=== PATIENT | female | born 1965 | race Caucasian/White ===

== ENCOUNTER 2019-10-09 10:21 | Outpatient (CLI) | payer MEDICARE, SELFPAY ==
--- NOTE | ~2019-10-09 | MR_ITS ---
EXAMINATION: MR lumbar spine wo con DATE: 10/09/2019 11:22 INDICATION: Lumbago. TECHNIQUE: Magnetic resonance imaging (MRI) of the lumbar spine was performed without intravenous con trast. Sequences included sagittal T2-weighted FSE, sagittal T2-weighted FS FSE, sagittal T1-weighted FSE, and axial T2-weighted FSE. COMPARISON: Lumbar spine MRI 09/30/2017, radiographs 02/17/2015 FINDINGS: Bone alignment is normal. There is mild chronic anterior wedging of T12 vertebral body. Int ervertebral disc heights are normal. The distal spinal cord signal intensity is normal. The conus med ullaris is at T12-L1. The following disc levels are specifically discussed: L1-L2: The disc does not extend beyond the endplate margin. There is mild left facet joint osteoarthr itis. There is no neural foraminal stenosis. There is no central canal stenosis. L2-L3: The disc does not extend beyond the endplate margin. There is no facet joint osteoarthritis. T here is no neural foraminal stenosis. There is no central canal stenosis. L3-L4: The disc does not extend beyond the endplate margin. There is mild bilateral facet joint osteo arthritis. There is no neural foraminal stenosis. There is no central canal stenosis. L4-L5: The disc does not extend beyond the endplate margin. There is mild bilateral facet joint osteo arthritis. There is no neural foraminal stenosis. There is no central canal stenosis. L5-S1: The disc does not extend beyond the endplate margin. There is mild bilateral facet joint osteo arthritis. There is no neural foraminal stenosis. There is no central canal stenosis. IMPRESSION: 1. Multilevel mild facet joint osteoarthritis. Reviewed, dictated and finalized at location A.
== END 2019-10-09 10:22 | disposition home or self-care (01) ==
PROVIDERS: Visit Provider Nurse Practitioner Family
DX: M54.5 Low back pain (principal); M85.88 Other specified disorders of bone density and structure, other site
CPT/HCPCS: 72148

== ENCOUNTER 2021-12-15 14:25 | Outpatient (CLI) | payer MEDICARE, MEDICAID, SELFPAY ==
--- NOTE | 2021-12-15 | ECG_ITS ---
Measurements Intervals Armstrong Rate: 96 P: 75 WY: 141 QRS: -1 QRSD: 82 T: 59 QT: 339 QTc: 429 Interpretive Statements SINUS RHYTHM NORMAL ECG Electronically Signed On 12-15-2021 15:39:37 CDT by Dev Verdin D.O.
[2021-12-15 15:53] LABS: Anion Gap 7 mmol/L (8-16); Blood Urea Nitrogen 10 mg/dL (7-17); Calcium 9.4 mg/dL (8.4-10.2); Carbon Dioxide 30 mmol/L (22-30); Chloride 100 mmol/L (98-107); Estimated Glomerular Filt Rate > 60; Glucose 224 mg/dL (65-110); Sodium 137 mmol/L (137-145)
== END 2021-12-15 14:26 | disposition home or self-care (01) ==
LOC: ANHLAB 14:31
PROVIDERS: Visit Provider Orthopaedic Surgery
DX: Z01.818 Encounter for other preprocedural examination (principal)
CPT/HCPCS: 36415; 80048; 93005

== ENCOUNTER 2023-03-28 15:31 | Outpatient (CLI) | payer MEDICARE, MEDICAID, SELFPAY ==
--- NOTE | ~2023-03-28 | MR_ITS ---
MRI of the cervical spine Clinical History: Cervicalgia Technique: Axial T2-weighted and gradient images, and sagittal T1-weighted, T2-weighted, and STIR ian ges were acquired. Findings: There is no fracture or subluxation of the cervical spine. Vertebral bodies maintain normal height and line. No bone marrow signal abnormality seen. There are minimal degenerative disc changes in the cervical spine, with minimal scattered facet joint arthropathy. There is minimal central disc protrusion at C5-C6. No miguel spinal canal stenosis or co rd compression evident. No definite neural foraminal narrowing seen. No abnormal signal seen in the spinal cord. Paravertebral soft tissues are unremarkable. Impression: Minimal degenerative change, as above. Reviewed, dictated and finalized at location M. Impression: Minimal degenerative change, as above.
== END 2023-03-28 15:32 | disposition home or self-care (01) ==
PROVIDERS: Visit Provider Nurse Practitioner Family
DX: M54.2 Cervicalgia (principal)
CPT/HCPCS: 72141

== ENCOUNTER 2024-08-01 11:59 | Emergency (ER) | payer MEDICARE, SELFPAY ==
[2024-08-01 12:16] VITALS: BP 105/64; PULSE 96; RESP 16; TEMP 36.6; O2SAT 98
--- NOTE | 2024-08-01 12:32 | ED_ITS ---
HPI - URI/Sore Throat General Chief Complaint: Upper Respiratory Infection Stated Complaint: COUGH/RUNNY NOSE/SORE THROAT Time Seen by Provider: 08/01/24 12:40 Source: patient, RN notes reviewed and old records reviewed Mode of arrival: ambulatory Limitations: no limitations History of Present Illness HPI Narrative: 59 year old female who presents to [facility] care with complaints of cough, sinus drainage and congestion, sore throat, headache for one week duration. Patient reports no ear aches or any fevers or any pain. Patient reports that she has been taking Robitussin cough medication and she does use daily inhalers as ordered MD elicited complaint: cough, sore throat, rhinorrhea, nasal congestion and other (headache) Onset (ago): week(s) (1) Severity: moderate Able to tolerate fluids by mouth: Yes Treatments prior to arrival: other (Robitussin cough medication) Related Data Home Medications ?Medication ?Instructions ?Recorded ?Confirmed ?Last Taken ?Type clonazepam 1 mg tablet (Klonopin) 1 mg PO QHS 05/11/21 08/01/24 Unknown History esomeprazole magnesium 40 mg 40 mg PO DAILY 05/11/21 08/01/24 Unknown History capsule,delayed release (Nexium) ramelteon 8 mg tablet 8 mg PO QHS 05/11/21 08/01/24 Unknown History trazodone 300 mg tablet 300 mg PO QHS 05/11/21 08/01/24 Unknown History atorvastatin 40 mg tablet (Lipitor) 40 mg PO DAILY 09/10/22 08/01/24 Unknown History ergocalciferol (vitamin D2) 1,250 1,250 mcg PO WEEKLY 09/10/22 08/01/24 Unknown History mcg (50,000 unit) capsule levothyroxine 125 mcg capsule 125 mcg PO DAILY 09/10/22 08/01/24 Unknown History midodrine 2.5 mg tablet 2.5 mg PO BID 09/10/22 08/01/24 Unknown History pimavanserin 34 mg capsule 34 mg PO DAILY 09/10/22 08/01/24 Unknown History (Nuplazid) ramelteon 8 mg tablet 8 mg PO QHS 09/10/22 08/01/24 Unknown History tiotropium bromide 1.25 2 puff inhalation DAILY 09/10/22 08/01/24 Unknown History mcg/actuation mist for inhalation (Spiriva Respimat) vortioxetine 10 mg tablet 10 mg PO DAILY 09/10/22 08/01/24 Unknown History (Trintellix) Allergies Allergy/AdvReac Type Severity Reaction Status Date / Time Penicillins Allergy Severe HIVES Verified 08/01/24 12:11 Sulfa (Sulfonamide Allergy Severe rash Verified 08/01/24 12:11 Antibiotics) tetracycline Allergy Severe RASH Verified 08/01/24 12:11 erythromycin base Allergy Unknown Unknown Verified 08/01/24 12:11 Review of Systems Review of Systems: CONSTITUTIONAL: Denies malaise, chills, sweats, or fever. EYES: Denies visual changes, redness, or discharge. ENT: Reports rhinorrhea, congestion, sinus pain, no otalgia and positive for sore throat. CARDIOVASCULAR: Denies chest pain, palpitations, or edema. RESPIRATORY: Reports cough.? Denies dyspnea. GASTROINTESTINAL: Denies abdominal pain, nausea, vomiting, diarrhea SKIN: Denies rash or itching. MUSCULOSKELETAL: Denies myalgia. NEUROLOGIC:Reports headache. All systems reviewed & are unremarkable except as noted in HPI and below PMFSH Past Medical History Medical History (Updated 08/03/24 @ 11:56 by Saray Loera NP) Insomnia Depression Pulmonary embolism DVT (deep venous thrombosis) Pancreatitis Hyperlipidemia Migraines, neuralgic Diabetes Asthma Anxiety Thyroid disorder GERD (gastroesophageal reflux disease) Surgical History Surgical History (Updated 08/03/24 @ 11:58 by Saray Loera NP) History of cholecystectomy History of tonsillectomy H/O cataract removal with insertion of prosthetic lens History of bowel resection H/O splenectomy History of carpal tunnel release H/O: hysterectomy Family History Family History (Updated 09/10/22 @ 10:45 by Becca Mathis CMA) Father Asthma Diabetes mellitus Mother Depression Asthma Diabetes mellitus Thyroid disorder Sibling Depression Other Depression Diabetes mellitus Social History Social History (Updated 09/10/22 @ 10:34 by Becca Mathis CMA) Smoking status: Never smoker Alcohol intake: never Substance use: never Substance use type: does not use Lack of Transportation: No Lack of Food: Never True Current Housing: I Have Housing Concerned About Future Housing: No Difficulty Paying Gas/Electric Bills: No Difficulty Paying for Meds: No Currently Unemployed: No Education: High School Diploma/GED Difficulty w/ Childcare or Family Care: No Comments At time of signature, agree with nursing past medical, surgical, social and family history. There is no relevant family history pertinent to the presenting complaint Exam Narrative: GENERAL:Chronic il-appearing, well-nourished, and in no acute distress. HEAD: Normocephalic EYES: PERRLA, conjunctivae clear ENT: Nares clear, turbinates edematous and erythematous, clear discharge. Mucous membranes moist. TM pearly abraham with dull light reflex bilaterally; no tragal tenderness. Oropharynx erythematous without lesions. Tonsils not present and throat without exudate, no drooling, no hoarseness, no trismus, uvula midline post nasal drainage. NECK: Supple. No lymphadenopathy CHEST: Clear to auscultation, breath sounds equal. No wheezing, rhonchi, rales, or stridor. No respiratory distress, speaks in full sentences.cough nonproductive noted SAO2 98% on room air HEART: Regular rate and rhythm. No murmur heard. SKIN: Warm, dry, no rash. NEURO: Alert and oriented x3. PSYCH: Normal mood and affect Course Course Emergency Course: Patient is aware of diagnosis, understands and agrees to treatment plan.? Anticipatory guidance given.? Patient agrees to follow-up as directed and is aware of reasons to seek care at the emergency department. Portions of this record may have been created with voice recognition software Level of Care: Express Care Visit Vital Signs Vital signs: Vital Signs Temperature 36.6 C 08/01/24 12:16 Pulse Rate 96 08/01/24 12:16 Respiratory Rate 16 08/01/24 12:16 Blood Pressure 105/64 08/01/24 12:16 Pulse Oximetry 98 08/01/24 12:16 Temperature 36.6 C 08/01/24 12:16 Pulse Rate 96 08/01/24 12:16 Respiratory Rate 16 08/01/24 12:16 Blood Pressure 105/64 08/01/24 12:16 Pulse Oximetry 98 08/01/24 12:16 Reviewed MDM - URI/Sore Throat MDM Narrative Medical decision making narrative: Differential diagnosis considered: Stanton virus, strep pharyngitis, allergic rhinitis, upper respiratory tract infection, sinusitis, rhinosinusitis, nasopharyngitis. viral pharyngitis, otitis media, otitis externa, pneumonia, bronchitis, viral cough syndrome, viral syndrome, and influenza.? Exam findings show no acute concerns or changes; patient is non-toxic appearing and is in no distress.? Patient is appropriate for outpatient treatment and follow-up. Differential Diagnosis Differential diagnosis: Likely upper respiratory infection, sinusitis, viral infection, influenza and other (COVID, cough) Medical Records Attestation: I reviewed the patient's medical records. Lab Data Attestation: I reviewed the patient's lab results. Lab results narrative: Influenza A negative, Influenza B negative, COVID antigen positive Critical Care Time Critical Care Time Critical Care Time: No Discharge Plan Discharge Clinical Impression: COVID-19 Patient Disposition: Home, Self-Care Condition: Stable Instructions: How to Recover from COVID-19 at Home (ED) Additional Instructions: Increase fluids especially juices and water [id number]-[id number] cough and cold medicine of your choice for your symptoms Zyrtec Claritin or Nabila daily use your inhalers as ordered Tylenol for any fever pain heat to the face 20-30 minutes 4-6 times a day for pain Salt water gargles, throat lozenges or throat sprays as desired monitor fevers every 4 hours you must quarantine from start of symptoms with body aches and headache starting 2 days ago, for 5 days COVID-19 DISCHARGE The following recommendations have been made by the CDC and local Health Departments, regarding COVID-19: Those individuals with mild cases of COVID-19 can generally be discontinued from isolation, 5 days AFTER the onset of symptoms AND the resolution of fever for 24hrs (without the use of fever-reducing medications) recommend masking for the first 5 days when you return tbeing around others. Those individuals who were asymptomatic, and tested positive, are discontinued from isolation 10 days AFTER their first positive COVID-19 test Those individuals with SEVERE to CRITICAL illness or immunocompromised diseases may require up to 20 days of home isolation or hospitalization Majority of mild to moderate cases can be treated at home, without hospitalization or prescription medications You do not need a negative test result to return to work/school, assuming the above recommendations have been met and you are not symptomatic. At this time, return to work/school notes will not be provided. Guidelines from the local Health Department, CDC, and workplace are expected to be followed. All individuals in the household need to remained quarantined for up to 14 days if asymptomatic OR 10 days after the start of symptoms. Everyone in the home DOES NOT require testing, they are presumed positive and should quarantine as directed. Treating symptoms for mild to moderate cases may include: Tylenol, Flonase/nasal spray, OTC cold/flu medications recommended from your provider or any necessary prescription medications provided at your visit or from your PCP IF YOU TESTED NEGATIVE If you are symptomatic with reason to believe you have COVID-19, there is a high possibility your rapid test may not have detected the virus. Rapid testing is dependent on timing and viral load and may have a false- negative reading You should follow appropriate guidelines regarding quarantine, hand washing, mask wearing, and social distancing You may be sent for PCR testing as an outpatient to the [facility] site Common Adult Symptoms: Fever/chills Cough Shortness of breath Fatigue, muscle aches Headache Loss of taste/smell Sore throat, congestion, runny nose GI symptoms (nausea, vomiting, diarrhea) Common Pediatric Symptoms Cough Fever GI symptoms (diarrhea, upset stomach, nausea, vomiting) Symptoms may differ in severity however, most cases do not require hospitalization. WHEN TO SEEK ER EVALUATION/TREATMENT Severe/persistent shortness of breath or difficulty breathing Elevated, persistent fevers without resolution with fever-reducing medications Chest pain Extreme fatigue/lethargy Complications of pre-existing disease Patient Language: South Korean Prescriptions: No Action trazodone 300 mg tablet 300 mg PO QHS ramelteon 8 mg tablet 8 mg PO QHS clonazepam [Klonopin] 1 mg tablet 1 mg PO QHS Rx Instructions: administer 30 minutes before bedtime esomeprazole magnesium [Nexium] 40 mg capsule,delayed release(DR/EC) 40 mg PO DAILY fluticasone propionate [Flonase Allergy Relief] 50 mcg/actuation spray,suspension 2 spray intranasal BID Qty: 16 3RF Rx Instructions: administer into each nostril levothyroxine 125 mcg capsule 125 mcg PO DAILY Nuplazid 34 mg capsule 34 mg PO DAILY ramelteon 8 mg tablet 8 mg PO QHS midodrine 2.5 mg tablet 2.5 mg PO BID Rx Instructions: do not give last dose of day after 6PM or within 4 hrs of bedtime atorvastatin [Lipitor] 40 mg tablet 40 mg PO DAILY ergocalciferol (vitamin D2) 1,250 mcg (50,000 unit) capsule 1,250 mcg PO WEEKLY Trintellix 10 mg tablet 10 mg PO DAILY Spiriva Respimat 1.25 mcg/actuation mist 2 puff inhalation DAILY mupirocin 2 % ointment 1 applic topical .COMPLEX Qty: 22 3RF Rx Instructions: Intranasal, 2-4 times per day for two weeks then at least 1-2 times per day Follow-up/Referrals: Carroll,Aruna [Other] Time of Disposition: 12:51 Quality [place] Coma Scale Eyes: Open Verbal: Oriented and Alert Motor: Follows Commands [place] Coma Total Score: 15
== END 2024-08-01 12:57 | disposition home or self-care (01) ==
PROVIDERS: Emergency Provider Registered Nurse
DX: U07.1 COVID-19 (principal); E78.5 Hyperlipidemia, unspecified; E11.9 Type 2 diabetes mellitus without complications; J45.909 Unspecified asthma, uncomplicated; K21.9 Gastro-esophageal reflux disease without esophagitis; F41.9 Anxiety disorder, unspecified; F32.A Depression, unspecified; Z86.718 Personal history of other venous thrombosis and embolism; Z86.711 Personal history of pulmonary embolism
CPT/HCPCS: 87635; 87804; 99212; G0463

== ENCOUNTER 2024-09-03 10:13 | Emergency (ER) | payer MEDICARE, SELFPAY ==
--- NOTE | ~2024-09-03 | XR_ITS ---
EXAMINATION: XR chest 2V 09/03/2024 10:37 INDICATION: Cough for 3 weeks. History of asthma. Shortness of breath. PROCEDURE: 2 view chest COMPARISON: No prior studies for comparison. FINDINGS: The lungs are clear. The cardiomediastinal silhouette is within normal limits. There are no pleural effusions. There is no pneumothorax suspected. There are postsurgical changes of the abd omen. IMPRESSION: 1: NO ACUTE CARDIOPULMONARY DISEASE. Reviewed, dictated and finalized at location A.
--- NOTE | 2024-09-03 10:14 | ED_ITS ---
HPI - URI/Sore Throat General Chief Complaint: Upper Respiratory Infection Stated Complaint: ASTHMA Time Seen by Provider: 09/03/24 10:13 Source: patient Mode of arrival: ambulatory Limitations: no limitations History of Present Illness HPI Narrative: Margarita is a 59-year-old female patient presenting to the clinic today with complaints cough and chest congestion x3 weeks. She reports she had COVID 3 weeks ago and has had a cough and congestion ever since. Does note that she has got drainage running in the back of her throat. Denies any known fevers or chills. Does endorse some body aches. Nonproductive cough and some shortness of breath. Denies any sinus pressure. Coughing is causing her to vomit. Did an at home COVID and flu test on Saturday and they were negative. Does see pulmonology at [facility]-they recommended she come in to be seen in the urgent care. Has an appointment with pulmonology this afternoon. Related Data Home Medications ?Medication ?Instructions ?Recorded ?Confirmed ?Last Taken ?Type clonazepam 1 mg tablet (Klonopin) 1 mg PO QHS 05/11/21 08/01/24 Unknown History esomeprazole magnesium 40 mg 40 mg PO DAILY 05/11/21 08/01/24 Unknown History capsule,delayed release (Nexium) ramelteon 8 mg tablet 8 mg PO QHS 05/11/21 08/01/24 Unknown History trazodone 300 mg tablet 300 mg PO QHS 05/11/21 08/01/24 Unknown History atorvastatin 40 mg tablet (Lipitor) 40 mg PO DAILY 09/10/22 08/01/24 Unknown History ergocalciferol (vitamin D2) 1,250 1,250 mcg PO WEEKLY 09/10/22 08/01/24 Unknown History mcg (50,000 unit) capsule levothyroxine 125 mcg capsule 125 mcg PO DAILY 09/10/22 08/01/24 Unknown History midodrine 2.5 mg tablet 2.5 mg PO BID 09/10/22 08/01/24 Unknown History pimavanserin 34 mg capsule 34 mg PO DAILY 09/10/22 08/01/24 Unknown History (Nuplazid) ramelteon 8 mg tablet 8 mg PO QHS 09/10/22 08/01/24 Unknown History tiotropium bromide 1.25 2 puff inhalation DAILY 09/10/22 08/01/24 Unknown History mcg/actuation mist for inhalation (Spiriva Respimat) vortioxetine 10 mg tablet 10 mg PO DAILY 09/10/22 08/01/24 Unknown History (Trintellix) Allergies Allergy/AdvReac Type Severity Reaction Status Date / Time Penicillins Allergy Severe HIVES Verified 09/03/24 10:30 Sulfa (Sulfonamide Allergy Severe rash Verified 09/03/24 10:30 Antibiotics) tetracycline Allergy Severe RASH Verified 09/03/24 10:30 erythromycin base Allergy Unknown Unknown Verified 09/03/24 10:30 Review of Systems Review of Systems: Pertinent positives per HPI. Patient denies any fever, chills, rash, headache, visual changes, dizziness, chest pain, palpitations, nausea, vomiting, diarrhea, constipation, abdominal pain, or any urinary issues. [facility] Past Medical History Medical History Insomnia Depression Pulmonary embolism DVT (deep venous thrombosis) Pancreatitis Hyperlipidemia Migraines, neuralgic Diabetes Asthma Anxiety Thyroid disorder GERD (gastroesophageal reflux disease) Surgical History Surgical History History of cholecystectomy History of tonsillectomy H/O cataract removal with insertion of prosthetic lens History of bowel resection H/O splenectomy History of carpal tunnel release H/O: hysterectomy Family History Family History Father Asthma Diabetes mellitus Mother Depression Asthma Diabetes mellitus Thyroid disorder Sibling Depression Other Depression Diabetes mellitus Social History Social History Smoking status: Never smoker Alcohol intake: never Substance use: never Substance use type: does not use Lack of Transportation: No Lack of Food: Never True Current Housing: I Have Housing Concerned About Future Housing: No Difficulty Paying Gas/Electric Bills: No Difficulty Paying for Meds: No Currently Unemployed: No Education: High School Diploma/GED Difficulty w/ Childcare or Family Care: No Comments At the time of my signature, I reviewed and agree with the nursing past medical, surgical, social, and family history. There is no relevant family history pertinent to the patient complaint. Exam Narrative: General: Well-developed, thin, in no apparent distress Head: Normocephalic, atraumatic Eyes: Pupils equally round and reactive to light bilaterally, EOM intact, sclera and conjunctive clear, no discharge, lids normal Ears: TMs intact and clear, ear canals clear, no drainage, grossly hearing normal. Nose: Nares patent, clear discharge, mild inflammation, no sinus tenderness. Mouth: Oral pharynx without lesions or masses, good dentition, MMM. Postnasal drip Neck: Supple, trachea midline, no enlargement of anterior or posterior cervical nodes, no thyroid masses or goiter palpable. Cardio: Regular rate and rhythm, s1 and s2 normal, no murmur appreciated. Resp: Diminished breath sounds, no rhonchi, rales, wheezing or rubs Course Course Emergency Course: Portions of this record may have been created with voice recognition software. Level of Care: Express Care Visit Vital Signs Vital signs: Vital Signs Temperature 36.4 C L 09/03/24 10:23 Pulse Rate 121 H 09/03/24 10:23 Respiratory Rate 16 09/03/24 10:23 Blood Pressure 142/86 H 09/03/24 10:23 Pulse Oximetry 97 09/03/24 10:23 Temperature 36.4 C L 09/03/24 10:23 Pulse Rate 121 H 09/03/24 10:23 Respiratory Rate 16 09/03/24 10:23 Blood Pressure 142/86 H 09/03/24 10:23 Pulse Oximetry 97 09/03/24 10:23 Oxygen Delivery Room Air 09/03/24 10:24 Vital signs reviewed MDM - URI/Sore Throat MDM Narrative Medical decision making narrative: At the time of visit patient is resting comfortably on the exam table. Patient appears to be nontoxic. Diagnostics: Chest x-ray was performed and negative for any acute c ardiopulmonary process Patient reported that her blood sugar went down to 70 on her dexcom in the clinic. She took her 18 units of Lantus last night and took 10 units of Humalog this morning and has not eaten. Stated her sugar was 350 this morning prior to taking the Humalog. Two mini gerard muffins and an orange was given to the patient. After eating this her blood sugar remains 70-ehsan crackers and peanut butter and tea with honey was given. This brought her blood sugar up to 94. Plan: I suspect patient has asthma exacerbation/postnasal drip/hypoglycemia. Patient's blood sugar came up to 94 and she was discharged and the son is taking her to eat. Prescription for prednisone and albuterol inhaler was sent to the pharmacy. Supportive measures were discussed with the patient and they voiced understanding discharge instructions and agrees to treatment plan. Return precautions reviewed Differential Diagnosis Differential diagnosis: Likely upper respiratory infection, otitis media, sinusitis, viral infection, bronchitis, influenza, pharyngitis and other (COVID) Lab Data Labs: Lab Results 09/03/24 Range/Units 11:20 POC Capillary Glucose 70 (65-105) mg/dl Imaging Data Radiologist's impression: ITS Impressions Chest X-Ray 09/03/24 10:38 IMPRESSION: 1: NO ACUTE CARDIOPULMONARY DISEASE. Discharge Plan Discharge Clinical Impression: PND (post-nasal drip), Hypoglycemia Asthma exacerbation Qualifiers: Asthma severity: unspecified severity Asthma persistence: unspecified Qualified Code(s): J45.901 - Unspecified asthma with (acute) exacerbation Patient Disposition: Home, Self-Care Condition: Stable Instructions: Antibiotic Form, Asthma (ED), Hypoglycemia in a Person with Diabetes (ED), Postnasal Drip (DC) Additional Instructions: Blood sugar was 94 at the time of discharge. Chest x-rays negative for any acute cardiopulmonary process. Take prescription medications only as prescribed-prednisone and albuterol inhaler Keep a tight control on your blood sugar while URI taking the prednisone. Increase fluids and stay well hydrated Tylenol/motrin for pain/fever Flonase and OTC antihistamines as directed Go to the ED if you develop a worsening in your condition- high fever not controlled by Tylenol or Motrin, dehydration, weakness, lethargy, shortness of breath, or chest pain. Follow up with your PCP in 3-5 days if symptoms persist. Patient Language: Bulgarian Prescriptions: New prednisone 50 mg tablet 50 mg PO DAILY 5 Days Qty: 5 0RF albuterol sulfate 90 mcg/actuation HFA aerosol inhaler 2 puff inhalation Q4-6H PRN (Reason: shortness of breath or wheezing) 30 Days Qty: 8.5 0RF No Action trazodone 300 mg tablet 300 mg PO QHS ramelteon 8 mg tablet 8 mg PO QHS clonazepam [Klonopin] 1 mg tablet 1 mg PO QHS Rx Instructions: administer 30 minutes before bedtime esomeprazole magnesium [Nexium] 40 mg capsule,delayed release(DR/EC) 40 mg PO DAILY fluticasone propionate [Flonase Allergy Relief] 50 mcg/actuation spray,suspen chilango 2 spray intranasal BID Qty: 16 3RF Rx Instructions: administer into each nostril levothyroxine 125 mcg capsule 125 mcg PO DAILY Nuplazid 34 mg capsule 34 mg PO DAILY ramelteon 8 mg tablet 8 mg PO QHS midodrine 2.5 mg tablet 2.5 mg PO BID Rx Instructions: do not give last dose of day after 6PM or within 4 hrs of bedtime atorvastatin [Lipitor] 40 mg tablet 40 mg PO DAILY ergocalciferol (vitamin D2) 1,250 mcg (50,000 unit) capsule 1,250 mcg PO WEEKLY Trintellix 10 mg tablet 10 mg PO DAILY Spiriva Respimat 1.25 mcg/actuation mist 2 puff inhalation DAILY mupirocin 2 % ointment 1 applic topical .COMPLEX Qty: 22 3RF Rx Instructions: Intranasal, 2-4 times per day for two weeks then at least 1-2 times per day Follow-up/Referrals: Carroll,Aruna [Other] Time of Disposition: 10:45 Quality NIHSS Nursing Documentation ED NIHSS nursing documentation: reviewed/agree
[2024-09-03 10:23] VITALS: BP 142/86; PULSE 121; RESP 16; TEMP 36.4; O2SAT 97
--- NOTE | 2024-09-03 10:44 | PC.NURSE ---
PT REPORTS HER DEXCOM IS ALERTING AT 70, SHE DID NOT EAT BREAKFAST THIS MORNING BECAUSE SHE WAS COUGHING THIS MORNING. STATES SHE TOOK 10 UNITS OF HUMALOG THIS MORNING WHEN SHE WOKE DUE TO HER BS OF 350, SHE TOOK HER LANTUS OF 18 UNITS LAST NIGHT. 2 CHOCOLATE CHIP MUFFINS WERE PROVIDED AT THIS TIME. WILL CONTINUE TO MONITOR.
--- NOTE | 2024-09-03 10:52 | PC.NURSE ---
ORANGE WAS PROVIDED WELL
--- NOTE | 2024-09-03 11:00 | PC.NURSE ---
SHAHLA CRACKERS AND PEANUT BUTTER PROVIDED, SHE REPORTS HE [email or web address] IS STILL READING 70. PT IS A&OX4.
--- NOTE | 2024-09-03 11:05 | PC.NURSE ---
PANA[employer] ICE PROVIDED. SON DID TRANSPORT PT, HE IS AWARE OF PLAN OF CARE AND AT BEDSIDE AT THIS TIME.
[2024-09-03 11:23] LABS: Glucose Point of Care 70 mg/dl (65-105)
--- NOTE | 2024-09-03 11:33 | PC.NURSE ---
warm tea with honey provided. a&ox4. son at bedside. pt reports dexcom is 76 will continue to monitor.
--- NOTE | 2024-09-03 11:38 | PC.NURSE ---
TEA WITH HONEY WAS PROVIDED. DEXCOM 94 AT THIS TIME. PT REPORTS SHE FEELS FINE AT THIS TIME, A&OX4, SON REPORTS HE IS TAKING HER TO EAT. MILK PICKUP DRIVER IS AWARE.
[2024-09-03 11:45] VITALS: BP 138/88; PULSE 100; RESP 18; O2SAT 98
== END 2024-09-03 11:45 | disposition home or self-care (01) ==
PROVIDERS: Emergency Provider Nurse Practitioner Family
DX: R09.82 Postnasal drip (principal); E11.649 Type 2 diabetes mellitus with hypoglycemia without coma; J45.901 Unspecified asthma with (acute) exacerbation; E78.5 Hyperlipidemia, unspecified; K21.9 Gastro-esophageal reflux disease without esophagitis; Z86.718 Personal history of other venous thrombosis and embolism; Z86.711 Personal history of pulmonary embolism; F41.9 Anxiety disorder, unspecified; F32.A Depression, unspecified; Z96.1 Presence of intraocular lens; Z98.49 Cataract extraction status, unspecified eye
CPT/HCPCS: 71046; 82948; 99213; G0463

== ENCOUNTER 2024-11-21 09:18 | Emergency (ER) | payer MEDICARE, SELFPAY ==
[2024-11-21 09:38] VITALS: BP 77/35; PULSE 75; RESP 16; TEMP 36.8; O2SAT 95
--- NOTE | 2024-11-21 09:58 | ED.URI ---
HPI - URI/Sore Throat General Chief Complaint: Upper Respiratory Infection Stated Complaint: COUGH/HAND CRAMPS Time Seen by Provider: 11/21/24 09:25 Source: patient Mode of arrival: ambulatory Limitations: no limitations History of Present Illness HPI Narrative: 59 yo F with hx of asthma presents today with c/o cough. Denies fever. Has been taking robitussin DM at home. Using inhalers and nebs. All systems reviewed and negative except as noted above. Related Data Home Medications ?Medication ?Instructions ?Recorded ?Confirmed ?Last Taken ?Type clonazepam 1 mg tablet (Klonopin) 1 mg PO QHS 05/11/21 08/01/24 Unknown History esomeprazole magnesium 40 mg 40 mg PO DAILY 05/11/21 08/01/24 Unknown History capsule,delayed release (Nexium) ramelteon 8 mg tablet 8 mg PO QHS 05/11/21 08/01/24 Unknown History trazodone 300 mg tablet 300 mg PO QHS 05/11/21 08/01/24 Unknown History atorvastatin 40 mg tablet (Lipitor) 40 mg PO DAILY 09/10/22 08/01/24 Unknown History ergocalciferol (vitamin D2) 1,250 1,250 mcg PO WEEKLY 09/10/22 08/01/24 Unknown History mcg (50,000 unit) capsule levothyroxine 125 mcg capsule 125 mcg PO DAILY 09/10/22 08/01/24 Unknown History midodrine 2.5 mg tablet 2.5 mg PO BID 09/10/22 08/01/24 Unknown History pimavanserin 34 mg capsule 34 mg PO DAILY 09/10/22 08/01/24 Unknown History (Nuplazid) ramelteon 8 mg tablet 8 mg PO QHS 09/10/22 08/01/24 Unknown History tiotropium bromide 1.25 2 puff inhalation DAILY 09/10/22 08/01/24 Unknown History mcg/actuation mist for inhalation (Spiriva Respimat) vortioxetine 10 mg tablet 10 mg PO DAILY 09/10/22 08/01/24 Unknown History (Trintellix) Allergies Allergy/AdvReac Type Severity Reaction Status Date / Time Penicillins Allergy Severe HIVES Verified 11/21/24 09:35 Sulfa (Sulfonamide Allergy Severe rash Verified 11/21/24 09:35 Antibiotics) tetracycline Allergy Severe RASH Verified 11/21/24 09:35 erythromycin base Allergy Unknown Unknown Verified 11/21/24 09:35 Review of Systems Review of Systems: CONSTITUTIONAL: Denies fever, chills, or sweats. Reports fatigue. EYES: Denies visual changes, redness, or discharge. ENT: Denies rhinorrhea, congestion, sore throat, or otalgia. CARDIOVASCULAR: Denies chest pain, palpitations, or edema. RESPIRATORY: Reports cough. Denies dyspnea. GASTROINTESTINAL: Denies abdominal pain, nausea, vomiting, or diarrhea. GENITOURINARY: Denies dysuria or hematuria. SKIN: Denies rash or itching. MUSCULOSKELETAL: Denies back pain, joint pain, or myalgia. NEUROLOGIC: Denies headache, numbness, or weakness. PSYCHIATRIC: Denies anxiety or depression. All other systems reviewed are negative, except as documented in HPI. [facility] Past Medical History Medical History Insomnia Depression Pulmonary embolism DVT (deep venous thrombosis) Pancreatitis Hyperlipidemia Migraines, neuralgic Diabetes Asthma Anxiety Thyroid disorder GERD (gastroesophageal reflux disease) Surgical History Surgical History History of cholecystectomy History of tonsillectomy H/O cataract removal with insertion of prosthetic lens History of bowel resection H/O splenectomy History of carpal tunnel release H/O: hysterectomy Family History Family History Father Asthma Diabetes mellitus Mother Depression Asthma Diabetes mellitus Thyroid disorder Sibling Depression Other Depression Diabetes mellitus Social History Social History Smoking status: Never smoker Alcohol intake: never Substance use: never Substance use type: does not use Lack of Transportation: No Lack of Food: Never True Current Housing: I Have Housing Concerned About Future Housing: No Difficulty Paying Gas/Electric Bills: No Difficulty Paying for Meds: No Currently Unemployed: No Education: High School Diploma/GED Difficulty w/ Childcare or Family Care: No Comments At time of signature, agree with nursing past medical, surgical, social and family history. There is no relevant family history pertinent to the presenting complaint. Exam Narrative: GENERAL: Patient is pale, falling asleep and triage chair HEAD: normocephalic, atraumatic. EYES: PERRL. Sclera clear/white. Vision is grossly intact. EARS: External ears normal NOSE: External nose normal NECK: Neck supple, non-tender without lymphadenopathy, masses or thyromegaly. CARDIOVASCULAR: Regular rate and rhythm without murmurs, gallops, or rubs. RESPIRATORY: Clear to auscultation. Breath sounds equal bilaterally. No wheezes, rales, or rhonchi. SKIN: warm, Dry, intact with no suspicious lesions or rash, good texture and turgor. NEURO: awake, alert, and oriented to person, place and time. There were no obvious focal neurologic abnormalities. EXTREMITIES: No joint tenderness, effusion, or edema noted. Course Course Level of Care: Express Care Visit Vital Signs Vital signs: Vital Signs Temperature 36.8 C 11/21/24 09:38 Pulse Rate 75 11/21/24 09:38 Respiratory Rate 16 11/21/24 09:38 Blood Pressure 77/35 L 11/21/24 09:38 Pulse Oximetry 95 11/21/24 09:38 Temperature 36.8 C 11/21/24 09:38 Pulse Rate 75 11/21/24 09:38 Respiratory Rate 16 11/21/24 09:38 Blood Pressure 77/35 L 11/21/24 09:38 Pulse Oximetry 95 11/21/24 09:38 Reviewed MDM - URI/Sore Throat MDM Narrative Medical decision making narrative: Patient hypotensive. Falling asleep and triaged here. No respiratory distress. BP 77/35 on monitor. Myself and RN unable to obtain manual blood pressure, unable to hear. Recommend patient transfer to ER for further evaluation of cough and hypotension. Patient refused. Risks discussed. Left with her son. Differential Diagnosis Differential diagnosis: Likely upper respiratory infection, viral infection, influenza and other (Pneumonia, sepsis) Discharge Plan Discharge Clinical Impression: Acute hypotension, Cough Patient Disposition: Left Against Medical Advice Condition: Stable Patient Language: Persian Prescriptions: No Action prednisone 50 mg tablet 50 mg PO DAILY 5 Days Qty: 5 0RF albuterol sulfate 90 mcg/actuation HFA aerosol inhaler 2 puff inhalation Q4-6H PRN (Reason: shortness of breath or wheezing) 30 Days Qty: 8.5 0RF trazodone 300 mg tablet 300 mg PO QHS ramelteon 8 mg tablet 8 mg PO QHS clonazepam [Klonopin] 1 mg tablet 1 mg PO QHS Rx Instructions: administer 30 minutes before bedtime esomeprazole magnesium [Nexium] 40 mg capsule,delayed release(DR/EC) 40 mg PO DAILY fluticasone propionate [Flonase Allergy Relief] 50 mcg/actuation spray,suspension 2 spray intranasal BID Qty: 16 3RF Rx Instructions: administer into each nostril levothyroxine 125 mcg capsule 125 mcg PO DAILY Nuplazid 34 mg capsule 34 mg PO DAILY ramelteon 8 mg tablet 8 mg PO QHS midodrine 2.5 mg tablet 2.5 mg PO BID Rx Instructions: do not give last dose of day after 6PM or within 4 hrs of bedtime atorvastatin [Lipitor] 40 mg tablet 40 mg PO DAILY ergocalciferol (vitamin D2) 1,250 mcg (50,000 unit) capsule 1,250 mcg PO WEEKLY Trintellix 10 mg tablet 10 mg PO DAILY Spiriva Respimat 1.25 mcg/actuation mist 2 puff inhalation DAILY mupirocin 2 % ointment 1 applic topical .COMPLEX Qty: 22 3RF Rx Instructions: Intranasal, 2-4 times per day for two weeks then at least 1-2 times per day Follow-up/Referrals: Glen,Aruna [Other] Time of Disposition: 09:45
== END 2024-11-21 09:38 | disposition left against medical advice (07) ==
PROVIDERS: Emergency Provider Nurse Practitioner Family
DX: I95.9 Hypotension, unspecified (principal); R05.9 Cough, unspecified; E11.9 Type 2 diabetes mellitus without complications; J45.909 Unspecified asthma, uncomplicated; K21.9 Gastro-esophageal reflux disease without esophagitis; E78.5 Hyperlipidemia, unspecified; Z86.711 Personal history of pulmonary embolism; Z86.718 Personal history of other venous thrombosis and embolism; F41.9 Anxiety disorder, unspecified; F32.A Depression, unspecified
CPT/HCPCS: 99211; G0463

== ENCOUNTER 2024-11-26 13:34 | Emergency (ER) | payer MEDICARE, SELFPAY ==
--- NOTE | ~2024-11-26 | XR_ITS ---
XR chest 2V Ordering provider: Alli Gama APRN History: 59 years Female with . cough, wheezing, body aches for 1 week . Comparison: September 03, 2024 FINDINGS: MEDIASTINUM: The cardiac silhouette is not enlarged. LUNGS: No infiltrates, effusions or pneumothorax. OTHER: No free air under the diaphragm. IMPRESSION: No acute cardiopulmonary pathology. Reviewed, dictated and finalized at location A.
[2024-11-26 13:44] VITALS: BP 140/79; PULSE 91; RESP 16; TEMP 36.8; O2SAT 97
[2024-11-26] MEDS: IPRATROPIUM 0.5 MG/ALBUTEROL SULFATE 2.5 MG AMPUL.NEB 3 ML INHALATION (14:16)
--- NOTE | 2024-11-26 14:21 | ED.URI ---
HPI - URI/Sore Throat General Chief Complaint: Upper Respiratory Infection Stated Complaint: bad cough, wheezing for a week Source: patient and RN notes reviewed Mode of arrival: ambulatory Limitations: no limitations History of Present Illness HPI Narrative: 59-year-old female presents Express Care complaining of cough, wheezing, congestion, sinus pressure for approximately 1 week. Patient said she saw her africana studies professor gave her course of steroids for symptoms. Patient finished her treatment yesterday. Patient states she continues to have a worsening cough, congestion and reports feeling wheezy. Patient denies any chest pain, shortness of breath, hemoptysis, runny nose, sore throat, ear pain, nausea or vomiting. Patient reports having diarrhea today. Patient denies any black or tarry stools. Patient denies any fevers, body aches, chills. Patient has been using inhalers as directed with some relief. Patient last used her inhaler this morning. Patient has not taken anything else [id number] help with symptoms. Patient is a nonsmoker and, has a history of asthma. Related Data Home Medications ?Medication ?Instructions ?Recorded ?Confirmed ?Last Taken ?Type clonazepam 1 mg tablet (Klonopin) 1 mg PO QHS 05/11/21 08/01/24 Unknown History esomeprazole magnesium 40 mg 40 mg PO DAILY 05/11/21 08/01/24 Unknown History capsule,delayed release (Nexium) ramelteon 8 mg tablet 8 mg PO QHS 05/11/21 08/01/24 Unknown History trazodone 300 mg tablet 300 mg PO QHS 05/11/21 08/01/24 Unknown History atorvastatin 40 mg tablet (Lipitor) 40 mg PO DAILY 09/10/22 08/01/24 Unknown History ergocalciferol (vitamin D2) 1,250 1,250 mcg PO WEEKLY 09/10/22 08/01/24 Unknown History mcg (50,000 unit) capsule levothyroxine 125 mcg capsule 125 mcg PO DAILY 09/10/22 08/01/24 Unknown History midodrine 2.5 mg tablet 2.5 mg PO BID 09/10/22 08/01/24 Unknown History pimavanserin 34 mg capsule 34 mg PO DAILY 09/10/22 08/01/24 Unknown History (Nuplazid) ramelteon 8 mg tablet 8 mg PO QHS 09/10/22 08/01/24 Unknown History tiotropium bromide 1.25 2 puff inhalation DAILY 09/10/22 08/01/24 Unknown History mcg/actuation mist for inhalation (Spiriva Respimat) vortioxetine 10 mg tablet 10 mg PO DAILY 09/10/22 08/01/24 Unknown History (Trintellix) Allergies Allergy/AdvReac Type Severity Reaction Status Date / Time Penicillins Allergy Severe HIVES Verified 11/26/24 13:49 Sulfa (Sulfonamide Allergy Severe rash Verified 11/26/24 13:49 Antibiotics) tetracycline Allergy Severe RASH Verified 11/26/24 13:49 erythromycin base Allergy Unknown Unknown Verified 11/26/24 13:49 clindamycin AdvReac Intermediate Chest Pain Verified 11/26/24 13:49 Review of Systems Review of Systems: CONSTITUTIONAL: Denies fever, chills, or sweats. EYES: Denies visual changes, redness, or discharge. ENT: Denies rhinorrhea, congestion, sore throat, or otalgia. CARDIOVASCULAR: Denies chest pain, palpitations, syncope, dizziness, lightheadedness or edema. RESPIRATORY: Positive for cough and wheezing. Negative for dyspnea, orthopnea, or hemoptysis. GASTROINTESTINAL: Denies abdominal pain, nausea, vomiting, or diarrhea. GENITOURINARY: Denies dysuria or hematuria. SKIN: Denies rash or itching. MUSCULOSKELETAL: Denies back pain, joint pain, or myalgia. NEUROLOGIC: Denies headache, numbness, or weakness. PSYCHIATRIC: Denies anxiety or depression. All other systems reviewed are negative, except as documented in HPI. [facility] Past Medical History Medical History Insomnia Depression Pulmonary embolism DVT (deep venous thrombosis) Pancreatitis Hyperlipidemia Migraines, neuralgic Diabetes Asthma Anxiety Thyroid disorder GERD (gastroesophageal reflux disease) Surgical History Surgical History History of cholecystectomy History of tonsillectomy H/O cataract removal with insertion of prosthetic lens History of bowel resection H/O splenectomy History of carpal tunnel release H/O: hysterectomy Family History Family History Father Asthma Diabetes mellitus Mother Depression Asthma Diabetes mellitus Thyroid disorder Sibling Depression Other Depression Diabetes mellitus Social History Social History Smoking status: Never smoker Alcohol intake: never Substance use: never Substance use type: does not use Lack of Transportation: No Lack of Food: Never True Current Housing: I Have Housing Concerned About Future Housing: No Difficulty Paying Gas/Electric Bills: No Difficulty Paying for Meds: No Currently Unemployed: No Education: High School Diploma/GED Difficulty w/ Childcare or Family Care: No Comments At the time of my signature, I reviewed and agree with the nursing past medical, surgical, social, and family history. There is no relevant family history pertinent to the patient complaint. Exam Narrative: GENERAL: This is a well-nourished, well-developed adult, in no apparent distress. They are non ill-appearing, nontoxic appearing. HEAD: normocephalic, atraumatic. EYES: Sclera clear/white. Conjunctiva normal. Vision is grossly intact. Extraocular movements intact EARS: External ears normal, auditory canals clear and without drainage, TMs normal without perforation. Hearing grossly intact. NOSE: External nose normal with no obvious nasal discharge, nasal turbinates erythematous with exudate present, no rhinorrhea. Maxillary Sinus tenderness to palpation. THROAT: Mucous membranes moist, posterior pharynx without redness or swelling. Uvula midline. Postnasal drip present. NECK: Neck supple, non-tender without lymphadenopathy, masses or thyromegaly. CARDIOVASCULAR: Regular rate and rhythm without murmurs, gallops, or rubs. RESPIRATORY: Expiratory wheezes heard throughout. Breath sounds equal bilaterally. No rales, or rhonchi. Respiratory rate normal, respiratory effort nonlabored, no respiratory distress, no accessory muscle use, no retractions. Patient is able to talk in full sentences. SKIN: warm, Dry, intact with no suspicious lesions or rash, good texture and turgor. NEURO: awake, alert, and oriented to person, place and time. There were no obvious focal neurologic abnormalities. EXTREMITIES: No joint tenderness, effusion, or edema noted. BACK: Nontender without deformity. Course Course Emergency Course: Patient given duo nebulizer treatment. Repeat auscultation shows improved aeration with end expiratory wheezes. Patient reports feeling remarkably better. Patient is in no respiratory distress. Level of Care: Express Care Visit Vital Signs Vital signs: Vital Signs Temperature 98.3 F 11/26/24 13:44 Pulse Rate 91 11/26/24 13:44 Respiratory Rate 16 11/26/24 13:44 Blood Pressure 140/79 11/26/24 13:44 Pulse Oximetry 97 11/26/24 13:44 Oxygen Delivery Room Air 11/26/24 13:44 Temperature 98.3 F 11/26/24 13:44 Pulse Rate 91 11/26/24 13:44 Respiratory Rate 16 11/26/24 13:44 Blood Pressure 140/79 11/26/24 13:44 Pulse Oximetry 97 11/26/24 13:44 Oxygen Delivery Room Air 11/26/24 13:44 Reviewed MDM - URI/Sore Throat MDM Narrative Medical decision making narrative: Chest x-ray showed no evidence of pneumonia or acute findings. Patient given a course of DuoNeb for wheezing and reports feeling remarkably better. Patient is in no apparent distress. Given patient's length of symptoms it is likely she has a bacterial sinusitis which may be exacerbating her asthma symptoms. Will treat empirically with levofloxacin. Patient has multiple drug allergies there for levofloxacin was selected, the patient has had prior therapy with no issues in the past she states. Discussed physical exam findings. Advised supportive measures and signs/symptoms to go to the ER. Pt is appropriate for outpt treatment and f/u. Differential Diagnosis Differential diagnosis: Likely upper respiratory infection, sinusitis, bronchitis and other (Asthma exacerbation, pneumonia) Critical Care Time Critical Care Time Critical Care Time: No Discharge Plan Discharge Clinical Impression: Asthma Qualifiers: Asthma severity: mild Asthma persistence: intermittent Asthma complication type: with acute exacerbation Qualified Code(s): J45.21 - Mild intermittent asthma with (acute) exacerbation Sinusitis Qualifiers: Sinusitis location: unspecified location Chronicity: acute Recurrence: non-recurrent Qualified Code(s): J01.90 - Acute sinusitis, unspecified Patient Disposition: Home Condition: Stable Instructions: Antibiotic Form, Sinusitis (ED) Additional Instructions: Take the antibiotics as directed and complete the course even if you start to feel better. You may use a Neti pot saline rinse 3 times a day with lukewarm distilled water Continue to take Tylenol or Motrin for pain. Use your inhalers as directed and as needed for shortness of breath or wheezing. Use a humidifier or vaporizer at night. Drink plenty of water. 8-10 glasses per day. Use flonase 2 times per day for 5 days then as needed Take mucinex 2 times per day and be sure to take with 8oz of water. Follow up with Primary provider in 3-5 days Please go to the ER if he develops any difficulty breathing, worsening symptoms, or any other concerns Patient Language: Central African Prescriptions: New levofloxacin 750 mg tablet 750 mg PO DAILY 5 Days Qty: 5 0RF No Action albuterol sulfate 90 mcg/actuation HFA aerosol inhaler 2 puff inhalation Q4-6H PRN (Reason: shortness of breath or wheezing) 30 Days Qty: 8.5 0RF trazodone 300 mg tablet 300 mg PO QHS ramelteon 8 mg tablet 8 mg PO QHS clonazepam [Klonopin] 1 mg tablet 1 mg PO QHS Rx Instructions: administer 30 minutes before bedtime esomeprazole magnesium [Nexium] 40 mg capsule,delayed release(DR/EC) 40 mg PO DAILY fluticasone propionate [Flonase Allergy Relief] 50 mcg/actuation spray,suspension 2 spray intranasal BID Qty: 16 3RF Rx Instructions: administer into each nostril levothyroxine 125 mcg capsule 125 mcg PO DAILY Nuplazid 34 mg capsule 34 mg PO DAILY ramelteon 8 mg tablet 8 mg PO QHS midodrine 2.5 mg tablet 2.5 mg PO BID Rx Instructions: do not give last dose of day after 6PM or within 4 hrs of bedtime atorvastatin [Lipitor] 40 mg tablet 40 mg PO DAILY ergocalciferol (vitamin D2) 1,250 mcg (50,000 unit) capsule 1,250 mcg PO WEEKLY Trintellix 10 mg tablet 10 mg PO DAILY Spiriva Respimat 1.25 mcg/actuation mist 2 puff inhalation DAILY mupirocin 2 % ointment 1 applic topical .COMPLEX Qty: 22 3RF Rx Instructions: Intranasal, 2-4 times per day for two weeks then at least 1-2 times per day Follow-up/Referrals: PHYSICIAN NOT ON STAFF,NONSTAFF [Primary Care Provider] - Time of Disposition: 14:52
== END 2024-11-26 15:05 | disposition home or self-care (01) ==
DX: J45.21 Mild intermittent asthma with (acute) exacerbation (principal); J01.90 Acute sinusitis, unspecified; E11.9 Type 2 diabetes mellitus without complications; K21.9 Gastro-esophageal reflux disease without esophagitis; E78.5 Hyperlipidemia, unspecified; Z86.718 Personal history of other venous thrombosis and embolism; Z86.711 Personal history of pulmonary embolism; F41.9 Anxiety disorder, unspecified; F32.A Depression, unspecified; E07.9 Disorder of thyroid, unspecified
CPT/HCPCS: 71046; 94640; 99213; G0463

== ENCOUNTER 2024-12-07 14:33 | Inpatient (IN) | payer MEDICARE, SELFPAY ==
[2024-12-07] VITALS (14 sets, daily range): BP systolic 117–156; BP diastolic 47–104; PULSE 120–137; RESP 20–26; TEMP 36.7–38.3; O2SAT 94–100; BMI 31.7
--- NOTE | ~2024-12-07 | CT_ITS ---
EXAMINATION: CT chest abdomen pelvis w con DATE: 12/07/2024 20:09 INDICATION: sepsis, abd pain, n/v . TECHNIQUE: Computed tomography (CT) of the chest, abdomen, and pelvis was performed with 100 mL Omnip aque-350 intravenous contrast. Automated exposure control and iterative reconstruction technique were employed. The dose-length product was 1315.26 mGy-cm. COMPARISON: None FINDINGS: CHEST: Exam limited by beam hardening from arm down positioning and motion artifact particularly in the uppe r abdomen. Thoracic aorta: No significant dilation. No dissection. Lung parenchyma and airways: Subsegmental lingular scar/atelectasis. Several groundglass and centrilo bular nodular opacities in the right upper lobe. Bilateral dependent atelectasis. Patent airways. Thoracic inlet, axillae and chest wall: 1.6 cm right thyroid nodule. No axillary lymphadenopathy. Mediastinum: No mass or lymphadenopathy. Heart and pericardium: Cardiomegaly. No pericardial effusion. Coronary artery calcifications: Mild. Pleura: No effusion or mass. Thoracic bones: No acute osseous finding in the chest. ABDOMEN/PELVIS: Liver: Normal. Biliary/Gallbladder: Gallbladder is absent. No bile duct dilation. Pancreas: Near-complete fatty replacement. Surgical clips in the lesser sac could be from prior pancr eatectomy or gastric surgery. Spleen: Normal. Adrenals:No mass. Kidneys: No suspicious mass, obstructing stone, or hydronephrosis. GI tract: Small uncomplicated duodenal diverticulum. Mild distal esophageal and gastric wall edema. N o small or large bowel dilation. The tip of the appendix is dilated to 9 mm. No significant surroundi ng inflammatory change Mesentery/Peritoneum: No ascites, mass, or free air. Retroperitoneum: No mass Atherosclerotic calcifications of intra-abdominal arterial vessels. Pelvis: Mostly empty urinary bladder. Absent uterus. Bilateral ovaries not confidently identified. Soft Tissues: Small fat-containing bilateral inguinal hernias. Large anterior abdominal hernia repair . Abdominopelvic bones: No acute osseous finding in the abdomen/pelvis. IMPRESSION: 1.6 cm right thyroid nodule, recommend nonemergent outpatient thyroid ultrasound for further characte rization. Mild esophagitis/gastritis. Dilation of the appendiceal tip to 9 mm, without inflammatory changes. This may be normal for this pa tient or represent early appendicitis. Reviewed, dictated and finalized at location K. IMPRESSION: 1.6 cm right thyroid nodule, recommend nonemergent outpatient thyroid ultrasoun d for further characterization. Mild esophagitis/gastritis. Dilation of the appendiceal tip to 9 mm, without inflammatory changes. This may be normal for this patient or represent early appendicitis.
--- NOTE | ~2024-12-07 | US_ITS ---
EXAMINATION: US renal BI DATE: 12/08/2024 16:10 INDICATION: Acute kidney injury TECHNIQUE: Multiple ultrasound grayscale images of the kidneys were obtained. COMPARISON: None. FINDINGS: The right kidney measures 9.3 x 4.5 x 5.7 cm. The left kidney measures 9.3 x 5.5 x 6.6 cm. The kidney s demonstrate normal echogenicity. There is no hydronephrosis in either kidney. No stones identified . The bladder is normal. IMPRESSION: 1. Normal kidneys without hydronephrosis. Reviewed, dictated and finalized at location B.
--- NOTE | ~2024-12-07 | US_ITS ---
EXAMINATION: US venous doppler [facility] DATE: 12/07/2024 18:01 INDICATION: Pain in the bilateral lower extremities TECHNIQUE: Grayscale ultrasound images without and with compression and Doppler ultrasound images of the bilateral lower extremity veins were attempted. Patient was only able to tolerate evaluation of the left common femoral, profunda femoral and femoral vein, as well as the right lower extremity, and refused further interrogation. COMPARISON: None FINDINGS: The visualized portions of right common femoral vein, profunda (deep) femoral vein, femoral vein, pop liteal vein, peroneal veins, posterior tibial veins, and greater saphenous vein outflow are patent. The visualized portions of left common femoral vein, profunda femoral vein, femoral vein and greater saphenous vein outflow are patent. IMPRESSION: 1. No deep venous thrombosis within the visualized portions of the left lower extremity (to the leve l of the femoral vein). No deep venous thrombosis within the right lower extremity. Reviewed, dictated and finalized at location A. IMPRESSION: 1. No deep venous thrombosis within the visualized portions of the left lower extremity (to the level of the femoral vein). No deep venous thrombosis within the right lower extremity.
--- NOTE | ~2024-12-07 | XR_ITS ---
MODIFIED ESOPHAGRAM HISTORY: Dysphagia. TECHNIQUE: Modified barium esophagram was performed by speech pathologist under radiologist fluorosco pic guidance. This was recorded on tape. The exam was reviewed on 12/09/2024 13:02 CDT. The DAP for this procedure was 0.0999 Gycm2. Fluoroscopy time is 1.1 minutes. FINDINGS: Lateral projection of the cervical spine demonstrates no penetration or aspiration. IMPRESSION: Please refer to speech pathologist report for additional detail. Reviewed, dictated and finalized at location A.
--- OUTSIDE RECORDS SUMMARY | 2024-12-07 14:42 | XMS_ITS | Data Portability ---
Author Organization [place] - [facility] [employer], Main Office Address [address] [place] [address] Care Team Providers Care Radiopharmacist Name Role Phone SARA LOCK Primary Care Provider [phone] LOCKSARA QUIÑONES Referring Provider [phone] Assessment Encounter Date Assessment Date Assessment LastModified by Organization Details LastModified Time 08/30/2022 08/30/2022 This note is dictated and transcribed by [employer]. [employer] variances may occur. Despite proofreading, typographical errors may occur. Not available 08/30/2022 12:04:35 09/18/2022 09/18/2022 This note is dictated and transcribed by [employer]. [employer] variances may occur. Despite proofreading, typographical errors may occur. Not available 10/03/2022 15:06:55 04/01/2024 04/01/2024 58-year-old female presents for evaluation of her right hip. She reports having a history of knee pain and previously saw Dr. Ornelas in 2021. The pain is located over the lateral hip and also of the posterior hip and buttocks. It started atraumatically all of a sudden when she woke up on Saturday. She had difficulty walking and since then has had difficulty sleeping as well. She currently rates her pain as 9/10. She has not had any treatments besides using a heat pack which did not help. She does have a history of diabetes with A1c of over 8. Review of systems per patient questionnaire Physical exam: She has antalgic gait, with Trendelenburg gait. Tenderness over the lateral hip including over the trochanteric bursa and abductors, as well as posteriorly over the glutes. She has pain with flexion, internal and external rotation of her hip. Positive Stinchfield. Pain with abduction. X-rays reviewed, demonstrating degenerative changes, no acute bony abnormality She has trochanteric bursitis as the main point of her pain. We discussed that treatment for this is typically conservative and we gave her orders for physical therapy and Voltaren gel. She is on a blood thinner so can not take oral NSAIDs. We also discussed a cortisone injection for her lateral hip, which she wanted proceed with and tolerated well. She had some immediate improvement afterwards. We will see her back as needed after the course of physical therapy, if no improvement. If she continues to have symptoms, the next step would be to consider getting MRI to look for any tendon tears around the hip. [email or web address] Not available 04/02/2024 00:43:20 10/13/2024 10/13/2024 The patient has right sided sacroiliac pain radiating into the upper buttock somewhat. We talked about treatment options for this in detail today we are going to start with a course of physical therapy and oral prednisone. She would also like to try a shot of cortisone therefore under sterile conditions I injected the patient's right sacroiliac bursa at the point of maximal tenderness with 4 cc 0.5% bupivacaine and 20 mg of Kenalog. Patient tolerated procedure well. We will give it 6-8 weeks see how she is doing if her symptoms start to worsen or suddenly change she is instructed to call she voiced understanding agrees with the above plan we talked about stretching and heating pads as well she will call for any further problems difficulties or questions. [email or web address] Not available 10/13/2024 15:22:27 Plan of Treatment Reminders Order Date Submit Date Provider Last Modified By Organization Details Last Modified Time Details Appointments Any 5 2024 01:00P MAYTE Garg Not available Not available Not available Lab None recorded. Referral physical therapist referral - patient to schedule 2024 025 [facility], [address], [place], [address], 10/14/2024 08:43:35 physical therapist referral - Patient to schedule 2023 024 [facility], [address], [place], [address], 04/06/2024 09:01:36 Procedures injection /aspirati on joint/bur sa (PROC) 2024 025 [email or web address] In-Office Order, Internal Use Only DO Not Attach Compendium DO Not Attach Compendium, Do Not Delete/merge, [id number] 10/13/2024 15:16:43 injection /aspirati on joint/bur sa (PROC) 2023 024 [email or web address] In-Office Order, Internal Use Only DO Not Attach Compendium DO Not Attach Compendium, Do Not Delete/merge, 04/01/2024 11:39:38 Surgeries None recorded. Imaging XR, hip + pelvis, unilatera l 2023 024 [facility] [place], [address], [place], [address], 04/02/2024 09:54:36 XR, ankle, 3 or more view 2022 023 [email or web address] [facility] ([facility]), [address] [place], [address], 10/02/2022 08:42:23 XR, ankle, 3 or more view 2022 0[facility] [place], [address] [facility] [address], [place], [address], 10/03/2022 15:07:50 XR, foot, 3 or more view 2022 023 [facility] [place], [address], [place], [address], 08/30/2022 12:14:05 Medication Orders bupivacai ne HCl 0.5 % (5 mg/mL) injection solution [address] [facility], [address] [place] [address], [id number], 10/13/2024 16:17:06 Kenalog 10 mg/mL suspensio n for injection [address] [facility], [address] [place] [address], [id number], 10/13/2024 16:17:06 prednison e 10 mg tablets in a dose pack [address] [facility], [address] [place] [address], [id number], 10/13/2024 16:17:06 bupivacai ne HCl 0.5 % (5 mg/mL) injection solution [address] [facility], [address] [place] [address], [id number], 04/01/2024 23:37:07 Kenalog 10 mg/mL suspensio n for injection [address] [facility], [address] [place] [address], [id number], 04/01/2024 23:37:07 Patient TargetsNo targets recorded. Patient InstructionsNo instructions recorded. Reason for Referral Physical Therapist Referral for Pain of right hip joint Patient to schedule Referring Physician: Duglas Bo, Orthopedic Surgery, Encounter Date: 04/01/2024 Physical Therapist Referral for Pain in right sacroiliac joint patient to schedule Referring Physician: Higinio Jimenez, Orthopedic Surgery, Encounter Date: 10/13/2024 Results Created Date Observation Date Name Description Value Unit Range Abnormal Flag Note LastModifiedBy Organization Detail LastModifiedTime 08/31/19 23 XR, foot, 3 or more view No observ ation record ed. [email or web address] [facility] [place] [address], [place], [address], 08/30/2022 12:14:01 10/04/19 23 XR, ankle , 3 or more view No observ ation record ed. [email or web address] [facility] [place] [address], [place], [address], 10/03/2022 15:07:49 04/01/20 24 XR, hip + pelvi s, unila teral No observ ation record ed. [email or web address] [facility] [place] [address], [place], [address], 04/01/2024 10:50:17 Result Notes None recorded. Problems Name Problem SNOMED Code Status Onset Date Resolution Date Notes Provider Name and Address Organization Details Recorded Time Spinal enthesopat hy 76509958 Active Not Available [facility] 3 16:12:32 Closed bimalleola r fracture of right ankle 2703885226607 9107 Active 2021 Not Available [facility] 3 16:12:32 Disorder of sacrum 72338739 Active Not Available [facility] 3 16:12:32 Peripheral neuropathy due to type 2 diabetes mellitus 1775481804822 Active 2021 Not Available [facility] 3 16:12:32 Foot ulcer due to type 2 diabetes mellitus 7509790048281 Active 2021 Not Available [facility] 3 16:12:33 Pain of right ankle joint 5151762461860 9106 Active 2021 Not Available [facility] 3 16:12:33 Dry skin 48118070 Active 2021 Not Available [facility] 3 16:12:33 Fall on same level from slipping, tripping or stumbling Active Not Available [facility] 3 16:12:33 Dehiscence of surgical wound 21224654 Active 2021 Not Available [facility] 3 16:12:33 Osteoarthr itis of knee 198990543 Active Not Available [facility] 3 16:12:33 Bimalleola r fracture of ankle 347482221 Active 2021 Not Available [facility] 3 16:12:33 Current tear of medial cartilage AND/OR meniscus of knee Active Not Available [facility] 3 16:12:33 Enthesopat hy of hip region 70368533 Active Not Available [facility] 3 16:12:34 Knee pain Active Not Available [facility] 3 16:12:34 Type 2 diabetes mellitus without complicati on 178520254 Active 2021 Not Available [facility] 3 16:12:34 Derangemen t of knee 84633495 Active Not Available [facility] 3 16:12:34 Long-term current use of anticoagul ant 030641285 Active 2021 Not Available [facility] 3 16:12:34 Dystrophia unguium 28662102 Active 2021 Not Available [facility] 3 16:12:34 Pain in limb 10124348 Active Not Available [facility] 3 16:12:34 Pain in left foot 8360459812138 07 Active 2022 Tevin Miller DPM [address], [address], [place], [address] , [facility] [employer] [facility] 3 12:04:39 Accessory navicular bone of foot 976555587 Active 2022 Tevin Miller DPM [address], [address], [place], [address] , [facility] [employer] [facility] [employer] [facility] 3 12:11:01 Pain of right hip joint 3548289699083 02 Active 2023 RACHEL Conley null, [facility] [employer] [facility] 4 10:49:55 Pain in right sacroiliac joint 6424271353668 9107 Active 2024 Anastasiia hernandez, [facility] [employer] 5 15:15:19 Problem Notes None recorded. Procedures Surgical History Date Name Laterality Status Provider Name and Address Organization Details Recorded Time 4 Ortho - Cortisone Injection completed Duglas Bo MD [address] [facility], [facility] [address], [place], [address], [employer] 04/02/2024 00:43:36 3 Nail Debridement completed Tevin Miller DPM [address] [facility], [address], [place], [address], [email or web address] 08/30/2022 12:03:51 Imaging Results None recorded. Procedure Notes None recorded. Medical Equipment None Reported. Allergies Allergen ID Allergen Name Allergen Category Reaction Reaction Severity Criticality Documentation Date Start Date Code Code System Note Provider Name and Address Organization Details Recorded Time 89833 tetracycl ine medicatio n Not available Not available Not available 08/08/2022 43901 RxNorm Not Available [facility] 3 16:14:47 14345 Substance with sulfonami de structure and antibacte rial mechanism of action (substanc e) medicatio n Not available Not available Not available 08/08/2022 27303 8003 SNOMED Not Available [facility] 3 16:14:47 88717 Product containin g penicilli n (product) medicatio n Not available Not available Not available 08/08/2022 14555 8001 SNOMED Not Available [facility] 3 16:14:47 09629 latex environme nt,medica tion Not available Not available Not available 08/08/2022 18012 91 RxNorm Not Available [facility] 3 16:14:47 35848 fentanyl medicatio n Not available Not available Not available 08/08/2022 4337 RxNorm Not Available [facility] 3 16:14:47 75937 erythromy javier medicatio n Not available Not available Not available 08/08/2022 4053 RxNorm Not Available [facility] 3 16:14:47 06188 Depakote medicatio n Not available Not available Not available 08/08/2022 75929 9 RxNorm Not Available [facility] 3 16:14:47 49731 clindamyc in Not available Not available Not available Not available 08/08/2022 2582 RxNorm Not Available [facility] 3 16:14:47 13084 Bactrim medicatio n Not available Not available Not available 08/08/2022 35969 9 RxNorm Not Available [facility] 3 16:14:48 Medications Name Sig Start Date Stop Date Status Note LastModified by Organization Details LastModified Time clever choice comfort ez pen needle s [id number] 32g x 4 mm misc 03/31 completed Not Available Not Available Not Available rivastigmin e 1.5 mg capsule 12/15 completed Not Available Not Available Not Available atorvastati n 40 mg tablet TAKE 1 TABLET BY MOUTH ONCE DAILY active Not Available Not Available No t Available buspirone 5 mg tablet 03/31 completed Not Available Not Available Not Available metformin 500 mg tablet 12/15 completed Not Available Not Available Not Available hydrocodone 7.5 mg-ibuprofe n 200 mg tablet 12/15 completed Not Available Not Available Not Available nystatin 100,000 unit/mL oral suspension TAKE 5 ML BY MOUTH 4 TIMES DAILY SWISH AND SWALLOW CONTINUE TO USE FOR 2-3 DAYS AFTER WHITE SPOTS IN YOUR MOUTH CLEAR UP. 03/31 completed Not Available Not Available Not Available venlafaxine ER 37.5 mg capsule,ext ended release 24 hr 04/01 completed Not Available Not Available Not Available prednisone 10 mg tablet TAKE 1 TABLETS BY MOUTH THREE TIMES DAILY FOR 3 DAY, THEN TAKE 1 TABLET BY MOUTH TWICE DAILY FOR 2 DAYS, THEN TAKE 1 TABLET BY MOUTH ONCE A DAY FOR 1 DAY active Not Available Not Available No t Available venlafaxine ER 75 mg capsule,ext ended release 24 hr active Not Available Not Available Not Available naproxen 375 mg tablet 12/15 completed Not Available Not Available Not Available donepezil 5 mg tablet TAKE 1 TABLET BY MOUTH ONCE DAILY active Not Available Not Available No t Available clindamycin HCl 300 mg capsule 08/07 completed Not Available Not Available Not Available albuterol sulfate 2.5 mg/3 mL (0.083 %) solution for nebulizatio n INHALE 1 AMPULE VIA NEBULIZER EVERY FOUR HOURS NEEDED SHORTNESS OF BREATH 03/31 completed Not Available Not Available Not Available ammonium lactate 12 % lotion apply to feet daily 03/31 completed Not Available Not Available Not Available trazodone 50 mg tablet 12/15 completed Not Available Not Available Not Available azithromyci n 250 mg tablet TAKE 2 TABLETS BY MOUTH ON DAY 1, AND THEN TAKE 1 TABLET BY MOUTH ONCE A DAY ON DAY 2 THROUGH DAY 5 03/31 completed Not Available Not Available Not Available tizanidine 4 mg tablet TAKE 1 TABLET BY MOUTH THREE TIMES DAILY active Not Available Not Available No t Available fluconazole 150 mg tablet 12/15 completed Not Available Not Available Not Available chlorzoxazo ne 500 mg tablet 12/15 completed Not Available Not Available Not Available sumatriptan 100 mg tablet TAKE 1 TABLET BY MOUTH AT THE ONSET OF MIGRAINE, MAY REPEAT IN 2 HOURS active Not Available Not Available No t Available cephalexin 250 mg capsule 04/01 completed Not Available Not Available Not Available hydrocodone 5 mg-acetamin ophen 325 mg tablet Take 1 tablet every 6 hours by oral route. 03/31 completed Not Available Not Available Not Available promethazin e 25 mg rectal suppository 12/15 completed Not Available Not Available Not Available donepezil 10 mg tablet TAKE 1 TABLET BY MOUTH ONCE DAILY active Not Available Not Available No t Available FreeStyle Lancets 28 gauge 12/15 completed Not Available Not Available Not Available ondansetron HCl 4 mg tablet TAKE 1 TABLET BY MOUTH EVERY 8 HOURS active Not Available Not Available No t Available famotidine 40 mg tablet TAKE ONE TABLET BY MOUTH TWICE DAILY 03/31 completed Not Available Not Available Not Available bupivacaine HCl 0.5 % (5 mg/mL) injection solution Take 20 mg by injection route. 2024 active Not Available Not Available Not Avai lable prednisone 20 mg tablet TAKE 2 TABLETS BY MOUTH EVERY DAY FOR 5 DAYS 03/31 completed Not Available Not Available Not Available clonazepam 0.5 mg tablet 03/31 completed Not Available Not Available Not Available rizatriptan 10 mg tablet 04/01 completed Not Available Not Available Not Available sertraline 100 mg tablet 12/15 completed Not Available Not Available Not Available quetiapine 200 mg tablet 12/15 completed Not Available Not Available Not Available clonazepam 1 mg tablet TAKE 1 TABLET BY MOUTH THREE TIMES DAILY active Not Available Not Available No t Available Lantus U-100 Insulin 100 unit/mL subcutaneou s solution 12/15 completed Not Available Not Available Not Available topiramate 25 mg tablet 12/15 completed Not Available Not Available Not Available acetaminoph en 300 mg-codeine 30 mg tablet 04/01 completed Not Available Not Available Not Available ciprofloxac in 500 mg tablet 04/01 completed Not Available Not Available Not Available tramadol 50 mg tablet TK 1 T PO Q 6 H PRN 12/15 completed Not Available Not Available Not Available quetiapine 100 mg tablet 12/15 completed Not Available Not Available Not Available butalbital- acetaminoph en-caffeine 50 mg-325 mg-40 mg tablet 12/15 completed Not Available Not Available Not Available ketorolac 10 mg tablet TAKE 1 TABLET BY MOUTH EVERY 8 HOURS NEEDED FOR PAIN (DO NOT TAKE FOR MORE THAN 5 CONSECUTI VE DAYS.) TAKE WITH FOOD. 03/31 completed Not Available Not Available Not Available levothyroxi ne 75 mcg tablet 12/15 completed Not Available Not Available Not Available prednisone 10 mg tablets in a dose pack Take 1 tab by mouth, 3 times a day for 3 daysTake 1 tab by mouth 2 times a day for 2 daysTake 1 tab by mouth once a day for 1 day 2024 active Not Available Not Available Not Avai lable levothyroxi ne 100 mcg tablet active Not Available Not Available Not Available levothyroxi ne 88 mcg tablet TAKE 1 TABLET BY MOUTH ONCE DAILY 04/01 completed Not Available Not Available Not Available Nitrostat 0.4 mg sublingual tablet 12/15 completed Not Available Not Available Not Available oxycodone-a cetaminophe n 10 mg-325 mg tablet 12/15 completed Not Available Not Available Not Available trazodone 100 mg tablet 04/01 completed Not Available Not Available Not Available OneTouch Ultra Test strips 12/15 completed Not Available Not Available Not Available Kenalog 10 mg/mL suspension for injection Take 20 mg by injection route. 2024 active [facility]: 0003- 0494- 20 Not Available Not Available Not Available baclofen 10 mg tablet 12/15 completed Not Available Not Available Not Available benzonatate 100 mg capsule 12/15 completed Not Available Not Available Not Available morphine 30 mg immediate release tablet 12/15 completed Not Available Not Available Not Available levothyroxi ne 50 mcg tablet 12/15 completed Not Available Not Available Not Available cephalexin 500 mg capsule Take 1 capsule 3 times a day by oral route. 03/31 completed Not Available Not Available Not Available trazodone 150 mg tablet TAKE 2 TABLETS BY MOUTH AT BEDTIME active Not Available Not Available No t Available metformin 1,000 mg tablet TAKE 1 TABLET BY MOUTH TWICE DAILY WITH MORNING AND EVENING MEALS 12/15 completed Not Available Not Available Not Available esomeprazol e magnesium 40 mg capsule,del ayed release TAKE 1 CAPSULE BY MOUTH TWICE DAILY active Not Available Not Available No t Available levothyroxi ne 125 mcg tablet 03/31 completed Not Available Not Available Not Available buspirone 10 mg tablet 03/31 completed Not Available Not Available Not Available prednisone 50 mg tablet TAKE 1 TABLET BY MOUTH ONCE DAILY FOR 5 DAYS active Not Available Not Available No t Available hyoscyamine 0.125 mg sublingual tablet 12/15 completed Not Available Not Available Not Available ursodiol 300 mg capsule 12/15 completed Not Available Not Available Not Available levothyroxi ne 150 mcg tablet TAKE ONE TABLETS BY MOUTH DAILY 03/31 completed Not Available Not Available Not Available trazodone 300 mg tablet TAKE 1 TABLET BY MOUTH IN THE EVENING NEEDED FOR SLEEP 04/01 completed Not Available Not Available Not Available gabapentin 300 mg capsule TAKE 2 CAPSULES IN THE MORNING, 2 CAPS MIDDAY, AND 3 CAPS IN THE EVENING FOR 7 DAYS, THEN INCREASE TO 3 CAPS AM, 2 CAPS MIDDAY, AND 3 CAPS IN THE EVENING FOR 7 DAYS. THEN 3 CAPS IN THE MORNING, 3 CAPS MIDDAY, 3 CAPS IN THE THE EVENING MAINTENAN CE DOSE active Not Available Not Available No t Available buspirone 7.5 mg tablet TAKE 1 TABLET BY MOUTH THREE TIMES DAILY active Not Available Not Available No t Available diclofenac sodium 75 mg tablet,wendy yed release 04/01 completed Not Available Not Available Not Available montelukast 10 mg tablet TAKE 1 TABLET BY MOUTH EVERY DAY 12/15 completed Not Available Not Available Not Available topiramate 200 mg tablet 12/15 completed Not Available Not Available Not Available mupirocin 2 % topical ointment APPLY INTRANASA L 2-4 TIMES PER DAY FOR 2 (TWO) WEEKS THEN AT LEAST 1-2 TIMES PER DAY active Not Available Not Available No t Available midodrine 2.5 mg tablet TAKE 1 TABLET BY MOUTH TWICE DAILY WITH MORNING MEAL AND WITH EVENING MEAL active Not Available Not Available No t Available zolpidem 5 mg tablet 12/15 completed Not Available Not Available Not Available gabapentin 100 mg capsule 12/15 completed Not Available Not Available Not Available ergocalcife rol (vitamin D2) 1,250 mcg (50,000 unit) capsule TAKE 1 CAPSULE BY MOUTH ONCE A WEEK active Not Available Not Available No t Available Novolog U-100 Insulin aspart 100 unit/mL subcutaneou s solution 12/15 completed Not Available Not Available Not Available insulin lispro (U-100) 100 unit/mL subcutaneou s solution INJECT 100 UNITS SUBCUTANE OUSLY ONCE DAILY VIA PUMP active Not Available Not Available No t Available Nasonex 50 mcg/actuati on [place] 12/15 completed Not Available Not Available Not Available polyethylen e glycol 3350 17 gram/dose oral powder 12/15 completed Not Available Not Available Not Available levofloxaci n 500 mg tablet 12/15 completed Not Available Not Available Not Available oxycodone-a cetaminophe n 7.5 mg-325 mg tablet 12/15 completed Not Available Not Available Not Available levofloxaci n 750 mg tablet TAKE 1 (ONE) TABLET BY MOUTH ONCE DAILY FOR 5 DAYS START IF NOT FEELING BETTER BY 05/19 completed Not Available Not Available Not Available methylpredn isolone 4 mg tablets in a dose pack 03/31 completed Not Available Not Available Not Available albuterol sulfate HFA 90 mcg/actuati on aerosol inhaler INHALE 2 PUFFS BY MOUTH EVERY 4 TO 6 HOURS NEEDED FOR SHORTNESS OF BREATH FOR WHEEZING active Not Available Not Available No t Available carbidopa 25 mg-levodopa 100 mg tablet TAKE 2 & 1/2 (TWO & ONE-HALF) TABLETS BY MOUTH THREE TIMES DAILY active Not Available Not Available No t Available phenobarb-h yoscyamn-at ropine-scop 16.2 mg-0.1037 mg-0.0194 mg tablet 12/15 completed Not Available Not Available Not Available topiramate 100 mg tablet 12/15 completed Not Available Not Available Not Available fluticasone propionate 50 mcg/actuati on nasal spray,suspe nsion USE 1 SPRAY(S) IN EACH NOSTRIL TWICE DAILY active Not Available Not Available No t Available fludrocorti sone 0.1 mg tablet TAKE 1 TABLET BY MOUTH ONCE DAILY active Not Available Not Available No t Available risperidone 1 mg tablet 12/15 completed Not Available Not Available Not Available dicyclomine 10 mg capsule 12/15 completed Not Available Not Available Not Available rivastigmin e 3 mg capsule 03/31 completed Not Available Not Available Not Available risperidone 0.5 mg tablet 12/15 completed Not Available Not Available Not Available levothyroxi ne 112 mcg tablet TAKE 1 TABLET BY MOUTH ONCE DAILY active Not Available Not Available No t Available oxycodone 5 mg tablet TAKE ONE-HALF TO ONE TABLET BY MOUTH EVERY 6 HOURS NEEDED FOR PAIN. MUST LAST 30 DAYS active Not Available Not Available No t Available neomycin 3.5 mg/g-polymy aldo B 10,000 unit/g-dexa meth 0.1 % eye oint 03/31 completed Not Available Not Available Not Available insulin lispro (U-100) 100 unit/mL subcutaneou s pen USE 4 TO 16 UNITS EVERY 4 HOURS WHEN TAKING STEROIDS active Not Available Not Available No t Available escitalopra m 20 mg tablet 12/15 completed Not Available Not Available Not Available Abilify 10 mg tablet 12/15 completed Not Available Not Available Not Available Abilify 15 mg tablet 12/15 completed Not Available Not Available Not Available Abilify 20 mg tablet 12/15 completed Not Available Not Available Not Available Abilify 30 mg tablet 12/15 completed Not Available Not Available Not Available Premarin 0.625 mg tablet 12/15 completed Not Available Not Available Not Available ciprofloxac in 0.3 %-dexametha sone 0.1 % ear drops,suspe nsion 04/01 completed Not Available Not Available Not Available bupropion HCl XL 300 mg 24 hr tablet, extended release TAKE 1 TABLET BY MOUTH ONCE DAILY WITH A 150MG TABLET TO TOTAL 450MG 03/31 completed Not Available Not Available Not Available bupropion HCl XL 150 mg 24 hr tablet, extended release TAKE ONE TABLET DAILY WITH A 300MG TABLET TO TOTAL 450MG 03/31 completed Not Available Not Available Not Available memantine 10 mg tablet TAKE 1 TABLET BY MOUTH TWICE DAILY 12/15 completed Not Available Not Available Not Available topiramate 50 mg tablet 12/15 completed Not Available Not Available Not Available nitrofurant oin monohydrate /macrocryst als 100 mg capsule 04/01 completed Not Available Not Available Not Available trospium 20 mg tablet 12/15 completed Not Available Not Available Not Available duloxetine 30 mg capsule,del ayed release 12/15 completed Not Available Not Available Not Available duloxetine 60 mg capsule,del ayed release 12/15 completed Not Available Not Available Not Available pregabalin 75 mg capsule TAKE 1 CAPSULE BY MOUTH TWICE DAILY active Not Available Not Available No t Available ramelteon 8 mg tablet TAKE 1 TABLET BY MOUTH NIGHTLY NEEDED FOR INSOMNIA active Not Available Not Available No t Available OneTouch Ultra2 Meter kit 12/15 completed Not Available Not Available Not Available Amitiza 24 mcg capsule 12/15 completed Not Available Not Available Not Available BD Insulin Syringe Ult-Fine II 0.5 mL 31 gauge x 16 12/15 completed Not Available Not Available Not Available Advair HFA 230 mcg-21 mcg/actuati on aerosol inhaler INHALE 2 PUFFS BY MOUTH TWICE DAILY active Not Available Not Available No t Available quetiapine 50 mg tablet 12/15 completed Not Available Not Available Not Available paliperidon e ER 9 mg tablet,exte nded release 24 hr 12/15 completed Not Available Not Available Not Available paliperidon e ER 6 mg tablet,exte nded release 24 hr 12/15 completed Not Available Not Available Not Available Senna with Docusate Sodium 8.6 mg-50 mg tablet 12/15 completed Not Available Not Available Not Available Symbicort 160 mcg-4.5 mcg/actuati on HFA aerosol inhaler INHALE 2 PUFFS BY MOUTH TWICE DAILY active Not Available Not Available No t Available Symbicort 80 mcg-4.5 mcg/actuati on HFA aerosol inhaler INHALE 2 PUFFS TWICE DAILY active Not Available Not Available No t Available Lantus Solostar U-100 Insulin 100 unit/mL (3 mL) subcutaneou s pen INJECT 30 UNITS SUBCUTANE OUSLY AT BEDTIME active Not Available Not Available No t Available Novofine 32 32 gauge x 1/4 needle USE 1 PEN NEEDLE THREE TIMES DAILY active Not Available Not Available No t Available desvenlafax ine succinate ER 50 mg tablet,exte nded release 24 hr TAKE 3 TABLETS BY MOUTH ONCE DAILY active Not Available Not Available No t Available Creon 24,000-76,0 00-120,000 unit capsule,del ayed release 03/31 completed Not Available Not Available Not Available azelastine 205.5 mcg (0.15 %) nasal spray 12/15 completed Not Available Not Available Not Available diclofenac 1.5 % topical drops 12/15 completed Not Available Not Available Not Available Xifaxan 550 mg tablet 12/15 completed Not Available Not Available Not Available AquADEKs 100 mcg-350 mcg-5 mg chewable tablet 12/15 completed Not Available Not Available Not Available vilazodone 40 mg tablet TAKE 1 TABLET BY MOUTH ONCE DAILY WITH BREAKFAST TAKE THIS WITH VIIBRYD 20 MG FOR A TOTAL DOSE OF 60 MG 03/31 completed Not Available Not Available Not Available vilazodone 20 mg tablet TAKE 1 TABLET BY MOUTH ONCE DAILY WITH BREAKFAST . PLEASE TAKE IT WITH VIIBRYD 40 MG FOR A TOTAL OF 60 MG DAILY 03/31 completed Not Available Not Available Not Available lidocaine 5 % topical ointment 12/15 completed Not Available Not Available Not Available Myrbetriq 50 mg tablet,exte nded release 12/15 completed Not Available Not Available Not Available rivastigmin e 13.3 mg/24 hour transdermal patch APPLY 1 PATCH TO THE SKIN DAILY 12/15 completed Not Available Not Available Not Available OneTouch Delica Lancets 30 gauge 12/15 completed Not Available Not Available Not Available Linzess 145 mcg capsule 03/31 completed Not Available Not Available Not Available Eliquis 5 mg tablet TAKE 1 TABLET BY MOUTH TWICE DAILY active Not Available Not Available No t Available BD Insulin Syringe Ultra-Fine 0.5 mL 31 gauge x /16 12/15 completed Not Available Not Available Not Available desvenlafax ine ER 50 mg tablet,exte nded release 24 hr TAKE 1 TABLET BY MOUTH ONCE DAILY 04/01 completed Not Available Not Available Not Available Creon 36,000 unit-114,00 0 unit-180,00 0 unit capsule,del ayed release TAKE 1 CAPSULE WITH BREAKFAST THEN TAKE 2 CAPSULES WITH LUNCH AND DINNER. active Not Available Not Available No t Available Fluvirin 45 mcg (15 mcg x 3)/0.5 mL intramuscul ar suspension 12/15 completed Not Available Not Available Not Available Fetzima 20 mg capsule,ext ended release TAKE 1 CAPSULE BY MOUTH ONCE DAILY active Not Available Not Available No t Available Fluvirin 45 mcg (15 mcg x 3)/0.5 mL intramuscul ar suspension 12/15 completed Not Available Not Available Not Available Spiriva Respimat 2.5 mcg/actuati on solution for inhalation INHALE 2 SPRAY(S) BY MOUTH ONCE DAILY active Not Available Not Available No t Available desvenlafax ine succinate ER 25 mg tablet,exte nded release 24 hr TAKE 1 TABLET BY MOUTH ONCE DAILY, TAKE WITH THE 50 MG TABLET FOR A TOTAL OF 75 MG 04/01 completed Not Available Not Available Not Available Rexulti 3 mg tablet 03/31 completed Not Available Not Available Not Available naloxone 4 mg/actuatio n nasal spray ADMINISTE R A SINGLE SPRAY IN ONE NOSTRIL UPON SIGNS OF OPIOID OVERDOSE. CALL 911. REPEAT AFTER 3 MINUTES IF NO RESPONSE. active Not Available Not Available No t Available Trintellix 10 mg tablet TAKE 1 TABLET BY MOUTH ONCE DAILY 03/31 completed Not Available Not Available Not Available Linzess 72 mcg capsule TAKE 1 CAPSULE BY MOUTH ONCE DAILY BEFORE BREAKFAST , TAKE ON AN EMPTY STOMACH AT LEAST 30 MINUTES PRIOR TO FIRST MEAL OF THE DAY active Not Available Not Available No t Available Ingrezza 80 mg capsule active Not Available Not Available N ot Available Dexcom G6 Sensor device USE 1 EACH EVERY 10 DAYS active Not Available Not Available No t Available Dexcom G6 Transmitter device USE 1 TRANSMITT ER EVERY 90 DAYS active Not Available Not Available No t Available Nuplazid 34 mg capsule active Not Available Not Available N ot Available Emgality Pen 120 mg/mL subcutaneou s pen injector INJECT 1 SUBCUTANE OUSLY ONCE EVERY MONTH active Not Available Not Available No t Available Aimovig Autoinjecto r 140 mg/mL subcutaneou s auto-inject or 04/01 completed Not Available Not Available Not Available BD Erma 2nd Gen Pen Needle 32 gauge x USE 4 TIMES DAILY active Not Available Not Available No t Available OneTouch Delica Plus Lancet 33 gauge USE 1 LANCET TO CHECK BLOOD SUGAR THREE TIMES DAILY DIRECTED 12/15 completed Not Available Not Available Not Available Baqsimi 3 mg/actuatio n nasal spray USE 1 SPRAY INTO THE NOSE NEEDED FOR VERY LOW BLOOD SUGAR. active Not Available Not Available No t Available Fasenra Pen 30 mg/mL subcutaneou s auto-inject or active Not Available Not Available Not Available [facility] ODT 75 mg disintegrat ing tablet active Not Available Not Available N ot Available Quviviq 25 mg tablet TAKE 1 TABLET BY MOUTH AT BEDTIME active Not Available Not Available No t Available Quviviq 50 mg tablet TAKE 1 TABLET BY MOUTH AT BEDTIME active Not Available Not Available No t Available Omnipod 5 G6-G7 Intro Kit(Gen 5) subcutaneou s cartridge and controller USE 1 KIT CONTINUOU S active Not Available Not Available No t Available Omnipod 5 G6-G7 Pods (Gen 5) subcutaneou s cartridge USE 1 EVERY 72 HOURS active Not Available Not Available No t Available Vitals Date Recorded Body height Heart rate Respiratory rate Oxygen saturation Oxygen saturation in Arterial blood by Pulse oximetry Systolic blood pressure Diastolic blood pressure Provider Name and Address Organization Details Last Updated DateTime 3 157.48 cm 78 /min 16 /min 98 % 98 % 125 mm[Hg] 78 mm[Hg] Tonja BAILON MD [employer] [facility] 3 11:42:37 Date Recorded Body height Heart rate Respiratory rate Oxygen saturation Oxygen saturation in Arterial blood by Pulse oximetry Systolic blood pressure Diastolic blood pressure Provider Name and Address Organization Details Last Updated DateTime 3 157.48 cm 84 /min 14 /min 98 % 98 % 133 mm[Hg] 93 mm[Hg] Tonja Zuniga [place] [employer] [facility] [employer] 12:45:50 Date Recorded Body height Body mass index (BMI) Body weight Provider Name and Address Organization Details Last Updated DateTime 10/13/2024 157.48 cm 30.2 kg/m2 50408.74 g Anastasiia Marques [place] [employer] 10/13/2024 14:58:59 Date Recorded Body height Body mass index (BMI) Body weight Provider Name and Address Organization Details Last Updated DateTime 04/01/2024 157.48 cm 29.3 kg/m2 80544.78 g Mylene RACHEL Cuellar [place] [employer] [facility] [employer] [facility] 04/01/2024 10:44:46 Date Recorded Body mass index (BMI) Body height Body weight Provider Name and Address Organization Details Last Updated DateTime 05/24/2022 28.3 kg/m2 157.48 cm 74916.82 g Not Available [facility] 08/08/2022 16:12:09 Social History Question Answer Notes LastModified by [employer] Details LastModified Time Tobacco Smoking Status Never Smoker Not Available [facility] 08/08/2022 16:10:48 What Was The Date Of Your Most Recent Tobacco Screening? 04/01/2024 [email or web address] Information not available 04/01/2024 Sex: Unknown Functional Status Question Answer Note LastModified by [employer] Details LastModified Time What is your level of alcohol consumption? None [id number] Information not available 08/08/2022 Mental Status None recorded. Family History Relationship Description Onset Age of this Age Resolved Age Notes LastModified by Organization Details LastModified Time Mother Blood coagulation disorder [id number] Not available 08/08/2022 16:10:53 Medical History Condition Response ARTHRITIS Y USE OF BLOOD THINNERS Y DIABETES, TYPE Y ALLERGIES/HAYFEVER Y LUNG DISEASE/DISORDER Y BLOOD CLOTS Y USE OF NSAIDS Y DEPRESSION (INCLUDING POST ) Y THYROID DISEASE Y HEADACHES/MIGRAINES Y ANEMIA/BLOOD DISORDER Y OSTEOPOROSIS Y Gynecological HistoryNo gynecological history recorded. Obstetrics History GPAL:G 0 P 0 0 0 0 Past Encounters Encounter ID Performer Location Encounter Start Date Encounter Closed Date Diagnosis/Indication Diagnosis SNOMED-CT Code Diagnosis ICD10 Code Diagnosis Note [id number] [facility] [place] [address] [place] [address] 08/07/2021 00:00:00 08/07/2021 15:24:44 [id number] [facility] [place] [address] [place] [address] 11/09/2021 00:00:00 11/10/2021 13:14:07 [id number] Jose C Ornelas MD [facility] [place] [address] [place] [address] 12/15/2021 00:00:00 12/15/2021 13:58:28 [id number] Jose C Ornelas MD [facility] [address] [address] 01/02/2022 00:00:00 01/02/2022 10:27:39 [id number] Jose C Ornelas MD [facility] [address] [address] 01/30/2022 00:00:00 01/30/2022 10:27:40 [id number] [facility] [place] [address] [place] [address] 02/08/2022 00:00:00 02/12/2022 10:17:47 [id number] [facility] [place] [address] [place] [address] 02/22/2022 00:00:00 02/27/2022 16:12:24 [id number] Jose C Ornelas MD [facility] [place] [address] [place] [address] 02/22/2022 00:00:00 02/22/2022 13:18:05 [id number] [facility] [place] [address] [place] [address] 05/24/2022 00:00:00 05/24/2022 14:30:09 [id number] Tevin Miller DPM [facility] [place] [address] [place] [address] 08/30/2022 11:30:45 08/31/2022 10:51:19 Dystrophia unguium 81971512 L60.3 Nails 1 through 10 were debrided with sharp mechanical debridemen t without incident. Nails were debrided and greater than 50% length and thickness where needed. Pain in left foot 611590 9626 58688 M79.672 Secondary to large accessory ossicle with mild arthritis at the attachment the ossicle to the navicularx -rays reviewed the patientRec tam icing and topical Voltaren gelrecomme nd over-the-c ounter [facility] orth[facility] ollow-up in 2 weeks if continues to be problemati c possible steroid injection Accessory navicular bone of foot 993616610 Q66.89 left footX-rays reviewed with the patientrec omdayannad over-the-c ounter [facility]c ontinue supportive shoe gearfollow -up in 2 weeks Type 2 kev betes mellitus without complication [id number] E11.9 L60.0 M79.676 Patient educated on neuropathy , diabetes, diabetic diet, and daily foot exams. Patient is to check feet daily for new wounds, blisters, redness to prevent infection and ulceration s to the feet. Patient will return to clinic in 3 months for diabetic foot workup. [id number] Tevin Miller DPM [facility] [place] [address] [facility] [address] [place] [address] 09/18/2022 12:36:29 10/03/2022 16:42:40 Accessory navicular bone of foot 868661143 Q66.89 left footX-rays reviewed with the patientrec omdayannad over-the-c ounter [facility] ontinue supportive shoe gearfollow -up in 2 weeks Pain of ri ght ankle joint 6618639056 6725829 M25.571 negative x-rays [id number] Duglas Bo MD [facility] [place] [address] [place] [address] 04/01/2024 10:20:23 04/01/2024 12:01:02 Pain of right hip joint 6041776161 49222 M25.481 [id number] Duglas Bo MD [facility] [place] [address] [place] [address] 10/13/2024 14:53:40 10/13/2024 15:21:29 Pain of right hip joint 4973029870 85388 M25.551 Pain in ri ght sacroiliac joint 6422783991 0118621 M53.3 Health Concerns Section Related Observation LastModified by Organization Detai ls LastModified Time None Recorded Concern Status LastModified by Organization Details LastModified Time None Recorded Advance Directives Directive None Recorded Payers Insurance Date Sequence Insurance Name Policy Number Policy Condon Covered Member ID Condon Member ID Guarantor Name 11/06/2024 1 [facility] (MEDICARE REPLACEMENT/A DVANTAGE - PPO) [id number] Margarita Amor [id number] Margarita Amor 04/01/2024 2 [place] [facility] Bharti Amor [id number] Margarita Amor 10/12/2024 [place]ICAID [place] DURABLE MEDICAL EQUIPMENT Margarita Amor [id number] Margarita Amor 10/12/2024 2 [place] WHEN MEDICARE OR MEDICARE REPLACEMENT PRIMARY) Margarita Amor [id number] Margarita Amor Notes Date Note Type Note Provider Name and Address Organization Details Recorded Time 08/30/2022 text/html . Patient is a 57-year-old female diabetic who presents the office with complaints of pain to her left foot at the medial attachment of the navicular at the posterior tibial tendon. Patient states that she has lot of foot pain. Patient denies any injury of the foot. Patient states that this started hurting last week. Patient does have a small palpable spur without any signs of wound breakdown to the area. Patient denies any numbness, tingling or burning to the feet. Patient states her nails are long would like to have them cut. Patient denies any without exiting shoe gear. Patient denies any other pedal complaints. Tevin Miller, IV[facility] [address], [place], [address], [email or web address] 08/30/2022 12:16:27 09/18/2022 text/html . Patient is a 57-year-old female who presents the office with complaints of pain to her right foot and ankle joint. Patient denies any wounds or infection. Patient states when she is walking she has pain that worsens after she is standing walking for long periods time. Patient states when she is at rest does feel better. Patient describes the pain as being in the ankle joint and along the medial navicular area. Patient denies any other complaints. Tevin Miller DPM [address], [place], [address], [email or web address] 10/03/2022 15:09:36 10/13/2024 text/html The patient returns with right buttock and sacroiliac pain. She has had some chronic issues here pain comes and goes. Lately it has been much more significant. She denies any trauma or injury. She has had previous right hip trochanteric bursitis which was injected last fall this worked pretty well for her. Recently her pain has flared up again however this time it is more localized to the sacroiliac region rather than the trochanteric region. She denies any radicular pain no weakness no numbness or tingling no bowel or bladder symptoms. She does not have any midline back pain. She has a hard time standing or walking for long periods due to her sacroiliac region pain. She has no groin pain no loss of motion of the right hip otherwise good function is noted. She can not take regular basis oral anti-inflammatory medications due to the fact that she is on blood thinners occasionally she will take some ibuprofen. She has gotten to the point where this is not really helping she was like to be evaluated for her sacroiliac pain today.The patient's previous medical history and x-rays were reviewed in detail today with the patient no changes are noted x-rays are unremarkable. MAYTE Jones [address], [place], [address], [email or web address] 10/13/2024 15:24:08 OBGyn Episode No OBEpisode recorded.
--- OUTSIDE RECORDS SUMMARY | 2024-12-07 14:43 | XMS_ITS | Clinical Summary ---
Author Organization [facility] Address [address] [place] [address] Care Team Providers Care Housecalls Nurse Name Role Phone Unavailable Primary Care Provider Unavailabl e Social History Tobacco Use Types Packs/Day Years Used Date Smoking Tobacco: Never Assessed Comments Unknown Sex and Gender Information Value Date Recorded Sex Assigned at Not on file Legal Sex Female 8:42 AM CDT Gender Identity Not on file Sexual Orientation Not on file Plan of Treatment Health Maintenance Due Date Last Done Comments Cervical Cancer Screening Pa p Smear (Age 30 to 64) Every 3 Years 1964 Colorectal Cancer Screening Colonoscopy (10 Years) 1964 Annual Physical 1967 Hepatitis C 1982 DTaP, Tdap and Td Vaccines ( 1 - Tdap) 1983 Cervical Cancer Screening Pa p with HPV Testing (Age 30 to 64) Every 5 Years 1994 Cervical Cancer Screening with HPV 1994 Mammogram Screening 2004 Pneumococcal Vaccine: 50+ Ye ars (1 of 1 - PCV) 2014 Zoster Vaccines (1 of 2) 2014 COVID-19 Vaccine (2023-2 5 season) 2024 RSV Immunization or 60+ Years (1 - 1-dose 75+ series) 2039 Meningococcal B Vaccine Aged Out No l onger eligible based on patient's age to complete this topic Meningococcal Vaccine Aged Out No mohamud theo eligible based on patient's age to complete this topic RSV Immunizations Under 20 Months Aged Out No longer eligible based on patient's age to complete this topic Insurance [facility]
--- NOTE | 2024-12-07 15:06 | ECG_ITS ---
Test Date: 2024-12-07 19:06:27 Measurements Intervals [place] Rate: 125 P: 89 ND: 131 QRS: 3 QRSD: 89 T: 70 QT: 294 QTc: 425 Interpretive Statements SINUS TACHYCARDIA POSSIBLE ANTERIOR MYOCARDIAL INFARCTION , OF INDETERMINATE AGE BASELINE ARTIFACT- I, III, AVR, AVL, AVF, V1-V6 ABNORMAL ECG No previous ECG available for comparison Electronically Signed On 12-07-2024 20:27:58 CDT by Dev Verdin D.O.
--- NOTE | 2024-12-07 15:07 | ED.NAVMDI ---
HPI - Nausea/Vomiting/Diarrhea General Chief complaint: Nausea/Vomiting/Diarrhea <Kizzy Cochran APRN - Last Filed: 12/07/24 15:08> Stated complaint: Vomiting, bilat leg pain <Kizzy Cochran APRN - Last Filed: 12/07/24 15:08> Time Seen by Provider: 12/07/24 15:00 <Kizzy Cochran APRN - Last Filed: 12/07/24 15:08> Focused HPI: Patient is a 59-year-old female who presents to the ER with vomiting that started last night and has continued to this morning. She endorses severe bilateral leg pain and reports she has a history of blood clots. Patient reports she is currently on Eliquis. Her medical chart indicates thyroid abnormalities, COPD, and low blood pressure. GENERAL: Ill-appearing, well-nourished, and in no acute distress. HEAD: Normocephalic, atraumatic. CHEST: Clear to auscultation. ?No respiratory distress. HEART: Regular rate and rhythm.? NEURO: ?Alert and oriented x3. Patient screened in triage and initial orders placed.? ?Additional care and disposition to be based upon?diagnostic testing and treatment. <Kizzy Cochran APRN - Last Filed: 12/07/24 15:08> Focused HPI: Patient is a 59-year-old female who presents to the ER with vomiting and abdominal pain that started last night and has continued to this morning. She endorses severe bilateral leg pain and reports she has a history of blood clots. Patient reports she is currently on Eliquis. Her medical chart indicates thyroid abnormalities, COPD, and low blood pressure. GENERAL: Ill-appearing, well-nourished, and in no acute distress. HEAD: Normocephalic, atraumatic. CHEST: Clear to auscultation. ?No respiratory distress. HEART: Regular rate and rhythm.? NEURO: ?Alert and oriented x3. Patient screened in triage and initial orders placed.? ?Additional care and disposition to be based upon?diagnostic testing and treatment. <Raheem Garcia MD - Last Filed: 12/07/24 21:56> History of Present Illness HPI Narrative: Agree with the above HPI <Raheem Garcia MD - Last Filed: 12/07/24 21:56> Related Data Home medications: Home Medications ?Medication ?Instructions ?Recorded ?Confirmed ?Last Taken ?Type clonazepam 1 mg tablet (Klonopin) 1 mg PO QHS 05/11/21 08/01/24 Unknown History esomeprazole magnesium 40 mg 40 mg PO DAILY 05/11/21 08/01/24 Unknown History capsule,delayed release (Nexium) ramelteon 8 mg tablet 8 mg PO QHS 05/11/21 08/01/24 Unknown History trazodone 300 mg tablet 300 mg PO QHS 05/11/21 08/01/24 Unknown History atorvastatin 40 mg tablet (Lipitor) 40 mg PO DAILY 09/10/22 08/01/24 Unknown History ergocalciferol (vitamin D2) 1,250 1,250 mcg PO WEEKLY 09/10/22 08/01/24 Unknown History mcg (50,000 unit) capsule levothyroxine 125 mcg capsule 125 mcg PO DAILY 09/10/22 08/01/24 Unknown History midodrine 2.5 mg tablet 2.5 mg PO BID 09/10/22 08/01/24 Unknown History pimavanserin 34 mg capsule 34 mg PO DAILY 09/10/22 08/01/24 Unknown History (Nuplazid) ramelteon 8 mg tablet 8 mg PO QHS 09/10/22 08/01/24 Unknown History tiotropium bromide 1.25 2 puff inhalation DAILY 09/10/22 08/01/24 Unknown History mcg/actuation mist for inhalation (Spiriva Respimat) vortioxetine 10 mg tablet 10 mg PO DAILY 09/10/22 08/01/24 Unknown History (Trintellix) <Kizzy Cochran, [employer]AREHOU[employer] PERSON - Last Filed: 12/07/24 15:08> Allergies/Adverse reactions: Allergies Allergy/AdvReac Type Severity Reaction Status Date / Time Penicillins Allergy Severe HIVES Verified 12/07/24 14:53 Sulfa (Sulfonamide Allergy Severe rash Verified 12/07/24 14:53 Antibiotics) tetracycline Allergy Severe RASH Verified 12/07/24 14:53 erythromycin base Allergy Unknown Unknown Verified 12/07/24 14:53 clindamycin AdvReac Intermediate Chest Pain Verified 12/07/24 14:53 <Kizzy Cochran APRN - Last Filed: 12/07/24 15:08> Review of Systems Review of Systems: As reviewed above in HPI <Raheem Garcia MD - Last Filed: 12/07/24 21:56> [facility] Past Medical History Medical History: Medical History (Updated 12/07/24 @ 21:56 by Raheem Garcia MD) Gastroesophageal reflux disease Deep venous thrombosis Insomnia Depression Pulmonary embolism Pancreatitis Hyperlipidemia Migraines, neuralgic Diabetes Asthma Anxiety Thyroid disorder <Kizzy Cochran APRN - Last Filed: 12/07/24 15:08> Surgical History Surgical History: Surgical History History of cholecystectomy History of tonsillectomy H/O cataract removal with insertion of prosthetic lens History of bowel resection H/O splenectomy History of carpal tunnel release H/O: hysterectomy <Kizzy Cochran APRN - Last Filed: 12/07/24 15:08> Family History Family History: Family History Father Asthma Diabetes mellitus Mother Depression Asthma Diabetes mellitus Thyroid disorder Sibling Depression Other Depression Diabetes mellitus <Kizzy Cochran APRN - Last Filed: 12/07/24 15:08> Social History Social History: Social History Smoking status: Never smoker Alcohol intake: never Substance use: never Substance use type: does not use Lack of Transportation: No Lack of Food: Never True Current Housing: I Have Housing Concerned About Future Housing: No Difficulty Paying Gas/Electric Bills: No Difficulty Paying for Meds: No Currently Unemployed: No Education: High School Diploma/GED Difficulty w/ Childcare or Family Care: No <Kizzy Cochran APRN - Last Filed: 12/07/24 15:08> Exam Narrative: GENERAL: Ill-appearing, uncomfortable and complaining of pain HEAD: [Normocephalic, atraumatic.] EYES: [PERRLA and EOMI.] ENT: Nares clear, no rhinorrhea or epistaxis. Mucous membranes moist. Tardive dyskinesia of the mouth NECK: Supple. CHEST: [Clear to auscultation. No respiratory distress.] HEART: [Regular rate and rhythm]. No murmur heard. [Normal peripheral pulses.] ABDOMEN: [Soft, nondistended], tender to palpation in the lower abdominal quadrants without any signs of peritonitis, [No rigidity or guarding] EXTREMITIES: Normal range of motion. [No edema.] Warm well-perfused extremities SKIN: Warm, dry, no rash. NEURO: [No focal deficits]. Alert and oriented [x3.] PSYCH: [Normal mood and affect.] <Raheem Garcia MD - Last Filed: 12/07/24 21:56> Course Vital Signs Vital signs: Vital Signs Temperature 37.1 C 12/07/24 14:54 Pulse Rate 123 H 12/07/24 14:54 Respiratory Rate 20 12/07/24 14:54 Blood Pressure 148/54 H 12/07/24 14:54 Pulse Oximetry 98 12/07/24 14:54 Oxygen Delivery Room Air 12/07/24 14:54 Temperature 38.3 C H 12/07/24 19:31 Pulse Rate 124 H 12/07/24 19:31 Respiratory Rate 20 12/07/24 19:31 Blood Pressure 120/57 L 12/07/24 19:31 Pulse Oximetry 95 12/07/24 19:31 Oxygen Delivery Room Air 12/07/24 17:28 <Kizzy Cochran APRN - Last Filed: 12/07/24 15:08> Vital Signs Temperature 37.1 C 12/07/24 14:54 Pulse Rate 123 H 12/07/24 14:54 Respiratory Rate 20 12/07/24 14:54 Blood Pressure 148/54 H 12/07/24 14:54 Pulse Oximetry 98 12/07/24 14:54 Oxygen Delivery Room Air 12/07/24 14:54 Temperature 38.3 C H 12/07/24 19:31 Pulse Rate 124 H 12/07/24 19:31 Respiratory Rate 20 12/07/24 19:31 Blood Pressure 120/57 L 12/07/24 19:31 Pulse Oximetry 95 12/07/24 19:31 Oxygen Delivery Room Air 12/07/24 17:28 <Raheem Garcia MD - Last Filed: 12/07/24 21:56> MDM - Nausea/Vomiting/Diarrhea MDM Narrative Medical decision making narrative: 59-year-old female presenting to the emergency department with abdominal pain and vomiting that started yesterday associated some bilateral lower extremity pain. She is very ill-appearing on initial encounter in tachycardic and febrile here. She has a tender abdomen with no signs of peritonitis or rebound. Blood pressure acceptable at 148/54, tachypnea with rate of 20, febrile at 38.3? rectally. Pulse 124. She appears uncomfortable and required fluid resuscitation at this time for suspected sepsis with source potentially being intra-abdominal. 30 cc/kg bolus was ordered of LR, she was started on broad-spectrum antibiotics while workup is underway and blood cultures were obtained. She has a difficult vascular access and an ultrasound-guided IV was placed in the right forearm myself and we are only able to obtain a single set of cultures but given delay in patient's care we will empirically start antibiotics until 2nd set of cultures to be drawn with phlebotomy. Laboratory studies were ordered, CT of the chest abdomen pelvis was ordered, urinalysis obtained. Lactic acid and inflammatory markers ordered. Patient given fluids and morphine for analgesia. Her laboratory studies showed leukocytosis of 18.6, lactic acidosis of 5.6, creatinine of 1.57 above her baseline, glucose 342. Troponin elevated 0.041 but EKG does not have any overt signs of ST segment elevations or depressions. Inflammatory markers are elevated. Urine appears to be concentrated with dehydration. CT scan shows dilated appendix tip at 9 mm with potential for early appendicitis, mild esophagitis and gastritis is also seen as well as an incidental thyroid nodule. Consult was placed to General surgery I spoke to Dr. Hassan over the phone and we went over patient's exam, clinical history and CT findings. He will be on consult and recommended additional resuscitation given patient's lactic acid and persistent tachycardia. She was given Tylenol for her fever an additional fluid bolus was ordered. She remains on broad-spectrum antibiotics with maintenance fluids started. I discussed the case with the hospitalist service who accepted her to the IMU at this time after we went over clinical exam, historical features, fluid resuscitation and broad antibiotics. Patient made aware of the plan and agreeable for admission. <Raheem Garcia MD - Last Filed: 12/07/24 21:56> Medical Records Attestation: I reviewed the patient's medical records. <Raheem Garcia MD - Last Filed: 12/07/24 21:56> Lab Data Attestation: I reviewed the patient's lab results. <Raheem Garcia MD - Last Filed: 12/07/24 21:56> Result diagrams: 12/07/24 18:16 12/07/24 18:16 <Kizzy Cochran APRN - Last Filed: 12/07/24 15:08> Labs: Lab Results 12/07/24 12/07/24 12/07/24 Range/Units 18:16 18:21 20:46 WBC 18.6 H (4.5-10.0) K/mm3 RBC 4.20 (4.2-5.4) M/mm3 Hgb 13.0 (12.0-15.0) g/dL Hct 39.9 (37.0-47.0) % MCV 95.0 (80-100) fl MCH 31.0 (26-34) pg MCHC 32.6 (32-36) g/dl RDW 17.4 H (11.5-14.5) % Plt Count 341 (150-375) k/mm3 MPV 11.0 H (7.4-10.4) fl Immature Gran % (Auto) 0.4 (0-0.5) % Neut % (Auto) 77.8 H (45.5-73.1) % Lymph % (Auto) 5.2 L (18.3-44.2) % [place] % (Auto) 16.5 H (2.6-8.5) % Eos % (Auto) 0.0 (0-4.4) % Baso % (Auto) 0.1 L (0.2-1.2) % Lymph # (Auto) 0.96 (0.9-3.2) K/mm3 [place] # (Auto) 3.1 H (0.1-0.6) K/mm3 Eos # (Auto) 0.0 (0-0.3) K/mm3 Baso # (Auto) 0.0 (0.0-0.1) K/mm3 Abs Immat Gran (auto) 0.08 H (0.00-0.031) K/mm3 Absolute Neuts (auto) 14.4 H (1.3-6.7) K/mm3 Absolute Nucleated RBC 0.000 (0.0-0.012) K/mm3 Nucleated RBC % 0.0 (0.0-0.2) % PT 14.8 H (11.1-14.7) Seconds INR 1.1 APTT 27.4 (22.3-36.8) Seconds Sodium 139 (137-145) mmol/L Potassium 4.1 (3.4-5.0) mmol/L Chloride 104 (98-107) mmol/L Carbon Dioxide 17 L (22-30) mmol/L Anion Gap 18 H (4-12) mmol/L BUN 14 (7-17) mg/dL Creatinine 1.57 H (0.7-1.0) mg/dL Estim Creat Clear Calc 32 ml/min Estimated GFR 34 L (59 - ) Glucose 342 H (65-110) mg/dL Lactic Acid 5.6 H* (0.7-2.0) mmol/L Calcium 9.1 (8.4-10.2) mg/dL Total Bilirubin 0.6 (0.2-1.3) mg/dL AST 29 (14-36) U/L ALT 34 (6-35) U/L Alkaline Phosphatase 160 H (38-126) U/L Troponin I 0.041 H* (0.000-0.034) ng/mL C-Reactive Protein 2.0 H (<1.0) mg/dL Total Protein 6.6 (6.3-8.2) g/dL Albumin 3.8 (3.5-5.1) g/dL Urine Color Yellow (Yellow) Urine Appearance Clear (Clear) Urine pH 6.0 (5.0-9.0) Ur Specific [place] > 1.045 H (1.001-1.035) Urine Protein Negative (Negative) mg/dL Urine Glucose (UA) 3+ H (Negative) mg/dL Urine Ketones 1+ H (Negative) mg/dL Ur Blood (Man) Negative (Negative) Urine Nitrate Negative (Negative) Urine Bilirubin Negative (Negative) Urine Urobilinogen 0.2 (<2.0) mg/dL Leukocyte Esterase Rfl Negative (Negative) TIFFANI/UL 12/07/ Range/Units 20:54 WBC (4.5-10.0) K/mm3 RBC (4.2-5.4) M/mm3 Hgb (12.0-15.0) g/dL Hct (37.0-47.0) % MCV (80-100) fl MCH (26-34) pg MCHC (32-36) g/dl RDW (11.5-14.5) % Plt Count (150-375) k/mm3 MPV (7.4-10.4) fl Immature Gran % (Auto) (0-0.5) % Neut % (Auto) (45.5-73.1) % Lymph % (Auto) (18.3-44.2) % Isabel[place] % (Auto) (2.6-8.5) % Eos % (Auto) (0-4.4) % Baso % (Auto) (0.2-1.2) % Lymph # (Auto) (0.9-3.2) K/mm3 [place] # (Auto) (0.1-0.6) K/mm3 Eos # (Auto) (0-0.3) K/mm3 Baso # (Auto) (0.0-0.1) K/mm3 Abs Immat Gran (auto) (0.00-0.031) K/mm3 Absolute Neuts (auto) (1.3-6.7) K/mm3 Absolute Nucleated RBC (0.0-0.012) K/mm3 Nucleated RBC % (0.0-0.2) % PT (11.1-14.7) Seconds INR APTT (22.3-36.8) Seconds Sodium (137-145) mmol/L Potassium (3.4-5.0) mmol/L Chloride (98-107) mmol/L Carbon Dioxide (22-30) mmol/L Anion Gap (4-12) mmol/L BUN (7-17) mg/dL Creatinine (0.7-1.0) mg/dL Estim Creat Clear Calc ml/min Estimated GFR (59 - ) Glucose (65-110) mg/dL Lactic Acid 6.5 H* (0.7-2.0) mmol/L Calcium (8.4-10.2) mg/dL Total Bilirubin (0.2-1.3) mg/dL AST (14-36) U/L ALT (6-35) U/L Alkaline Phosphatase (38-126) U/L Troponin I (0.000-0.034) ng/mL C-Reactive Protein (<1.0) mg/dL Total Protein (6.3-8.2) g/dL Albumin (3.5-5.1) g/dL Urine Color (Yellow) Urine Appearance (Clear) Urine pH (5.0-9.0) Ur Specific [place] (1.001-1.035) Urine Protein (Negative) mg/dL Urine Glucose (UA) (Negative) mg/dL Urine Ketones (Negative) mg/dL Ur Blood (Man) (Negative) Urine Nitrate (Negative) Urine Bilirubin (Negative) Urine Urobilinogen (<2.0) mg/dL Leukocyte Esterase Rfl (Negative) TIFFANI/UL <Kizzy Cochran, [employer] PERSON - Last Filed: 12/07/24 15:08> Lab Results 12/07/24 12/07/24 12/07/24 Range/Units 18:16 18:21 20:46 WBC 18.6 H (4.5-10.0) K/mm3 RBC 4.20 (4.2-5.4) M/mm3 Hgb 13.0 (12.0-15.0) g/dL Hct 39.9 (37.0-47.0) % MCV 95.0 (80-100) fl MCH 31.0 (26-34) pg MCHC 32.6 (32-36) g/dl RDW 17.4 H (11.5-14.5) % Plt Count 341 (150-375) k/mm3 MPV 11.0 H (7.4-10.4) fl Immature Gran % (Auto) 0.4 (0-0.5) % Neut % (Auto) 77.8 H (45.5-73.1) % Lymph % (Auto) 5.2 L (18.3-44.2) % Isabel[place] % (Auto) 16.5 H (2.6-8.5) % Eos % (Auto) 0.0 (0-4.4) % Baso % (Auto) 0.1 L (0.2-1.2) % Lymph # (Auto) 0.96 (0.9-3.2) K/mm3 [place] # (Auto) 3.1 H (0.1-0.6) K/mm3 Eos # (Auto) 0.0 (0-0.3) K/mm3 Baso # (Auto) 0.0 (0.0-0.1) K/mm3 Abs Immat Gran (auto) 0.08 H (0.00-0.031) K/mm3 Absolute Neuts (auto) 14.4 H (1.3-6.7) K/mm3 Absolute Nucleated RBC 0.000 (0.0-0.012) K/mm3 Nucleated RBC % 0.0 (0.0-0.2) % PT 14.8 H (11.1-14.7) Seconds INR 1.1 APTT 27.4 (22.3-36.8) Seconds Sodium 139 (137-145) mmol/L Potassium 4.1 (3.4-5.0) mmol/L Chloride 104 (98-107) mmol/L Carbon Dioxide 17 L (22-30) mmol/L Anion Gap 18 H (4-12) mmol/L BUN 14 (7-17) mg/dL Creatinine 1.57 H (0.7-1.0) mg/dL Estim Creat Clear Calc 32 ml/min Estimated GFR 34 L (59 - ) Glucose 342 H (65-110) mg/dL Lactic Acid 5.6 H* (0.7-2.0) mmol/L Calcium 9.1 (8.4-10.2) mg/dL Total Bilirubin 0.6 (0.2-1.3) mg/dL AST 29 (14-36) U/L ALT 34 (6-35) U/L Alkaline Phosphatase 160 H (38-126) U/L Troponin I 0.041 H* (0.000-0.034) ng/mL C-Reactive Protein 2.0 H (<1.0) mg/dL Total Protein 6.6 (6.3-8.2) g/dL Albumin 3.8 (3.5-5.1) g/dL Urine Color Yellow (Yellow) Urine Appearance Clear (Clear) Urine pH 6.0 (5.0-9.0) Ur Specific [place] > 1.045 H (1.001-1.035) Urine Protein Negative (Negative) mg/dL Urine Glucose (UA) 3+ H (Negative) mg/dL Urine Ketones 1+ H (Negative) mg/dL Ur Blood (Man) Negative (Negative) Urine Nitrate Negative (Negative) Urine Bilirubin Negative (Negative) Urine Urobilinogen 0.2 (<2.0) mg/dL Leukocyte Esterase Rfl Negative (Negative) TIFFANI/UL 06/30/25 Range/Units 20:54 WBC (4.5-10.0) K/mm3 RBC (4.2-5.4) M/mm3 Hgb (12.0-15.0) g/dL Hct (37.0-47.0) % MCV (80-100) fl MCH (26-34) pg MCHC (32-36) g/dl RDW (11.5-14.5) % Plt Count (150-375) k/mm3 MPV (7.4-10.4) fl Immature Gran % (Auto) (0-0.5) % Neut % (Auto) (45.5-73.1) % Lymph % (Auto) (18.3-44.2) % [place] % (Auto) (2.6-8.5) % Eos % (Auto) (0-4.4) % Baso % (Auto) (0.2-1.2) % Lymph # (Auto) (0.9-3.2) K/mm3 [place] # (Auto) (0.1-0.6) K/mm3 Eos # (Auto) (0-0.3) K/mm3 Baso # (Auto) (0.0-0.1) K/mm3 Abs Immat Gran (auto) (0.00-0.031) K/mm3 Absolute Neuts (auto) (1.3-6.7) K/mm3 Absolute Nucleated RBC (0.0-0.012) K/mm3 Nucleated RBC % (0.0-0.2) % PT (11.1-14.7) Seconds INR APTT (22.3-36.8) Seconds Sodium (137-145) mmol/L Potassium (3.4-5.0) mmol/L Chloride (98-107) mmol/L Carbon Dioxide (22-30) mmol/L Anion Gap (4-12) mmol/L BUN (7-17) mg/dL Creatinine (0.7-1.0) mg/dL Estim Creat Clear Calc ml/min Estimated GFR (59 - ) Glucose (65-110) mg/dL Lactic Acid 6.5 H* (0.7-2.0) mmol/L Calcium (8.4-10.2) mg/dL Total Bilirubin (0.2-1.3) mg/dL AST (14-36) U/L ALT (6-35) U/L Alkaline Phosphatase (38-126) U/L Troponin I (0.000-0.034) ng/mL C-Reactive Protein (<1.0) mg/dL Total Protein (6.3-8.2) g/dL Albumin (3.5-5.1) g/dL Urine Color (Yellow) Urine Appearance (Clear) Urine pH (5.0-9.0) Ur Specific [place] (1.001-1.035) Urine Protein (Negative) mg/dL Urine Glucose (UA) (Negative) mg/dL Urine Ketones (Negative) mg/dL Ur Blood (Man) (Negative) Urine Nitrate (Negative) Urine Bilirubin (Negative) Urine Urobilinogen (<2.0) mg/dL Leukocyte Esterase Rfl (Negative) TIFFANI/UL <Raheem Garcia MD - Last Filed: 12/07/24 21:56> Imaging Data Attestation: I personally reviewed and interpreted this imaging study as follows: <Raheem Garcia MD - Last Filed: 12/07/24 21:56> My impression: Impressions Venous Doppler Study 12/07/24 18:11 IMPRESSION: 1. No deep venous thrombosis within the visualized portions of the left lower extremity (to the level of the femoral vein). No deep venous thrombosis within the right lower extremity. Chest/Abdomen/Pelvis CT 12/07/24 20:28 IMPRESSION: 1.6 cm right thyroid nodule, recommend nonemergent outpatient thyroid ultrasound for further characterization. Mild esophagitis/gastritis. Dilation of the appendiceal tip to 9 mm, without inflammatory changes. This may be normal for this patient or represent early appendicitis. <Raheem Garcia MD - Last Filed: 12/07/24 21:56> Critical Care Time Critical Care Time Critical Care Time: Yes <Raheem Garcia MD - Last Filed: 12/07/24 21:56> Total Critical Care Time: 75 <Raheem Garcia MD - Last Filed: 12/07/24 21:56> Discharge Plan Discharge Clinical Impression: Sepsis, Acidosis, lactic, Appendicitis, Nausea & vomiting, Abdominal pain, Elevated troponin <Kizzy Cochran APRN - Last Filed: 12/07/24 15:08> Patient Disposition: Still a Patient <Kizzy Cochran APRN - Last Filed: 12/07/24 15:08> Condition: Guarded Prognosis <Kizzy Cochran APRN - Last Filed: 12/07/24 15:08> Patient Language: French <Kizzy Cochran APRN - Last Filed: 12/07/24 15:08> Prescriptions: No Action albuterol sulfate 90 mcg/actuation HFA aerosol inhaler 2 puff inhalation Q4-6H PRN (Reason: shortness of breath or wheezing) 30 Days Qty: 8.5 0RF levofloxacin 750 mg tablet 750 mg PO DAILY 5 Days Qty: 5 0RF trazodone 300 mg tablet 300 mg PO QHS ramelteon 8 mg tablet 8 mg PO QHS clonazepam [Klonopin] 1 mg tablet 1 mg PO QHS Rx Instructions: administer 30 minutes before bedtime esomeprazole magnesium [Nexium] 40 mg capsule,delayed release(DR/EC) 40 mg PO DAILY fluticasone propionate [Flonase Allergy Relief] 50 mcg/actuation spray,suspension 2 spray intranasal BID Qty: 16 3RF Rx Instructions: administer into each nostril levothyroxine 125 mcg capsule 125 mcg PO DAILY Nuplazid 34 mg capsule 34 mg PO DAILY ramelteon 8 mg tablet 8 mg PO QHS midodrine 2.5 mg tablet 2.5 mg PO BID Rx Instructions: do not give last dose of day after 6PM or within 4 hrs of bedtime atorvastatin [Lipitor] 40 mg tablet 40 mg PO DAILY ergocalciferol (vitamin D2) 1,250 mcg (50,000 unit) capsule 1,250 mcg PO WEEKLY Trintellix 10 mg tablet 10 mg PO DAILY Spiriva Respimat 1.25 mcg/actuation mist 2 puff inhalation DAILY mupirocin 2 % ointment 1 applic topical .COMPLEX Qty: 22 3RF Rx Instructions: Intranasal, 2-4 times per day for two weeks then at least 1-2 times per day <Kizzy Cochran APRN - Last Filed: 12/07/24 15:08> Follow-up/Referrals: PHYSICIAN NOT ON STAFF,NONSTAFF [Non-Staff] - <Kizzy Cochran APRN - Last Filed: 12/07/24 15:08> Time of Disposition: 21:56 <Kizzy Cochran APRN - Last Filed: 12/07/24 15:08> 21:56 <Raheem Garcia MD - Last Filed: 12/07/24 21:56>
[2024-12-07 18:23] LABS: Hematocrit 39.9 % (37.0-47.0); Hemoglobin 13.0 g/dL (12.0-15.0); Immature Granulocyte Percent A 0.4 % (0-0.5); Lymphocytes Absolute Auto 0.96 K/mm3 (0.9-3.2); Mean Corpuscular HGB Conc 32.6 g/dl (32-36); Mean Corpuscular Hemoglobin 31.0 pg (26-34); Mean Corpuscular Volume 95.0 fl (80-100); Nucleated Red Blood Cells Absolute Auto 0.000 K/mm3 (0.0-0.012); Nucleated Red Blood Cells Perc 0.0 % (0.0-0.2); Platelet Count Result 341 k/mm3 (150-375); Red Blood Count 4.20 M/mm3 (4.2-5.4); White Blood Count 18.6 K/mm3 (4.5-10.0)
--- OUTSIDE RECORDS SUMMARY | 2024-12-07 18:25 | XMS_ITS | Encounter Summary ---
Author Organization [facility] Address [address] [facility] [facility] [place] [address] Care Team Providers Care Guitar Teacher Name Role Phone Aruna Carroll MD Primary Care Provider Aruna Carroll MD Unavailable [phone] Aruna Carroll MD Unavailable [phone] Loreta Romero PharmD Unavailable Unavailable Reason for Visit * Reason Onset Date Comments MEDICATION REFILL 06/10/2018 Encounter Details Date Type Department Care Team (Late st Contact Info) Description 06/10/2018 Refill [facility] [address] [facility] [place] [address] Aruan Carroll MD [address] OF [facility] [place] [phone] MEDICATION REFILL Social History Tobacco Use Types Packs/Day Years Used Date Smoking Tobacco: Never Smokeless Tobacco: Never Alcohol Use Standard Drinks/Week Comments No 0 (1 standard drink = 0.6 oz pur e alcohol) Comments No Sex and Gender Information Value Date Recorded Sex Assigned at Not on file Legal Sex Female 4:04 PM CDT Gender Identity Not on file Sexual Orientation Not on file documented as of this encounter Plan of Treatment Upcoming Encounters Date Type Department Care Team (Latest Contact Info) Description 12/09/2024 1:00 PM CDT Office Visit [facility] Op[facility]mology [address] [place] [address], [place] [address] Vikram Saleem OD [address] [place] [phone] 12/17/2024 10:30 AM CDT Office Visit [facility] - Pulmonology [address] [place] [phone] Duglas Grider MD [address] [place] [address] 2L DIV OF PULMONARY/[place] [address] 01/04/2025 9:00 AM CDT Office Visit [facility] - Internal Med [address] [place] [phone] Aruna Carroll MD [address] [place] [address] 2L DIV OF [place] [address] 01/19/2025 10:00 AM CDT Office Visit [facility] - Endocrinology [address] [place] [phone] João Robertson MD [address] [facility] [address] [place] [address] 02/01/2025 12:30 PM CDT Procedure visit [facility] GI [address] [place] [phone] 02/01/2025 1:00 PM CDT Office Visit [facility] - GI [address] [place] [phone] Louis Beck MD [address] [place] [address] 2L [place] [address] 04/07/2025 1:00 PM CDT Office Visit [facility] - Neurology [address] [place] [address] [place] [phone] Klever Wilcox APRN-MANAGER MARKETING SALES [address] [place] [address] 1L [place] [phone] 05/11/2025 7:55 AM PLATING FOREMAN Hospital Encounter [facility] [address] [place] [phone] Kip Ryan MD [address] [place] [address] 2L [place] [address] Surgery General 05/11/2025 7:55 AM PLATING FOREMAN - 05/11/2025 8:45 AM PLATING FOREMAN Surgery [facility] [address] [place] [phone] Kip Ryan MD [address] [place] [address] 2L [place] [address] COLONOSCOPY SCREEN---w/Kelle --2 day Miralax prep 10/21/2025 1:30 PM CDT Office Visit [facility] GI [address] [place] [phone] Kip Ryan MD [address] [place] [address] 2L [place] [phone] 10/25/2025 1:10 PM CDT Office Visit [facility] - Dermatology [address] [place] [phone] Anastasiia Tran PA [address] [place] [address] 3L [place] [phone] Scheduled Procedures Name Priority Associated Diagnoses Date/Ti me COLONOSCOPY SCREEN Colon cancer screening 05/11/2025 7:55 AM PLATING FOREMAN documented as of this encounter Goals Goal Patient Goal Type Associated Problems Recent Progress Patient-Stated? Author Safety General On track( 025 2:16 PM CDT) Yaneli Soto, RN Note: Expected end date: Ongoing Interventions: Your nurse will assess your risk for falls/injury each visit Use appropriate and safe transfer methods Medication Management General On track( 025 2:16 PM CDT) Yaneli Soto, LETI Note: Expected end date: Ongoing Interventions: Take all medications as prescribed Let your doctor know right away about any changes in your medications documented as of this encounter Visit Diagnoses Not on filedocumented in this encounter Additional Health Concerns Infection Onset Date Last Indicated Resolved Time COVID-19 Under Investigation 03/29/2020 03/30/2020 03/30/2020 12:08 PM CDT COVID-19 Under Investigation 01/05/2024 01/05/2024 01/05/2024 3:22 PM CDT CDIFF Under Investigation 01/06/2024 01/06/2024 2:20 AM CDT documented as of this encounter Care Teams Guitar Teacher Relationship Specialty Start Date End Date Aruna Carroll MD PCP - General Internal Medicine 03/17/17 Aruna Carroll MD [address] 2L DIV [place] [address] PCP - Attributed-[facility] P[facility]P 11/09/23 Aruna Carroll MD [address] 2L DIV OF [facility] [place] [address] 03/17/17 Loreta Romero, HuongD Pharmacist 11/06/24 documented as of this encounter
--- OUTSIDE RECORDS SUMMARY | 2024-12-07 18:25 | XMS_ITS ---
Author Organization [facility] Address [address] [place] [address] Care Team Providers Care Coding Team Lead Name Role Phone Aruna Carroll MD Primary Care Provider [phone] Aruna Carroll MD Unavailable [phone] Aruna Carroll MD Unavailable Loreta Romero PharmD Unavailable Unavailable Diabetes - Pharmacy Status:Enrolled (Active) Start date:11/06/2024 Enrollment date:11/06/2024 Case Team Name Relationship Phone Loreta Romero PharmD(Responsible Staff) Continued Care and Services Coordination
--- OUTSIDE RECORDS SUMMARY | 2024-12-07 18:25 | XMS_ITS | Encounter Summary ---
Author Organization [facility] Address [address] [facility] [place] [address] Care Team Providers Care Hair Machine Operator Name Role Phone Aruna Carroll MD Primary Care Provider [phone] Aruna Carroll MD Unavailable [phone] Aruna Carroll MD Unavailable [phone] Loreta Romero PharmD Unavailable Unavailable Reason for Visit * Reason Onset Date Comments MEDICATION REFILL 07/10/2018 Encounter Details Date Type Department Care Team (Late st Contact Info) Description 07/10/2018 Refill [facility] [address] [facility] [place] [address] Chelsie Henry MD [address] OF [facility] [place] [phone] MEDICATION REFILL Social History Tobacco Use Types [...] Office Visit [facility] Ophthalmology [address] [place] [address], [place] [address] Vikram Saleem OD [address] [place] [phone] 12/17/2024 10:30 AM CDT Office Visit [facility] - Pulmonology [address] [place] [phone] Duglas Grider MD [address] [place] [address] 2L DIV OF PULMONARY/[place] [address] 01/04/2025 9:00 AM CDT Office Visit [facility] - Internal Med [address] [place] [phone] Aruna Carroll MD [address] [place] [address] 2L DIV OF GEN [place] [address] 01/19/2025 10:00 AM CDT Office Visit [facility] - Endocrinology [address] [place] [phone] João Robertson MD [address] [facility] [place] [address] 02/01/2025 12:30 PM CDT Procedure visit [facility] - GI [address] [place] [phone] 02/01/2025 1:00 PM CDT Office Visit [facility] GI [address] [place] [phone] Louis Beck MD [address] [place] [address] 2L [place] [address] 04/07/2025 1:00 PM CDT Office Visit [facility] - Neurology [address] [place] [phone] Klever Wilcox APRN-AMMUNITION STORAGE SUPERINTENDENT [address] [place] [address] 1L [place] [phone] 05/11/2025 7:55 AM HYDRAULIC CORRUGATING MACHINE OPERATOR Hospital Encounter [facility] ENDOSCOPY [address] [place] [phone] Kip Ryan MD [address] [place] [address] 2L DIV [place] [address] Surgery General 05/11/2025 7:55 AM HYDRAULIC CORRUGATING MACHINE OPERATOR - 05/11/2025 8:45 AM HYDRAULIC CORRUGATING MACHINE OPERATOR Surgery [facility] [address] [place] [phone] Kip Ryan MD [address] [place] [address] 2L DIV [place] [address] COLONOSCOPY SCREEN---w/Kelle --2 day Miralax prep 10/21/2025 1:30 PM CDT Office Visit [facility] - GI [address] [place] [phone] Kip Ryan MD [address] [place] [address] 2L DIV [place] [address] 10/25/2025 1:10 PM CDT Office Visit [facility] Dermatology [address] [place] [phone] Anastasiia Tran PA [address] [place] [address] 3L [place] [phone] Scheduled Procedures Name Priority Associated Diagnoses Date/Ti me COLONOSCOPY SCREEN Colon cancer screening 05/11/2025 7:55 AM HYDRAULIC CORRUGATING MACHINE OPERATOR documented as of this encounter Goals Goal [...] documented as of this encounter Care Teams Hair Machine Operator Relationship Specialty Start Date End Date Aruna Carroll MD PCP - General Internal Medicine 03/17/17 Aruna Carroll MD [address] 2L DIV OF [facility] [place] [address] PCP - [facility] MA [facility] P[facility]P 11/09/23 Aruna Carroll MD [address] 2L DIV OF [facility] [place] [address] 03/17/17 Loreta Romero, HuongD Pharmacist 11/06/24 documented as of this encounter
--- OUTSIDE RECORDS SUMMARY | 2024-12-07 18:25 | XMS_ITS | Encounter Summary ---
Author Organization [facility] Address [address] [facility] [place] [address] Care Team Providers Care Dna Sequencing Associate Name Role Phone Aruna aCrroll MD Primary Care Provider Aruna Carroll MD Unavailable [phone] Aruna Carroll MD Unavailable [phone] Loreta Romero PharmD Unavailable Unavailable Reason for Visit * Reason Onset Date Comments MEDICATION REFILL 09/06/2020 Encounter Details Date Type Department Care Team (Late st Contact Info) Description 09/06/2020 Refill [facility] [address] [place] [address] Duglas Quezada MD [address] [address] MEDICATION REFILL Social History Tobacco Use Types [...] on file documented as of this encounter Functional Status * Is person deaf or have serious hearing difficulty? Answer Date of Assessment Author No 02/02/2020 6:24 PM CDT Debra Vergara RN * Is person blind or have serious difficulty seeing? Answer Date of Assessment Author No 02/02/2020 6:24 PM CDT Debra Vergara RN * Does person have serious difficulty walking/climbing stairs? Answer Date of Assessment Author No 02/02/2020 6:24 PM CDT Debra Vergara RN * Does person have difficulty dressing/bathing? Answer Date of Assessment Author No 02/02/2020 6:24 PM CDT Debra Vergara RN * Does person have difficulty doing errands alone? Answer Date of Assessment Author No 02/02/2020 6:24 PM CDT Debra Vergara RN documented as of this encounter Mental Status * Does person have difficulty concentrating/remembering/making decisions? Answer Entry Date Author No 02/02/2020 6:24 PM CDT Debra Vergara RN documented in this encounter Miscellaneous Notes * Telephone Encounter - Cyndi Curtis - 09/07/2020 1:13 PM CDT Refill Request Margarita Amor KAMAR: 08/01/20 NOV scheduled: Visit date not found LRF: 01/16/2019 Qty Disp: 90tab # of refills: 3 Allergies: Allergies Allergen Reactions ??? Latex Rash ??? Clindamycin Other Chest pain- difficulty swallowing ??? Fentanyl Other Over sedated with patch/confusion ??? Penicillins Rash ??? Sulfa Drugs Rash and Nausea and/or Vomiting ??? Tetracycline Rash and Nausea and/or Vomiting ??? Depakote [Valproic Acid] Other transaminitis Elevated liver enzymes ??? Erythromycin Rash, Nausea and/or Vomiting and GI Discomfort Pended Medication Order: Requested Prescriptions Pending Prescriptions Disp Refills ??? montelukast (SINGULAIR) 10 MG tablet 90 tablet 3 Sig: Take 1 (one) tablet by mouth once daily documented in this encounter Plan of Treatment Upcoming Encounters Date Type Department Care Team (Latest Contact Info) Description 12/09/2024 1:00 PM CDT Office Visit [facility] - Ophthalmology [address] [place] [address] [place] [phone] Vikram Saleem, MADONNA [address] [place] [phone] 12/17/2024 10:30 AM CDT Office Visit [facility] - Pulmonology [address] [place] [phone] Duglas Grider MD [address] [place] [address] 2L DIV OF PULMONARY/[place] [address] 01/04/2025 9:00 AM CDT Office Visit [facility] - Internal Med [address] [place] [phone] Aruna Carroll MD [address] [place] [address] 2L [place] [address] 01/19/2025 10:00 AM CDT Office Visit [facility] - Endocrinology [address] [place] [phone] João Robertson MD [address] [facility] [address] [place] [address] 02/01/2025 12:30 PM CDT Procedure visit [facility] GI [address] [place] [phone] 02/01/2025 1:00 PM CDT Office Visit [facility] GI [address] [place] [phone] Louis Beck MD [address] [place] [address] 2L [place] [address] 04/07/2025 1:00 PM CDT Office Visit [facility] - Neurology [address] [place] [address] [place] [phone] Klever Wilcox, LA[employer]-CARGO SERVICE SUPERVISOR [address] [place] [address] 1L [place] [phone] 05/11/2025 7:55 AM RADIO AERIAL INSTALLER Hospital Encounter [facility] END[facility] [address] [place] [phone] Kip Ryan MD [address] [place] [address] 2L [place] [address] Surgery General 05/11/2025 7:55 AM RADIO AERIAL INSTALLER - 05/11/2025 8:45 AM RADIO AERIAL INSTALLER Surgery [facility] [address] [place] [phone] Kip Ryan MD [address] [place] [address] 2L [place] [address] COLONOSCOPY SCREEN---w/Kelle --2 day Miralax prep 10/21/2025 1:30 PM CDT Office Visit [facility] - GI [address] [place] [phone] Kip Ryan MD [address] [place] [address] 2L [place] [address] 10/25/2025 1:10 PM CDT Office Visit [facility] - Dermatology [address] [place] [phone] Anastasiia Tran PA [address] [place] [address] [address] [place] [phone] Scheduled Procedures Name Priority Associated Diagnoses Date/Ti me COLONOSCOPY SCREEN Colon cancer screening 05/11/2025 7:55 AM RADIO AERIAL INSTALLER documented as of this encounter Goals Goal Patient Goal Type Associated Problems Recent Progress Patient-Stated? Author Safety General On track(2024 2:16 PM CDT) No Yaneli Hammer RN Note: Expected end date: Ongoing Interventions: Your nurse will assess your risk for falls/injury each visit Use appropriate and safe transfer methods Medication Management General On track(2024 2:16 PM CDT) No Yaneli Hammer RN Note: Expected end date: Ongoing Interventions: Take all medications as prescribed Let your doctor know right away about any changes in your medications Depression Lifestyle On track(2024 2:16 PM CDT) No Marvin Gutierres MD documented as of this encounter Visit Diagnoses Not on filedocumented in this encounter Additional Health Concerns Infection Onset Date Last Indicated Resolved Time COVID-19 Under Investigation 01/05/2024 01/05/2024 01/05/2024 3:22 PM CDT CDIFF Under Investigation 01/06/2024 01/06/2024 2:20 AM CDT documented as of this encounter Care Teams Dna Sequencing Associate Relationship Specialty Start Date End Date Aruna Carroll MD PCP - General Internal Medicine 03/17/17 Aruna Carroll MD [address] 2L DIV OF [facility] [place] [address] PCP - [facility] MA [facility] P4P 11/09/23 Aruna Carroll MD [address] 2L DIV OF [facility] [place] [address] 03/17/17 Loreta Romero, Gucci Pharmacist 11/06/24 documented as of this encounter
--- OUTSIDE RECORDS SUMMARY | 2024-12-07 18:25 | XMS_ITS | Encounter Summary ---
Author Organization [facility] Address [address] [facility] [place] [address] Care Team Providers Care Bilingual Speech Language Pathologist Name Role Phone Aruna Carroll MD Primary Care Provider Aruna Carroll MD Unavailable [phone] Aruna Carroll MD Unavailable [phone] Loreta Romero PharmD Unavailable Unavailable Reason for Visit * Reason Onset Date Comments MEDICATION REFILL 10/27/2018 Encounter Details Date Type Department Care Team (Late st Contact Info) Description 10/27/2018 Refill [facility] Internal Medicine [address] [facility] [address] [place] [address] Aruna Carroll MD [address] OF [facility] [place] [phone] MEDICATION REFILL Social History Tobacco Use Types [...] on file documented as of this encounter Miscellaneous Notes * Telephone Encounter - Huma Chow - 10/27/2018 11:03 AM CDT Patient sending in MyChart refill request for their Baclofen. ?? Medication is attached. Allergies are reviewed. ?? KAMAR:05-26-18 NOV: 12-29-18 ?? documented in this encounter Plan of Treatment Upcoming Encounters Date Type Department Care Team (Latest Contact Info) Description 12/09/2024 1:00 PM CDT Office Visit [facility] Op[facility]mology [address] [place] [phone] Vikram Saleem, MADONNA [address] [place] [phone] 12/17/2024 10:30 AM CDT Office Visit [facility] Pulmonology [address] [place] [phone] Duglas Grider MD [address] [place] [address] 2L DIV OF PULMONARY/[place] [address] 01/04/2025 9:00 AM CDT Office Visit [facility] Internal Med [address] [place] [phone] Aruna Carroll MD [address] [place] [address] 2L DIV [place] [address] 01/19/2025 10:00 AM CDT Office Visit [facility] Endocrinology [address] [place] [phone] João Robertson MD [address] [facility] [address] [place] [address] 02/01/2025 12:30 PM CDT Procedure visit [facility] GI [address] [place] [phone] 02/01/2025 1:00 PM CDT Office Visit [facility] [address] [place] [phone] Louis Beck MD [address] [place] [address] 2L [place] [address] 04/07/2025 1:00 PM CDT Office Visit [facility] Neurology [address] [place] [phone] Klever Wilcox, COMMUNITY HEALTH WORKER-FORMULA CHECKER [address] [place] [address] 1L [place] [address] 05/11/2025 7:55 AM RUFFLING HEMMER AUTOMATIC Hospital Encounter [facility] [address] [place] [phone] Kip Ryan MD [address] [place] [address] 2L [place] [phone] Surgery General 05/11/2025 7:55 AM RUFFLING HEMMER AUTOMATIC - 05/11/2025 8:45 AM RUFFLING HEMMER AUTOMATIC Surgery [facility] [address] [place] [phone] Kip Ryan MD [address] [place] [address] 2L [place] [phone] COLONOSCOPY SCREEN---w/Kelle --2 day Miralax prep 10/21/2025 1:30 PM CDT Office Visit [facility] - GI [address] [place] [phone] Kip Ryan MD [address] [place] [address] 2L [place] [phone] 10/25/2025 1:10 PM CDT Office Visit [facility], [place] [address] Anastasiia Tran PA [address] [place] [address] 3L [place] [address] Scheduled Procedures Name Priority Associated Diagnoses Date/Ti me COLONOSCOPY SCREEN Colon cancer screening 05/11/2025 7:55 AM RUFFLING HEMMER AUTOMATIC documented as of this encounter Goals Goal Patient Goal Type Associated Problems Recent Progress Patient-Stated? Author Safety General On track( 025 2:16 PM CDT) No Yaneli Hammer, RN Note: Expected end date: Ongoing Interventions: Your nurse will assess your risk for falls/injury each visit Use appropriate and safe transfer methods Medication Management General On track( 025 2:16 PM CDT) No Yaneli Hammer, RN Note: Expected end date: Ongoing Interventions: [...] documented as of this encounter Care Teams Bilingual Speech Language Pathologist Relationship Specialty Start Date End Date Aruna Carroll MD PCP - General Internal Medicine 03/17/17 Aruna Carroll MD [address] [place] [address] 2L DIV [place] [phone] PCP - Attributed-[facility] P4P 11/09/23 Aruna Carroll MD [address] [place] [phone] 03/17/17 Loreta Romero PharmD Pharmacist 11/06/24 documented as of this encounter
--- OUTSIDE RECORDS SUMMARY | 2024-12-07 18:25 | XMS_ITS | Encounter Summary ---
Author Organization [facility] Address [address] [facility] [place] [address] Care Team Providers Care Director Operating Room Name Role Phone Aruna Carroll MD Primary Care Provider Aruna Carroll MD Unavailable [phone] Aruna Carroll MD Unavailable [phone] Loreta Romero PharmD Unavailable Unavailable Reason for Visit * Reason Onset Date Comments MEDICATION REFILL 07/26/2018 Encounter Details Date Type Department Care Team (Late st Contact Info) Description 07/26/2018 Refill [facility] [address] [facility] [place] [address] Aruna Carroll MD [address] OF [facility] [place] [phone] MEDICATION REFILL Social History Tobacco Use Types [...] Office Visit [facility] - Ophthalmology [address] [place] [address], [place] [address] Vikram Saleem OD [address] [place] [phone] 12/17/2024 10:30 AM CDT Office Visit [facility] - Pulmonology [address] [place] [phone] Duglas Grider MD [address] [place] [address] 2L DIV OF PULMONARY/[place] [address] 01/04/2025 9:00 AM CDT Office Visit [facility] - Internal Med [address] [place] [phone] Aruna Carroll MD [address] [place] [address] 2L DIV OF GEN [place] [address] 01/19/2025 10:00 AM CDT Office Visit [facility] - Endocrinology [address] [place] [phone] João Robertson MD [address] [facility] [address] [place] [address] 02/01/2025 12:30 PM CDT Procedure visit [facility] - GI [address] [place] [phone] 02/01/2025 1:00 PM CDT Office Visit [facility] - GI [address] [place] [phone] Louis Beck MD [address] [place] [address] 2L [place] [address] 04/07/2025 1:00 PM CDT Office Visit [facility] - Neurology [address] [place] [address] [place] [phone] Klever Wilcox APRN-GYMNASTICS COACH OR INSTRUCTOR [address] [place] [address] 1L [place] [address] 05/11/2025 7:55 AM COORDINATOR CARDIOPULMONARY SERVICES Hospital Encounter [facility] ENDOSCOPY [address] [place] [phone] Kip Ryan MD [address] [place] [address] 2L DIV [place] [address] Surgery General 05/11/2025 7:55 AM COORDINATOR CARDIOPULMONARY SERVICES - 05/11/2025 8:45 AM COORDINATOR CARDIOPULMONARY SERVICES Surgery [facility] ENDOSCOPY [address] [place] [phone] Kip Ryan MD [address] [place] [address] 2L DIV [place] [address] COLONOSCOPY SCREEN---w/Kelle --2 day Miralax prep 10/21/2025 1:30 PM CDT Office Visit [facility] - GI [address] [place] [phone] Kip Ryan MD [address] [place] [address] 2L DIV [place] [phone] 10/25/2025 1:10 PM CDT Office Visit [facility] - Dermatology [address] [place] [phone] Anastasiia Tran PA [address] [place] [address] 3L [place] [phone] Scheduled Procedures Name Priority Associated Diagnoses Date/Ti me COLONOSCOPY SCREEN Colon cancer screening 05/11/2025 7:55 AM COORDINATOR CARDIOPULMONARY SERVICES documented as of this encounter Goals Goal [...] documented as of this encounter Care Teams Director Operating Room Relationship Specialty Start Date End Date Aruna Carroll MD PCP - General Internal Medicine 03/17/17 Aruna Carroll MD [address] 2L DIV [place] [address] PCP - Attributed-[facility] 11/09/23 Aruna Carroll MD [address] 2L DIV OF [facility] [place] [address] 03/17/17 Loreta Romero, HuongD Pharmacist 11/06/24 documented as of this encounter
--- OUTSIDE RECORDS SUMMARY | 2024-12-07 18:26 | XMS_ITS | Encounter Summary ---
Author Organization [facility] Address [address] [place] [address] Care Team Providers Care Oil Well Cable Tool Driller Name Role Phone Aruna Carroll MD Primary Care Provider [phone] Aruna Carroll MD Unavailable [phone] Aruna Carroll MD Unavailable [phone] Loreta Romero PharmD Unavailable Unavailable Reason for Visit * Reason Onset Date Comments MEDICATION REFILL 01/31/2018 Encounter Details Date Type Department Care Team (Late st Contact Info) Description 01/31/2018 Refill [facility] [address] [facility] [place] [address] Aruna Carroll MD [address] OF [facility] [place] [phone] MEDICATION REFILL Social History Tobacco Use Types [...] Office Visit [facility] - Ophthalmology [address] [place] [address], [place] [address] Vikram Saleem OD [address] [place] [phone] 12/17/2024 10:30 AM CDT Office Visit [facility] - Pulmonology [address] [place] [phone] Duglas Grider MD [address] [place] [address] 2L DIV OF PULMONARY/[place] [address] 01/04/2025 9:00 AM CDT Office Visit [facility] - Internal Med [address] [place] [phone] Aruna Carroll MD [address] [place] [address] 2L DIV OF GEN [place] [address] 01/19/2025 10:00 AM CDT Office Visit [facility] - Endocrinology [address] [place] [phone] João Robertson MD [address] [facility] [address] [place] [address] 02/01/2025 12:30 PM CDT Procedure visit [facility] - GI [address] [place] [phone] 02/01/2025 1:00 PM CDT Office Visit [facility] - GI [address] [place] [phone] Louis Beck MD [address] [place] [address] 2L [place] [address] 04/07/2025 1:00 PM CDT Office Visit [facility] - Neurology [address] [place] [address] [place] [phone] Klever Wilcox APRN-PERINATAL DIRECTOR [address] [place] [address] 1L [place] [address] 05/11/2025 7:55 AM STUDIO COUCH FRAME BUILDER Hospital Encounter [facility] ENDOSCOPY [address] [place] [phone] Kip Ryan MD [address] [place] [address] 2L DIV [place] [address] Surgery General 05/11/2025 7:55 AM STUDIO COUCH FRAME BUILDER - 05/11/2025 8:45 AM STUDIO COUCH FRAME BUILDER Surgery [facility] ENDOSCOPY [address] [place] [phone] Kip Ryan MD [address] [place] [address] 2L DIV [place] [address] COLONOSCOPY SCREEN---w/Kelle --2 day Miralax prep 10/21/2025 1:30 PM CDT Office Visit [facility] - GI [address] [place] [phone] Kip Ryan MD [address] [place] [address] 2L DIV [place] [address] 10/25/2025 1:10 PM CDT Office Visit [facility] - Dermatology [address] [place] [phone] Anastasiia Tran PA [address] [place] [address] 3L DEPT [place] [phone] Scheduled Procedures Name Priority Associated Diagnoses Date/Ti me COLONOSCOPY SCREEN Colon cancer screening 05/11/2025 7:55 AM STUDIO COUCH FRAME BUILDER documented as of this encounter Visit Diagnoses Not on filedocumented in this encounter Additional Health Concerns Infection Onset Date Last Indicated Resolved Time COVID-19 Under Investigation 03/29/2020 03/30/2020 03/30/2020 12:08 PM CDT COVID-19 Under Investigation 01/05/2024 01/05/2024 01/05/2024 3:22 PM CDT CDIFF Under Investigation 01/06/2024 01/06/2024 2:20 AM CDT documented as of this encounter Care Teams Oil Well Cable Tool Driller Relationship Specialty Start Date End Date Aruna Carroll MD PCP - General Internal Medicine 03/17/17 Aruna Carroll MD [address] 2L DIV OF GEN [place] [phone] PCP - Critical access hospital [facility] P4P 11/09/23 Aruna Carroll MD [address] 2L DIV OF [facility] [place] [address] 03/17/17 Loreta Romero, Gucci Pharmacist 11/06/24 documented as of this encounter
--- OUTSIDE RECORDS SUMMARY | 2024-12-07 18:26 | XMS_ITS | Encounter Summary ---
Author Organization [facility] Address [address] [facility] [place] [address] Care Team Providers Care Sports Teacher Name Role Phone Aruna Carroll MD Primary Care Provider [phone] Aruna Carroll MD Unavailable [phone] Aruna Carroll MD Unavailable [phone] Loreta Romero PharmD Unavailable Unavailable Reason for Visit * Reason Onset Date Comments MEDICATION REFILL 07/20/2020 Encounter Details Date Type Department Care Team (Late st Contact Info) Description 07/20/2020 Refill [facility] [address] [place] [address], [place] [address] Ev Rawls MD [address] [place] [address] [place] [address] MEDICATION REFILL Social History Tobacco Use Types [...] Entry Date Author No 02/02/2020 6:24 PM NAYELIT Debra Vergara RN documented in this encounter Plan of Treatment Upcoming Encounters Date Type Department Care Team (Latest Contact Info) Description 12/09/2024 1:00 PM CDT Office Visit [facility] - Ophthalmology [address] [place] [phone] Vikram Saleem OD [address] [place] [phone] 12/17/2024 10:30 AM CDT Office Visit [facility] - Pulmonology [address] [place] [phone] Duglas Grider MD [address] [place] [address] 2L DIV OF PULMONARY/[place] [address] 01/04/2025 9:00 AM CDT Office Visit [facility] - Internal Med [address] [place] [phone] Aruna Carroll MD [address] [place] [address] 2L DIV [place] [address] 01/19/2025 10:00 AM CDT Office Visit [facility] - Endocrinology [address] [place] [address], [place] [address] João Robertson MD [address] [facility] [address] [place] [address] 02/01/2025 12:30 PM CDT Procedure visit [facility] - GI [address] [place] [address], [place] [phone] 02/01/2025 1:00 PM CDT Office Visit [facility] - GI [address] [place] [address], [place] [phone] Louis Beck MD [address] [place] [address] 2L [place] [address] 04/07/2025 1:00 PM CDT Office Visit [facility] - Neurology [address] [place] [address], [place] [address] Klever Wilcox, MARCO-VANCE [address] [place] [address] 1L [place] [address] 05/11/2025 7:55 AM PARI MUTUEL TICKET CASHIER Hospital Encounter [facility] ENDOSCOPY [address] [place] [phone] Kip Ryan MD [address] [place] [address] 2L [place] [phone] Surgery General 05/11/2025 7:55 AM PARI MUTUEL TICKET CASHIER - 05/11/2025 8:45 AM PARI MUTUEL TICKET CASHIER Surgery [facility] ENDOSCOPY [address] [place] [phone] Kip Ryan MD [address] [place] [address] 2L [place] [phone] COLONOSCOPY SCREEN---w/Kelle --2 day Miralax prep 10/21/2025 1:30 PM CDT Office Visit [facility] - GI [address] [place] [address], [place] [phone] Kip Ryan MD [address] [place] [address] 2L [place] [address] 10/25/2025 1:10 PM CDT Office Visit [facility] - Dermatology [address] [place] [phone] Anastasiia Tran PA [address] [place] [address] 3L [place] [phone] Scheduled Procedures Name Priority Associated Diagnoses Date/Ti me COLONOSCOPY SCREEN Colon cancer screening 05/11/2025 7:55 AM PARI MUTUEL TICKET CASHIER documented as of this encounter Goals Goal Patient Goal Type Associated Problems Recent Progress Patient-Stated? Author Safety General On track(2024 2:16 PM CDT) No Yaneli Hammer, LETI Note: Expected end date: Ongoing Interventions: Your [...] documented as of this encounter Visit Diagnoses Diagnosis Intractable chronic migraine without aura and without status migrainosus Chronic migraine without aura, with intractable migraine, so stated, without mention of status migrainosus Colon cancer screening Special screening for malignant neoplasms, colon documented in this encounter Additional Health Concerns Infection Onset Date Last Indicated Resolved Time COVID-19 Under Investigation 01/05/2024 01/05/2024 01/05/2024 3:22 PM CDT CDIFF Under Investigation 01/06/2024 01/06/2024 2:20 AM CDT documented as of this encounter Care Teams Sports Teacher Relationship Specialty Start Date End Date Aruna Carroll MD PCP - General Internal Medicine 03/17/17 Aruna Carroll MD [address] 2L DIV OF [facility] [place] [place] [address] PCP - [facility] RONY RAMOS P4P 11/09/23 Aruna Carroll MD [address] 2L DIV OF [facility] [place] [address] 03/17/17 Loreta Romero PharmD Pharmacist 11/06/24 documented as of this encounter
--- OUTSIDE RECORDS SUMMARY | 2024-12-07 18:26 | XMS_ITS | Encounter Summary ---
Author Organization [facility] Address [address] [facility] [place] [address] Care Team Providers Care Invoicing Specialist Name Role Phone Aruna Carroll MD Primary Care Provider Aruna Carroll MD Unavailable [phone] Aruna Carroll MD Unavailable [phone] Loreta Romero PharmD Unavailable Unavailable Reason for Visit * Reason Onset Date Comments MEDICATION REFILL 01/31/2018 Encounter Details Date Type Department Care Team (Late st Contact Info) Description 01/31/2018 Refill [facility] [address] [facility] [place] [address] Aruna Carroll MD [address] OF [facility] [place] [phone] MEDICATION REFILL Social History Tobacco Use Types [...] Office Visit [facility] - Ophthalmology [address] [place] [address], [place] [address] Vikram Saleem OD [address] [place] [phone] 12/17/2024 10:30 AM CDT Office Visit [facility] - Pulmonology [address] [place] [phone] Duglas Grider MD [address] [place] [address] 2L DIV OF PULMONARY/[place] [address] 01/04/2025 9:00 AM CDT Office Visit [facility] - Internal Med [address] [place] [phone] Aruna Carroll MD [address] [place] [address] 2L DIV OF GEN [place] [address] 01/19/2025 10:00 AM CDT Office Visit [facility] - Endocrinology [address] [place] [phone] João Robertson MD [address] [facility] [address] [place] [address] 02/01/2025 12:30 PM CDT Procedure visit [facility] - GI [address] [place] [phone] 02/01/2025 1:00 PM CDT Office Visit [facility] - GI [address] [place] [phone] Louis Beck MD [address] [place] [address] 2L [place] [address] 04/07/2025 1:00 PM CDT Office Visit [facility] - Neurology [address] [place] [address] [place] [phone] Klever Wilocx APRN-RITUAL CIRCUMCISER [address] [place] [address] 1L [place] [phone] 05/11/2025 7:55 AM ENTERPRISE RESOURCE PLANNING CONSULTANT Hospital Encounter [facility] ENDOSCOPY [address] [place] [phone] Kip Ryan MD [address] [place] [address] 2L DIV [place] [address] Surgery General 05/11/2025 7:55 AM ENTERPRISE RESOURCE PLANNING CONSULTANT - 05/11/2025 8:45 AM ENTERPRISE RESOURCE PLANNING CONSULTANT Surgery [facility] ENDOSCOPY [address] [place] [phone] Kip Ryan MD [address] [place] [address] 2L DIV [place] [address] COLONOSCOPY SCREEN---w/Kelle --2 day Miralax prep 10/21/2025 1:30 PM CDT Office Visit [facility] - GI [address] [place] [phone] Kip Ryan MD [address] [place] [address] 2L DIV [place] [phone] 10/25/2025 1:10 PM CDT Office Visit [facility] - Dermatology [address] [place] [phone] Anastasiia Tran PA [address] [place] [address] 3L DEPT [place] [phone] Scheduled Procedures Name Priority Associated Diagnoses Date/Ti me COLONOSCOPY SCREEN Colon cancer screening 05/11/2025 7:55 AM ENTERPRISE RESOURCE PLANNING CONSULTANT documented as of this encounter Visit Diagnoses Not on filedocumented in this encounter Additional Health Concerns Infection Onset Date Last Indicated Resolved Time COVID-19 Under Investigation 03/29/2020 03/30/2020 03/30/2020 12:08 PM CDT COVID-19 Under Investigation 01/05/2024 01/05/2024 01/05/2024 3:22 PM CDT CDIFF Under Investigation 01/06/2024 01/06/2024 2:20 AM CDT documented as of this encounter Care Teams Invoicing Specialist Relationship Specialty Start Date End Date Aruna Carroll MD PCP - General Internal Medicine 03/17/17 Aruna Carroll MD [address] 2L DIV OF [place] [phone] PCP - [facility] RONY RAMOS P4P 11/09/23 Aruna Carroll MD [address] 2L DIV OF [facility] [place] [phone] 03/17/17 Loreta Romero, Gucci Pharmacist 11/06/24 documented as of this encounter
--- OUTSIDE RECORDS SUMMARY | 2024-12-07 18:26 | XMS_ITS | Encounter Summary ---
Author Organization [facility] Address [address] [facility] [place] [address] Care Team Providers Care Electrical Engineering Teacher Name Role Phone Aruna Carroll MD Primary Care Provider [phone] Aruna Carroll MD Unavailable [phone] Aruna Carroll MD Unavailable [phone] Loreta Romero PharmD Unavailable Unavailable Encounter Details Date Type Department Care Team (Late st Contact Info) Description 02/21/2022 Telephone [facility] Pul[facility], Critical Care and Sleep Medicine [address] [facility], [place] [address] Sander Allison MD [address] [facility] 2L DIV OF PULMONARY/[place] [address] Social History Tobacco Use Types Packs/Day Years Used Date Smoking Tobacco: Never Smokeless Tobacco: Never Alcohol Use Standard Drinks/Week Comments No 0 (1 standard drink = 0.6 oz pur e alcohol) PHQ-2 Answer Date Recorded PHQ2 TOTAL SCORE 6 02/01/2022 Comments No Sex and Gender Information Value Date Recorded Sex Assigned at Not on file Legal Sex Female 4:04 PM CDT Gender Identity Not on file Sexual Orientation Not on file documented as of this encounter Functional Status * Is person deaf or have serious hearing difficulty? Answer Date of Assessment Author No 10/28/2020 2:48 PM CDT Kye England RN * Is person blind or have serious difficulty seeing? Answer Date of Assessment Author No 10/28/2020 2:48 PM CDT Kye England RN * Does person have serious difficulty walking/climbing stairs? Answer Date of Assessment Author No 10/28/2020 2:48 PM CDT Kye England RN * Does person have difficulty dressing/bathing? Answer Date of Assessment Author No 10/28/2020 2:48 PM CDT Kye England RN * Does person have difficulty doing errands alone? Answer Date of Assessment Author No 10/28/2020 2:48 PM Kye Tirado RN documented as of this encounter Mental Status * Does person have difficulty concentrating/remembering/making decisions? Answer Entry Date Author No 10/28/2020 2:48 PM Kye Tirado RN documented in this encounter Plan of Treatment Upcoming Encounters Date Type Department Care Team (Latest Contact Info) Description 12/09/2024 1:00 PM CDT Office Visit [facility] - Ophthalmology [address] [place] [phone] Vikram Saleem OD [address] [place] [phone] 12/17/2024 10:30 AM CDT Office Visit [facility] - Pulmonology [address] [place] [phone] Duglas Grider MD [address] [place] [address] 2L DIV OF PULMONARY/[place] [address] 01/04/2025 9:00 AM CDT Office Visit [facility] - Internal Med [address] [place] [phone] Aruna Carroll MD [address] [place] [address] 2L DIV [place] [address] 01/19/2025 10:00 AM CDT Office Visit [facility] - Endocrinology [address] [place] [address], [place] [phone] João Robertson MD [address] [facility] [address] [place] [address] 02/01/2025 12:30 PM CDT Procedure visit [facility] - GI [address] [place] [address], [place] [phone] 02/01/2025 1:00 PM CDT Office Visit [facility] - GI [address] [place] [address], [place] [phone] Louis Beck MD [address] [place] [address] 2L [place] [address] 04/07/2025 1:00 PM CDT Office Visit [facility] - Neurology [address] [place] [address], [place] [phone] Klever Wilcox, MARCO-VANCE [address] [place] [address] 1L [place] [phone] 05/11/2025 7:55 AM AIRCRAFT LINE ASSEMBLER Hospital Encounter [facility] ENDOSCOPY [address] [place] [phone] Kip Ryan MD [address] [place] [address] 2L [place] [phone] Surgery General 05/11/2025 7:55 AM AIRCRAFT LINE ASSEMBLER - 05/11/2025 8:45 AM AIRCRAFT LINE ASSEMBLER Surgery [facility] ENDOSCOPY [address] [place] [phone] Kip Ryan MD [address] [place] [address] 2L [place] [phone] COLONOSCOPY SCREEN---w/Kelle --2 day Miralax prep 10/21/2025 1:30 PM CDT Office Visit [facility] - GI [address] [place] [address], [place] [phone] Kip Ryan MD [address] [place] [address] 2L [place] [phone] 10/25/2025 1:10 PM CDT Office Visit [facility] - Dermatology [address] [place] [phone] Anastasiia Tran PA [address] [place] [address] 3L [place] [phone] Scheduled Procedures Name Priority Associated Diagnoses Date/Ti me COLONOSCOPY SCREEN Colon cancer screening 05/11/2025 7:55 AM AIRCRAFT LINE ASSEMBLER documented as of this encounter Goals Goal Patient Goal Type Associated Problems Recent Progress Patient-Stated? Author Safety General On track(2024 2:16 PM CDT) No Yaneli Hammer, LETI Note: Expected end date: Ongoing Interventions: Your nurse will assess your risk for falls/injury each visit Use appropriate and safe transfer methods Medication Management General On track(2024 2:16 PM CDT) Yaneli Soto, LETI Note: Expected end date: Ongoing Interventions: Take all medications as prescribed Let your doctor know right away about any changes in your medications Medication Management General On track(2024 2:16 PM CDT) Ap Nielson, LETI Note: Expected end date: ongoing Interventions: Take all medications as prescribed Let your doctor know right away about any changes in your medications Make sure to request a refill of your medication at least one week prior to your last dose Depression Lifestyle On track(2024 2:16 PM CDT) Marvin Franks MD documented as of this encounter Visit Diagnoses Not on filedocumented in this encounter Additional Health Concerns Infection Onset Date Last Indicated Resolved Time COVID-19 Under Investigation 01/05/2024 01/05/2024 01/05/2024 3:22 PM CDT CDIFF Under Investigation 01/06/2024 01/06/2024 2:20 AM CDT documented as of this encounter Care Teams Electrical Engineering Teacher Relationship Specialty Start Date End Date Aruna Carroll MD PCP - General Internal Medicine 03/17/17 Aruna Carroll MD [address] 2L DIV OF [facility] [place] [address] PCP - [facility] RONY RAMOS P4P 11/09/23 Aruna Carroll MD [address] 2L DIV OF [facility] [place] [address] 03/17/17 Loreta Romero, PharmD Pharmacist 11/06/24 documented as of this encounter
--- OUTSIDE RECORDS SUMMARY | 2024-12-07 18:26 | XMS_ITS | Encounter Summary ---
Author Organization [facility] Address [address] [facility] [place] [address] Care Team Providers Care Screw Machine Set Up Operator Tool Name Role Phone Aruna Carroll MD Primary Care Provider [phone] Aruna Carroll MD Unavailable [phone] Aruna Carroll MD Unavailable [phone] Loreta Romero PharmD Unavailable Unavailable Encounter Details Date Type Department Care Team (Late st Contact Info) Description 04/13/2022 Telephone [facility] Pul[facility], Critical Care and Sleep Medicine [address] [facility], [place] [address] Sander Allison MD [address] [facility] 2L DIV OF PULMONARY/[place] [address] Social History Tobacco Use Types Packs/Day Years Used Date Smoking Tobacco: Never Smokeless Tobacco: Never Alcohol Use Standard Drinks/Week Comments No 0 (1 standard drink = 0.6 oz pur e alcohol) PHQ-2 Answer Date Recorded PHQ2 TOTAL SCORE 6 03/22/2022 Comments No Sex and Gender Information Value [...] 10/28/2020 2:48 PM CDT Kye England RN documented as of this encounter Mental Status * Does person have difficulty concentrating/remembering/making decisions? Answer Entry Date Author No 10/28/2020 2:48 PM CDT Kye England RN documented in this encounter Miscellaneous Notes * Telephone Encounter - Saray Schroeder - 04/13/2022 8:42 AM CDT Current Provider name: Dr. Sander Allison Reason for call: Ms. Margarita Amor has a severe, cough,runny nose, stated she feels like it maybe bronchitis, feeling miserable. Did take temp and there is NO TEMP. She can't do VID or TEL, [place] has notextended VID/TEL appts beyond 03/24/2022. She would like a call and prescriptions as soon as officecan call. This started about Saturday. Thanks much. Patient Call Back number: [phone] documented in this encounter Plan of Treatment Upcoming Encounters Date Type Department Care Team (Latest Contact Info) Description 12/09/2024 1:00 PM CDT Office Visit [facility] - Ophthalmology [address] [place] [phone] Vikram Saleem, MADONNA [address] [place] [phone] 12/17/2024 10:30 AM CDT Office Visit [facility] - Pulmonology [address] [place] [phone] Duglas Grider MD [address] [place] [address] 2L DIV OF PULMONARY/[place] [address] 01/04/2025 9:00 AM CDT Office Visit [facility] - Internal Med [address] [place] [phone] Aruna Carroll MD [address] [place] [address] 2L DIV OF [place] [phone] 01/19/2025 10:00 AM CDT Office Visit [facility] - Endocrinology [address] [place] [phone] João Robertson MD [address] [facility] [address] [place] [address] 02/01/2025 12:30 PM CDT Procedure visit [facility] - GI [address] [place] [phone] 02/01/2025 1:00 PM CDT Office Visit [facility] - GI [address] [place] [phone] Louis Beck MD [address] [place] [address] 2L [place] [address] 04/07/2025 1:00 PM CDT Office Visit [facility] - Neurology [address] [place] [address], [place] [phone] Klever Wilcox, WASTEWATER PROCESS ENGINEER-SHACTOR [address] [place] [address] 1L [place] [phone] 05/11/2025 7:55 AM BOX LOADER Hospital Encounter [facility] ENDOSCOPY [address] [place] [phone] Kip Ryan MD [address] [place] [address] 2L DIV [place] [address] Surgery General 05/11/2025 7:55 AM BOX LOADER - 05/11/2025 8:45 AM BOX LOADER Surgery [facility] ENDOSCOPY [address] [place] [phone] Kip Ryan MD [address] [place] [address] 2L DIV [place] [address] COLONOSCOPY SCREEN---w/Kelle --2 day Miralax prep 10/21/2025 1:30 PM CDT Office Visit [facility] - GI [address] [place] [phone] Kip Ryan MD [address] [place] [address] 2L DIV [place] [address] 10/25/2025 1:10 PM CDT Office Visit [facility] - Dermatology [address] [place] [phone] Anastasiia Tran PA [address] [place] [address] 3L DE[place] [phone] Scheduled Procedures Name Priority Associated Diagnoses Date/Ti me COLONOSCOPY SCREEN Colon cancer screening 05/11/2025 7:55 AM BOX LOADER documented as of this encounter Goals Goal Patient Goal Type Associated Problems Recent Progress Patient-Stated? Author Safety General On track(2024 2:16 PM CDT) Yaneli Soto, RN Note: Expected end date: Ongoing Interventions: Your nurse will assess your risk for falls/injury each visit Use appropriate and safe transfer methods Medication Management General On track(2024 2:16 PM CDT) No Yaneli Hammer, RN Note: Expected end date: Ongoing Interventions: Take all medications as prescribed Let your doctor know right away about any changes in your medications Medication Management General On track(2024 2:16 PM CDT) No Ap Juares, LETI Note: Expected end date: ongoing Interventions: [...] documented as of this encounter Care Teams Screw Machine Set Up Operator Tool Relationship Specialty Start Date End Date Aruna Carroll MD PCP - General Internal Medicine 03/17/17 Aruna Carroll MD [address] 2[address] DIV OF [facility] [place] [address] PCP - [facility] RONY RAMOS P4P 11/09/23 Aruna Carroll MD [address] 2L DIV OF [facility] [place] [address] 03/17/17 Loreta Romero, HuongD Pharmacist 11/06/24 documented as of this encounter
--- OUTSIDE RECORDS SUMMARY | 2024-12-07 18:27 | XMS_ITS | Encounter Summary ---
Author Organization [facility] Address [address] [facility] [place] [address] Care Team Providers Care Architectural Associate Name Role Phone Aruna Carroll MD Primary Care Provider Aruna Carroll MD Unavailable [phone] Aruna Carroll MD Unavailable [phone] Loreta Romero PharmD Unavailable Unavailable Encounter Details Date Type Department Care Team (Late st Contact Info) Description 07/13/2022 Telephone [facility] Endocrinology, Diabetes and Metabolism [facility] [facility], [place] [address] Michael Wood MD [address] [place] [address] [place] [address] Social History Tobacco Use Types Packs/Day Years Used Date Smoking Tobacco: Never Smokeless Tobacco: Never Alcohol Use Standard Drinks/Week Comments No 0 (1 standard drink = 0.6 oz pur e alcohol) PHQ-2 Answer Date Recorded PHQ2 TOTAL SCORE 0 07/10/2022 Comments No Sex and Gender Information Value Date Recorded Sex Assigned at Not on file Legal Sex Female 4:04 PM CDT Gender Identity Not on file Sexual Orientation Not on file COVID-19 Exposure Response Date Recorded In the last 10 days, have yo u been in contact with someone who was confirmed or suspected to have Coronavirus/COVID-19? No / Unsure 06/20/2022 12:48 PM PROVIDER CONTRACTING CONSULTANT documented as of this encounter Functional Status [...] of Assessment Author No 10/28/2020 2:48 PM NAYELIT Kye England RN * Does person have difficulty doing errands alone? Answer Date of Assessment Author No 10/28/2020 2:48 PM CDKye Hough RN documented as of this encounter Mental Status * Does person have difficulty concentrating/remembering/making decisions? Answer Entry Date Author No 10/28/2020 2:48 PM Kye Tirado RN documented in this encounter Miscellaneous Notes * Telephone Encounter - Simin Ayala LPN - 07/13/2022 3:24 PM CST Pt is calling to request a new script to reflect an increase of Humalog as her blood sugars are high due to steroid therapy and she is using much more than usual. Please advise. IDER CONTRACTING CONSULTANT documented in this encounter Plan of Treatment Upcoming Encounters Date Type Department Care Team (Latest Contact Info) Description 12/09/2024 1:00 PM CDT Office Visit [facility] - Ophthalmology [address] [place] [phone] Vikram Saleem OD [address] [place] [phone] 12/17/2024 10:30 AM CDT Office Visit [facility] - Pulmonology [address] [place] [phone] Duglas Grider MD [address] [place] [address] 2L DIV OF PULMONARY/[place] [address] 01/04/2025 9:00 AM CDT Office Visit [facility] - Internal Med [address] [place] [phone] Aruna Carroll MD [address] [place] [address] 2L DIV [place] [address] 01/19/2025 10:00 AM CDT Office Visit [facility] - Endocrinology [address] [place] [phone] João Robertson MD [address] [facility] [address] [place] [address] 02/01/2025 12:30 PM CDT Procedure visit [facility] - GI [address] [place] [phone] 02/01/2025 1:00 PM CDT Office Visit [facility] - GI [address] [place] [phone] Louis Beck MD [address] [place] [address] 2L [place] [address] 04/07/2025 1:00 PM CDT Office Visit [facility] - Neurology [address] [place] [phone] Klever Wilcox APRN-VANCE [address] [place] [address] 1L [place] [address] 05/11/2025 7:55 AM PROVIDER CONTRACTING CONSULTANT Hospital Encounter [facility] ENDOSCOPY [address] [place] [phone] Kip Ryan MD [address] [place] [address] 2L [place] [address] Surgery General 05/11/2025 7:55 AM PROVIDER CONTRACTING CONSULTANT - 05/11/2025 8:45 AM PROVIDER CONTRACTING CONSULTANT Surgery [facility] ENDOSCOPY [address] [place] [phone] Kip Ryan MD [address] [place] [address] 2L [place] [address] COLONOSCOPY SCREEN---w/Kelle --2 day Miralax prep 10/21/2025 1:30 PM CDT Office Visit [facility] - GI [address] [place] [phone] Kip Ryan MD [address] [place] [address] 2L [place] [phone] 10/25/2025 1:10 PM CDT Office Visit [facility] - Dermatology [address] [place] [phone] Anastasiia Tran PA [address] [place] [address] 3L [place] [phone] Scheduled Procedures Name Priority Associated Diagnoses Date/Ti me COLONOSCOPY SCREEN Colon cancer screening 05/11/2025 7:55 AM PROVIDER CONTRACTING CONSULTANT documented as of this encounter Goals Goal [...] track(2024 2:16 PM CDT) No Ap Juares, RN Note: Expected end date: ongoing Interventions: Take [...] documented as of this encounter Care Teams Architectural Associate Relationship Specialty Start Date End Date Aruna Carroll MD PCP - General Internal Medicine 03/17/17 Aruna Carroll MD [address] 2L DIV [place] [address] PCP - [facility] RONY RAMOS P4P 11/09/23 Aruna Carroll MD [address] 2L DIV OF [facility] [place] [address] 03/17/17 Loreta Romero, HuongD Pharmacist 11/06/24 documented as of this encounter
--- OUTSIDE RECORDS SUMMARY | 2024-12-07 18:27 | XMS_ITS | Encounter Summary ---
Author Organization [facility] Address [address] [place] [address] Care Team Providers Care Branner Machine Tender Name Role Phone Aruna Carroll MD Primary Care Provider [phone] Aruna Carroll MD Unavailable [phone] Aruna Carroll MD Unavailable [phone] Loreta Romero PharmD Unavailable Unavailable Encounter Details Date Type Department Care Team (Late st Contact Info) Description 11/27/2022 Telephone [facility] - Centralized Scheduling [address] [place] [phone] Sander Allison MD [address] OF PULMONARY/[place] [address] Social History Tobacco Use Types Packs/Day Years Used Date Smoking Tobacco: Never Smokeless Tobacco: Never Alcohol Use Standard Drinks/Week Comments No 0 (1 standard drink = 0.6 oz pur e alcohol) PHQ-2 Answer Date Recorded PHQ2 TOTAL SCORE 2 11/29/2022 Comments No Sex and Gender Information Value Date Recorded Sex Assigned at Not on file Legal Sex Female 4:04 PM CDT Gender Identity Not on file Sexual Orientation Not on file COVID-19 Exposure Response Date Recorded In the last 10 days, have yo u been in contact with someone who was confirmed or suspected to have Coronavirus/COVID-19? No / Unsure 11/29/2022 2:30 PM CDT documented as of this encounter Functional Status [...] Assessment Author No 10/28/2020 2:48 PM CDT Farzana England RN * Does person have difficulty doing errands alone? Answer Date of Assessment Author No 10/28/2020 2:48 PM CDT Kye England RN documented as of this encounter Mental Status * Does person have difficulty concentrating/remembering/making decisions? Answer Entry Date Author No 10/28/2020 2:48 PM CDT Kye England RN documented in this encounter Miscellaneous Notes * Telephone Encounter - Vidal Pichardo - 11/27/2022 3:35 PM CDT PATIENT R/S 01/18. CALLED VOICEMAIL FULL Vidal Pichardo Gum Rolling Machine Tender III Pulmonary Critical Care & Sleep Disorders * Telephone Encounter - Ryan Ortega - 11/27/2022 10:38 AM CDT Pt was bumped from 01/11/2023 appt. Pt does not want to wait to next avail in and would like a sooner appt although she advised she is not having issues at this time. Please contact pt for sooner appt. documented in this encounter Plan of Treatment Upcoming Encounters Date Type Department Care Team (Latest Contact Info) Description 12/09/2024 1:00 PM CDT Office Visit [facility] - Ophthalmology [address] [place] [address], [place] [address] Vikram Saleem OD [address] [place] [phone] 12/17/2024 10:30 AM CDT Office Visit [facility] - Pulmonology [address] [place] [phone] Duglas Grider MD [address] [place] [address] 2L DIV OF PULMONARY/[place] [address] 01/04/2025 9:00 AM CDT Office Visit [facility] - Internal Med [address] [place] [phone] Aruna Carroll MD [address] [place] [address] 2L DIV [place] [phone] 01/19/2025 10:00 AM CDT Office Visit [facility] - Endocrinology [address] [place] [phone] João Robertson MD [address] [facility] [address] [place] [address] 02/01/2025 12:30 PM CDT Procedure visit [facility] - GI [address] [place] [phone] 02/01/2025 1:00 PM CDT Office Visit [facility] - GI [address] [place] [phone] Louis Beck MD [address] [place] [address] 2L [place] [address] 04/07/2025 1:00 PM CDT Office Visit [facility] - Neurology [address] [place] [phone] Klever Wilcox, VESSEL LINER-FIBRE OPTICS JOINTER [address] [place] [address] 1L [place] [phone] 05/11/2025 7:55 AM TRACKMAN Hospital Encounter [facility] [address] [place] [phone] Kip Ryan MD [address] [place] [address] 2L [place] [address] Surgery General 05/11/2025 7:55 AM TRACKMAN - 05/11/2025 8:45 AM TRACKMAN Surgery [facility] [address] [place] [phone] Kip Ryan MD [address] [place] [address] 2L [place] [address] COLONOSCOPY SCREEN---w/Kelle --2 day Miralax prep 10/21/2025 1:30 PM CDT Office Visit [facility] - GI [address] [place] [phone] Kip Ryan MD [address] [place] [address] 2L [place] [phone] 10/25/2025 1:10 PM CDT Office Visit [facility] - Dermatology [address] [place] [phone] Anastasiia Tran PA [address] [place] [address] 3L [place] [phone] Scheduled Procedures Name Priority Associated Diagnoses Date/Ti me COLONOSCOPY SCREEN Colon cancer screening 05/11/2025 7:55 AM TRACKMAN documented as of this encounter Goals Goal [...] documented as of this encounter Care Teams Branner Machine Tender Relationship Specialty Start Date End Date Aruna Carroll MD PCP - General Internal Medicine 03/17/17 Aruna Carroll MD [address] OF [facility] [place] [address] PCP - [facility] RONY RAMOS P4P 11/09/23 Aruna Carroll MD [address] [place] [phone] 03/17/17 Loreta Romero, HuongD Pharmacist 11/06/24 documented as of this encounter
--- OUTSIDE RECORDS SUMMARY | 2024-12-07 18:27 | XMS_ITS | Encounter Summary ---
Author Organization [facility] Address [address] [place] [address] Care Team Providers Care Nutrition Counselor Name Role Phone Aruna Carroll MD Primary Care Provider Aruna Carroll MD Unavailable [phone] Aruna Carroll MD Unavailable [phone] Loreta Romero PharmD Unavailable Unavailable Reason for Visit * Reason Onset Date Comments MEDICATION REFILL 03/19/2024 Encounter Details Date Type Department Care Team (Late st Contact Info) Description 03/19/2024 Refill [facility] - Internal Med [address] [place] [address], [facility] [place] [phone] Aruna Carroll MD [address] [place] [address] OF [facility] [place] [place] [phone] MEDICATION REFILL Social History Tobacco Use Types Packs/Day Years Used Date Smoking Tobacco: Never Smokeless Tobacco: Never Alcohol Use Standard Drinks/Week Comments No 0 (1 standard drink = 0.6 oz pur e alcohol) AUDIT-C Answer Date Recorded Q1: How often do you have a drink containing alcohol? Never 01/05/2024 Q2: How many drinks containi ng alcohol do you have on a typical day when you are drinking? Patient does not drink Q3: How often do you have si x or more drinks on one occasion? Never 01/05/2024 Overall Financial Resource Strain (CARDIA) Answe r Date Recorded How hard is it for you to pa y for the very basics like food, housing, medical care, and heating? Somewhat hard 01/05/2024 PHQ-2 Answer Date Recorded Patient Health Questionnaire-2 Score 3 01/30/2024 [facility] - Occupational Stress Questionnaire Answer Date Recorded Do you feel stress - tense, restless, nervous, or anxious, or unable to sleep at night because your mind is troubled all the time - these days? Rather much 01/05/2024 Hunger Vital Sign Answer Date Recorded Within the past 12 months, y ou worried that your food would run out before you got the money to buy more. Sometimes true Within the past 12 months, t he food you bought just didn't last and you didn't have money to get more. Sometimes true PRAPARE - Transportation Answer Date Re corded In the past 12 months, has l ack of transportation kept you from medical appointments or from getting medications? No 12/09 In the past 12 months, has l ack of transportation kept you from meetings, work, or from getting things needed for daily living? No 01/05/2024 Housing Stability Vital Sign Answer Gerry e Recorded In the last 12 months, was t here a time when you were not able to pay the mortgage or rent on time? No 01/05/2024 In the last 12 months, how many places have you lived? 1 01/05/2024 In the last 12 months, was t here a time when you did not have a steady place to sleep or slept in a fpc (including now)? No 01/05/2024 Comments No Sex and Gender Information Value Date Recorded Sex Assigned at Not on file Legal Sex Female 4:04 PM CDT Gender Identity Not on file Sexual Orientation Not on file documented as of this encounter Functional Status * Is person deaf or have serious hearing difficulty? Answer Date of Assessment Author No 01/05/2024 8:40 PM CDT Laney Barajas, RN * Is person blind or have serious difficulty seeing? Answer Date of Assessment Author No 01/05/2024 8:40 PM CDT Laney Barajas RN * Does person have serious difficulty walking/climbing stairs? Answer Date of Assessment Author Yes 01/05/2024 8:40 PM CDT Laney Barajas RN * Does person have difficulty dressing/bathing? Answer Date of Assessment Author No 01/05/2024 8:40 PM CDT Laney Barajas RN * Does person have difficulty doing errands alone? Answer Date of Assessment Author No 01/05/2024 8:40 PM CDT Laney Barajas RN documented as of this encounter Mental Status * Does person have difficulty concentrating/remembering/making decisions? Answer Entry Date Author No 01/05/2024 8:40 PM CDT Laney Barajas RN documented in this encounter Plan of Treatment Upcoming Encounters Date Type Department Care Team (Latest Contact Info) Description 12/09/2024 1:00 PM CDT Office Visit [facility] - Ophthalmology [address] [place] [phone] Vikram Saleem OD [address] [place] [phone] 12/17/2024 10:30 AM CDT Office Visit [facility] - Pulmonology [address] [place] [phone] Duglas Grider MD [address] [place] [address] 2L DIV OF PULMONARY/[place] [address] 01/04/2025 9:00 AM CDT Office Visit [facility] - Internal Med [address] [place] [phone] Aruna Carroll MD [address] [place] [address] 2L DIV [place] [address] 01/19/2025 10:00 AM CDT Office Visit [facility] - Endocrinology [address] [place] [phone] João Robertson MD [address] [facility] [address] [place] [address] 02/01/2025 12:30 PM CDT Procedure visit [facility] - GI [address] [place] [phone] 02/01/2025 1:00 PM CDT Office Visit [facility] - GI [address] [place] [phone] Louis Beck MD [address] [place] [address] 2L DIV [place] [address] 04/07/2025 1:00 PM CDT Office Visit [facility] - Neurology [address] [place] [phone] Klever Wilcox, REGIONAL SALES REPRESENTATIVE-ELECTRON BEAM PHOTO MASK MAKER [address] [place] [address] 1L [place] [phone] 05/11/2025 7:55 AM PURCHASING MANAGER/SALES Hospital Encounter [facility] ENDOSCOPY [address] [place] [address] Kpi Ryan MD [address] [place] [address] 2L [place] [phone] Surgery General 05/11/2025 7:55 AM PURCHASING MANAGER/SALES - 05/11/2025 8:[address] [facility] Surgery [facility] END[facility]COPY [address] [place] [address] Kip Ryan MD [address] [place] [address] 2L [place] [phone] COLONOSCOPY SCREEN---w/Kelle --2 day Miralax prep 10/21/2025 1:30 PM CDT Office Visit [facility] - GI [facility], [place] [phone] Kip Ryan MD [address] [place] [address] 2L [place] [phone] 10/25/2025 1:10 PM CDT Office Visit [facility] - Dermatology [address] [place] [address], [place] [address] Anastasiia Tran PA [address] [place] [address] 3L [place] [address] Scheduled Procedures Name Priority Associated Diagnoses Date/Ti me COLONOSCOPY SCREEN Colon cancer screening 05/11/2025 7:55 AM PURCHASING MANAGER/SALES documented as of this encounter Goals Goal [...] as of this encounter Visit Diagnoses Diagnosis Pain in both lower extremities Radiculopathy of lumbar region Thoracic or lumbosacral neuritis or radiculitis, unspecified Colon cancer screening Special screening for malignant neoplasms, colon documented in this encounter Care Teams Nutrition Counselor Relationship Specialty Start Date End Date Aruna Carroll MD PCP - General Internal Medicine 03/17/17 Aruna Carroll MD [address] 2L DIV [place] [phone] PCP - [facility] RONY RAMOS P4P 11/09/23 Aruna Carroll MD [address] 2L DIV OF [facility] [place] [phone] 03/17/17 Loreta Romero, HuongD Pharmacist 11/06/24 documented as of this encounter
--- OUTSIDE RECORDS SUMMARY | 2024-12-07 18:27 | XMS_ITS | Encounter Summary ---
Author Organization [facility] Address [address] [facility] [place] [address] Care Team Providers Care Water Pumper Name Role Phone Aruna Carroll MD Primary Care Provider [phone] Aruna Carroll MD Unavailable [phone] Aruna Carroll MD Unavailable [phone] Loreta Romero PharmD Unavailable Unavailable Reason for Visit * Reason Onset Date Comments Reschedule Appointment 12/05/2022 PT can be fariba to next available or with any fellow Future Appointment 12/05/2022 Encounter Details Date Type Department Care Team (Late st Contact Info) Description 12/05/2022 Telephone [facility] - Centralized Scheduling [address] [place] [address] Sander Allison MD [address] OF PULMONARY/[place] [address] Reschedule Appointment (PT can be fariba to next available or with any fellow); Future Appointment Social History Tobacco Use Types Packs/Day Years [...] Kye England RN documented in this encounter Plan of Treatment Upcoming Encounters Date Type Department Care Team (Latest Contact Info) Description 12/09/2024 1:00 PM CDT Office Visit [facility] - Ophthalmology [address] [place] [phone] Vikram Saleem OD [address] [place] [phone] 12/17/2024 10:30 AM CDT Office Visit [facility] - Pulmonology [address] [place] [phone] Duglas Grider MD [address] [place] [address] 2L DIV OF PULMONARY/[place] [address] 01/04/2025 9:00 AM CDT Office Visit [facility] - Internal Med [address] [place] [address], [place] [address] Aruna Carroll MD [address] [place] [address] 2L DIV [place] [address] 01/19/2025 10:00 AM CDT Office Visit [facility] - Endocrinology [address] [place] [phone] João Robertson MD [address] [facility] [address] [place] [address] 02/01/2025 12:30 PM CDT Procedure visit [facility] - GI [address] [place] [phone] 02/01/2025 1:00 PM CDT Office Visit [facility] - GI [address] [place] [phone] Louis Beck MD [address] [place] [address] 2L DIV [place] [address] 04/07/2025 1:00 PM CDT Office Visit [facility] - Neurology [address] [place] [address], [place] [address] Klever Wilcox, RETAIL SALES TEAMMATE-KITCHEN OPERATOR [address] [place] [address] 1L [place] [phone] 05/11/2025 7:55 AM ENVIRONMENTAL DESIGNER Hospital Encounter [facility] ENDOSCOPY [address] [place] [address] Kip Ryan MD [address] [place] [address] 2L [place] [phone] Surgery General 05/11/2025 7:55 AM ENVIRONMENTAL DESIGNER - 05/11/2025 8:45 AM ENVIRONMENTAL DESIGNER Surgery [facility] ENDOSCOPY [address] [place] [phone] Kip Ryan MD [address] [place] [address] 2L [place] [address] COLONOSCOPY SCREEN---w/Kelle --2 day Miralax prep 10/21/2025 1:30 PM CDT Office Visit [facility] - GI [address] [place] [phone] Kip Ryan MD [address] [place] [address] 2L [place] [address] 10/25/2025 1:10 PM CDT Office Visit [facility] - Dermatology [address] [place] [phone] Anastasiia Tran PA [address] [place] [address] 3[address] [place] [phone] Scheduled Procedures Name Priority Associated Diagnoses Date/Ti me COLONOSCOPY SCREEN Colon cancer screening 05/11/2025 7:55 AM ENVIRONMENTAL DESIGNER documented as of this encounter Goals Goal Patient Goal Type Associated Problems Recent Progress Patient-Stated? Author Safety General On track(2024 2:16 PM CDT) No Yaneli Hammer RN Note: Expected end date: Ongoing Interventions: Your nurse will assess your risk for falls/injury each visit Use appropriate and safe transfer methods Medication Management General On track(2024 2:16 PM CDT) Yaneli Soto RN Note: Expected end date: Ongoing Interventions: [...] documented as of this encounter Care Teams Water Pumper Relationship Specialty Start Date End Date Aruna Carroll MD PCP - General Internal Medicine 03/17/17 Aruna Carroll MD [address] 2L DIV OF [facility] [place] [address] PCP - [facility] RONY RAMOS P4P 11/09/23 Aruna Carroll MD [address] 2L DIV OF [facility] [place] [address] 03/17/17 Loreta Romero, HuongD Pharmacist 11/06/24 documented as of this encounter
--- OUTSIDE RECORDS SUMMARY | 2024-12-07 18:27 | XMS_ITS | Encounter Summary ---
Author Organization [facility] Address [address] [place] [address] Care Team Providers Care Fact Checker Name Role Phone Aruna Carroll MD Primary Care Provider Aruna Carroll MD Unavailable [phone] Aruna Carroll MD Unavailable [phone] Loreta Romero PharmD Unavailable Unavailable Encounter Details Date Type Department Care Team (Late st Contact Info) Description 08/17/2022 Telephone [facility] [address] [place] [address] Anastasiia Tran PA [address] [place] [address] Social History Tobacco Use Types Packs/Day Years Used Date Smoking Tobacco: Never Smokeless Tobacco: Never Alcohol Use Standard Drinks/Week Comments No 0 (1 standard drink = 0.6 oz pur e alcohol) PHQ-2 Answer Date Recorded PHQ2 TOTAL SCORE 1 07/19/2022 Comments No Sex and Gender Information Value [...] encounter Miscellaneous Notes * Telephone Encounter - Concepción Sarkar LPN - 08/17/2022 1:46 PM CST Sent AVS in mail to patient today Concepción Sarkar LPN HED BLADE LOADER * Telephone Encounter - Yesenia Eason - 08/17/2022 1:00 PM CST Pt was given the wrong discharge summary, she has another patient's summary and would like hers mailed to her. HED BLADE LOADER documented in this encounter Plan of Treatment Upcoming Encounters Date Type Department Care Team (Latest Contact Info) Description 12/09/2024 1:00 PM CDT Office Visit [facility] - Ophthalmology [address] [place] [phone] Vikram Saleem OD [address] [place] [address] 12/17/2024 10:30 AM CDT Office Visit [facility] - Pulmonology [address] [facility] [place], [place] [address] Duglas Grider MD [address] [place] [address] 2L DIV OF PULMONARY/[place] [address] 01/04/2025 9:00 AM CDT Office Visit [facility] - Internal Med [address] [place] [phone] Aruna Carroll MD [address] [place] [address] 2L DIV [place] [address] 01/19/2025 10:00 AM CDT Office Visit [facility] - Endocrinology [address] [place] [phone] João Robertson MD [address] [facility] [address] [place] [address] 02/01/2025 12:30 PM CDT Procedure visit [facility] - GI [address] [place] [phone] 02/01/2025 1:00 PM CDT Office Visit [facility] - GI [address] [place] [phone] Louis Beck MD [address] [place] [address] 2L [place] [address] 04/07/2025 1:00 PM CDT Office Visit [facility] - Neurology [address] [place] [phone] Klever Wilcox APRN-SCANNING SUPERVISOR [address] [place] [address] 1L [place] [address] 05/11/2025 7:55 AM NOTCHED BLADE LOADER Hospital Encounter [facility] ENDOSCOPY [address] [place] [phone] Kip Ryan MD [address] [place] [address] 2L [place] [address] Surgery General 05/11/2025 7:55 AM NOTCHED BLADE LOADER - 05/11/2025 8:45 AM NOTCHED BLADE LOADER Surgery [facility] ENDOSCOPY [address] [place] [phone] Kip Ryan MD [address] [place] [address] 2L [place] [address] COLONOSCOPY SCREEN---w/Kelle --2 day Miralax prep 10/21/2025 1:30 PM CDT Office Visit [facility]ician Group - GI [address] [place] [phone] Kip Ryan MD [address] [place] [address] 2L [place] [address] 10/25/2025 1:10 PM CDT Office Visit [facility]ician Group - Dermatology [address] [place] [phone] Anastasiia Tran PA [address] [place] [address] [address] [place] [phone] Scheduled Procedures Name Priority Associated Diagnoses Date/Ti me COLONOSCOPY SCREEN Colon cancer screening 05/11/2025 7:55 AM NOTCHED BLADE LOADER documented as of this encounter Goals [...] documented as of this encounter Care Teams Fact Checker Relationship Specialty Start Date End Date Aruna Carroll MD PCP - General Internal Medicine 03/17/17 Aruna Carroll MD [address] 2L DIV OF [facility] [place] [address] PCP - [facility] RONY RAMOS P4P 11/09/23 Aruna Carroll MD [address] 2L DIV OF [facility] [place] [address] 03/17/17 Loreta Romero, Gucci Pharmacist 11/06/24 documented as of this encounter
--- OUTSIDE RECORDS SUMMARY | 2024-12-07 18:27 | XMS_ITS | Encounter Summary ---
Author Organization [facility] Address [address] [place] [address] Care Team Providers Care Hat And Cap Sewer Name Role Phone Aruna Carroll MD Primary Care Provider Aruna Carroll MD Unavailable [phone] Aruna Carroll MD Unavailable [phone] Loreta Romero PharmD Unavailable Unavailable Reason for Visit * Reason Onset Date Comments MEDICATION REFILL 01/08/2023 Encounter Details Date Type Department Care Team (Late st Contact Info) Description 01/08/2023 Refill [facility] Neurology [address] [place] [address], [facility] [place] [phone] Ev Rawls MD [address] [place] [address] [place] [address] MEDICATION REFILL Social History Tobacco [...] No 10/28/2020 2:48 PM CDKye Hough RN * Does person have serious difficulty walking/climbing stairs? Answer Date of Assessment Author No 10/28/2020 2:48 PM CDKye Hough RN * Does person have difficulty dressing/bathing? Answer Date of Assessment Author No 10/28/2020 2:48 PM CDKye Hough RN * Does person have difficulty doing errands alone? Answer Date of Assessment Author No 10/28/2020 2:48 PM Kye Tirado RN documented as of this encounter Mental Status * Does person have difficulty concentrating/remembering/making decisions? Answer Entry Date Author No 10/28/2020 2:48 PM Kye Tirado RN documented in this encounter Miscellaneous Notes * Telephone Encounter - Cori Anderson - 01/09/2023 7:28 AM CDT Refill Request Margarita Amor KAMAR: APR due: 02/04/2023 NOV scheduled: 02/04/2023 LRF: 07/16/2022 Qty Disp: 9 # of refills: 5 Allergies: Allergies Allergen Reactions ??? Latex Rash ??? Clindamycin Other Chest pain- difficulty swallowing ??? Fentanyl Other Over sedated with patch/confusion ??? Penicillins Rash ??? Sulfa Drugs Rash and Nausea and/or Vomiting ??? Tetracycline Rash and Nausea and/or Vomiting ??? Erythromycin Rash, Nausea and/or Vomiting and GI Discomfort ??? Valproic Acid Other transaminitis Elevated liver enzymes ??? Sulfamethoxazole W-Trimethoprim Other Pended Medication Order: Requested Prescriptions Pending Prescriptions Disp Refills ??? SUMAtriptan (Imitrex) 100 MG tablet 9 tablet 5 Sig: Take 1 (one) tablet by mouth as needed for Migraine (take one with onset of headache, can repeat in 2 hours, max of 2 in 24 hours.) Can repeat in 2 hours, No more than 2 doses in 24 hours. documented in this encounter Plan of Treatment Upcoming Encounters Date Type Department Care Team (Latest Contact Info) Description 12/09/2024 1:00 PM CDT Office Visit [facility] - Ophthalmology [address] [place] [phone] Vikram Saleem OD [address] [place] [phone] 12/17/2024 10:30 AM CDT Office Visit [facility] - Pulmonology [address] [place] [phone] Duglas Grider MD [address] [place] [address] 2L DIV OF PULMONARY/[place] [address] 01/04/2025 9:00 AM CDT Office Visit [facility] - Internal Med [address] [place] [phone] Aruna Carroll MD [address] [place] [address] 2L DIV [place] [address] 01/19/2025 10:00 AM CDT Office Visit [facility] - Endocrinology [address] [place] [phone] João Robertson MD [address] [facility] [address] [place] [address] 02/01/2025 12:30 PM CDT Procedure visit [facility] GI [address] [place] [phone] 02/01/2025 1:00 PM CDT Office Visit [facility] - GI [address] [place] [phone] Louis Beck MD [address] [place] [address] 2L [place] [address] 04/07/2025 1:00 PM CDT Office Visit [facility] - Neurology [address] [place] [phone] Klever Wilcox, MATE FOURTH-POLLUTION CONTROL ENGINEER [address] [place] [address] 1L [place] [phone] 05/11/2025 7:55 AM WELDER EXPLOSION Hospital Encounter [facility] [place] [facility] [place] [phone] Kip Ryan MD [address] [place] [address] 2L [place] [address] Surgery General 05/11/2025 7:55 AM WELDER EXPLOSION - 05/11/2025 8:45 AM WELDER EXPLOSION Surgery [facility] [place] [facility] [place] [phone] Kip Ryan MD [address] [place] [address] 2L [place] [address] COLONOSCOPY SCREEN---w/Kelle --2 day Miralax prep 10/21/2025 1:30 PM CDT Office Visit [facility] - GI [address] [place] [phone] Kip Ryan MD [address] [place] [address] 2L [place] [address] 10/25/2025 1:10 PM CDT Office Visit [facility] - Dermatology [address] [place] [phone] Anastasiia Tran PA [address] [place] [address] 3L [place] [address] Scheduled Procedures Name Priority Associated Diagnoses Date/Ti me COLONOSCOPY SCREEN Colon cancer screening 05/11/2025 7:55 AM WELDER EXPLOSION documented as of this encounter Goals Goal [...] documented as of this encounter Care Teams Hat And Cap Sewer Relationship Specialty Start Date End Date Aruna Carroll MD PCP - General Internal Medicine 03/17/17 Aruna Carroll MD [address] 2L DIV [place] [address] PCP - [facility] RONY RAMOS P4P 11/09/23 Aruna Carroll MD [address] 2L DIV OF [facility] [place] [address] 03/17/17 Loreta Romero, HuongD Pharmacist 11/06/24 documented as of this encounter
--- OUTSIDE RECORDS SUMMARY | 2024-12-07 18:27 | XMS_ITS | Encounter Summary ---
Author Organization [facility] Address [address] [facility] [address] Care Team Providers Care Surgical Supervisor Name Role Phone Aruna Carroll MD Primary Care Provider Aruna Carroll MD Unavailable [phone] Aruna Carroll MD Unavailable [phone] Loreta Romero PharmD Unavailable Unavailable Reason for Visit * Reason Onset Date Comments MEDICATION REFILL 09/25/2021 Encounter Details Date Type Department Care Team (Late st Contact Info) Description 09/25/2021 Refill [facility] General Internal Medicine [address] [facility] [address] [place] [address] Aruna Carroll MD [address] OF [facility] [place] [phone] MEDICATION REFILL Social History Tobacco Use Types Packs/Day Years Used Date Smoking Tobacco: Never Smokeless Tobacco: Never Alcohol Use Standard Drinks/Week Comments No 0 (1 standard drink = 0.6 oz pur e alcohol) PHQ-2 Answer Date Recorded PHQ2 TOTAL SCORE 2 08/31/2021 Comments No Sex and Gender Information Value Date Recorded Sex Assigned at Not on file Legal Sex Female 4:04 PM CDT Gender Identity Not on file Sexual Orientation Not on file COVID-19 Exposure Response Date Recorded In the last month, have you been in contact with someone who was confirmed or suspected to have Coronavirus / COVID-19? No / Unsure 09/12/2021 10:27 AM CDT documented as of this encounter Functional [...] encounter Miscellaneous Notes * Telephone Encounter - Gisele Parish RN - 09/25/2021 12:56 PM CDT Refill Request Margarita Amor KAMAR: 09/05/21 NOV scheduled: 12/18/2021 LRF: 12/21/19 Qty Disp: 90 # of refills: 3 Allergies: Allergies Allergen Reactions ??? Latex Rash ??? Clindamycin Other Chest pain- difficulty swallowing ??? Fentanyl Other Over sedated with patch/confusion ??? Penicillins Rash ??? Sulfa Drugs Rash and Nausea and/or Vomiting ??? Tetracycline Rash and Nausea and/or Vomiting ??? Depakote [Valproic Acid] Other transaminitis Elevated liver enzymes ??? Erythromycin Rash, Nausea and/or Vomiting and GI Discomfort ??? Sulfamethoxazole W-Trimethoprim Other Pended Medication Order: Requested Prescriptions Pending Prescriptions Disp Refills ??? atorvastatin (LIPITOR) 40 MG tablet 90 tablet 3 Sig: Take 1 (one) tablet by mouth once daily documented in this encounter Plan of Treatment Upcoming Encounters Date Type Department Care Team (Latest Contact Info) Description 12/09/2024 1:00 PM CDT Office Visit [facility] - Ophthalmology [address] [place] [phone] Vikram Saleem, MADONNA [address] [place] [phone] 12/17/2024 10:30 AM CDT Office Visit [facility] - Pulmonology [address] [place] [phone] Duglas Grider MD [address] [place] [address] 2L DIV OF PULMONARY/[place] [address] 01/04/2025 9:00 AM CDT Office Visit [facility] - Internal Med [address] [place] [phone] Aruna Carroll MD [address] [place] [address] 2L DIV [place] [address] 01/19/2025 10:00 AM CDT Office Visit [facility] - Endocrinology [address] [place] [phone] João Robertson MD [address] [facility] [address] [place] [address] 02/01/2025 12:30 PM CDT Procedure visit [facility] - GI [address] [place] [phone] 02/01/2025 1:00 PM CDT Office Visit [facility] - GI [address] [place] [address] [place] [phone] Louis Beck MD [address] [place] [address] 2L DIV [place] [address] 04/07/2025 1:00 PM CDT Office Visit [facility] - Neurology [address] [place] [phone] Klever Wilcox, COCKTAIL LOUNGE MANAGER-BODY MAN [address] [place] [address] 1L [place] [phone] 05/11/2025 7:55 AM INFORMATICS PHARMACIST Hospital Encounter [facility] END[facility]COPY [address] [place] [phone] Kip Ryan MD [address] [place] [address] 2L [place] [phone] Surgery General 05/11/2025 7:55 AM INFORMATICS PHARMACIST - 05/11/2025 8:45 AM INFORMATICS PHARMACIST Surgery [facility] [address] [place] [phone] Kip Ryan MD [address] [place] [address] 2L [place] [phone] COLONOSCOPY SCREEN---w/Kelle --2 day Miralax prep 10/21/2025 1:30 PM CDT Office Visit [facility] - GI [address] [place] [phone] Kip Ryan MD [address] [place] [address] 2L [place] [phone] 10/25/2025 1:10 PM CDT Office Visit [facility] - Dermatology [address] [place] [phone] Anastasiia Tran PA [address] [facility] 3 [place] [address] Scheduled Procedures Name Priority Associated Diagnoses Date/Ti me COLONOSCOPY SCREEN Colon cancer screening 05/11/2025 7:55 AM INFORMATICS PHARMACIST documented as of this encounter Goals Goal [...] documented as of this encounter Care Teams Surgical Supervisor Relationship Specialty Start Date End Date Aruna Carroll MD PCP - General Internal Medicine 03/17/17 Aruna Carroll MD [address] 2L DIV [place] [address] PCP - [facility] RONY RAMOS P4P 11/09/23 Aruna Carroll MD [address] 2L DIV OF [facility] [place] [address] 03/17/17 Loreta Romero, Gucci Pharmacist 11/06/24 documented as of this encounter
--- OUTSIDE RECORDS SUMMARY | 2024-12-07 18:28 | XMS_ITS | Encounter Summary ---
Author Organization [facility] Address [address] [place] [address] Care Team Providers Care Regional Operations Manager Name Role Phone Aruna Carroll MD Primary Care Provider Aruna Carroll MD Unavailable [phone] Aruna Carroll MD Unavailable [phone] Loreta Romero PharmD Unavailable Unavailable Reason for Visit * Reason Onset Date Comments Medication Problem 10/04/2017 Med Question 10/07/2017 1st attempt to c ontact pt Encounter Details Date Type Department Care Team (Late st Contact Info) Description 10/04/2017 Telephone [facility] General Internal Medicine [address] [address] Aruna Carroll MD [address] OF [facility] [place] [phone] Medication Problem; Med Question (1st attempt to contact pt ) Social History Tobacco Use Types Packs/Day Years [...] encounter Miscellaneous Notes * Telephone Encounter - Melanie Montiel - 10/07/2017 2:09 PM CDT Patient responded via my chart message she has tired omperazole in the past with no relief. * Telephone Encounter - Melanie Montiel - 10/07/2017 1:51 PM CDT Left message with affiliation and contact number no pertient patient information left on voicemail. 1st attempt to contact patient and verify which medication she has attempted to use prior to Nexiumfor insurance purposes. * Telephone Encounter - Tonja Smith - 10/04/2017 2:15 PM CDT PT: MtMargarita hughes Tom PH: Nessa Ornelas from [employer] PH: Caller requesting call back to inquire of alternative medication request as the requested medication esomeprazole (NEXIUM) is not covered. Alternatives offered are omprepozole capsule or pantoprazole sodium DR tab. Please advise. Several attempts previously made by the doctor to reach the patient regarding. Thank you documented in this encounter Plan of Treatment Upcoming Encounters Date Type Department Care Team (Latest Contact Info) Description 12/09/2024 1:00 PM CDT Office Visit [facility] - Ophthalmology [address] [place] [phone] Vikram Saleem OD [address] [place] [phone] 12/17/2024 10:30 AM CDT Office Visit [facility] - Pulmonology [address] [place] [phone] Duglas Grider MD [address] [place] [address] 2L DIV OF PULMONARY/[place] [address] 01/04/2025 9:00 AM CDT Office Visit [facility] - Internal Med [address] [place] [address], [place] [phone] Aruna Carroll MD [address] [place] [address] 2L DIV [place] [address] 01/19/2025 10:00 AM CDT Office Visit [facility] - Endocrinology [address] [place] [phone] João Robertson MD [address] [facility] [address] [place] [address] 02/01/2025 12:30 PM CDT Procedure [facility] [address] [place] [phone] 02/01/2025 1:00 PM CDT Office Visit [facility] - GI [address] [place] [phone] Louis Beck MD [address] [place] [address] 2L [place] [address] 04/07/2025 1:00 PM CDT Office Visit [facility] - Neurology [address] [place] [address], [place] [address] Klever Wilcox, SMELLER-INVESTIGATIVE WRITER [address] [place] [address] 1L [place] [phone] 05/11/2025 7:55 AM INVESTMENT BANKER Hospital Encounter [facility] ENDOSCOPY [address]01 [place] [phone] Kip Ryan MD [address] [place] [address] 2L [place] [phone] Surgery General 05/11/2025 7:55 AM INVESTMENT BANKER - 05/11/2025 8:45 AM INVESTMENT BANKER Surgery [facility] ENDOSCOPY [address]01 [place] [phone] Kip Ryan MD [address] [place] [address] 2L [place] [address] COLONOSCOPY SCREEN---w/Kelle --2 day Miralax prep 10/21/2025 1:30 PM CDT Office Visit [facility] - GI [address] [place] [phone] Kip Ryan MD [address] [place] [address] 2L [place] [phone] 10/25/2025 1:10 PM CDT Office Visit [facility] - Dermatology [address] [place] [phone] Anastasiia Tran PA [address] [place] [address] 3L [place] [phone] Scheduled Procedures Name Priority Associated Diagnoses Date/Ti me COLONOSCOPY SCREEN Colon cancer screening 05/11/2025 7:55 AM INVESTMENT BANKER documented as of this encounter Visit Diagnoses Not on filedocumented in this encounter Additional Health Concerns Infection Onset Date Last Indicated Resolved Time COVID-19 Under Investigation 03/29/2020 03/30/2020 03/30/2020 12:08 PM CDT COVID-19 Under Investigation 01/05/2024 01/05/2024 01/05/2024 3:22 PM CDT CDIFF Under Investigation 01/06/2024 01/06/2024 2:20 AM CDT documented as of this encounter Care Teams Regional Operations Manager Relationship Specialty Start Date End Date Aruna Carroll MD PCP - General Internal Medicine 03/17/17 Aruna Carroll MD [address] 2L DIV OF [facility] [place] [address] PCP - [facility] RONY RAMOS P4P 11/09/23 Aruna Carroll MD [address] 2L DIV OF [facility] [place] [address] 03/17/17 Loreta Romero, PharmD Pharmacist 11/06/24 documented as of this encounter
--- OUTSIDE RECORDS SUMMARY | 2024-12-07 18:28 | XMS_ITS | Encounter Summary ---
Author Organization [facility] Address [address] [facility] [place] [address] Care Team Providers Care Roll Slicing Machine Tender Name Role Phone Aruna Carroll MD Primary Care Provider [phone] Aruna Carroll MD Unavailable [phone] Aruna Carroll MD Unavailable [phone] Loreta Romero PharmD Unavailable Unavailable Reason for Visit * Reason Onset Date Comments MEDICATION REFILL 08/06/2019 Encounter Details Date Type Department Care Team (Late st Contact Info) Description 08/06/2019 Refill [facility] [address] [facility] [place] [address] Aruna Carroll MD [address] OF [facility] [place] [phone] MEDICATION REFILL Social History Tobacco Use Types [...] Office Visit [facility] - Ophthalmology [address] [place] [address], [place] [address] Vikram Saleem OD [address] [place] [phone] 12/17/2024 10:30 AM CDT Office Visit [facility] - Pulmonology [address] [place] [phone] Duglas Grider MD [address] [place] [address] 2L DIV OF PULMONARY/[place] [address] 01/04/2025 9:00 AM CDT Office Visit [facility] - Internal Med [address] [place] [phone] Aruna Carroll MD [address] [place] [address] 2L DIV OF GEN INTER[place] [address] 01/19/2025 10:00 AM CDT Office Visit [facility] - Endocrinology [address] [place] [phone] João Robertson MD [address] [facility] [address] [place] [address] 02/01/2025 12:30 PM CDT Procedure visit [facility] - GI [address] [place] [phone] 02/01/2025 1:00 PM CDT Office Visit [facility] - GI [address] [place] [phone] Louis Beck MD [address] [place] [address] 2L [place] [address] 04/07/2025 1:00 PM CDT Office Visit [facility] - Neurology [address] [place] [address] [place] [phone] Klever Wilcox APRN-TOP SPOTTER [address] [place] [address] 1L DIV [place] [phone] 05/11/2025 7:55 AM ROD FILLER Hospital Encounter [facility] ENDOSCOPY [address] [place] [phone] Kip Ryan MD [address] [place] [address] 2L DIV [place]STR[place] [address] Surgery General 05/11/2025 7:55 AM ROD FILLER - 05/11/2025 8:45 AM ROD FILLER Surgery [facility] ENDOSCOPY [address] [place] [phone] Kip Ryan MD [address] [place] [address] 2L DIV OF [place]STR[place] [address] COLONOSCOPY SCREEN---w/Kelle --2 day Miralax prep 10/21/2025 1:30 PM CDT Office Visit [facility] - GI [address] [place] [phone] Kip Ryan MD [address] [place] [address] 2L DIV OF [place]STR[place] [phone] 10/25/2025 1:10 PM CDT Office Visit [facility] - Dermatology [address] [place] [phone] Anastasiia Tran PA [address] [place] [address] 3L DEPT [place] [address] Scheduled Procedures Name Priority Associated Diagnoses Date/Ti me COLONOSCOPY SCREEN Colon cancer screening 05/11/2025 7:55 AM ROD FILLER documented as of this encounter Goals Goal [...] documented as of this encounter Care Teams Roll Slicing Machine Tender Relationship Specialty Start Date End Date Aruna Carroll MD PCP - General Internal Medicine 03/17/17 Aruna Carroll MD [address] 2L DIV OF GEN [place] [address] PCP - [facility] RONY RAMOS P4P 11/09/23 Aruna Carroll MD [address] 2L DIV OF GEN [place] [address] 03/17/17 Loreta Romero PharmD Pharmacist 11/06/24 documented as of this encounter
--- OUTSIDE RECORDS SUMMARY | 2024-12-07 18:28 | XMS_ITS | Encounter Summary ---
Author Organization [facility] Address [address] [place] [address] Care Team Providers Care Silk Spooler Name Role Phone Aruna Carroll MD Primary Care Provider Aruna Carroll MD Unavailable [phone] Aruna Carroll MD Unavailable [phone] Loreta Romero PharmD Unavailable Unavailable Reason for Visit * Reason Onset Date Comments MEDICATION REFILL 12/01/2017 Encounter Details Date Type Department Care Team (Late st Contact Info) Description 12/01/[address] [facility] [address] [place] [address] Aruna Carroll MD [address] OF [facility] INTERNAL [place] [phone] MEDICATION REFILL Social History Tobacco Use Types [...] Office Visit [facility] - Ophthalmology [address] [place] [address], [place] [address] Vikram Saleem OD [address] [place] [phone] 12/17/2024 10:30 AM CDT Office Visit [facility] - Pulmonology [address] [place] [phone] Duglas Grider MD [address] [place] [address] 2L DIV OF PULMONARY/[place] [address] 01/04/2025 9:00 AM CDT Office Visit [facility] - Internal Med [address] [place] [phone] Aruna Carroll MD [address] [place] [address] 2L DIV OF GEN INTERNAL [place] [address] 01/19/2025 10:00 AM CDT Office Visit [facility] - Endocrinology [address] [place] [phone] João Robertson MD [address] [facility] [address] [place] [address] 02/01/2025 12:30 PM CDT Procedure visit [facility] - GI [address] [place] [phone] 02/01/2025 1:00 PM CDT Office Visit [facility] - GI [address] [place] [phone] Louis Beck MD [address] [place] [address] 2L [place] [address] 04/07/2025 1:00 PM CDT Office Visit [facility] - Neurology [address] [place] [address] [place] [phone] Klever Wilcox APRN-CLINICAL OUTCOMES MANAGER [address] [place] [address] 1L DIV [place] [phone] 05/11/2025 7:55 AM ASSISTANT PRINTER FLOOR COVERING Hospital Encounter [facility] [address] [place] [phone] Kip Ryan MD [address] [place] [address] 2L DIV OF GASTROENTER[place] [address] Surgery General 05/11/2025 7:55 AM ASSISTANT PRINTER FLOOR COVERING - 05/11/2025 8:45 AM ASSISTANT PRINTER FLOOR COVERING Surgery [facility] [address] [place] [phone] Kip Ryan MD [address] [place] [address] 2L DIV OF GASTROENTER[place] [address] COLONOSCOPY SCREEN---w/Kelle --2 day Miralax prep 10/21/2025 1:30 PM CDT Office Visit [facility] - GI [address] [place] [phone] Kip Ryan MD [address] [place] [address] 2L DIV OF GASTROENTER[place] [phone] 10/25/2025 1:10 PM CDT Office Visit [facility] - Dermatology [address] [place] [phone] Anastasiia Tran PA [address] [place] [address] 3L DEPT [place] [phone] Scheduled Procedures Name Priority Associated Diagnoses Date/Ti me COLONOSCOPY SCREEN Colon cancer screening 05/11/2025 7:55 AM ASSISTANT PRINTER FLOOR COVERING documented as of this encounter Visit Diagnoses Not on filedocumented in this encounter Additional Health Concerns Infection Onset Date Last Indicated Resolved Time COVID-19 Under Investigation 03/29/2020 03/30/2020 03/30/2020 12:08 PM CDT COVID-19 Under Investigation 01/05/2024 01/05/2024 01/05/2024 3:22 PM CDT CDIFF Under Investigation 01/06/2024 01/06/2024 2:20 AM CDT documented as of this encounter Care Teams Silk Spooler Relationship Specialty Start Date End Date Aruna Carroll MD PCP - General Internal Medicine 03/17/17 Aruna Carroll MD [address] 2L DIV OF GEN INTERNAL [place] [phone] PCP - [facility] RONY RAMOS P4P 11/09/23 Aruna Carroll MD [address] 2L DIV OF [facility] INTERNAL [place] [phone] 03/17/17 Loreta Romero, Gucci Pharmacist 11/06/24 documented as of this encounter
--- OUTSIDE RECORDS SUMMARY | 2024-12-07 18:28 | XMS_ITS | Encounter Summary ---
Author Organization [facility] Address [address] [place] [address] Care Team Providers Care Leguillon Debeader Name Role Phone Aruna Carroll MD Primary Care Provider Aruna Carroll MD Unavailable [phone] Aruna Carroll MD Unavailable [phone] Loreta Romero PharmD Unavailable Unavailable Reason for Visit * Reason Onset Date Comments MEDICATION REFILL 05/30/2019 Encounter Details Date Type Department Care Team (Late st Contact Info) Description 05/30/2019 Refill [facility] [address] [facility] [facility] [place] [place] [address] Aruna Carroll MD [address] OF [facility] [place] [phone] MEDICATION REFILL Social History Tobacco Use Types [...] Office Visit [facility] - Ophthalmology [address] [place] [address], [place] [address] Vikram Saleem OD [address] [place] [phone] 12/17/2024 10:30 AM CDT Office Visit [facility] - Pulmonology [address] [place] [phone] Duglas rGider MD [address] [place] [address] 2L DIV OF PULMONARY/[place] [address] 01/04/2025 9:00 AM CDT Office Visit [facility] - Internal Med [address] [place] [phone] Aruna Carroll MD [address] [place] [address] 2L [place] [address] 01/19/2025 10:00 AM CDT Office Visit [facility] - Endocrinology [address] [place] [phone] João Robertson MD [address] [facility] [address] [place] [address] 02/01/2025 12:30 PM CDT Procedure visit [facility] - GI [address] [place] [phone] 02/01/2025 1:00 PM CDT Office Visit [facility] - GI [address] [place] [phone] Louis Beck MD [address] [place] [address] 2L [place] [address] 04/07/2025 1:00 PM CDT Office Visit [facility] - Neurology [address] [place] [address] [place] [phone] Klever Wilcox APRN-RECORDING ARTIST [address] [place] [address] 1[place] [phone] 05/11/2025 7:55 AM CALCULUS TUTOR Hospital Encounter [facility] END[facility] [address] [place] [phone] Kip Ryan MD [address] [place] [address] 2L [place] [address] Surgery General 05/11/2025 7:55 AM CALCULUS TUTOR - 05/11/2025 8:45 AM CALCULUS TUTOR Surgery [facility] [address] [place] [phone] Kip Ryan MD [address] [place] [address] 2L [place] [address] COLONOSCOPY SCREEN---w/Kelle --2 day Miralax prep 10/21/2025 1:30 PM CDT Office Visit [facility] - GI [address] [place] [phone] Kip Ryan MD [address] [place] [address] 2L [place] [address] 10/25/2025 1:10 PM CDT Office Visit [facility] - Dermatology [address] [place] [phone] Anastasiia Tran PA [address] [place] [address] 3[address] [place] [phone] Scheduled Procedures Name Priority Associated Diagnoses Date/Ti me COLONOSCOPY SCREEN Colon cancer screening 05/11/2025 7:55 AM CALCULUS TUTOR documented as of this encounter Goals Goal [...] documented as of this encounter Care Teams Leguillon Debeader Relationship Specialty Start Date End Date Aruna Carroll MD PCP - General Internal Medicine 03/17/17 Aruna Carroll MD [address] 2L [place] [address] PCP - Attributed-[facility] 11/09/23 Aruna Carroll MD [address] 2L DIV OF [facility] [place] [place] [address] 03/17/17 Loreta Romero, HuongD Pharmacist 11/06/24 documented as of this encounter
--- OUTSIDE RECORDS SUMMARY | 2024-12-07 18:28 | XMS_ITS | Clinical Summary ---
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 This disclosure is being madepursuant to the Care Everywhere program and may not contain all information available regarding this patient. Last updated 18.[facility] ice Allergies Active Allergy Reactions Criticality Noted Date Comments Clindamycin Other High 10/08/2017 Chest pain- difficulty swallowing Erythromycin Rash,Nausea and/or Vomiting,GI Discomfort Medium 11/23/2011 Fentanyl Other Medium 10/08/2017 Over sedated with patch/confusion Latex Rash Medium 10/08/2017 Penicillins Rash Medium 03/17/2017 Sulfa Drugs Rash,Nausea and/or Vomiting Medium 03/17/2017 Sulfamethoxazole W-Trimethoprim Other 09/05/2021 Tetracycline Rash,Nausea and/or Vomiting Medium 02/23/2008 Valproic Acid Other Medium 10/08/2017 transaminitis Elevated liver enzymes Medications * This document contains information received from the source organization and may not represent a complete record from that organization. * Be aware that medications may not be up to date on this document. Alwaysverify current medications with the patient. acetaminophen (Tylenol) 500 MG tablet Take 2 (two) tablets by mouth every 8 hours as needed for Fever or Pain Maximum allowable Acetaminophen amount = 4 Grams (4000 mg) / 24 hours. Active atorvastatin (Lipitor) 40 MG tablet Take 1 (one) tablet by mouth once daily 100 tablet 3 Active linaCLOtide (Linzess) 72 MCG capsuleIndicatio ns:Chronic constipation Take 1 (one) capsule by mouth daily before breakfast Take on an empty stomach at least 30 minutes prior to first meal of the day. 90 capsule 4 Active Vitamin D3 (25 MCG) 1000 UNIT capsule Take 1 (one) capsule by mouth once daily 90 capsule Active SUMAtriptan (Imitrex) 100 MG tabletIndication s:Intractable chronic migraine without aura and without status migrainosus Take 1 (one) tablet by mouth as needed for Migraine (take one with onset of headache, can repeat in 2 hours, max of 2 in 24 hours.) 9 tablet Active albuterol HFA (ProAir HFA) 108 (90 Base) MCG/ACT inhaler Inhale 2 (two) puffs by mouth every 4 hours as needed 8.5 g 5 024 Active Glucagon (Baqsimi One Pack) 3 MG/DOSE POWDIndications: Type 2 diabetes mellitus with diabetic neuropathy, with long-term current use of insulin ([facility]) Towanda 1 Each into the nose as needed FOR VERY LOW BLOOD SUGAR 2 Each Active Dextrose, Diabetic Use, (glucose) 4 G chew tabletIndication s:Type 2 diabetes mellitus with diabetic neuropathy, with long-term current use of insulin ([facility]) CHEW 3 TABS FOR BG<70. RETEST BG IN 15 MINS; IF BG STILL <70, TAKE ANOTHER 3. IF NEXT MEAL IS > THAN 1 HR AWAY EAT A SNACK. 100 tablet 024 Active Valbenazine Tosylate (Ingrezza) 80 MG CAPSIndications: Tardive dyskinesia Take 1 (one) capsule by mouth once daily 30 capsule 11 10/01/2 024 Active tiZANidine (Zanaflex) 4 MG tablet 024 Active Pimavanserin Tartrate (Nuplazid) 34 MG CAPS Take 1 (one) capsule by mouth once daily 30 capsule 11 024 Active dicyclomine (Bentyl) 10 MG capsuleIndicatio ns:Epigastric pain Take 1 (one) capsule by mouth 4 times daily as needed (abdominal pain) 360 capsule Active levothyroxine (Synthroid) 112 MCG tablet Take 1 (one) tablet by mouth once daily 90 tablet 3 024 Active Galcanezumab-gnl m (Emgality) 120 MG/ML auto-injector penIndications:I ntractable chronic migraine without aura and without status migrainosus INJECT 120MG SUB-Q ONCE MONTHLY 1 mL 11 024 Active gabapentin (Neurontin) 300 MG capsuleIndicatio ns:Small fiber neuropathy (am - pm - evening) in crease capsules to 2 -2- 3 for 7 days; then 3 - 2 - 3 for 7 days and then 3 - 3- 3 caps TID and remain on this dose 270 capsule 4 024 Active insulin glargine (Lantus SoloStar) penIndications:T ype 2 diabetes mellitus with diabetic neuropathy, with long-term current use of insulin (HCC),Hyperglyce adin Inject 30 (thirty) Units subcutaneously at bedtime 15 mL 5 025 Active Fasenra Pen 30 MG/ML auto-injector pen INJECT 1 PEN SUBCUTANEOUSLY EVERY 8 WEEKS 1 mL 11 025 Active esomeprazole (NexIUM) 40 MG capsuleIndicatio ns:Gastroesophag eal reflux disease, unspecified whether esophagitis present Take 1 capsule by mouth twice daily 180 capsule 4 025 Active levomilnacipran ER (Fetzima) 20 MG capsule Take 1 (one) capsule by mouth once daily 30 capsule 1 025 Active daridorexant (Quviviq) 50 MG TABS Take 1 tablet by mouth at bedtime 30 tablet 2 025 Active ramelteon (Rozerem) 8 MG tablet Take 1 (one) tablet by mouth nightly as needed FOR INSOMNIA 90 tablet 1 025 Active traZODone (Desyrel) 150 MG tablet Take 2 (two) tablets by mouth at bedtime 180 tablet 1 Active donepezil (Aricept) 10 MG tabletIndication s:Vascular dementia without behavioral disturbance (HCC) Take 1 (one) tablet by mouth once daily 90 tablet 1 025 2024 Active busPIRone (Buspar) 7.5 MG tablet Take 1 (one) tablet by mouth 3 times daily 90 tablet 2 Active clonazePAM (KlonoPIN) 1 MG tablet Take 1 (one) tablet by mouth 3 times daily 90 tablet 2 Active fludrocortisone (Florinef) 0.1 MG tabletIndication s:Orthostatic hypotension Take 1 (one) tablet by mouth once daily 30 tablet 11 Active Support Hose Apply 1 (one) Each to affected area as directed : 2 Each 5 Active carbidopa-levodo pa (Sinemet) 25-100 MG tabletIndication s:Parkinsonism, unspecified Parkinsonism type (HCC) Take 2 (two) tablets by mouth 4 times daily 750 tablet 3 Active SUMAtriptan (Imitrex) 100 MG tabletIndication s:Chronic migraine with aura without status migrainosus, not intractable Take medication at the onset of migraine, may repeat in 2 hours 9 tablet 11 Active pregabalin (Lyrica) 75 MG capsule Take 1 (one) capsule by mouth 2 times daily 60 capsule Active Continuous Glucose Sensor (Dexcom G6 Sensor) MISC 1 Each every 10 days Active pancrelipase (Creon) 23242-602220 units capsuleIndicatio ns:Pancreatic Insufficiency Take 1 capsule with breakfast, 2 capsules with lunch and dinner. Reasons: Pancreatic Insufficiency 300 capsule 6 Active budesonide-formo terol (Symbicort) 160-4.5 MCG/ACT inhaler Inhale 2 (two) puffs by mouth 2 times daily 21 g 1 025 2024 Active Continuous Glucose Transmitter (Dexcom G6 Transmitter) MISCIndications: Type 2 diabetes mellitus with diabetic neuropathy, with long-term current use of insulin (HCC) USE 1 TRANSMITTER EVERY 90 DAYS 1 Each 025 Active fluticasone propionate (Flonase) 50 MCG/ACT nasal spray Towanda 1 (one) spray into each nostril 2 times daily 16 g 11 025 Active buPROPion XL 24hr (Wellbutrin-XL) 150 MG tablet Take 1 (one) tablet by mouth once daily 30 tablet 1 025 Active insulin lispro (HumaLOG;ADMelog ) 100 UNIT/ML pen USE 4 TO 16 UNITS EVERY 4 HOURS WHEN TAKING STEROIDS 15 mL 025 Active Insulin Disposable Pump (Omnipod 5 [id number] Pods Gen 5) MISCIndications: Type 2 diabetes mellitus without complication, with long-term current use of insulin ([facility]) Use 1 Each every 3 days USE 1 EVERY 72 HOURS 10 Each 025 Active ondansetron (Zofran) 4 MG tabletIndication s:Nausea and Vomiting Take 1 (one) tablet by mouth every 8 hours as needed for Nausea/Vomiting Reasons: Nausea and Vomiting 20 tablet 025 Active oxyCODONE, immediate release, (Roxicodone) 5 MG tabletIndication s:Chronic pain syndrome,Radicul opathy of lumbar region,Pain in both lower extremities Take 0.5 (one-half) tablet to 1 (one) tablet by mouth every 6 hours as needed for Pain MUST LAST 30 DAYS 60 tablet 025 Active insulin pen needle (Novofine Pen Needle) 32G X 6 MM MISCIndications: Type 2 diabetes mellitus without complication, with long-term current use of insulin ([facility]) as directed USE 1 PEN NEEDLE THREE TIMES DAILY 100 Each 025 Active predniSONE (Deltasone) 10 MG tablet Take 4 tablets by mouth daily for 5 days. 20 tablet 025 Active apixaban (Eliquis) 5 MG tablet Take 1 (one) tablet by mouth 2 times daily 180 tablet 1 025 Active Spiriva Respimat 2.5 MCG/ACT inhaler INHALE 2 SPRAY(S) BY MOUTH ONCE DAILY 4 g 025 Active apixaban (Eliquis) 5 MG tablet Take 1 (one) tablet by mouth 2 times daily 180 tablet 3 024 2024 Discontinued(R eorder) ondansetron (Zofran) 4 MG tabletIndication s:Nausea and Vomiting Take 1 (one) tablet by mouth every 8 hours as needed for Nausea/Vomiting Reasons: Nausea and Vomiting 20 tablet 024 2024 Discontinued(R eorder) Insulin Disposable Pump (Omnipod 5 [id number] Pods Gen 5) MISCIndications: Type 2 diabetes mellitus without complication, with long-term current use of insulin (HCC) USE 1 EVERY 72 HOURS 10 Each 025 2024 Discontinued(R eorder) insulin lispro (HumaLOG;ADMelog ) 100 UNIT/ML pen USE 4 TO 16 UNITS EVERY 4 HOURS WHEN TAKING STEROIDS 15 mL 025 2024 Discontinued(R eorder) oxyCODONE, immediate release, (Roxicodone) 5 MG tabletIndication s:Chronic pain syndrome,Radicul opathy of lumbar region,Pain in both lower extremities Take 0.5 (one-half) tablet to 1 (one) tablet by mouth every 6 hours as needed for Pain MUST LAST 30 DAYS 60 tablet 025 2024 Discontinued(R eorder) Novofine Pen Needle 32G X 6 MM MISCIndications: Type 2 diabetes mellitus without complication, with long-term current use of insulin ([facility]) USE 1 PEN NEEDLE THREE TIMES DAILY 100 Each 025 2024 Discontinued(R eorder) tiotropium (Spiriva Respimat) 2.5 MCG/ACT inhaler Inhale 2 (two) puffs by mouth once daily 4 g 025 2024 Discontinued Active Problems Problem Noted Date Diagnosed Date Moderate persistent asthma with acute exacerbati on 09/07/2024 Swelling of both lower extremities 08/26/2024 Thrombophilia 08/26/2024 Enteritis 01/05/2024 Insulin pump status 08/12/2023 Fibromyalgia 05/13/2023 Diabetic peripheral neuropat hy associated with type 2 diabetes mellitus 02/12/2022 Assessment & Plan (10/12/2024 3:25 PM CDT): - Patient has very poorly controlled DM2 - last A1c is 14%, no real reason to believe it would be any better currently - On sliding lispro and lantus 30 u - Neuropathy is getting worse - Was doing well on omnipod but lost access - Wants to get reestablished with endo but has not been able to get in - c/b DM neuropathy - Dexcom can only show 24 hrs of data currently - No other data available - Recommend DM pharm visit to help get dexcom set up better, hopefully with more information would be able to titrate insulin better, unfortunately with 1 day of data and sugars ranging from 115 to 300 hard to adjust safely - Recommend she reestablish w endocrine (has been there end of last year) - Get A1c and BMP during DM pharm visit. 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 Due to the recurrent nature of the PE, lifelong anticoagulation is warranted. Continue Eliquis. Hypoglycemia 08/30/2021 Hypokalemia 08/30/2021 Neuroleptic-induced parkinsonism 08/30/2021 Overflow diarrhea 08/30/2021 Pain in limb 08/30/2021 Personal history of DVT (deep vein thrombosis) 0 08/30/2021 Spinal enthesopathy 08/30/2021 Status post left cataract extraction 08/30/2021 Tardive dyskinesia 08/30/2021 Tear film insufficiency 08/30/2021 Uncomplicated severe persistent asthma Urinary incontinence 08/30/2021 Dry skin 08/07/2021 detention current use of anticoagulant therapy 0 08/07/2021 Deep vein thrombosis (DVT) of both lower extremi ties 12/09/2020 Overview (01/27/2024): Strong FH thrombophilia Hospitalized with PEs in Feb 2020. Hospitalized at [facility] December 2023 with a PE--> apixaban indefinitely Single subsegmental pulmonar y embolism without acute cor pulmonale 10/25/2020 Vitamin D deficiency 09/28/2020 Chest pain 03/29/2020 Assessment & Plan (02/06/2024 10:26 PM CDT): Chest pain has mostly atypical features. Most recently in 12/2023 she had negative nuclear stress test. I provided reassurance. Assessment & Plan (12/26/2023 4:31 PM CDT): Main issue for the discussion today. The patient has chest pain although many atypical features (nonexertional onset, lasting hours at a time). Looking at CT from 2020, there was no coronary calcification. My suspicion is that this is noncardiac. However, given her risk profile (diabetes) ischemic evaluation is warranted. I would like to suggest CCTA given there is no calcification in her coronary arteries. -CCTA -Start aspirin -I would like to not start antianginal empirically at this point because the patient has a very large pill burden; would rather obtain workup first. 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 Disorder of peripheral autonomic nervous system 01/19/2014 Sciatica 10/06/2013 Overview (09/30/2017): Overview: Followed by orthopedic surgeon Injections by pain management Right knee injury 10/06/2013 Overview (09/30/2017): Overview: Small tear -- patient not sure what Being managed with PT and steroid injections Possible arthroscopic surgery if no improvement Hx of abnormal Pap smear 12/23/2012 Rib pain on right side 03/11/2012 Metabolic dysfunction-associ ated steatotic liver disease (MASLD) 11/23/2011 Overview (01/27/2024): Overview: 07/15/12 liver biopsy: severe steatosis (>75%), stage 1a fibrosis 08/25/14 CT: Diffuse hepatic steatosis. No focal hepatic lesions 05/16/18 Fibroscan CAP 280, LSM 8.5 kPa 02/07/20 Fibroscan CAP 363, LSM 5.9 kPa 02/05/22 Fibroscan CAP 244, LSM 3.9 kPa 01/28/23 Fibroscan CAP 298, LSM 7.3 kPa 09/09/23 CT w/contrast for upper abd pain: steatosis, some caudate hypertrophy suggesting fibrosis, no nodularity, no focal lesions, mcm 01/27/24 Fibroscan CAP 311, LSM 6.6 kPa Type 2 diabetes mellitus 11/01/2011 Obesity 06/14/2011 Overview (09/30/2017): Overview: Highest weight 199# Biliary duct stenosis 05/18/2010 Anemia 03/06/2010 Myofascial pain syndrome 11/01/2009 Raynaud's phenomenon 09/20/2009 Migraine 01/14/2009 Allergic rhinitis 12/16/2008 Overview (09/30/2017): Overview: Symptoms controlled. On Nabila as needed. 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 08/25/2008 Osteoporosis 08/25/2008 Overview (06/22/2022): Overview: 07/26/09 Lumbar spine -1.2, femur -1.6 12/11/11 Lumbar spine -0.9, femur -1.4 02/02/15 Lumbar spine -0.5 femur -1.5 06/11/21 Lumbar spine -0.9 femur - 1.3, FRAX 6.7% major osteoporotic fracture, 0.6% hip fracture 06/21/22 Lumbar spine -0.6 femur -1.7, FRAX 13% major osteoporotic fracture, 1.3% hip fracture Reclast -- infusion 06/25/12, 05/26/14, 06/08/16 GERD (gastroesophageal reflux disease) 8 Resolved Problems Problem Noted Date Diagnosed Date Resolved Date Skin rash 08/26/2024 09/23/2024 Ulcer of foot due to type 2 diabetes mellitus 02/10/20 22 05/13/2023 Cough 08/30/2021 09/27/2021 Fever 08/30/2021 09/13/2021 Screening for HIV (human imm unodeficiency virus) 08/30/2021 10/02/2023 Pneumonia due to organism 08/30/2021 Sepsis 08/30/2021 02/05/2022 Upper respiratory infection 08/30/2021 09/13/2021 Thrombocytosis 06/29/2019 06/29/2019 Fall 12/08/2010 10/06/2017 Encounters * This document contains information received from the source organization and may not represent a complete record from that organization. Date Type Department Care Team Description 11/24/2024 Refill [facility] - Pulmonology [address] [place] [address], [place] [phone] Will Webster MD Refill Request 11/23/2024 Refill [facility] - Internal Med [address] [place] [phone] Aruna Carroll MD MEDICATION REFILL 11/19/2024 Refill [facility] - Endocrinology [address] [place] [phone] Michael Wood MD MEDICATION REFILL 11/17/2024 Telephone [facility] - Internal Med [address] [place] [phone] Aruna Carroll MD Medication Issue 11/17/2024 Telephone [facility] - Endocrinology [address] [place] [phone] João Robertson MD Appointment 11/17/2024 Telephone [facility] - Centralized Scheduling [address] [place] [phone] Deepak Robertson DO Appointment 11/16/2024 Refill [facility] - Internal Med [address] [place] [phone] Aruna Carroll MD MEDICATION REFILL 11/13/2024 Refill [facility] - Endocrinology [address] [place] [phone] Michael Wood MD MEDICATION REFILL 11/12/2024 Refill [facility] - Endocrinology [address] [place] [phone] Michael Wood MD MEDICATION REFILL 11/12/2024 Results Follow-Up [facility] - Pulmonology [address] [place] [phone] Will Webster MD 11/07/2024 Refill [facility] - Endocrinology [address] [place] [phone] Michael Wood MD Refill Request 11/06/2024 10:30 AM CDT Office Visit [facility] - Clinical Pharmacy [address] [place] [phone] Loreta Romero, PharmD Type 2 diabetes mellitus with diabetic neuropathy, with long-term current use of insulin (HCC) (Primary Dx) 11/06/2024 Travel 11/04/2024 11:01 AM CDT - 11/04/2024 11:59 PM CDT Hospital Encounter [facility] OP DRAW STATION [address] [place] [phone] Kirsten Julien, DO Discharge Disposition: Home or Self Care 11/04/2024 9:58 AM CDT - 11/04/2024 11:00 AM CDT Hospital Encounter [facility] PFT [address] [place] [phone] Kirsten Julien, DO Discharge Disposition: Home or Self Care 11/04/2024 Travel 10/30/2024 Patient Outreach [facility] ENDOSCOPY [address] [place] [phone] Jessica Obando, LETI 10/30/2024 Telephone [facility] - ENT [address] [facility], [address] [phone] Jessica Kothari, UPHOLSTERY REPAIRER Appointment 10/30/2024 Telephone [facility] - ENT [address] [facility], [address] [phone] Dayami Dykes, UPHOLSTERY REPAIRER Adrenal Gland Problem 10/30/2024 Refill [facility] - Pulmonology [address] [place] [phone] Will Webster MD MEDICATION REFILL 10/29/2024 Refill [facility] - Pulmonology [address] [place] [phone] Duglas Grider MD MEDICATION REFILL 10/28/2024 Refill [facility] - Endocrinology [address] [place] [phone] Michael Wood MD Refill Request 10/26/2024 Telephone [facility] - Internal Med [address] [place] [phone] Aruna Carroll MD Medication Issue 10/26/2024 Telephone [facility] - Neurology [address] [place] [address], [place] [phone] Klever Wilcox APRN-LOCKS INSPECTOR Med Question 10/25/2024 Refill [facility] - Endocrinology [address] [place] [phone] Michael Wood MD Refill Request 10/23/2024 10:40 AM CDT Office Visit [facility] - Dermatology [address] [place] [phone] Anastasiia Tran PA Seborrheic keratosis, inflamed (Primary Dx); Low blood sugar reading; Lentigo 10/23/2024 Patient Outreach [facility] ENDOSCOPY [address] [place] [phone] Jessica Obando RN 10/23/2024 Travel 10/22/2024 2:00 PM CDT Office Visit [facility] - GI [address] [place] [phone] Kip Ryan MD Bloating (Primary Dx); Chronic pancreatitis, unspecified pancreatitis type (HCC); Exocrine pancreatic insufficiency (HCC); Colon cancer screening 10/22/2024 Travel 10/19/2024 11:00 AM CDT Office Visit [facility] - Endocrinology [address] [place] [phone] Michael Wood MD Type 2 diabetes mellitus without complication, with long-term current use of insulin (HCC) (Primary Dx); Type 2 diabetes mellitus with diabetic neuropathy, with long-term current use of insulin (HCC) 10/19/2024 Travel 10/15/2024 Telephone [facility] - Internal Med [address] [place] [phone] Aruna Carroll MD LABS ONLY 10/12/2024 Orders Only [facility] - Internal Med [address] [place] [phone] Flaco Ahuja MD Diabetic peripheral neuropathy associated with type 2 diabetes mellitus ([facility]/HCC) 10/12/2024 Orders Only [facility] - Internal Med [address] [place] [phone] Flaco Ahuja MD Type 2 diabetes mellitus with diabetic neuropathy, with long-term current use of insulin ([facility]) 10/08/2024 Telephone [facility] - Pulmonology [address] [place] [phone] Will Webster MD Appointment 10/08/2024 Refill [facility] - Pulmonology [address] [place] [phone] Will Webster MD Refill Request 10/07/2024 10:30 AM CDT Office Visit [facility] - Internal Med [address] [place] [phone] Flaco Ahuja MD Diabetic peripheral neuropathy associated with type 2 diabetes mellitus ([facility]) (Primary Dx); Disorder of peripheral autonomic nervous system 10/07/2024 Telephone [facility] - Internal Med [address] [place] [phone] Aruna Carroll MD Medication Issue 10/07/2024 Travel 10/06/2024 Refill [facility] - Neurology [address] [place] [phone] Klever Wilcox APRN-VANCE MEDICATION REFILL 10/05/2024 3:05 PM CDT - 10/05/2024 11:59 PM CDT Hospital Encounter [facility] LAB OP DRAW STATION [address] [place] [phone] Discharge Disposition: Home or Self Care 10/05/2024 1:30 PM CDT Office Visit [facility] - Neurology [address] [place] [phone] Klever Wilcox APRN-[facility]ANCE Orthostatic hypotension (Primary Dx); Parkinsonism, unspecified Parkinsonism type (HCC); Chronic migraine with aura without status migrainosus, not intractable 10/05/2024 Travel 09/28/2024 [facility]ill [facility] [facility] - Internal Med [address] [place] [phone] Aruna Carroll MD Refill Request 09/25/2024 Telephone [facility] - Pulmonology [address] [place] [phone] Will Webster MD Reminder Call (No answer. Left voicemail.) 09/21/2024 Refill [facility] - Endocrinology [address] [place] [phone] Michael Wood MD Refill Request 09/18/2024 Refill [facility] - Internal Med [address] [place] [phone] Aruna Carroll MD MEDICATION REFILL 09/14/2024 Refill [facility] - Neurology [address] [place] [phone] Klever Wilcox APRN-LOCKS INSPECTOR Refill Request 09/11/2024 Refill [facility] - Neurology [address] [place] [phone] Klever Wilcox APRN-LOCKS INSPECTOR MEDICATION REFILL 09/09/2024 Travel 09/08/[address] [facility] - Pulmonology [address] [place] [phone] Sander Allison MD Refill Request from Last 3 Months Immunizations Immunization Administration Dates Next Due INFLUENZA VACCINE, TRIV. (AF LURIA, FLUZONE TRIVALENT; 6MO+) (IIV3) 02/07/2014,03/19/2013,03/10/2011,02/27,06/10/1996 COVID PFIZER 12+YR 30MCG/0.3mL 02/20/2024 COVID PFIZER BIVALENT 12Y+ 30mcg/0.3ML Covid Pfizer primary Monoval ent 12+ yr 0.3ml 03/19/2023 Covid Pfizer primary monoval ent 12+ yr 0.3mL Purple cap 02/23/2022,09/09/2021,03/16/2021,09/12,08/22/2020 DT (AGE 0-7) 06/10/2006,02/27/2005 FLU VACCINE TRI IIV3 SPLIT I M (FLUVIRIN) 02/17/2021 FLU VACCINE TRI IIV3 SPLIT P F IM (FLUVIRIN) 02/18/2017 HEP A VACCINE, ADULT 02/23/2016,08/09/2015 HEP A/HEP B 02/22/2022,09/30/2021 HEP B VACCINE 12/23/2012,08/20/2012,06/25/2012 HIB VACCINE 04/05/2023 HIB-PRP-T 4 DOSE 04/05/2023 HISTORIC, RSV UNSPECIFIED 04/24/2024 HepB Unspecified formulation 12/23/2012,08/21/19 13,06/25/2012 INFLUENZA A [id number] VACCINE 05/10/2009 INFLUENZA VACCINE 02/07/2024,,02/23/2022,02/17,03/26/2018,02/18/2017,03/13/2011 ,03/06/2010,02/10/2009 INFLUENZA VACCINE, QUADR. (A FLURIA, FLUZONE QUADRIVALENT; 6MO+) (IIV4) 02/24/2018 INFLUENZA VACCINE, QUADR. (F LUZONE PF QUADRIVALENT; 6-35MO), 0.25 ML (IIV4) 02/23/2022 INFLUENZA VACCINE, QUADR. (F LUZONE; FLULAVAL; FLUARIX; AFLURIA QUADRIVALENT; 6MO+), 0.5 ML (IIV4) 02/05/2020,02/20/2019 INFLUENZA VACCINE, RECOM-CARMEN, TRIV. (FLUBLOCK TRIVALENT; 18Y+) (RIV3) 02/01/2024 Influenza Intradermal 02/23/2016,02/28/2012 MENINGOCOCCAL ACWY (MCV4P) VAC IM 05/17/2019, MENINGOCOCCAL B RECOMBINANT, 2 OR 3 DOSE, IM 05/13/2023,05/01/2022,09/05/2021 MMR 05/17/2019,03/09/2019 Meningococcal ACWY (Menquadfi) Vac IM 10/17/2024 PNEUMOCOCCAL PCV20 CONJ VAC IM 03/14/2023 PNEUMOCOCCAL PCV21 2024 PNEUMOCOCCAL PPSV23 02/19/2010,01/08/2005 Pneumococcal Pcv13 Conj 03/22/2015 RSV AREXVY 60YR+ 0.5ML 2024 TDAP (7yrs+) 02/28/2012 TDAP, HISTORIC VACCINE 10/13/2022 Zoster Hzv Vacc Recombinant Inj Im 12/19,10/13/2022,01/22/2018,11/21 iNFLUENZA VACCINE, RECOM-CARMEN, QUADR. (FLUBLOCK QUADRIVALENT; 18Y+) (RIV4) 02/22/2023 Family History Medical History Relation Name Comments CAD (Coronary Artery Disease) Brother Leukemia Father Blood Clots Maternal Aunt multiple aunts Blood Clots Maternal Uncle multiple uncl es Arthritis - Osteo Mother Mom Depression Mother Mom Oophorectomy Mother Mom Seizures Neg Hx Relation Name Status Comments Brother (Age 57) Father Maternal Aunt Maternal Uncle Mother Mom Alive Social History Tobacco Use Types Packs/Day Years Used Date Smoking Tobacco: Never Smokeless Tobacco: Never Tobacco Cessation:Counseling Given: Not Answered Alcohol Use Standard Drinks/Week Comments No 0 [...] Answer Date Recorded Patient Health Questionnaire-2 Score 5 11/12/2024 [facility] [place] of Occupat ional Health - Occupational Stress [...] place to sleep or slept in a prison (including now)? No 01/05/2024 Comments No Sex and Gender Information Value Date Recorded Sex Assigned at Not on file Legal Sex Female 4:04 PM CDT Gender Identity Not on file Sexual Orientation Not on file Last Filed Vital Signs Vital Sign Reading Time Taken Comments Blood Pressure 130/83 11/06/2024 10:35 AM CDT Pulse 99 11/06/2024 10:35 AM CDT Temperature 37.6 C (99.6 F) 10/22/2024 2:31 PM CDT Respiratory Rate 17 09/03/2024 3:28 PM CDT Oxygen Saturation 97% 11/06/2024 10:35 AM CDT Inhaled Oxygen Concentration - - Weight 78.5 kg (173 lb) 11/06/2024 10:35 AM CDT Height 157.5 cm (5' 2) 11/06/2024 10:35 AM CDT Body Mass Index 31.64 11/06/2024 10:35 AM CDT Plan of Treatment Upcoming Encounters Date Type Department Care Team (Latest Contact Info) Description 12/09/2024 1:00 PM CDT Office Visit [facility] - Ophthalmology [address] [place] [phone] Vikram Saleem, MADONNA [address] [place] [phone] 12/17/2024 10:30 AM CDT Office Visit [facility] - Pulmonology [address] [place] [phone] Duglas Grider MD [address] [place] [address] 2L DIV OF PULMONARY/[place] [address] 01/04/2025 9:00 AM CDT Office Visit [facility] - Internal Med [address] [place] [phone] Aruna Carroll MD [address] [place] [address] 2L DIV [place] [address] 01/19/2025 10:00 AM CDT Office Visit [facility] - Endocrinology [address] [place] [phone] João Robertson MD [address] [place] [phone] 02/01/2025 12:30 PM CDT Procedure visit [facility] - GI [address] [place] [phone] 02/01/2025 1:00 PM CDT Office Visit [facility] - GI [address] [place] [phone] Louis Beck MD [address] [place] [address] 2L DIV [place] [address] 04/07/2025 1:00 PM CDT Office Visit [facility] - Neurology [address] [place] [phone] Klever Wilcox, AIR CONDITIONING SUPERVISOR-LOCKS INSPECTOR [address] [place] [address] [address] [place] [phone] 05/11/2025 7:55 AM FIELD EXAMINER Hospital Encounter [facility] ENDOSCOPY [address] [place] [phone] Kip Ryan MD [address] [place] [address] 2L [place] [phone] Surgery General 05/11/2025 7:55 AM FIELD EXAMINER - 05/11/2025 8:45 AM FIELD EXAMINER Surgery [facility] ENDOSCOPY [address] [place] [phone] Kip Ryan MD [address] [place] [address] 2[address] [place] [phone] COLONOSCOPY SCREEN---w/Kelle --2 day Miralax prep 10/21/2025 1:30 PM CDT Office Visit [facility] - GI [address] [place] [phone] Kip Ryan MD [address] [place] [address] 2[address] [place] [phone] 10/25/2025 1:10 PM CDT Office Visit [facility] - Dermatology [address] [place] [address], [place] [phone] Anastasiia Tran PA [facility] [address] [place] [address] Scheduled Procedures Name Priority Associated Diagnoses Date/Ti me COLONOSCOPY SCREEN Colon cancer screening 05/11/2025 7:55 AM FIELD EXAMINER Health Maintenance Due Date Last Done Comments COLOGUARD (AGES 45-75) - COLON CA SCREENING 1965 CT COLONOGRAPHY - COLON CA SCREENING 1965 FIT - COLON CA SCREENING 1965 FLEX SIG - COLON CA SCREENING 1965 DIABETES - URINE PROTEIN SCREENING 06/10/2024 06/13/2023, 06/20/2022, 09/30/2020, Additional history exists COLON MONITORING 12/22/2024 12/23/2019, , 07/11/2017 Colorectal Cancer Screening 12/22/2024 MAMMOGRAM 12/29/2024 12/30/2023, 06/10, 06/21/2022, Additional history exists DIABETES-HGB A1C 02/04/2025 11/04/2024, , 01/06/2024, Additional history exists DIABETES-FOOT EXAM WITH MONOFILAMENT 03/12/2025 03/12/2024, 10/16/2022, 10/16/2022, Additional history exists Opioid Medication Agreement - Annual 04/21/2025 04/21/2024, 03/21/2024, 10/16/2022 DIABETES RETINOPATHY SCREENING 04/25/2025 04/25/2023, 04/25/2023, 04/24/2022, Additional history exists MENINGOCOCCAL (Group B) VACCINE SHARED DECISION-MAKING (4 of 4 - Increased Risk Trumenba 3-dose series) 05/13/2025 05/13/2023, 05/01/2022, 09/05/2021 DIABETES-SERUM CREATININE 11/04/20252024, 07/27/2024, 01/08/2024, Additional history exists BONE DENSITY TESTING 06/21/2027 06/21/2022, 06/11/2019, 02/02/2015, Additional history exists PAP with HPV 05/13/2028 05/13/2023 MENINGOCOCCAL GROUPS A/C/Y/W VACCINE (4 - Risk 2-dose series) 10/17/2029 10/17/2024, 05/17/2019, 03/09/2019 COLONOSCOPY - COLON CA SCREENING 12/22/2029 12/23/2019, 12/23/2019, 07/11/2017 DTAP/TDAP/TD VACCINES (5 - Td or Tdap) 10/13/2032 10/13/2022, 02/28/2012, 06/10/2006, Additional history exists HEPATITIS C SCREENING Completed 06/13/2016 HIV SCREENING Completed 09/30/2020 HEPATITIS B VACCINE Completed 02/22/2022, 09/30/2021, 12/23/2012, Additional history exists ZOSTER VACCINE Completed 12/19/2022, 0511/2022, 01/22/2018, Additional history exists HIB VACCINE Completed 04/05/2023, 04/05/2023 INFLUENZA VACCINE Completed 02/07/2024, , 02/22/2023, Additional history exists COVID-19 VACCINE Completed 02/22/2024, 05/2024, 03/19/2023, Additional history exists PNEUMOCOCCAL VACCINE 50+ Completed 024, 03/14/2023, 03/22/2015, Additional history exists Respiratory Syncytial Virus (RSV) Vaccine Pt: or over 60 yrs Completed 2024, 04/24/2024 DEPRESSION SCREENING Completed 07/27/2024, 07/27/2024, 09/09/2023, Additional history exists MEDICARE AWV CALENDAR YEAR Completed 07/27/2024, 09/09/2023, 05/13/2023, Additional history exists HPV VACCINE Aged Out No longer eligi ble based on patient's age to complete this topic Goals Goal Patient Goal Type Associated Problems [...] On track(2024 2:16 PM CDT) No Ap Juares RN Note: Expected end date: ongoing Interventions: Take all medications as prescribed Let your doctor know right away about any changes in your medications Make sure to request a refill of your medication at least one week prior to your last dose Depression Lifestyle On track(2024 2:16 PM CDT) No Yvette Gutierres MD Medical Devices Implanted Type Area Welfare Eligibility Interviewer Device Identifier Shelf Expiration Date Model / Serial / Lot Lens Iol 0 D +15 Concepcion Mod L Acrsf Iq - [id number] Implanted:Qty: 1 on 10/04/2020 by Trenton España MD at [facility] Left: [employer] 09/07/2021 [id number] / [id number] / Lens Iol 0 D +15 Concepcion Mod L Acrsf Iq - [id number] Implanted:Qty: 1 on 10/18/2020 by Trenton España MD at [facility] Right: [employer] 12/30/2022 [id number] / [id number] / Procedures Procedure Name Priority Date/Time Associated Diagnosis Comments COMPLETE PFT W/WO BRONCHODILATOR Routine 11/04/2024 4:55 PM CDT Moderate persistent asthma with acute exacerbation (HCC) IMMUNOSCORE IGE INTERP Routine 11/04/2024 12:13 PM CDT Moderate persistent asthma with acute exacerbation (HCC) HEMOGLOBIN A1C Routine 11/04/2024 12:13 PM CDT Diabetic peripheral neuropathy associated with type 2 diabetes mellitus (CMS/HCC) BASIC METABOLIC PANEL (CALCIUM TOTAL) Routine 11/04/2024 12:13 PM CDT Diabetic peripheral neuropathy associated with type 2 diabetes mellitus (CMS/HCC) ALLERGEN RESPIRATORY PNL REGION 8 ([place]) Routine 11/04/2024 12:13 PM CDT Moderate persistent asthma with acute exacerbation (HCC) IGE BLOOD Routine 11/04/2024 12:13 PM CDT Moderate persistent asthma with acute exacerbation (HCC) CBC W AUTO DIFFERENTIAL Routine 11/04/2024 12:13 PM CDT Moderate persistent asthma with acute exacerbation (HCC) LAB RESULTS ORDER 10/15/2024 SCAN ONLY HIS OPIOID MED AGREEMENT Routine 03/21/2024 2:48 PM CDT MAMMO BILAT SCREENING W GRACY Routine 12/30/2023 10:11 AM CDT Encounter for screening mammogram for malignant neoplasm of breast MICROALB/CREAT RATIO URINE RANDOM PANEL Routine 06/13/2023 4:07 PM FIELD EXAMINER Type 2 diabetes mellitus without complication, with long-term current use of insulin Acquired hypothyroidism HPV DETECTION HIGH RISK KAYCEE Routine 05/13/2023 9:09 AM FIELD EXAMINER Well woman exam with routine gynecological exam DEXA BONE DENSITY AXIAL SKELETON Routine 06/21/2022 10:35 AM FIELD EXAMINER Encounter for medication monitoring Age related osteoporosis, unspecified pathological fracture presence HIV-1 HIV-2 ANTIGEN/ANTIBODY Routine 09/30/2020 1:30 PM CDT Screening for HIV (human immunodeficiency virus) ENDOSCOPY, COLON, SCREENING Routine 12/23/2019 11:06 AM CDT MT 3 COMP FOOT EXAM COMPLETED Routine 10/21/2017 Type 2 diabetes mellitus without complication, with long-term current use of insulin HEPATITIS C AB W/RFLX TO HCV RNA QN PCR Routine 06/13/2016 10:26 AM FIELD EXAMINER from Last 3 Months or Most Recently Relevant to Health Maintenance Results * COMPLETE PFT W/WO BRONCHODILATOR (11/04/2024 4:55 PM CDT) Narrative Alexander Geronimo MD - 11/04/2024 4:55 PM CDT Alexander Geronimo MD 11/05/2024 11:18 AM Kirsten J Go DO RESPIRATORY THERAPY ORDERABLES E dited Result - Final * IMMUNOSCORE IGE INTERP (11/04/2024 12:13 PM CDT) [facility] Immunocap Score See Note 10:59 PM CDT [employer] ([facility]) Comment: REFERENCE INTERVAL: Allergen, Interpretation Less than 0.10 kU/L......Class 0.....No significant level detected 0.10-0.34 kU/L...........Class 0/1...Clinical relevance undetermined 0.35-0.70 kU/L...........Class 1.....Low 0.71-3.50 kU/L...........Class 2.....Moderate 3.51-17.50 kU/L..........Class 3.....High 17.51-50.00 kU/L.........Class 4.....Very High 50.01-100.00 kU/L........Class 5.....Very High Greater than 100.00kU/L..Class 6.....Very High Allergen results of 0.10-0.34 kU/L are intended for specialist use as the clinical relevance is undetermined. Even though increasing ranges are reflective of increasing concentrations of allergen-specific IgE, these concentrations may not correlate with the degree of clinical response or skin testing results when challenged with a specific allergen. The correlation of allergy laboratory results with clinical history and in vivo reactivity to specific allergens is essential. A negative test may not rule out clinical allergy or even anaphylaxis. Performed By: [facility] [address] [place] [address] Jogger Operator: Jae Spears MD, PhD CLIA Number: [id number] Blood BLOOD SPECIMEN / Unknown Lab Venipuncture / Unknown 11/04/2024 12:13 PM CDT 11/04/2024 12:34 PM CDT Kirsten Julien DO LAB - SEROLOGY ORDERABLES Final Result [facility] ([facility]) [address] [place] [address], [facility] * ALLERGEN RESPIRATORY PNL REGION 8 ([place]) (11/04/2024 12:13 PM CDT) IgE Total <2 <=214 kU/L 11/05/2024 10:57 PM CDT [facility] ([facility]) Comment: REFERENCE INTERVAL: Immunoglobulin E, Serum Access complete set of age- and/or gender-specific reference intervals for this test in the [employer] Test Directory ([employer]). Allergen Bolanos Elder <0.10 <=0.34 kU/L 11/05/2024 10:57 PM CDT [facility] ([facility]) Allergen Alternaria alternata <0.10 <=0.34 kU/L 11/05/2024 10:57 PM CDT [facility]) Allergen [place] Maple <0.10 <=0.34 kU/L 11/05/2024 10:57 PM CDT [facility]) Allergen Cat Dander <0.10 <=0.34 kU/L 11/05/2024 10:57 PM CDT [facility] ([facility]) Allergen [place] Drew <0.10 <=0.34 kU/L 11/05/2024 10:57 PM CDT [facility] ([facility]) Allergen [place] Tree <0.10 <=0.34 kU/L 11/05/2024 10:57 PM CDT [facility] ([facility]) Allergen Rough Pigweed <0.10 <=0.34 kU/L 11/05/2024 10:57 PM CDT [facility] ([facility]) Allergen Mosotho Thistle <0.10 <=0.34 kU/L 11/05/2024 10:57 PM CDT [facility] ([facility]) Allergen Roddy Grass <0.10 <=0.34 kU/L 11/05/2024 10:57 PM CDT [facility] ([facility]) Allergen Hormodendrum <0.10 <=0.34 kU/L 11/05/2024 10:57 PM CDT [facility] ([facility]) Allergen Elm <0.10 <=0.34 kU/L 11/05/2024 10:57 PM CDT [facility] ([facility]) Allergen [place] <0.10 <=0.34 kU/L 11/05/2024 10:57 PM CDT [facility] ([facility]) Allergen A fumigatus IgE <0.10 <=0.34 kU/L 11/05/2024 10:57 PM CDT [facility] ([facility]) Allergen Dermatophagoides pteronyssinus <0.10 <=0.34 kU/L 11/05/2024 10:57 PM CDT [facility] ([facility]) Allergen Dermatophagoides farinae <0.10 <=0.34 kU/L 11/05/2024 10:57 PM CDT [facility] ([facility]) Allergen Bermuda Grass <0.10 <=0.34 kU/L 11/05/2024 10:57 PM CDT [facility] ([facility]) Allergen White Kye <0.10 <=0.34 kU/L 11/05/2024 10:57 PM CDT [facility] ([facility]) Allergen P. Notatum <0.10 <=0.34 kU/L 11/05/2024 10:57 PM CDT [facility] ([facility]) Allergen Common Ragweed <0.10 <=0.34 kU/L 11/05/2024 10:57 PM CDT [facility] ([facility]) Allergen Cockroach Macanese <0.10 <=0.34 kU/L 11/05/2024 10:57 PM CDT [facility] ([facility]) Allergen Douglas Tree <0.10 <=0.34 kU/L 11/05/2024 10:57 PM CDT [facility] ([facility]) Allergen [place] Tree <0.10 <=0.34 kU/L 11/05/2024 10:57 PM CDT [facility]) Allergen Pecan Tree <0.10 <=0.34 kU/L 11/05/2024 10:57 PM CDT [facility] ([facility]) Allergen Mouse Epithelium IgE <0.10 <=0.34 kU/L 11/05/2024 10:57 PM CDT [facility]) Allergen Mucor racemosus <0.10 <=0.34 kU/L 11/05/2024 10:57 PM CDT [facility]) Allergen White [place] Tree IgE <0.10 <=0.34 kU/L 11/05/2024 10:57 PM CDT [facility]) Allergen Dog Dander <0.10 <=0.34 kU/L 11/05/2024 10:57 PM CDT [facility]) Comment: Performed By: [facility] [address] [place] [address] Jogger Operator: Jae Spears MD, PhD CLIA Number: [id number] Blood BLOOD SPECIMEN / Unknown Lab Venipuncture / Unknown 11/04/2024 12:13 PM CDT 11/04/2024 12:34 PM CDT us Kirsten J Go DO LAB - CHEMISTRY ORDERABLES Final Result [facility] [employer] [facility]) [address] [place], [place] [address] * (ABNORMAL) HEMOGLOBIN A1C [IN-HOUSE TEST] (11/04/2024 12:13 PM CDT) Hemoglobin A1c 8.5(H) <=5.6 % 11/04/2024 3:18 PM CDT [facility] Estimated Average Glucose 197 mg/dL 11/04/2024 3:18 PM CDT [facility] Comment: HbA1c Interpretation: Normal : < 5.7% Pre-diabetes: 5.7-6.4% Diabetes: Equal to or greater than 6.5% Test results diagnostic of diabetes should be repeated for confirmation. Treatment target values recommended by ADA and other clinical organizations should be used to evaluate metabolic control in patients. Reference: [place] [employer], Standards of Care in Diabetes -2020 In patients 70 years and older consider HbA1c target range of 7.0-7.5% (Reference: Timmy Santos et al. SHERLYDA. 2012) The Sebia assay for the measurement of HbA1c is a National Glycohemoglobin Standardization Program (NGSP) certified method. Blood BLOOD SPECIMEN WITH EDTA / Unknown Lab Venipuncture / Unknown 11/04/2024 12:13 PM CDT 11/04/2024 1:38 PM CDT Flaco Ahuja MD LAB - CHEMISTRY ORDERABLES Fi nal Result [address] [address], [facility] [phone] * (ABNORMAL) CBC W/ DIFFERENTIAL (11/04/2024 12:13 PM CDT) WBC 9.1 4.0 - 10.7 x10E9/L 11/04/2024 12:56 PM [facility] RBC Count 3.98 3.90 - 5.20 x10E12/L 11/04/2024 12:56 PM [facility] Hemoglobin 12.6 11.9 - 15.8 g/dL 11/04/2024 12:56 PM [facility] Hematocrit 39.5 34.8 - 46.1 % 11/04/2024 12:56 PM [facility] MCV 99.2(H) 80.0 - 98.0 fL 11/04/2024 12:56 PM [facility] MCH 31.7 26.7 - 33.6 pg 11/04/2024 12:56 PM [facility] MCHC 31.9 31.7 - 36.3 g/dL 11/04/2024 12:56 PM [facility] RDW-CV 19.2(H) 11.3 - 14.8 % 11/04/2024 12:56 PM [facility] Platelet Count 300 150 - 420 x10E9/L 11/04/2024 12:56 PM [facility] MPV 9.8 7.8 - 11.4 fL 11/04/2024 12:56 PM [facility] Neutrophil % 63.6 41.0 - 74.0 % 11/04/2024 12:56 PM [facility] Lymphocyte % 25.0 17.0 - 47.0 % 11/04/2024 12:56 PM [facility] Monocyte % 10.3 3.0 - 11.0 % 11/04/2024 12:56 PM [facility] Eosinophil % 0.0 0.0 - 7.0 % 11/04/2024 12:56 PM [facility] Basophil % 0.1 0.0 - 1.6 % 11/04/2024 12:56 PM [facility] Immature Granulocytes % 1.0 0.0 - 1.0 % 11/04/2024 12:56 PM [facility] Neutrophil Absolute 5.80 1.60 - 7.50 x10E9/L 11/04/2024 12:56 PM [facility] Lymphocyte Absolute 2.28 1.00 - 4.40 x10E9/L 11/04/2024 12:56 PM [facility] Monocyte Absolute 0.94 0.15 - 1.00 x10E9/L 11/04/2024 12:56 PM [facility] Eosinophil Absolute 0.00 0.00 - 0.60 x10E9/L 11/04/2024 12:56 PM [facility] Basophil Absolute 0.01 0.00 - 0.13 x10E9/L 11/04/2024 12:56 PM [facility] Blood BLOOD SPECIMEN / Unknown Lab Venipuncture / Unknown 11/04/2024 12:13 PM CDT 11/04/2024 12:56 PM [facility] us Kirsten J Go DO LAB - HEMATOLOGY ORDERABLES Brandi l Result [facility] [address] [place] [address], [facility] [phone] * (ABNORMAL) BASIC METABOLIC PANEL (CALCIUM TOTAL) (11/04/2024 12:13 PM CDT) BUN 14 7 - 26 mg/dL 11/04/2024 1:34 PM [facility] Creatinine 0.82 0.56 - 0.96 mg/dL 11/04/2024 1:34 PM [facility] Sodium 137 136 - 145 mmol/L 11/04/2024 1:34 PM [facility] Potassium 4.9(H) 3.5 - 4.5 mmol/L 11/04/2024 1:34 PM [facility] Chloride 104 98 - 107 mmol/L 11/04/2024 1:34 PM [facility] CO2 23 22 - 29 mmol/L 11/04/2024 1:34 PM [facility] Glucose 149(H) 70 - 99 mg/dL 11/04/2024 1:34 PM [facility] Calcium 8.8 8.4 - 10.2 mg/dL 11/04/2024 1:34 PM [facility] Anion Gap 10 6 - 16 11/04/2024 1:34 PM [facility] BUN/Creatinine Ratio 17 7 - 23 11/04/2024 1:34 PM [facility] Osmolality Calculated 287 275 - 295 mOsm/kg 11/04/2024 1:34 PM [facility] eGFR by CKD-EPI 82(L) >=90 mL/min/1.7 3 m2 11/04/2024 1:34 PM [facility] Blood BLOOD SPECIMEN / Unknown Lab Venipuncture / Unknown 11/04/2024 12:13 PM CDT 11/04/2024 12:40 PM CDT us Flaco Ahuja MD LAB - CHEMISTRY ORDERABLES Fi nal Result [facility] [address] [place] [address], [facility] [phone] * IGE BLOOD (11/04/2024 12:13 PM CDT) IgE Total <2 <=214 kU/L 11/06/2024 6:52 AM CDT [facility] ([facility]) Comment: REFERENCE INTERVAL: Immunoglobulin E, Serum Access complete set of age- and/or gender-specific reference intervals for this test in the [facility] Test Directory ([employer]). Performed By: [facility] [address] [place] [address] Jogger Operator: Jae Spears MD, PhD CLIA Number: [id number] Blood BLOOD SPECIMEN / Unknown Lab Venipuncture / Unknown 11/04/2024 12:13 PM CDT 11/04/2024 12:35 PM CDT us Kirsten J Go DO LAB - CHEMISTRY ORDERABLES Final Result [facility]) [address] * LAB RESULTS ORDER (10/15/2024) 10/15/2024 Narrative 10/15/2024 Ordered by an unspecified provider. us Scanned Document LAB - THERAPEUTIC DRUG MONITORI NG ORDERABLES Final Result * SCAN ONLY HIS OPIOID MED AGREEMENT (03/21/2024 2:48 PM CDT) us Historical Provider MD SCANNING ONLY Final Res ult * MAMMO BILAT SCREENING W GRACY (12/30/2023 10:11 AM CDT) Anatomical Region Laterality Modality Breast Bilateral Mammography 12/30/2023 11:3 8 AM CDT Impressions 12/30/2023 2:34 PM CDT : Benign mammogram, without evidence of malignancy. RECOMMENDATION: Screening mammography in one year, pending no interval breast concerns. Patient will receive the examination results by lay letter. OVERALL ASSESSMENT: BI-RADS CATEGORY 2: BENIGN. Report interpreted and dictated by Floyd Rebolledo MD (resident physician in radiology) Dameon Phelps MD (resident physician in radiology) assisted the interpretation of this study. Vidal Taveras MD (radiology fellow) assisted interpretation of this study. I, Celsa Coffman MD have personally reviewed and interpreted this examination/study. > Interpreting Provider: Celsa Coffman MD on 12/30/2023 2:34 PM Narrative 12/30/2023 2:34 PM CDT EXAMINATIONS: BILATERAL DIGITAL SCREENING MAMMOGRAM AND BILATERAL BREAST TOMOSYNTHESIS WITH CAD LOCATION: [facility] EXAM DATE: 12/30/2023 HISTORY: Screening. There is no family history of breast malignancy. Prior benign biopsy for radial scar in the right breast in 2017. RISK ASSESSMENT CALCULATION: Patient completed a breast cancer risk assessment during her appointment 12/30/2023. Based upon the information she provided and her mammographic breast density, her lifetime risk of developing breast cancer is 10 % (Average Risk <15%; Intermediate / Moderate Risk 15-19; High Risk > 20%). Risk assessment based upon the BRCAPRO model. COMPARISON: Compare with prior breast imaging studies back to 07/26/2009, with the most recent dated 06/21/2022, as well as outside mammogram from [facility] dated 09/14/2004. TECHNIQUE: Tomosynthesis (3D) and reconstructed synthetic 2-D images acquired and reviewed in the bilateral craniocaudal and mediolateral oblique projections. A total of 4 images obtained. Computer-aided detection (CAD) was utilized. BREAST PARENCHYMAL COMPOSITION: Category A: The breasts are almost entirely fatty. FINDINGS: There are no suspicious findings or evidence of malignancy on mammography. Biopsy clip is seen in the right breast. There is no significant change from the prior. Aruna Carroll MD MAMMO ORDERABLES Final Result * MICROALB/CREAT RATIO URINE RANDOM PANEL (06/13/2023 4:07 PM FIELD EXAMINER) Albumin Random Urine <5.0 Not Established ug/mL 06/13/2023 5:57 PM FIELD EXAMINER [facility] Creatinine Urine 25.44 Not Established mg/dL 06/13/2023 5:57 PM FIELD EXAMINER [facility] Urine Albumin/Creati nine Ratio <20 <30 mg/g 06/13/2023 5:57 PM FIELD EXAMINER [facility] Albumin/Creati nine Ratio Urine See Comment <30 mg/g 06/13/2023 5:57 PM FIELD EXAMINER [facility] Comment:Unable to calculate the Urine Albumin/Creatinine Ratio due to one or more analyte concentration(s) being outside the measuring limits of the instrument. Urine URINE SPECIMEN OBTAINED BY CLEAN CATCH PROCEDURE / Unknown Collection / Unknown 06/13/2023 4:07 PM FIELD EXAMINER 06/13/2023 5:07 PM FIELD EXAMINER Michael Wood MD LAB - URINE CHEMISTRY ORDERAB LES Final Result Performing Organization Address [facility]/ZIP Co de Phone Number [facility] [address] [place] [address], [facility] [phone] * HPV DETECTION HIGH RISK KAYCEE (05/13/2023 9:09 AM FIELD EXAMINER) High Risk Human Papilloma Result Not detected Not detected 05/21/2023 2:11 PM FIELD EXAMINER [facility] High Risk Human Papilloma Interp 05/21/2023 2:11 PM FIELD EXAMINER [facility] Comment: High Risk Human Papilloma Virus - Detected High Risk Human Papilloma Virus was Not Detected. Pathology/Cytolo gy MISCELLANEOUS SAMPLES / Unknown 05/13/2023 9:09 AM FIELD EXAMINER 05/13/2023 1:15 PM FIELD EXAMINER Narrative [facility] - 05/21/2023 2:11 PM FIELD EXAMINER Nucleic acid isolated from the specimen was analyzed with a nucleic acid amplification test (FDA approved Gen-Probe HPV Assay) to detect high risk human papilloma virus (Types: 16, 18, 31, 33, 35, 39, 45, 51, 52, 56, 58, 59, 66, and 68). The reference range is Not Detected. Comment: These test results should not be used as the sole basis for clinical assessment and treatment of patients. These results should always be correlated with other available data (cytology, histology, and clinical information). Aruna Carroll MD LAB - MICROBIOLOGY ORDERABLES F inal Result Performing Organization Address [facility]/ZIP Co de Phone Number [facility] [address] [place] [address], [facility] [phone] * BONE DENSITY AXIAL SKELETON(1OR MORE SITES)[id number] (06/21/2022 10:35 AM FIELD EXAMINER) Anatomical Region Laterality Modality Other 06/21/2022 2:32 PM FIELD EXAMINER Narrative 06/21/2022 3:10 PM FIELD EXAMINER PROCEDURE: DEXA BONE DENSITY AXIAL SKELETON, DATE/TIME OF EXAM: 06/21/2022 10:35 AM, LOCATION [facility] INDICATION: Z51.81: Encounter for medication monitoring M81.0: Age related osteoporosis, unspecified pathological fracture presence COMPARISON: DEXA bone density study 06/11/2019 LEFT FEMORAL NECK: Bone mineral density (g/cm2): 0.666 Current T-score: -1.7 LUMBAR SPINE (L1-L4): Bone mineral density (g/cm2): 0.979 Current T-score: -0.6 BONE DENSITY ASSESSMENT: WHO Category: Osteopenia FRAX CALCULATION The 10-year risk for a major osteoporotic fracture: 13% The 10-year risk for a hip fracture: 1.3% Please see the PACS images for additional details. World Health Organization definitions of standard deviations relative to the mean T-score: Normal bone density = -1.0 and above Osteopenia = between -1.0 and -2.5 Osteoporosis = -2.5 and below > Dictated by Vidal Taveras MD (Water Restoration Technician) 06/21/2022 2:33 PM Krysten Marvin DO have personally reviewed and interpreted this examination/study. > Interpreting Provider: Krysten Castanon DO on 06/21/2022 3:10 PM Procedure Note Krysten Castanon DO - 06/21/2022 PROCEDURE: DEXA BONE DENSITY AXIAL SKELETON, DATE/TIME OF EXAM:06/21/2022 10:35 AM, LOCATION [facility] INDICATION: Z51.81: Encounter for medication monitoring M81.0: Age related osteoporosis, unspecified pathological fracturepresence COMPARISON: DEXA bone density study 06/11/2019 LEFT FEMORAL NECK: Bone mineral density (g/cm2): 0.666 Current T-score: -1.7 LUMBAR SPINE (L1-L4): Bone mineral density (g/cm2): 0.979 Current T-score: -0.6 BONE DENSITY ASSESSMENT: WHO Category: Osteopenia FRAX CALCULATION The 10-year risk for a major osteoporotic fracture: 13% The 10-year risk for a hip fracture: 1.3% Please see the PACS images for additional details. World Health Organization definitions of standard deviations relative to the mean T-score: Normal bone density = -1.0 and above Osteopenia = between -1.0 and -2.5 Osteoporosis = -2.5 and below > Dictated by Vidal Taveras MD (Water Restoration Technician) 06/21/2022 2:33 PM IKrysten DO have personally reviewed and interpreted this examination/study. > Interpreting Provider: Krysten Castanon DO on 06/21/2022 3:10 PM us Aruna Carroll MD DEXA ORDERABLES Final Result * HIV-1 HIV-2 ANTIGEN/ANTIBODY (09/30/2020 1:30 PM CDT) HIV Antigen/Antibod y 1 & 2 Non-reacti ve Non-react deborah 09/30/2020 3:16 PM CDT [facility] Comment:Neither HIV-1 p24 An tigen nor HIV-1/HIV-2 Antibodies are detected. Blood BLOOD SPECIMEN / Unknown Lab Venipuncture / Unknown 09/30/2020 1:30 PM CDT 09/30/2020 2:28 PM CDT us Aruna Carroll MD LAB - HEMATOLOGY ORDERABLES Fin al Result Performing Organization Address City/State/[facility] Co de Phone Number [facility] [address] [place] [phone] [phone] * ENDOSCOPY, COLON, SCREENING (12/23/2019 11:06 AM CDT) Report Endoscopy POC Endoscopy Department Report _ Patient Name: Margarita Amor Procedure Date: 12/23/2019 11:06 AM Date of : 1965 Classification: Outpatient Gender: Female Ethnicity: Not or Race: White _ Providers: Raghu Evangelista MD Referring MD: Aruna Carroll MD (Referring MD) Procedure: Colonoscopy Indications: High risk colon cancer surveillance: Personal history of colonic polyps Medications: Monitored Anesthesia Care Description of Procedure: Pre-Anesthesia Assessment: - Prior to the procedure, a History and Physical was performed, and patient medications and allergies were reviewed. The patient's tolerance of previous anesthesia was also reviewed. The risks and benefits of the procedure and the sedation options and risks were discussed with the patient. All questions were answered, and informed consent was obtained. Prior Anticoagulants: The patient has taken no previous anticoagulant or antiplatelet agents. ASA Grade Assessment: III - A patient with severe systemic disease. After reviewing the risks and benefits, the patient was deemed in satisfactory condition to undergo the procedure. After I obtained informed consent, the scope was passed under direct vision. Throughout the procedure, the patient's blood pressure, pulse, and oxygen saturations were monitored continuously. The PCF-[id number] was introduced through the anus and advanced to the cecum, identified by appendiceal orifice and ileocecal valve. The colonoscopy was performed without difficulty. The patient tolerated the procedure well. The quality of the bowel preparation was excellent. The ileocecal valve, appendiceal orifice, and rectum were photographed. Findings: The perianal and digital rectal examinations were normal. A diffuse area of mildly erythematous mucosa was found in the descending colon, in the transverse colon, in the ascending colon and in the cecum. This was biopsied with a cold forceps for histology to r/o IBD. The mucosal changes do not appear to be IBD, but there is mild erythema and loss of vascularity. A localized area of moderately erythematous mucosa was found in the cecum ~1-2 mm in size. Biopsies were taken with a cold forceps for histology to r/o adenoma. All visible erythematous tissue was resected. A 2 mm polyp was found in the transverse colon. The polyp was sessile. The polyp was removed with a cold biopsy forceps. Resection and retrieval were complete. The retroflexed view of the distal rectum and anal verge was normal and showed no anal or rectal abnormalities. Estimated Blood Loss: Estimated blood loss was minimal. Complications: No immediate complications. Estimated blood loss: Minimal. Impression: 1) Erythematous mucosa in the descending colon, in the transverse colon, in the ascending colon and in the cecum. This was biopsied with a cold forceps for histology to r/o IBD. The mucosal changes do not appear to be IBD, but there is mild erythema and loss of vascularity. 2) A localized area of moderately erythematous mucosa was found in the cecum ~1-2 mm in size. Biopsies were taken with a cold forceps for histology to r/o adenoma. All visible erythematous tissue was resected. 3) One 2 mm polyp in the transverse colon, removed with a cold biopsy forceps. Resected and retrieved. 4) The distal rectum and anal verge are normal on retroflexion view. Recommendation: - Discharge patient to home (ambulatory). - Patient has a contact number available for emergencies. The signs and symptoms of potential delayed complications were discussed with the patient. Return to normal activities tomorrow. Written discharge instructions were provided to the patient. - Resume previous diet. - Continue present medications. - Await pathology results. - Repeat colonoscopy in 5 years for surveillance. Attending Participation: I personally performed the entire procedure. Procedure Code(s): --- Professional --- 31763, Colonoscopy, flexible; with biopsy, single or multiple Diagnosis Code(s): --- Professional --- Z86.010, Personal history of colonic polyps K63.89, Other specified diseases of intestine K63.5, Polyp of colon CPT copyright 2019 [employer]. All rights reserved. The codes documented in this report are preliminary and upon spa manager review may be revised to meet current compliance requirements. _ Raghu Evangelista MD 12/23/2019 12:09:21 PM This report has been signed electronically. Note Initiated On: 12/23/2019 11:06 AM Number of Addenda: 0 [facility] [address] at [facility], [place] [address] [facility] 12/23/2019 11:0 6 AM CDT Raghu Evangelista MD GI PROCEDURE ORDERABLES Edited Result - Final Performing Organization Address [facility] Co de Phone Number [facility] * MT 3 COMP FOOT EXAM COMPLETED (Automatically Completed) (10/21/2017) 10/21/2017 Narrative Aruna Carroll MD - 10/21/2017 Normal Aruna Carroll MD MT - PROFESSIONAL SERVICES Brandi l Result * HEPATITIS C AB W/RFLX TO HCV RNA QN PCR (06/13/2016 10:26 AM FIELD EXAMINER) Hepatitis C Antibody NON-REACTI VE NON-REACT DEBORAH [facility] ([facility]) Signal/Cutoff 0.11 <1.00 [facility] ([facility]) Comment: REPORT COMMENT: FASTING:YES Test Performed at: [facility] [address] [place] [address] YVETTE WEST DO,MPH 06/13/2016 10:2 6 AM FIELD EXAMINER 06/13/2016 10:26 AM FIELD EXAMINER Aruna Carroll MD LAB - CHEMISTRY ORDERABLES Brandi l Result Performing Organization Address [facility] Co de Phone Number [facility] ([facility]) [address] from Last 3 Months or Most Recently Relevant to Health Maintenance Insurance [facility] MANAGED MEDICARE ADV Member Subscriber Plan / Payer (Ef fective 2023-Present) Name:Margarita Amor Relation to Subscriber:Self Name:Margarita Amor Payer ID:[id number] (NAIC) Type:Medicare-Managed Care Address: [address] HEALTH CARE [facility] MANAGED MEDICARE ADV Member Subscriber Plan / Payer (Ef fective 2023-Present) Name:Margarita Amor Relation to Subscriber:Self Name:Margarita Amor Payer ID:[id number] (NAIC) Type:Medicare-Managed Care Address: [place] [phone] CARE CARE CARE Advance Directives Documents on File 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 Adv Directive/Living Will/POA 11/03/2020 7:49 AM * Full Code (Latest Code Status on File) Date Activated Date Inactivated Comments 01/05/2024 10:07 PM 01/08/2024 5:48 PM * Full Code Date Activated Date Inactivated Comments 10/25/2020 10:35 PM 10/28/2020 5:18 PM * Full Code Date Activated Date Inactivated Comments 03/30/2020 12:37 AM 03/31/2020 7:47 PM * Full Code Date Activated Date Inactivated Comments 02/02/2020 12:33 AM 02/03/2020 5:01 PM Care Teams Tying Machine Operator Relationship Specialty Start Date End Date Aruna Carroll MD PCP - General Internal Medicine 03/17/17 Aruna Carroll MD [address] DIV [place] [address] PCP - [facility] RONY RAMOS P4P 11/09/23 Aruna Carroll MD [address] DIV OF [facility] [place] [address] 03/17/17 Loreta Romero, PharmD Pharmacist 11/06/24
--- OUTSIDE RECORDS SUMMARY | 2024-12-07 18:29 | XMS_ITS | Encounter Summary ---
Author Organization [facility] Address [address] [place] [address] Care Team Providers Care Board Certified Orthodontist Name Role Phone Aruna Carroll MD Primary Care Provider Aruna Carroll MD Unavailable [phone] Aruna Carroll MD Unavailable [phone] Loreta Romero PharmD Unavailable Unavailable Reason for Visit * Reason Onset Date Comments MEDICATION REFILL 08/12/2021 Encounter Details Date Type Department Care Team (Late st Contact Info) Description 08/12/2021 Refill [facility] General Internal Medicine [address] [place] [address], [place] [phone] Aruna Carroll MD [address] [place] [address] [place] [phone] MEDICATION REFILL Social History Tobacco Use Types [...] have Coronavirus / COVID-19? No / Unsure 07/21/2021 11:34 AM YARN PREPARATION SUPERVISOR documented as of this encounter Functional Status [...] Entry Date Author No 10/28/2020 2:48 PM NAYELIT Kye England RN documented in this encounter Plan of Treatment Upcoming Encounters Date Type Department Care Team (Latest Contact Info) Description 12/09/2024 1:00 PM CDT Office Visit [facility] - Ophthalmology [address] [place] [phone] Vikram Saleem OD [address] [place] [phone] 12/17/2024 10:30 AM CDT Office Visit [facility] - Pulmonology [address] [place] [phone] Duglas Grider MD [address] [place] [address] DIV OF PULMONARY/[place] [address] 01/04/2025 9:00 AM CDT Office Visit [facility] - Internal Med [address] [place] [phone] Aruna Carroll MD [address] [place] [address] 2L DIV [place] [phone] 01/19/2025 10:00 AM CDT Office Visit [facility] - Endocrinology [address] [place] [address], [place] [address] João Robertson MD [address] [place] [address] 02/01/2025 12:30 PM CDT Procedure visit [facility] - GI [address] [place] [phone] 02/01/2025 1:00 PM CDT Office Visit [facility] - GI [address] [place] [phone] Louis Beck MD [address] [place] [address] [address] [place] [address] 04/07/2025 1:00 PM CDT Office Visit [facility] - Neurology [address] [place] [phone] Klever Wilcox, BUMPER STRAIGHTENER-BANDOLEER STRAIGHTENER STAMPER [address] [place] [address] [address] [place] [phone] 05/11/2025 7:55 AM YARN PREPARATION SUPERVISOR Hospital Encounter [facility] ENDOSCOPY [facility] [place] [phone] Kip Ryan MD [address] [place] [address] 2[address] [place] [phone] Surgery General 05/11/2025 7:55 AM YARN PREPARATION SUPERVISOR - 05/11/2025 8:45 AM YARN PREPARATION SUPERVISOR Surgery [facility] END[facility] [address] [place] [phone] Kip Ryan MD [address] [place] [address] 2[address] [place] [address] COLONOSCOPY SCREEN---w/Kelle --2 day Miralax prep 10/21/2025 1:30 PM CDT Office Visit [facility] - GI [address] [place] [phone] Kip Ryan MD [address] [place] [address] 2[address] [place] [address] 10/25/2025 1:10 PM CDT Office Visit [facility] - Dermatology [address] [place] [phone] Anastasiia Tran PA [address] [place] [address] [address] [place] [phone] Scheduled Procedures Name Priority Associated Diagnoses Date/Ti me COLONOSCOPY SCREEN Colon cancer screening 05/11/2025 7:55 AM YARN PREPARATION SUPERVISOR documented as of this encounter Goals Goal [...] documented as of this encounter Care Teams Board Certified Orthodontist Relationship Specialty Start Date End Date Aruna Carroll MD PCP - General Internal Medicine 03/17/17 Aruna Carroll MD [address] DIV [place] [address] PCP - [facility] RONY RAMOS P4P 11/09/23 Aruna Carroll MD [address] DIV OF [facility] [place] [address] 03/17/17 Loreta Romero, HuongD Pharmacist 11/06/24 documented as of this encounter
--- OUTSIDE RECORDS SUMMARY | 2024-12-07 18:29 | XMS_ITS | Encounter Summary ---
Author Organization [facility] Address [address] [facility] [place] [address] Care Team Providers Care Inspector Aide Name Role Phone Aruna Carroll MD Primary Care Provider [phone] Aruna Carroll MD Unavailable [phone] Aruna Carroll MD Unavailable [phone] Loreta Romero PharmD Unavailable Unavailable Reason for Visit * Reason Onset Date Comments MEDICATION REFILL 12/02/2020 Encounter Details Date Type Department Care Team (Late st Contact Info) Description 12/02/2020 Refill [facility] [address] [facility] [address] [place] [address] Aruna Carroll MD [address] OF [facility] [place] [phone] MEDICATION REFILL Social History Tobacco Use Types [...] have Coronavirus / COVID-19? No / Unsure 11/04/2020 9:21 AM CDT documented as of this encounter [...] Telephone Encounter - Gisele Parish RN - 12/05/2020 8:09 AM CDT Refill Request Margartia Amor KAMAR: 11/29/20 NOV scheduled: 03/06/2021 LRF: 04/10/19 Qty Disp: 12 # of refills: 3 Allergies: Allergies Allergen [...] Requested Prescriptions Pending Prescriptions Disp Refills ??? vitamin D, ergocalciferol, (DRISDOL) 1.25 MG (79343 UT) capsule 12 capsule 3 Sig: Take 1 (one) capsule by mouth every 7 days documented in this encounter Plan of Treatment Upcoming Encounters Date Type Department Care Team (Latest Contact Info) Description 12/09/2024 1:00 PM CDT Office Visit [facility] - Ophthalmology [address] [place] [phone] Vikram Saleem OD [address] [place] [phone] 12/17/2024 10:30 AM CDT Office Visit [facility] - Pulmonology [address] [place] [phone] Duglas Grider MD [address] [place] [address] 2L DIV OF PULMONARY/[place] [address] 01/04/2025 9:00 AM CDT Office Visit [facility] - Internal Med [address] [place] [phone] Aruna Carroll MD [address] [place] [address] 2L DIV [place] [address] 01/19/2025 10:00 AM CDT Office Visit [facility] - Endocrinology [address] [place] [phone] João Robertson MD [address] [facility] [address] [place] [address] 02/01/2025 12:30 PM CDT Procedure visit [facility] - GI [address] [place] [phone] 02/01/2025 1:00 PM CDT Office Visit [facility] - GI [address] [place] [phone] Louis Beck MD [address] [place] [address] 2L [place] [address] 04/07/2025 1:00 PM CDT Office Visit [facility] - Neurology [address] [place] [phone] Klever Wilcox, FIRST AID ATTENDANT-MEDICAL SECRETARY TEACHER [address] [place] [address] 1L [place] [phone] 05/11/2025 7:55 AM COMPUTER TRAINING SPECIALIST Hospital Encounter [facility] [address] [place] [phone] Kip Ryan MD [address] [place] [address] 2L [place] [phone] Surgery General 05/11/2025 7:55 AM COMPUTER TRAINING SPECIALIST - 05/11/2025 8:45 AM COMPUTER TRAINING SPECIALIST Surgery [facility] [address] [place] [phone] Kip Ryan MD [address] [place] [address] 2L [place] [phone] COLONOSCOPY SCREEN---w/Kelle --2 day Miralax prep 10/21/2025 1:30 PM CDT Office Visit [facility] - GI [address] [place] [phone] Kip Ryan MD [address] [place] [address] 2L [place] [phone] 10/25/2025 1:10 PM CDT Office Visit [facility] - Dermatology [address] [place] [phone] Anastasiia Tran, PA [address] 3L [place] [address] Scheduled Procedures Name Priority Associated Diagnoses Date/Ti me COLONOSCOPY SCREEN Colon cancer screening 05/11/2025 7:55 AM COMPUTER TRAINING SPECIALIST documented as of this encounter Goals Goal [...] documented as of this encounter Care Teams Inspector Aide Relationship Specialty Start Date End Date Aruna Carroll MD PCP - General Internal Medicine 03/17/17 Aruna Carroll MD [address] 2L DIV OF [facility] [place] [phone] PCP - Count Includes [facility] RONY RAMOS P4P 11/09/23 Aurna Carroll MD [address] 2L DIV OF [facility] [place] [address] 03/17/17 Loreta Romero, HuongD Pharmacist 11/06/24 documented as of this encounter
--- OUTSIDE RECORDS SUMMARY | 2024-12-07 18:29 | XMS_ITS | Encounter Summary ---
Author Organization [facility] Address [address] [place] [address] Care Team Providers Care Optics Manufacturing Technician Name Role Phone Aruna Carroll MD Primary Care Provider Aruna Carroll MD Unavailable [phone] Aruna Carroll MD Unavailable [phone] Loreta Romero PharmD Unavailable Unavailable Reason for Visit * Reason Onset Date Comments MEDICATION REFILL 12/31/2017 refill request Encounter Details Date Type Department Care Team (Late st Contact Info) Description 12/31/2017 Refill [facility] [address] [facility] 206 [place] [address] Aruna Carroll MD [address] [place] [phone] MEDICATION REFILL (refill request ) Social History Tobacco Use Types Packs/Day [...] Office Visit [facility] - Ophthalmology [address] [place] [phone] Vikram Saleem OD [address] [place] [phone] 12/17/2024 10:30 AM CDT Office Visit [facility] - Pulmonology [address] [place] [phone] Duglas Grider MD [address] [place] [address] 2L DIV OF PULMONARY/[place] [address] 01/04/2025 9:00 AM CDT Office Visit [facility] - Internal Med [address] [place] [phone] Aruna Carroll MD [address] [place] [address] 2L DIV [place] [phone] 01/19/2025 10:00 AM CDT Office Visit [facility] - Endocrinology [address] [place] [phone] João Robertson MD [facility] [address] [place] [address] 02/01/2025 12:30 PM CDT Procedure visit [facility] - GI [address] [place] [phone] 02/01/2025 1:00 PM CDT Office Visit [facility] - GI [address] [place] [phone] Louis Beck MD [address] [place] [address] 2L DIV [place] [address] 04/07/2025 1:00 PM CDT Office Visit [facility] - Neurology [address] [place] [address], [place] [phone] Klever Wilcox, UPPER EXTREMITY SURGEON-PROGRAM SCHEDULE CLERK [address] [place] [address] 1L [place] [phone] 05/11/2025 7:55 AM QUALITY ENGINEER MEDICAL DEVICE Hospital Encounter [facility] [address] [place] [phone] Kip Ryan MD [address] [place] [address] 2L [place] [address] Surgery General 05/11/2025 7:55 AM QUALITY ENGINEER MEDICAL DEVICE - 05/11/2025 8:45 AM QUALITY ENGINEER MEDICAL DEVICE Surgery [facility] [address] [place] [phone] Kip Ryan MD [address] [place] [address] 2L [place] [address] COLONOSCOPY SCREEN---w/Kelle --2 day Miralax prep 10/21/2025 1:30 PM CDT Office Visit [facility] - GI [address] [place] [phone] Kip Ryan MD [address] [place] [address] 2L [place] [address] 10/25/2025 1:10 PM CDT Office Visit [facility] - Dermatology [address] [place] [phone] Anastasiia Tran PA [address] [place] [address] 3L [place] [phone] Scheduled Procedures Name Priority Associated Diagnoses Date/Ti me COLONOSCOPY SCREEN Colon cancer screening 05/11/2025 7:55 AM QUALITY ENGINEER MEDICAL DEVICE documented as of this encounter Visit Diagnoses Not on filedocumented in this encounter Additional Health Concerns Infection Onset Date Last Indicated Resolved Time COVID-19 Under Investigation 03/29/2020 03/30/2020 03/30/2020 12:08 PM CDT COVID-19 Under Investigation 01/05/2024 01/05/2024 01/05/2024 3:22 PM CDT CDIFF Under Investigation 01/06/2024 01/06/2024 2:20 AM CDT documented as of this encounter Care Teams Optics Manufacturing Technician Relationship Specialty Start Date End Date Aruna Carroll MD PCP - General Internal Medicine 03/17/17 Aruna Carroll MD [address] 2L DIV OF [facility] [place] [phone] PCP - [facility] RONY ZHOUUCAARNAV P4P 11/09/23 Aruna Carroll MD [address] 2L DIV OF [facility] [place] [address] 03/17/17 Loreta Romero, Gucci Pharmacist 11/06/24 documented as of this encounter
--- OUTSIDE RECORDS SUMMARY | 2024-12-07 18:29 | XMS_ITS | Encounter Summary ---
Author Organization [facility] Address [address] [facility] [place] [address] Care Team Providers Care I&C Tech Name Role Phone Aruna Carroll MD Primary Care Provider [phone] Aruna Carroll MD Unavailable [phone] Aruna Carroll MD Unavailable [phone] Loreta Romero PharmD Unavailable Unavailable Reason for Visit * Reason Onset Date Comments MEDICATION REFILL 05/09/2023 Encounter Details Date Type Department Care Team (Late st Contact Info) Description 05/09/2023 Refill [facility] - Internal Med [address] [place] [address], [facility] [place] [phone] Aruna Carroll MD [address] [place] [address] OF [facility] [place] [phone] MEDICATION REFILL Social History Tobacco Use Types Packs/Day Years Used Date Smoking Tobacco: Never Smokeless Tobacco: Never Alcohol Use Standard Drinks/Week Comments No 0 (1 standard drink = 0.6 oz pur e alcohol) PHQ-2 Answer Date Recorded Patient Health Questionnaire-2 Score 2 05/09/2023 Comments No Sex and Gender Information Value Date Recorded Sex Assigned at Not on file Legal Sex Female 4:04 PM CDT Gender Identity Not on file Sexual Orientation Not on file documented as of this encounter Functional Status * Is person deaf or have serious hearing difficulty? Answer Date of Assessment Author No 10/28/2020 2:48 PM Kye Tirado RN * Is person blind or have serious difficulty seeing? Answer Date of Assessment Author No 10/28/2020 2:48 PM Kye Tirado RN * Does person have serious difficulty walking/climbing stairs? Answer Date of Assessment Author No 10/28/2020 2:48 PM Kye Tirado RN * Does person have difficulty dressing/bathing? Answer Date of Assessment Author No 10/28/2020 2:48 PM Kye Tirado RN * Does person have difficulty doing errands alone? Answer Date of Assessment Author No 10/28/2020 2:48 PM Kye Tirado RN * Over the past 2 weeks, how often have you been bothered by any of the following problems? Question Answer Date of Assessment Author Little interest or pleasure in doing things Several days 05/09/2023 1:12 PM Marlin Cox Feeling down, depressed, or hopeless Several days 05/09/2023 1:12 PM Marlin Cox Patient Health Questionnaire -2 Score 2 05/09/2023 1:12 PM Marlin Cox * Question Answer Date of Assessment Author Trouble falling or staying asleep, or sleeping too much Several days 05/09/2023 1:12 PM Neema Cox Feeling tired or having bob le energy Not at all 05/09/2023 1:12 PM Marlin Cox Poor appetite or overeating Several days 05/09/2023 1: 12 PM Marlin Cox Feeling bad about yourself - or that you are a failure or have let yourself or your family down Not at all 05/09/2023 1:12 PM Marlin Cox Trouble concentrating on things, such as reading the newspaper or watching television Several days 05/09/2023 1:12 PM Marlin Cox Moving or speaking so slowly that other people could have noticed? Or the opposite - being so fidgety or restless that you have been moving around a lot more than usual. Not at all 05/09/2023 1:12 PM COLLEGE AND CAREER COUNSELOR Marlin Estevez Thoughts that you would be better off or hurting yourself in some way Not at all 05/09/2023 1:12 PM COLLEGE AND CAREER COUNSELOR Marlin Estevez Patient Health Questionnaire -9 Score 5 05/09/2023 1:12 PM COLLEGE AND CAREER COUNSELOR Marlin Estevez documented as of this encounter Mental Status * Does person have difficulty concentrating/remembering/making decisions? Answer Entry Date Author No 10/28/2020 2:48 PM CDT Kye England RN documented in this encounter Miscellaneous Notes * Telephone Encounter - Jennifer Morton LPN - 05/09/2023 3:14 PM COLLEGE AND CAREER COUNSELOR Refill Request Margarita Amor Recent Visits Date Type Provider Dept 01/22/23 Office Visit Aruna Carroll MD [facility] 2l 10/16/22 Office Visit Aruna Carroll MD [facility] 2l 05/01/22 Office Visit Aruna Carroll MD [facility] 2l Showing recent visits within past 540 days with a meds authorizing provider and meeting all other requirements Future Appointments Date Type Provider Dept 05/13/23 Appointment Aruna Carroll MD [facility] 2l Showing future appointments within next 150 days with a meds authorizing provider and meeting all other requirements Last Refill: 02.21.23 Allergies: Allergies Allergen Reactions ??? Latex Rash [...] Requested Prescriptions Pending Prescriptions Disp Refills ??? desvenlafaxine succinate ER 24hr (Pristiq) 50 MG tablet 90 tablet 2 Sig: Take 3 (three) tablets by mouth once daily EGE AND CAREER COUNSELOR documented in this encounter Plan of Treatment Upcoming Encounters Date Type Department Care Team (Latest Contact Info) Description 12/09/2024 1:00 PM CDT Office Visit [facility] - Ophthalmology [address] [place] [phone] Stiven Vikram MADONNA [address] [place] [phone] 12/17/2024 10:30 AM CDT Office Visit [facility] - Pulmonology [address] [place] [phone] Duglas Grider MD [address] [place] [address] 2L DIV OF PULMONARY/[place] [address] 01/04/2025 9:00 AM CDT Office Visit [facility] - Internal Med [address] [place] [phone] Aruna Carroll MD [address] [place] [address] 2L DIV OF [place] [address] 01/19/2025 10:00 AM CDT Office Visit [facility] - Endocrinology [address] [place] [phone] João Robertson MD [address] [facility] [address] [place] [address] 02/01/2025 12:30 PM CDT Procedure visit [facility] - GI [address] [place] [phone] 02/01/2025 1:00 PM CDT Office Visit [facility] - GI [address] [place] [phone] Loius Beck MD [address] [place] [address] 2L DIV [place] [address] 04/07/2025 1:00 PM CDT Office Visit [facility] - Neurology [address] [place] [phone] Klever Wilcox, ROUTE SALESMAN AND DRIVER-SUPPLIER QUALITY ENGINEER [address] [place] [address] 1L [place] [phone] 05/11/2025 7:55 AM COLLEGE AND CAREER COUNSELOR Hospital Encounter [facility]COPY [address] [place] [phone] Kip Ryan MD [address] [place] [address] 2L [place] [phone] Surgery General 05/11/2025 7:55 AM COLLEGE AND CAREER COUNSELOR - 05/11/2025 8:45 AM COLLEGE AND CAREER COUNSELOR Surgery [facility] [address] [place] [phone] Kip Ryan MD [address] [place] [address] 2L [place] [phone] COLONOSCOPY SCREEN---w/Kelle --2 day Miralax prep 10/21/2025 1:30 PM CDT Office Visit [facility] - GI [address] [place] [phone] Kip Ryan MD [address] [place] [address] 2L [place] [phone] 10/25/2025 1:10 PM CDT Office Visit [facility] - Dermatology [address] [place] [phone] Anastasiia Tran PA [address] [place] [address] 3L [place] [phone] Scheduled Procedures Name Priority Associated Diagnoses Date/Ti al COLONOSCOPY SCREEN Colon cancer screening 05/11/2025 7:55 AM COLLEGE AND CAREER COUNSELOR documented as of this encounter Goals Goal [...] documented as of this encounter Care Teams I&C Tech Relationship Specialty Start Date End Date Aruna Carroll MD PCP - General Internal Medicine 03/17/17 Aruna Carroll MD [address] OF [facility] [place] [address] PCP - Attributed-[facility] RONY RAMOS P4P 11/09/23 Aruna Carroll MD [address] OF [facility] [place] [address] 03/17/17 Loreta Romero PharmD Pharmacist 11/06/24 documented as of this encounter
--- OUTSIDE RECORDS SUMMARY | 2024-12-07 18:29 | XMS_ITS | Encounter Summary ---
Author Organization [facility] Address [address] [place] [address] Care Team Providers Care Group Exercise Manager Name Role Phone Aruna Carroll MD Primary Care Provider Aruna Carroll MD Unavailable [phone] Aruna Carroll MD Unavailable [phone] Loreta Romero PharmD Unavailable Unavailable Reason for Visit * Reason Onset Date Comments Blood Sugar Problem 12/19/2018 intermitent low BS Follow-up 12/19/2018 notified [facility] off ice of disposition to contact PCP within 24 hours Encounter Details Date Type Department Care Team (Late st Contact Info) Description 12/19/2018 Nurse Triage [facility] General Internal Medicine [address] [address] Aruna Carroll MD [address] OF [facility] [place] [phone] Blood Sugar Problem (intermitent low BS); Follow-up (notified [facility] office of disposition to contact PCP within 24 hours ) Social History Tobacco Use Types Packs/Day [...] encounter Miscellaneous Notes * Telephone Encounter - Oumou Young RN - 12/19/2018 1:46 PM CDT ROBERT Navarro RN calling office to relate that pt was triaged this afternoon for hypoglycemia. Pt has been having low blood sugars and experiencing fatigue and lethargy. Yesterday in low 40's and son able to get it back up in the 70s. Pt is on the phone currently with scheduling an acute care appt. * Telephone Encounter - Melanie Montiel - 12/19/2018 1:36 PM CDT This morning BS 72 and patient reports feeling lethargic and that was after her breakfast. Patient denies any additional symptoms at this time. Patient is home with sons and her mother. Patient taking metformin 100 mg BID and 40 units of Lantus at night. Humalog on sliding scale. Scheduled in ACS on Patient scheduled to see Dr. Carroll on 12-29-18 Notified Oumou in the office of disposition to contact PCP within 24 hours Oumou verbalzied that she will notify Dr. Carroll. This RN notified Oumou that I will notify Dr. Carroll via high priority my chart of triage and appointment. Reason for Disposition [1] Morning (before breakfast) blood glucose < 80 mg/dl (4.5 mmol/L) AND [2] more than once in past week Protocols used: DIABETES - LOW BLOOD SUGAR-A- Disposition to contact PCP within 24 hours notified Mariya in the office of triage to notify Dr. Carroll. Routed telephone encounter to Dr. Carroll with triage details. Patient warm transfered to [facility] scheduling team for assistance with scheduling an appointment. If anything new develops,if anything getsworse or if you become increasingly concerned for any reason, please seek out immediate medical Attention. documented in this encounter Plan of Treatment Upcoming Encounters Date Type Department Care Team (Latest Contact Info) Description 12/09/2024 1:00 PM CDT Office Visit [facility] - Ophthalmology [address] [place] [address], [place] [address] Vikram Saleem OD [address] [place] [phone] 12/17/2024 10:30 AM CDT Office Visit [facility] - Pulmonology [address] [place] [phone] Duglas Grider MD [address] [place] [address] 2L DIV OF PULMONARY/[place] [address] 01/04/2025 9:00 AM CDT Office Visit [facility] - Internal Med [address] [place] [phone] Aruna Carroll MD [address] [place] [address] 2L DIV OF GEN [place] [address] 01/19/2025 10:00 AM CDT Office Visit [facility] - Endocrinology [address] [place] [phone] João Robertson MD [address] [facility] [address] [place] [address] 02/01/2025 12:30 PM CDT Procedure visit [facility] - GI [address] [place] [phone] 02/01/2025 1:00 PM CDT Office Visit [facility] - GI [address] [place] [phone] Louis Beck MD [address] [place] [address] 2L [place] [address] 04/07/2025 1:00 PM CDT Office Visit [facility] - Neurology [address] [place] [address], [place] [phone] Klever Wilcox APRN-CT TECH [address] [place] [address] 1L [place] [phone] 05/11/2025 7:55 AM CONTINUITY DIRECTOR Hospital Encounter [facility] [address] [place] [phone] Kip Ryan MD [address] [place] [address] 2L [place] [address] Surgery General 05/11/2025 7:55 AM CONTINUITY DIRECTOR - 05/11/2025 8:45 AM CONTINUITY DIRECTOR Surgery [facility] [address] [place] [phone] Kip Ryan MD [address] [place] [address] 2L [place] [address] COLONOSCOPY SCREEN---w/Kelle --2 day Miralax prep 10/21/2025 1:30 PM CDT Office Visit [facility] - GI [address] [place] [phone] Kip Ryan MD [address] [place] [address] 2L DIV [place] [phone] 10/25/2025 1:10 PM CDT Office Visit [facility] - Dermatology [address] [place] [phone] Anastasiia Tran PA [address] [place] [address] 3L [place] [phone] Scheduled Procedures Name Priority Associated Diagnoses Date/Ti me COLONOSCOPY SCREEN Colon cancer screening 05/11/2025 7:55 AM CONTINUITY DIRECTOR documented as of this encounter Goals Goal [...] documented as of this encounter Care Teams Group Exercise Manager Relationship Specialty Start Date End Date Aruna Carroll MD PCP - General Internal Medicine 03/17/17 Aruna Carroll MD [address] 2L DIV [place] [address] PCP - [facility] P4P 11/09/23 Aruna Carroll MD [address] 2L DIV OF [facility] [place] [address] 03/17/17 Loreta Romero, HuongD Pharmacist 11/06/24 documented as of this encounter
--- OUTSIDE RECORDS SUMMARY | 2024-12-07 18:29 | XMS_ITS | Encounter Summary ---
Author Organization [facility] Address [address] [facility] [place] [address] Care Team Providers Care Washing Tub Operator Name Role Phone Aruna Carroll MD Primary Care Provider [phone] Aruna Carroll MD Unavailable [phone] Aruna Carroll MD Unavailable [phone] Loreta Romero PharmD Unavailable Unavailable Reason for Visit * Reason Onset Date Comments MEDICATION REFILL 02/01/2021 Encounter Details Date Type Department Care Team (Late st Contact Info) Description 02/01/2021 Refill [facility] [address] [facility] [address] Tomi Hunter MD MEDICATION REFILL Social History Tobacco Use Types [...] have Coronavirus / COVID-19? No / Unsure 01/25/2021 12:59 PM CDT documented as of this encounter [...] encounter Miscellaneous Notes * Telephone Encounter - China Curtis - 02/01/2021 11:27 AM CDT TRANSFERRING PHARMACY documented in this encounter Plan of Treatment Upcoming Encounters Date Type Department Care Team (Latest Contact Info) Description 12/09/2024 1:00 PM CDT Office Visit [facility] - Ophthalmology [address] [place] [phone] Vikram Saleem OD [address] [place] [phone] 12/17/2024 10:30 AM CDT Office Visit [facility] - Pulmonology [address] [place] [phone] Duglas Grider MD [address] [place] [address] 2L DIV OF PULMONARY/[place] [address] 01/04/2025 9:00 AM CDT Office Visit [facility] - Internal [facility], [place] [phone] Aruna Carroll MD [address] [place] [address] 2L DIV [place] [address] 01/19/2025 10:00 AM CDT Office Visit [facility] - Endocrinology [address] [place] [address], [place] [phone] João Robertson MD [address] [facility] [address] [place] [phone] 02/01/2025 12:30 PM CDT Procedure visit [facility] - GI [address] [place] [phone] 02/01/2025 1:00 PM CDT Office Visit [facility] - GI [address] [place] [address], [place] [phone] Louis Beck MD [address] [place] [address] 2L [place] [address] 04/07/2025 1:00 PM CDT Office Visit [facility] - Neurology [address] [place] [address], [place] [phone] Klever Wilcox, MANAGER PSYCHIATRY-[employer] [address] [place] [address] 1L [place] [phone] 05/11/2025 7:55 AM CRUCIBLE FURNACE TENDER Hospital Encounter [facility] [address] [place] [phone] Kip Ryan MD [address] [place] [address] 2L [place] [phone] Surgery General 05/11/2025 7:55 AM CRUCIBLE FURNACE TENDER - 05/11/2025 8:45 AM CRUCIBLE FURNACE TENDER Surgery [facility] [address] [place] [phone] Kip Ryan MD [address] [place] [address] 2L [place] [phone] COLONOSCOPY SCREEN---w/Kelle --2 day Miralax prep 10/21/2025 1:30 PM CDT Office Visit [facility] - GI [address] [place] [phone] Kip Ryan MD [address] [place] [address] 2L [place] [address] 10/25/2025 1:10 PM CDT Office Visit [facility] - Dermatology [address] [place] [phone] Anastasiia Tran PA [address] [place] [address] 3L [place] [phone] Scheduled Procedures Name Priority Associated Diagnoses Date/Ti me COLONOSCOPY SCREEN Colon cancer screening 05/11/2025 7:55 AM CRUCIBLE FURNACE TENDER documented as of this encounter Goals Goal [...] documented as of this encounter Care Teams Washing Tub Operator Relationship Specialty Start Date End Date Aruna Carroll MD PCP - General Internal Medicine 03/17/17 Aruna Carroll MD [address] 2L DIV [place] [address] PCP - [facility] RONY RAMOS P4P 11/09/23 Aruna Carroll MD [address] 2L DIV OF [facility] [place] [phone] 03/17/17 Loreta Romero, HuongD Pharmacist 11/06/24 documented as of this encounter
--- OUTSIDE RECORDS SUMMARY | 2024-12-07 18:29 | XMS_ITS | Encounter Summary ---
Author Organization [facility] Address [address] [facility] [place] [address] Care Team Providers Care Bus Assistant Name Role Phone Aruna Carroll MD Primary Care Provider Aruna Carroll MD Unavailable [phone] Aruna Carroll MD Unavailable [phone] Loreta Romero PharmD Unavailable Unavailable Reason for Visit * Reason Onset Date Comments MEDICATION REFILL 01/10/2019 Encounter Details Date Type Department Care Team (Late st Contact Info) Description 01/10/2019 Refill [facility] [address] [place] [address] Ev Rawls MD [address] [place] [phone] MEDICATION REFILL Social History Tobacco Use Types [...] Office Visit [facility] - Ophthalmology [address], [place] [address] Vikram Saleem OD [address] [place] [phone] 12/17/2024 10:30 AM CDT Office Visit [facility] - Pulmonology [address] [place] [phone] Duglas Grider MD [address] [place] [address] 2L DIV OF PULMONARY/[place] [address] 01/04/2025 9:00 AM CDT [facility] [address] [place] [phone] Aruna Carroll MD [address] [place] [address] 2L DIV [place] [address] 01/19/2025 10:00 AM CDT Office Visit [facility] - Endocrinology [address] [place] [phone] João Robertson MD [address] [facility] [address] [place] [address] 02/01/2025 12:30 PM CDT Procedure visit [facility] - GI [address] [place] [phone] 02/01/2025 1:00 PM CDT Office Visit [facility] - GI [address] [place] [phone] Louis Beck MD [address] [place] [address] 2L [place] [address] 04/07/2025 1:00 PM CDT Office Visit [facility] - Neurology [address] [place] [address], [place] [phone] Klever Wilcox APRN-SOCIAL SECURITY ASSESSOR [address] [place] [address] 1L [place] [phone] 05/11/2025 7:55 AM CASH REGISTER BALANCER Hospital Encounter [facility] END[facility] [address] [place] [phone] Kip Ryan MD [address] [place] [address] 2L [place] [address] Surgery General 05/11/2025 7:55 AM CASH REGISTER BALANCER - 05/11/2025 8:45 AM CASH REGISTER BALANCER Surgery [facility] [place] [phone] Kip yRan MD [address] [place] [address] 2L [place] [address] COLONOSCOPY SCREEN---w/Kelle --2 day Miralax prep 10/21/2025 1:30 PM CDT Office Visit [facility] GI [address] [place] [phone] Kip Ryan MD [address] [place] [address] 2L [place] [phone] 10/25/2025 1:10 PM CDT Office Visit [facility] - Dermatology [address] [place] [phone] Anastasiia Tran PA [address] [place] [address] 3L [place] [phone] Scheduled Procedures Name Priority Associated Diagnoses Date/Ti me COLONOSCOPY SCREEN Colon cancer screening 05/11/2025 7:55 AM CASH REGISTER BALANCER documented as of this encounter Goals Goal Patient Goal Type Associated Problems Recent Progress Patient-Stated? Author Safety General On track( 025 2:16 PM CDT) Yaneli Soto RN Note: Expected end date: Ongoing Interventions: Your nurse will assess your risk for falls/injury each visit Use appropriate and safe transfer methods Medication Management General On track( 025 2:16 PM CDT) Yaneli Soto RN Note: Expected end date: Ongoing Interventions: Take all medications as prescribed Let your doctor know right away about any changes in your medications documented as of this encounter Visit Diagnoses Diagnosis Intractable chronic migraine without aura and without status migrainosus Chronic migraine without aura, with intractable migraine, so stated, without mention of status migrainosus Myofascial pain syndrome Mylagia and myositis, unspecified Colon cancer screening Special screening for malignant neoplasms, colon documented in this encounter Additional Health Concerns Infection Onset Date Last Indicated Resolved Time COVID-19 Under Investigation 03/29/2020 03/30/2020 03/30/2020 12:08 PM CDT COVID-19 Under Investigation 01/05/2024 01/05/2024 01/05/2024 3:22 PM CDT CDIFF Under Investigation 01/06/2024 01/06/2024 2:20 AM CDT documented as of this encounter Care Teams Bus Assistant Relationship Specialty Start Date End Date Aruna Carroll MD PCP - General Internal Medicine 03/17/17 Aruna Carroll MD [address] 2L DIV OF [facility] [place] [address] PCP - [facility] RONY RAMOS P4P 11/09/23 Aruna Carroll MD [address] 2L DIV OF [facility] [place] [address] 03/17/17 Loreta Romreo, PharmD Pharmacist 11/06/24 documented as of this encounter
--- OUTSIDE RECORDS SUMMARY | 2024-12-07 18:29 | XMS_ITS | Encounter Summary ---
Author Organization [facility] Address [address] [facility] [place] [address] Care Team Providers Care Chemical Recovery Operator Name Role Phone Aruna Carroll MD Primary Care Provider Aruna Carroll MD Unavailable [phone] Aruna Carroll MD Unavailable [phone] Loreta Romero PharmD Unavailable Unavailable Encounter Details Date Type Department Care Team (Late st Contact Info) Description 11/12/2024 Results Follow-Up [facility] - Pulmonology [facility] [place] [address] Will Webster MD [address] [place] [address] OF PULMONARY MED [address] [place] [phone] Social History Tobacco Use Types Packs/Day [...] Recorded Patient Health Questionnaire-2 Score 5 11/12/2024 [facility]at ional Health - Occupational Stress [...] place to sleep or slept in a correction (including now)? No 01/05/2024 Comments No Sex [...] 8:40 PM CDT Laney Barajas RN * Is person blind or have serious difficulty seeing? Answer Date of Assessment Author No 01/05/2024 8:40 PM CDT Laney Barajas RN * Does person have serious difficulty walking/climbing stairs? Answer Date of Assessment Author Yes 01/05/2024 8:40 PM CDT Laney Barajas, LETI * Does person have difficulty dressing/bathing? Answer Date of Assessment Author No 01/05/2024 8:40 PM CDT Laney Barajas RN * Does person have difficulty doing errands alone? Answer Date of Assessment Author No 01/05/2024 8:40 PM CDT Laney Barajas RN * Over the past 2 weeks, how often have you been bothered by any of the following problems? Question Answer Date of Assessment Author Patient Health Questionnaire-2 Score 5 11/12/2024 10:21 AM CDT Mychart, Proce ss Support User * Little interest or pleasure in doing things Answer Date of Assessment Author More than half the days 11/12/2024 10:21 AM CDT Mychart, Process Support User * Feeling down, depressed, or hopeless Answer Date of Assessment Author Nearly every day 11/12/2024 10:21 AM CDT Mychart , Process Support User * Question Answer Date of Assessment Author Patient Health Questionnaire-9 Score 18 11/12/2024 10:21 AM CDT Mychart, Proce ss Support User * Trouble falling or staying asleep, or sleeping too much Answer Date of Assessment Author Nearly every day 11/12/2024 10:21 AM CDT Mychart , Process Support User * Feeling tired or having little energy Answer Date of Assessment Author Nearly every day 11/12/2024 10:21 AM CDT Mychart , Process Support User * Poor appetite or overeating Answer Date of Assessment Author Nearly every day 11/12/2024 10:21 AM CDT Mychart , Process Support User * Feeling bad about yourself - or that you are a failure or have let yourself or your family down Answer Date of Assessment Author More than half the days 11/12/2024 10:21 AM CDT Mychart, Process Support User * Trouble concentrating on things, such as reading the newspaper or watching television Answer Date of Assessment Author Several days 11/12/2024 10:21 AM CDT Mychart, Process Support User * Moving or speaking so slowly that other people could have noticed? Or the opposite - being so fidgety or restless that you have been moving around a lot more than usual. Answer Date of Assessment Author Several days 11/12/2024 10:21 AM CDT Mychart, Process Support User * Thoughts that you would be better off or hurting yourself in some way Answer Date of Assessment Author Not at all 11/12/2024 10:21 AM CDT Mychart, Process Support User * How difficult have these problems made it for you to do your work, take care of things at home, or get along with other people? Answer Date of Assessment Author Extremely difficult 11/12/2024 10:21 AM CDT Myc art, Process Support User documented as of this encounter Mental Status * Does person have difficulty concentrating/remembering/making decisions? Answer Entry Date Author No 01/05/2024 8:40 PM CDT Laney Barajas RN documented in this encounter Plan of Treatment Upcoming Encounters Date Type Department Care Team (Latest Contact Info) Description 12/09/2024 1:00 PM CDT Office Visit [facility] - Ophthalmology [address] [place] [phone] Vikram Saleem OD [address] [place] [phone] 12/17/2024 10:30 AM CDT Office Visit [facility] - Pulmonology [address] [place] [phone] Duglas Grider MD [address] [place] [address] 2L DIV OF PULMONARY/[place] [address] 01/04/2025 9:00 AM CDT Office Visit [facility] - Internal Med [address] [place] [phone] Aruna Carroll MD [address] [place] [address] 2L DIV [place] [address] 01/19/2025 10:00 AM CDT Office Visit [facility] - Endocrinology [address] [place] [address] [place] [address] João Robertson MD [address] [facility] [address] [place] [address] 02/01/2025 12:30 PM CDT Procedure visit [facility] - GI [address] [place] [address], [place] [phone] 02/01/2025 1:00 PM CDT Office Visit [facility] - GI [address] [place] [address], [place] [phone] Louis Beck MD [address] [place] [address] 2L [place] [address] 04/07/2025 1:00 PM CDT Office Visit [facility] - Neurology [address] [place] [address], [place] [address] Klever Wilcox, CARD FILER-BIOLOGY TEACHER [address] [place] [address] 1L [place] [address] 05/11/2025 7:55 AM COILER Hospital Encounter [facility] ENDOSCOPY [address] [place] [phone] Kip Ryan MD [address] [place] [address] 2L [place] [address] Surgery General 05/11/2025 7:55 AM COILER - 05/11/2025 8:45 AM COILER Surgery [facility] [address] [place] [phone] Kip Ryan MD [address] [place] [address] 2L [place] [phone] COLONOSCOPY SCREEN---w/Kelle --2 day Miralax prep 10/21/2025 1:30 PM CDT Office Visit [facility] - GI [address] [place] [address], [place] [address] Kip Ryan MD [address] [place] [address] 2L [place] [address] 10/25/2025 1:10 PM CDT Office Visit [facility] - Dermatology [address] [place] [address], [place] [phone] Anastasiia Tran PA [address] [place] [address] 3L [place] [address] Scheduled Procedures Name Priority Associated Diagnoses Date/Ti me COLONOSCOPY SCREEN Colon cancer screening 05/11/2025 7:55 AM COILER documented as of this encounter Goals Goal [...] Diagnoses Not on filedocumented in this encounter Care Teams Chemical Recovery Operator Relationship Specialty Start Date End Date Aruna Carroll MD PCP - General Internal Medicine 03/17/17 Aruna Carroll MD [address] 2L DIV [place] [address] PCP - [facility] RONY RAMOS P4P 11/09/23 Aruna Carroll MD [address] 2L DIV OF [facility] [place] [address] 03/17/17 Loreta Romero, HuongD Pharmacist 11/06/24 documented as of this encounter
--- OUTSIDE RECORDS SUMMARY | 2024-12-07 18:30 | XMS_ITS | Encounter Summary ---
Author Organization [facility] Address [address] [facility] [place] [address] Care Team Providers Care Dog And Cat Food Cook Name Role Phone Aruna Carroll MD Primary Care Provider [phone] Aruna Carroll MD Unavailable [phone] Aruna Carroll MD Unavailable [phone] Loreta Romero PharmD Unavailable Unavailable Reason for Visit * Reason Onset Date Comments Reminder Call 09/25/2024 No answer. Left voicemail. Encounter Details Date Type Department Care Team (Late st Contact Info) Description 09/25/2024 Telephone [facility] - Pulmonology [address] [place] [address], [facility] [place] [address] Will Webster MD [address] [place] [address] OF PULMONARY MED [address] [place] [phone] Reminder Call (No answer. Left voicemail.) Social History Tobacco Use Types Packs/Day Years [...] Date Recorded Patient Health Questionnaire-2 Score 2 08/25/2024 [facility] of Occupat ional Health - Occupational Stress [...] place to sleep or slept in a care home (including now)? No 01/05/2024 Comments No Sex [...] Laney Barajas RN documented in this encounter Miscellaneous Notes * Telephone Encounter - Suzanne Millan - 09/25/2024 3:27 PM CDT Called patient about appointment but no answer. Left a voicemail. documented in this encounter Plan of Treatment Upcoming Encounters Date Type Department Care Team (Latest Contact Info) Description 12/09/2024 1:00 PM CDT Office Visit [facility] - Ophthalmology [address] [place] [phone] Vikram Saleem OD [address] [place] [phone] 12/17/2024 10:30 AM CDT Office Visit [facility] - Pulmonology [address] [place] [phone] Duglas Grider MD [address] [place] [address] DIV OF PULMONARY/[place] [address] 01/04/2025 9:00 AM CDT Office Visit [facility] - Internal Med [address] [place] [phone] Aruna Carroll MD [address] [place] [address] 2L [place] [address] 01/19/2025 10:00 AM CDT Office Visit [facility] - Endocrinology [address] [place] [phone] João Robertson MD [address] [facility] [address] [place] [address] 02/01/2025 12:30 PM CDT Procedure visit [facility] - GI [address] [place] [phone] 02/01/2025 1:00 PM CDT Office Visit [facility] - GI [address] [place] [phone] Louis Beck MD [address] [place] [address] 2L [place] [address] 04/07/2025 1:00 PM CDT Office Visit [facility] - Neurology [address] [place] [phone] Klever Wilcox, WILDLIFE BIOSTATION RESEARCH ECOLOGIST-EMBEDDED SOFTWARE PROGRAMMER [address] [place] [address] 1[place] [phone] 05/11/2025 7:55 AM HOSE CEMENTER Hospital Encounter [facility] ENDOSCOPY [address] [place] [phone] Kip Ryna MD [address] [place] [address] 2L [place] [phone] Surgery General 05/11/2025 7:55 AM HOSE CEMENTER - 05/11/2025 8:45 AM HOSE CEMENTER Surgery [facility] ENDOSCOPY [address] [place] [address] Kip Ryan MD [address] [place] [address] 2L [place] [address] COLONOSCOPY SCREEN---w/Kelle --2 day Miralax prep 10/21/2025 1:30 PM CDT Office Visit [facility] - GI [address] [place] [phone] Kip Ryan MD [address] [place] [address] 2L [place] [address] 10/25/2025 1:10 PM CDT Office Visit [facility] - Dermatology [address] [place] [phone] Anastasiia Tran PA [address] [place] [address] 3[address] [place] [phone] Scheduled Procedures Name Priority Associated Diagnoses Date/Ti me COLONOSCOPY SCREEN Colon cancer screening 05/11/2025 7:55 AM HOSE CEMENTER documented as of this encounter Goals Goal [...] Depression Lifestyle On track(2024 2:16 PM CDT) aMrvin Franks MD documented as of this encounter Visit Diagnoses Not on filedocumented in this encounter Care Teams Dog And Cat Food Cook Relationship Specialty Start Date End Date Aruna Carroll MD PCP - General Internal Medicine 03/17/17 Aruna Carroll MD [address] 2L DIV OF [facility] [place] [address] PCP - [facility] RONY RAMOS P4P 11/09/23 Aruna Carroll MD [address] 2L DIV OF [facility] [place] [place] [address] 03/17/17 Loreta Romero, HuongD Pharmacist 11/06/24 documented as of this encounter
--- OUTSIDE RECORDS SUMMARY | 2024-12-07 18:30 | XMS_ITS | Encounter Summary ---
Author Organization [facility] Address [address] [place] [address] Care Team Providers Care Equipment Superintendent Name Role Phone Aruna Carroll MD Primary Care Provider [phone] Aruna Carroll MD Unavailable [phone] Aruna Carroll MD Unavailable [phone] Loreta Romero PharmD Unavailable Unavailable Reason for Visit * Reason Onset Date Comments MEDICATION REFILL 12/30/2017 Encounter Details Date Type Department Care Team (Late st Contact Info) Description 12/30/2017 Refill [facility] [address] [place] [address] Aruna Carroll MD [address] OF [facility] [place] [phone] MEDICATION REFILL Social History Tobacco Use Types [...] Office Visit [facility] - Ophthalmology [address] [place] [address], [place] [address] Vikram Saleem OD [address] [place] [phone] 12/17/2024 10:30 AM CDT Office Visit [facility] - Pulmonology [address] [place] [phone] Duglas Grider MD [address] [place] [address] 2L DIV OF PULMONARY/[place] [address] 01/04/2025 9:00 AM CDT Office Visit [facility] - Internal Med [address] [place] [phone] Aruna Carroll MD [address] [place] [address] 2L [place] [address] 01/19/2025 10:00 AM CDT Office Visit [facility] - Endocrinology [address] [place] [phone] João Robertson MD [address] [place] [address] 02/01/2025 12:30 PM CDT Procedure visit [facility] - GI [address] [place] [phone] 02/01/2025 1:00 PM CDT Office Visit [facility] - GI [address] [place] [phone] Louis Beck MD [address] [place] [address] 2[address] [place] [address] 04/07/2025 1:00 PM CDT Office Visit [facility] - Neurology [address] [place] [address] [place] [phone] Klever Wilcox APRN-TRACK FITTER [address] [place] [address] [address] [place] [phone] 05/11/2025 7:55 AM DYNAMIC BALANCER SET UP WORKER Hospital Encounter [facility] [address] [place] [phone] Kip Ryan MD [address] [place] [address] [address] [place] [address] Surgery General 05/11/2025 7:55 AM DYNAMIC BALANCER SET UP WORKER - 05/11/2025 8:45 AM DYNAMIC BALANCER SET UP WORKER Surgery [facility] [address] [place] [phone] Kip Ryan MD [address] [place] [address] [address] [place] [address] COLONOSCOPY SCREEN---w/Kelle --2 day Miralax prep 10/21/2025 1:30 PM CDT Office Visit [facility] - GI [address] [place] [phone] Kip Ryan MD [address] [place] [address] 2[address] [place] [phone] 10/25/2025 1:10 PM CDT Office Visit [facility] - Dermatology [address] [place] [phone] Anastasiia Tran PA [address] [place] [address] [address] [place] [phone] Scheduled Procedures Name Priority Associated Diagnoses Date/Ti me COLONOSCOPY SCREEN Colon cancer screening 05/11/2025 7:55 AM DYNAMIC BALANCER SET UP WORKER documented as of this encounter Visit Diagnoses Not on filedocumented in this encounter Additional Health Concerns Infection Onset Date Last Indicated Resolved Time COVID-19 Under Investigation 03/29/2020 03/30/2020 03/30/2020 12:08 PM CDT COVID-19 Under Investigation 01/05/2024 01/05/2024 01/05/2024 3:22 PM CDT CDIFF Under Investigation 01/06/2024 01/06/2024 2:20 AM CDT documented as of this encounter Care Teams Equipment Superintendent Relationship Specialty Start Date End Date Aruna Carroll MD PCP - General Internal Medicine 03/17/17 Aruna Carroll MD [address] 2L [place] [phone] PCP - Critical access hospital [facility] 11/09/23 Aruna Carroll MD [address] 2[address] DIV OF [facility] [place] [phone] 03/17/17 Loreta Romero, Gucci Pharmacist 11/06/24 documented as of this encounter
[2024-12-07] MEDS: LACTATED RINGERS 1,000 ML 999 ML IV CONT ×3 (18:34→21:20)
[2024-12-07 18:36] LABS: Alanine Aminotransferase 34 U/L (6-35); Albumin Level 3.8 g/dL (3.5-5.1); Alkaline Phosphatase 160 U/L (38-126); Anion Gap 18 mmol/L (4-12); Aspartate Amino Transferase 29 U/L (14-36); Bilirubin,Total 0.6 mg/dL (0.2-1.3); Blood Urea Nitrogen 14 mg/dL (7-17); Calcium 9.1 mg/dL (8.4-10.2); Carbon Dioxide 17 mmol/L (22-30); Chloride 104 mmol/L (98-107); Estimated CRCL calculation 32 ml/min; Estimated Glomerular Filt Rate 34; Glucose 342 mg/dL (65-110); Potassium 4.1 mmol/L (3.4-5.0); Sodium 139 mmol/L (137-145); Total Protein 6.6 g/dL (6.3-8.2)
[2024-12-07 18:37] LABS: CRP 2.0 mg/dL (<1.0)
[2024-12-07 18:42] LABS: INR 1.1; Partial Thromboplastin Time 27.4 Seconds (22.3-36.8); Prothrombin Time 14.8 Seconds (11.1-14.7)
[2024-12-07 18:47] LABS: Troponin I 0.041 ng/mL (0.000-0.034)
--- NOTE | 2024-12-07 19:13 | PC.NURSE ---
spoke with EDP, informed that pt has been stuck with ultrasound guide 4 times, unsuccessful in collecting second set of blood cultures. EDP states he wants antibiotics started even though only 1 set of cultures has been collected.
[2024-12-07] MEDS: CEFEPIME 2 GM/NS 50 ML 2 GM/50 ML BAG IVPB (19:15)
[2024-12-07] MEDS: VANCOMYCIN 1,750 MG/NS 500 ML 1,750 MG/500 ML BAG 250 MG IVPB (20:10)
[2024-12-07] MEDS: LACTATED RINGERS 300 ML 999 ML IV CONT (20:11)
[2024-12-07] MEDS: ACETAMINOPHEN 325 MG TABLET 650 MG PO (20:20)
[2024-12-07 20:56] LABS: Add Urine Microscopic? NO; Appearance Urine Clear (Clear); Glucose Urine UA 3+ mg/dL (Negative); Leukocyte Esterase Ur Negative LEU/UL (Negative); Nitrate Urine Negative (Negative); Specific Grav Ur > 1.045 (1.001-1.035)
--- NOTE | 2024-12-07 21:46 | P.HP_ITS ---
H&P: HPI History of Present Illness Date/Time: 12/07/24 22:00 Chief Complaint: Nausea, vomiting, abdominal pain. Narrative: This is a pleasant 59-year-old female with history of chronic pancreatitis, chronic constipation with history of small-bowel obstruction and bowel resection, distal pancreatectomy and splenectomy, gastroesophageal reflux disease, cholecystectomy, deep venous thrombosis, pulmonary embolism, asthma, hyperlipidemia, hypothyroidism, type 2 diabetes mellitus, Parkinson's, hypotension, depression, and anxiety who presented to the emergency department via private vehicle with complaints of nausea, vomiting, abdominal pain. Several weeks ago she was treated for an asthma exacerbation for which she completed a course of prednisone and levofloxacin. Her breathing has improved however over the last couple of days she has once again started to feel unwell with different symptoms. She complains of generalized malaise, fatigue, poor appetite, chills, nausea, dry heaves, and cramping in the periumbilical region. She has a dry cough and runny nose. Glucose has been running high. This evening she developed myalgias, mainly in her legs, and came in for evaluation. She denies sick contacts, headache, neck ache, sore throat, diarrhea, dysuria, and open wounds. No sick contacts. She denies dysphagia and concerns for aspiration. In the ED: Vital signs on arrival include a temperature of 98.7?, blood pressure 148/54, pulse 123, respiratory 20, SpO2 98% on room air. Labs are significant for WBC count of 18.6, carbon dioxide 17, anion gap 18, BUN 14, creatinine 1.57, glucose 342, lactic acid 5.6, troponin 0.041, CRP 2.0. Urinalysis was positive for 3+ glucose and trace ketones with a specific gravity of greater than 1.045. CT of the chest, abdomen, and pelvis showed a 1.6 cm right thyroid nodule, mild esophagitis/gastritis, and dilatation of the appendiceal tip to 9 mm without inflammatory changes. She received 30 mL/kg IV fluid bolus without improvement in lactic acid level. She also received cefepime 2 g and vancomycin 1750 mg for broad-spectrum IV coverage and she is being admitted in this setting for further treatment and evaluation. Review of Systems Review of Systems: 12 systems were reviewed and are negativ e except for as per HPI. [facility] Past Medical History Medical History (Updated 12/08/24 @ 05:30 by Mayuri Monique PA-C) Parkinsons Type 2 diabetes mellitus Hypotension Chronic sinusitis Hypothyroidism Gastroesophageal reflux disease Deep venous thrombosis Insomnia Depression Pulmonary embolism Pancreatitis Hyperlipidemia Migraines, neuralgic Diabetes Asthma Anxiety Surgical History Surgical History (Updated 12/07/24 @ 22:15 by Mayuri Monique PA-C) History of partial pancreatectomy distal pancreatectomy with splenectomy History of hysterectomy (1998) History of splenectomy History of cataract extraction with lens replacement History of cholecystectomy (1991) History of tonsillectomy History of bowel resection (2004) History of carpal tunnel release Family History Family History Father Asthma Diabetes mellitus Mother Depression Asthma Diabetes mellitus Thyroid disorder Sibling Depression Other Depression Diabetes mellitus Social History Social History (Updated 12/07/24 @ 22:22 by Mayuri Monique PA-C) Social History: Surrogate medical decision maker: Marquez Amor, saul. Code status: Full code. Smoking status: Never smoker Alcohol intake: never Substance use: never Substance use type: does not use Do You Feel Safe in your Home?: Yes Lack of Transportation: No Lack of Food: Never True Current Housing: I Have Housing Concerned About Future Housing: No Difficulty Paying Gas/Electric Bills: No Difficulty Paying for Meds: No Currently Unemployed: No Education: High School Diploma/GED Difficulty w/ Childcare or Family Care: No Spiritual care concerns: No Meds Home Medications and Allergies Home Medications ?Medication ?Instructions ?Recorded ?Confirmed ?Type clonazepam 1 mg tablet (Klonopin) 1 mg PO QHS 05/11/21 12/07/24 History esomeprazole magnesium 40 mg 40 mg PO DAILY 05/11/21 12/07/24 History capsule,delayed release (Nexium) fluticasone propionate 50 2 spray intranasal BID #16 mL 05/11/21 12/07/24 Rx mcg/actuation nasal spray,suspension (Flonase Allergy Relief) ramelteon 8 mg tablet 8 mg PO QHS 05/11/21 12/07/24 History trazodone 300 mg tablet 300 mg PO QHS 05/11/21 12/07/24 History atorvastatin 40 mg tablet (Lipitor) 40 mg PO DAILY 09/10/22 12/07/24 History ergocalciferol (vitamin D2) 1,250 1,250 mcg PO WEEKLY 09/10/22 12/07/24 History mcg (50,000 unit) capsule midodrine 2.5 mg tablet 10 mg PO DAILY 09/10/22 12/07/24 History pimavanserin 34 mg capsule 34 mg PO DAILY 09/10/22 12/07/24 History (Nuplazid) ramelteon 8 mg tablet 8 mg PO QHS 09/10/22 12/07/24 History vortioxetine 10 mg tablet 10 mg PO DAILY 09/10/22 12/07/24 History (Trintellix) albuterol sulfate 90 mcg/actuation 2 puff inhalation Q4-6H PRN 09/03/24 12/07/24 Rx aerosol inhaler shortness of breath or wheezing 30 days #8.5 grams apixaban 5 mg tablet (Eliquis) 5 mg PO Q12H 12/07/24 12/07/24 History benralizumab 30 mg/mL subcutaneous 30 mg subcut MONTHLY 12/07/24 12/07/24 History auto-injector (Fasenra Pen) budesonide-formoterol HFA 160 2 puff inhalation Q12H 12/07/24 12/07/24 History mcg-4.5 mcg/actuation aerosol inhaler (Symbicort) bupropion HCl 150 mg 24 hr tablet, 150 mg PO DAILY 12/07/24 12/07/24 History extended release buspirone 7.5 mg tablet 7.5 mg PO TID 12/07/24 12/07/24 History carbidopa 25 mg-levodopa 100 mg 2 tablet PO QID 12/07/24 12/07/24 History tablet daridorexant 50 mg tablet (Quviviq) 50 mg PO HS 12/07/24 12/07/24 History donepezil 10 mg tablet 10 mg PO DAILY 12/07/24 12/07/24 History fludrocortisone 0.1 mg tablet 0.1 mg PO DAILY 12/07/24 12/07/24 History gabapentin 300 mg capsule 900 mg PO TID 12/07/24 12/07/24 History galcanezumab-gnlm 120 mg/mL 120 mg subcut MONTHLY 12/07/24 12/07/24 History subcutaneous pen injector (Emgality Pen) insulin glargine 100 unit/mL (3 30 unit subcut HS 12/07/24 12/07/24 History mL) subcutaneous pen (Lantus Solostar U-100 Insulin) insulin lispro 100 unit/mL 1 sliding scale dose subcut .with 12/07/24 12/07/24 History subcutaneous pen meals levothyroxine 112 mcg tablet 112 mcg PO .before meals 12/07/24 12/07/24 History linaclotide 72 mcg capsule 72 mcg PO DAILY@0630 12/07/24 12/07/24 History (Linzess) ondansetron HCl 4 mg tablet 4 mg PO Q8H PRN nausea and vomiting 12/07/24 12/07/24 History oxycodone 5 mg tablet 5 mg PO Q6H PRN pain 12/07/24 12/07/24 History pregabalin 75 mg capsule 75 mg PO BID 12/07/24 12/07/24 History sumatriptan succinate 100 mg tablet 100 mg PO DAILY 12/07/24 12/07/24 History tiotropium bromide 2.5 2 puff inhalation Q24H 12/07/24 12/07/24 History mcg/actuation mist for inhalation (Spiriva Respimat) tizanidine 4 mg tablet 4 mg PO TID 12/07/24 12/07/24 History valbenazine 80 mg capsule 80 mg PO DAILY 12/07/24 12/07/24 History (Ingrezza) Allergies Allergy/AdvReac Type Severity Reaction Status Date / Time Penicillins Allergy Severe HIVES Verified 12/07/24 23:13 Sulfa (Sulfonamide Allergy Severe rash Verified 12/07/24 23:13 Antibiotics) tetracycline Allergy Severe RASH Verified 12/07/24 23:13 erythromycin base Allergy Unknown Unknown Verified 12/07/24 23:13 clindamycin AdvReac Intermediate Chest Pain Verified 12/07/24 23:13 Vital Signs Vital Signs - 24 hr 12/07/24 14:54 12/07/24 17:28 12/07/24 19:31 Temperature 98.7 F 98.0 F 101.0 F H Pulse Rate 123 H 127 H 124 H Respiratory Rate 20 21 H 20 Blood Pressure 148/54 H 117/104 H 120/57 L Pulse Oximetry 98 100 95 Oxygen Delivery Room Air Room Air Exam Narrative: General: Mildly ill-appearing female in the semi-Latham position in bed. Weight: 70.7 kg. BMI: 31.7. HEENT: PERRL, EOMI. Sclera anicteric. Tacky mucous membranes. She is edentulous. Neck: Supple. No nuchal rigidity or lymphadenopathy. Respiratory: Respirations are nonlabored and she is speaking in full sentences. Occasional cough. Lung sounds are coarse on the right with occasional rales in the right upper lobe. Cardiovascular: Regular rate and rhythm with S1-S2. Gastrointestinal: Abdomen is soft and nondistended with positive bowel sounds. Mildly tender to palpation in the periumbilical region. No guarding or rebound tenderness. Skin: Warm and dry. Extremities: No cyanosis, clubbing, or edema. Radial and pedal pulses intact. Neurological: Alert. Cranial nerves grossly intact. Occasional lip smacking and chewing motions consistent with tardive dyskinesia. Speech is slow. Masked facies. No facial asymmetry. Generalized weakness without gross focal findings. Psychiatric: Pleasant and cooperative with appropriate mood and affect. H&P: Results Labs Labs: Short CBC 12/07/24 Range/Units 18:16 WBC 18.6 H (4.5-10.0) K/mm3 Hgb 13.0 (12.0-15.0) g/dL Hct 39.9 (37.0-47.0) % Plt Count 341 (150-375) k/mm3 BMP 12/07/24 18:16 Sodium 139 Potassium 4.1 Chloride 104 Carbon Dioxide 17 L BUN 14 Creatinine 1.57 H Glucose 342 H Calcium 9.1 Cardiac Enzymes 12/07/24 Range/Units 18:21 Troponin I 0.041 H* (0.000-0.034) ng/mL Liver Function 12/07/24 Range/Units 18:16 Total Bilirubin 0.6 (0.2-1.3) mg/dL AST 29 (14-36) U/L ALT 34 (6-35) U/L Alkaline Phosphatase 160 H (38-126) U/L Albumin 3.8 (3.5-5.1) g/dL Urine 12/07/24 Range/Units 20:46 Urine Color Yellow (Yellow) Urine Appearance Clear (Clear) Urine pH 6.0 (5.0-9.0) Ur Specific [place] > 1.045 H (1.001-1.035) Urine Protein Negative (Negative) mg/dL Urine Glucose (UA) 3+ H (Negative) mg/dL Imaging Venous Doppler Study 12/07/24 18:11 IMPRESSION: 1. No deep venous thrombosis within the visualized portions of the left lower extremity (to the level of the femoral vein). No deep venous thrombosis within the right lower extremity. Chest/Abdomen/Pelvis CT 12/07/24 20:28 IMPRESSION: 1. 1.6 cm right thyroid nodule, recommend nonemergent outpatient thyroid ultrasound for further characterization. 2. Mild esophagitis/gastritis. 3. Dilation of the appendiceal tip to 9 mm, without inflammatory changes. This may be normal for this patient or represent early appendicitis. Assessment and Plan Assessment and plan (1) Sepsis: Code(s): A41.9 - Sepsis, unspecified organism Status: Acute (2) Pneumonia: Code(s): J18.9 - Pneumonia, unspecified organism Status: Acute (3) Acute kidney failure: Code(s): N17.9 - Acute kidney failure, unspecified Status: Acute (4) Type 2 diabetes mellitus with hyperglycemia: Code(s): E11.65 - Type 2 diabetes mellitus with hyperglycemia Status: Acute (5) Abnormal CT of the abdomen: Code(s): R93.5 - Abnormal findings on diagnostic imaging of other abdominal regions, including retroperitoneum Status: Acute (6) Elevated troponin: Code(s): R79.89 - Other specified abnormal findings of blood chemistry Status: Acute (7) Right thyroid nodule: Code(s): E04.1 - Nontoxic single thyroid nodule Status: Acute (8) Esophagitis with gastritis: Code(s): K29.70 - Gastritis, unspecified, without bleeding; K20.90 - Esophagitis, unspecified without bleeding Status: Acute (9) Hypothyroidism: Code(s): E03.9 - Hypothyroidism, unspecified Status: Acute (10) Asthma: Qualifiers: Asthma complication type: with acute exacerbation Asthma persistence: intermittent Asthma severity: mild Qualified Code(s): J45.21 - Mild intermittent asthma with (acute) exacerbation Code(s): J45.909 - Unspecified asthma, uncomplicated Status: Acute (11) Psychiatric illness: Code(s): F99 - Mental disorder, not otherwise specified Status: Acute (12) Parkinsons: Code(s): G20.A1 - Parkinson's disease without dyskinesia, without mention of fluctuations Status: Acute Plan The patient presented to the emergency department with complaints of nausea and abdominal discomfort and myalgias not long after completing of course of prednisone and levofloxacin for asthma exacerbation as detailed in HPI. Labs, imaging, EKG, and all reports were personally reviewed. She meets criteria for sepsis with fever, tachycardia, leukocytosis, lactic acidosis, and acute kidney injury in the setting of presumed pneumonia. CT scan shows findings of ground- glass in central lobar nodular opacities in the right upper lobe. She received cefepime and vancomycin in the ED. Change antibiotics to levofloxacin (she has a tetracycline allergy). Resume vancomycin if MRSA screen is positive. Attempt sputum for culture. Modified barium swallow ordered given her underlying Parkinson's. Lactic acid level is improving after IV fluid bolus. Blood cultures are pending. CT scan also showed dilatation of the appendiceal tip to 9 mm without inflammatory changes. I suppose early appendicitis is plausible but her abdominal exam is not consistent with that. Surgery was consulted by the ED physician their input is appreciated. One could make a case for mild DKA on arrival as she had 1+ ketones in her urine, hyperglycemia, and a mildly elevated beta hydroxybutyrate with an anion gap of 18. Her numbers have improved with IV fluids. Continue basal insulin. Initiate sliding scale insulin, Accu-Cheks, and hypoglycemic protocol. She has an acute kidney injury which is likely related to a combination of dehydration and sepsis. Elevated troponin is likely due to sepsis and infection. She is not having any chest pain whatsoever however we will trend to peak and obtain echocardiogram. Right thyroid nodule can be worked up as an outpatient. Continue PPI; there are findings of mild esophagitis and gastritis on imaging. She does not have any significant wheezing on examination. Check TSH. Continue fludrocortisone and midodrine for hypotension which is presumably related to autonomic dysfunction from her Parkinson's. Her home medications will be reviewed and resumed as appropriate. Findings and treatment plan were discussed with the patient. Questions were solicited and answered to satisfaction. The patient's medical management will be taken over by the hospitalist team in a.m. Quality VTE Prophylaxis VTE prophylaxis: pharmacologic ordered (On apixaban) Hospitalist [facility] Advance Care Plan I have confirmed that the patient's Advanced Care Plan is present, code status is documented, or surrogate decision maker is listed in patient medical record.: Yes Medication Reconciliation I have utilized all available resources to obtain, update and review the patients current medications (includes all prescriptions, OTC, herbals, cannabis, and nutritional supplements).: Yes
[2024-12-07] MEDS: LACTATED RINGERS 1,000 ML 125 ML IV CONT (22:27)
[2024-12-07] MEDS: MORPHINE SULFATE (*CRX) 4 MG/ML INJ IV PUSH (22:27)
--- NOTE | 2024-12-07 22:57 | PC.NURSE ---
This patient, Margarita Amor, was admitted to IMU Room 204-01. Patient/family oriented to hospital policies and general routines including ID bracelet, bed and alarms, visiting hours, pain management, procedures, bathroom and other care routines, personal items, smoking policy, room service/diet, and visiting hours. Information on how to activate the Rapid Response Team has been discussed. Patient/Family are encouraged to report perceived risks to care and to ask questions if they do not understand what they are told or what they should do.
[2024-12-08] VITALS (16 sets, daily range): BP systolic 101–147; BP diastolic 44–67; PULSE 91–134; RESP 16–22; TEMP 37.1–38.1; O2SAT 93–98
[2024-12-08 00:17] LABS: Creatine Kinase 69 U/L (30-135)
[2024-12-08 00:19] LABS: Anion Gap 11 mmol/L (4-12); Blood Urea Nitrogen 12 mg/dL (7-17); Calcium 7.9 mg/dL (8.4-10.2); Carbon Dioxide 18 mmol/L (22-30); Chloride 107 mmol/L (98-107); Estimated CRCL calculation 44 ml/min; Estimated Glomerular Filt Rate 46; Glucose 303 mg/dL (65-110); Magnesium 1.3 mg/dL (1.6-2.3); Potassium 4.0 mmol/L (3.4-5.0); Sodium 136 mmol/L (137-145)
[2024-12-08 00:23] LABS: Beta-Hydroxybutyrate/Acetoacetate 1.19 mmol/L (0.02-0.27)
[2024-12-08] MEDS: INSULIN ASPART (*BKC) 100 UNITS/ML SUB-Q ×2 (00:39→23:46)
[2024-12-08 00:44] LABS: Procalcitonin 7.1 ng/mL
[2024-12-08 00:54] LABS: Troponin I 0.081 ng/mL (0.000-0.034)
[2024-12-08 01:00] LABS: Thyroid Stimulating Hormone Reflex 1.810 uIU/mL (0.465-4.68)
[2024-12-08 01:05] LABS: Hemoglobin A1C 8.6 % (<5.7)
[2024-12-08] MEDS: ACETAMINOPHEN 325 MG TABLET 650 MG PO (04:05)
[2024-12-08 04:55] LABS: Hematocrit 33.8 % (37.0-47.0); Hemoglobin 10.8 g/dL (12.0-15.0); Immature Granulocyte Percent A 0.4 % (0-0.5); Lymphocytes Absolute Auto 3.81 K/mm3 (0.9-3.2); Mean Corpuscular HGB Conc 32.0 g/dl (32-36); Mean Corpuscular Hemoglobin 31.1 pg (26-34); Mean Corpuscular Volume 97.4 fl (80-100); Nucleated Red Blood Cells Absolute Auto 0.000 K/mm3 (0.0-0.012); Nucleated Red Blood Cells Perc 0.0 % (0.0-0.2); Platelet Count Result 267 k/mm3 (150-375); Red Blood Count 3.47 M/mm3 (4.2-5.4); White Blood Count 17.8 K/mm3 (4.5-10.0)
[2024-12-08 05:15] LABS: Alanine Aminotransferase 20 U/L (6-35); Albumin Level 2.9 g/dL (3.5-5.1); Alkaline Phosphatase 106 U/L (38-126); Anion Gap 10 mmol/L (4-12); Aspartate Amino Transferase 27 U/L (14-36); Bilirubin,Total 0.5 mg/dL (0.2-1.3); Blood Urea Nitrogen 10 mg/dL (7-17); Calcium 7.9 mg/dL (8.4-10.2); Carbon Dioxide 19 mmol/L (22-30); Chloride 110 mmol/L (98-107); Estimated CRCL calculation 47 ml/min; Estimated Glomerular Filt Rate 51; Glucose 174 mg/dL (65-110); Potassium 3.8 mmol/L (3.4-5.0); Sodium 139 mmol/L (137-145); Total Protein 5.3 g/dL (6.3-8.2)
[2024-12-08 05:53] LABS: Anisocytosis 1+; Burr Cells 1+; Schistocytes Rare
[2024-12-08 05:54] LABS: Poikilocytosis 1+; Target Cells 1+
[2024-12-08] MEDS: LEVOTHYROXINE SODIUM 112 MCG TABLET PO (06:04)
[2024-12-08] MEDS: oxyCODONE HCL (*CRX) 5 MG TAB IR PO ×3 (06:04→20:41)
[2024-12-08] MEDS: levoFLOXacin 750 MG/D5W 150 ML 750 MG/150 ML BAG 100 MG IVPB (06:17)
[2024-12-08] MEDS: LINACLOTIDE 72 MCG CAPSULE PO (06:25)
[2024-12-08] MEDS: LACTATED RINGERS 1,000 ML 75 ML IV CONT ×2 (06:26→20:27)
[2024-12-08 07:13] LABS: Influenza A QL RT-PCR Negative (Negative); Influenza B QL RT-PCR Negative (Negative); SARS-CoV-2 RNA PCR Negative (Negative)
[2024-12-08 07:48] LABS: MRSA (PCR) NOT DETECTED (NOT DETECTE)
[2024-12-08] MEDS: ONDANSETRON INJ 4 MG/2 ML VIAL IV PUSH ×3 (09:52→22:10)
[2024-12-08] MEDS: FLUTICASONE PROPIONATE 0.05% NA SPR 16 GM BTL (*BKC) 2 SPRAY NASAL (10:31)
--- NOTE | 2024-12-08 11:24 | P.CONGS_ITS ---
Assessment and Plan Assessment and plan (1) Sepsis: Code(s): A41.9 - Sepsis, unspecified organism Status: Acute Assessment and Plan: * Source not entirely clear, could be pneumonia vs gastroenteritis vs less likely appendicitis. Continue broad-spectrum IV antibiotics and IV fluids. (2) Abnormal CT of the abdomen: Code(s): R93.5 - Abnormal findings on diagnostic imaging of other abdominal regions, including retroperitoneum Status: Acute Assessment and Plan: * CT abdomen/pelvis showed the tip of the appendix measuring 9 mm, but no inflammatory changes to suggest acute appendicitis. She has not had any abdominal pain recently or during my evaluation today. She does have some mild diffuse tenderness, but no peritoneal signs. No focal RLQ tenderness. Exam and presentation are atypical for acute appendicitis. This seems unlikely to be causing her sepsis. This may be an incidental findings and there are no previous CT scans to compare with her current scan. She has multiple previous abdominal surgeries and multiple other co-morbidities that would increase her risks of surgery. Would recommend to continue with broad-spectrum IV antibiotics to cover for possible appendicitis and we will continue to monitor closely with serial abdominal exams and labs. Could always consider repeat imaging of the abdomen if not improving as anticipated. (3) Anticoagulated by anticoagulation treatment: Code(s): Z79.01 - senior care (current) use of anticoagulants Status: Acute Assessment and Plan: * Would recommend to hold Eliquis in case she requires a surgery. Okay to use therapeutic dosed Lovenox from a surgical standpoint. (4) Acidosis, lactic: Code(s): E87.20 - Acidosis, unspecified Status: Acute Assessment and Plan: * Improved. Lactic acid down from 6.5 to 3.4. Trend labs. See plan above. (5) Type 2 diabetes mellitus with hyperglycemia: Code(s): E11.65 - Type 2 diabetes mellitus with hyperglycemia Status: Acute Assessment and Plan: * Possible mild DKA on admission with hyperglycemia, slightly elevated B- hydroxybutyrate and anion gap 18. Improved with IV fluids. Anion gap normalized and glucose improved. Management per Hospitalist. (6) Elevated troponin: Code(s): R79.89 - Other specified abnormal findings of blood chemistry Status: Acute Assessment and Plan: * Echo ordered (7) KADEN (acute kidney injury): Code(s): N17.9 - Acute kidney failure, unspecified Status: Acute Assessment and Plan: * Improved with IV fluids. Creatinine down from 1.57 to 1.09. Plan I have discussed the patient's case and plan of care with Dr. Hassan. History of Present Illness Consult details Consult date: 12/08/24 Reason for consult: other (Sepsis, possible appendicitis) Requesting physician: Mayuri Monique PA-C Narrative: This is a 59-year-old woman with a history of Parkinson's, DVT/PE on Eliquis, type 2 DM, depression, and multiple previous abdominal surgeries, who we have been asked to see in surgical consultation for possible appendicitis and sepsis. The patient lives at home with her 2 sons and reportedly is typically independent in her ADLs and with ambulation. She reports having bilateral lower extremity pain that has become progressively worse over the last few weeks. Yesterday, she developed nausea and vomiting and was unable to keep liquids down. Therefore, she came into the ED for evaluation. She reports severe lower extremity pain. The pain is constant while at rest and when walking. No alleviating factors. She denies any fever, chills, or abdominal pain. In the ED, she was febrile, tachypneic, and tachycardic. Blood pressure has been stable. [place] [id number], BUN 14, creatinine 1.57, glucose 342, lactic acid 5.6 and went up as high as 6.5, troponin 0.041. Repeat lactic down to 3.4. Repeat troponin 0.081. UA negative for UTI. Viral panel negative. CT scan of the chest/abdomen/pelvis showed ground-glass nodular opacities in the RUL, 1.6 cm right thyroid nodule, mild esophagitis/gastritis, and dilation of the appendiceal tip to 9 mm without inflammatory changes that may be normal for the patient or represent early appendicitis. The patient was admitted to the hospitalist service and is in the IMU. Blood pressure remains stable. She is still tachycardic in the 110s. The patient appears comfortable and denies any abdominal pain. She reports diarrhea yesterday, but no bowel movements today. Her nausea has improved and no vomiting since admission. She has had multiple previous abdominal surgeries reportedly at [facility]. Reports remote history of total abdominal hysterectomy. She reports over 10 years ago having a distal pancreatectomy, splenectomy, and cholecystectomy in a one-step surgery. Patient cannot give additional information as to why she had this surgery. She denies a history of cancer, MVA, or trauma. She at some point also had a SBO that required an exploratory laparotomy and bowel resection. Patient is oriented x 3 but a poor historian in terms of her surgical history. 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 Code status: Full code. Smoking status: Never smoker Alcohol intake: never Substance use: never Substance use type: does not use Do You Feel Safe in your Home?: Yes Lack of Transportation: No Lack of Food: Never True Current Housing: I Have Housing Concerned About Future Housing: No Difficulty Paying Gas/Electric Bills: No Difficulty Paying for Meds: No Currently Unemployed: No Education: High School Diploma/GED Difficulty w/ Childcare or Family Care: No Spiritual care concerns: No Meds Home Medications and Allergies Home Medications ?Medication ?Instructions ?Recorded ?Confirmed ?Type clonazepam 1 mg tablet (Klonopin) 1 mg PO QHS 05/11/21 12/07/24 History esomeprazole magnesium 40 mg 40 mg PO DAILY 05/11/21 12/07/24 History capsule,delayed release (Nexium) fluticasone propionate 50 2 spray intranasal BID #16 mL 05/11/21 12/07/24 Rx mcg/actuation nasal spray,suspension (Flonase Allergy Relief) ramelteon 8 mg tablet 8 mg PO QHS 05/11/21 12/07/24 History trazodone 300 mg tablet 300 mg PO QHS 05/11/21 12/07/24 History atorvastatin 40 mg tablet (Lipitor) 40 mg PO DAILY 09/10/22 12/07/24 History ergocalciferol (vitamin D2) 1,250 1,250 mcg PO WEEKLY 09/10/22 12/07/24 History mcg (50,000 unit) capsule midodrine 2.5 mg tablet 10 mg PO DAILY 09/10/22 12/07/24 History pimavanserin 34 mg capsule 34 mg PO DAILY 09/10/22 12/07/24 History (Nuplazid) ramelteon 8 mg tablet 8 mg PO QHS 09/10/22 12/07/24 History vortioxetine 10 mg tablet 10 mg PO DAILY 09/10/22 12/07/24 History (Trintellix) albuterol sulfate 90 mcg/actuation 2 puff inhalation Q4-6H PRN 09/03/24 12/07/24 Rx aerosol inhaler shortness of breath or wheezing 30 days #8.5 grams apixaban 5 mg tablet (Eliquis) 5 mg PO Q12H 12/07/24 12/07/24 History benralizumab 30 mg/mL subcutaneous 30 mg subcut MONTHLY 12/07/24 12/07/24 History auto-injector (Fasenra Pen) budesonide-formoterol HFA 160 2 puff inhalation Q12H 12/07/24 12/07/24 History mcg-4.5 mcg/actuation aerosol inhaler (Symbicort) bupropion HCl 150 mg 24 hr tablet, 150 mg PO DAILY 12/07/24 12/07/24 History extended release buspirone 7.5 mg tablet 7.5 mg PO TID 12/07/24 12/07/24 History carbidopa 25 mg-levodopa 100 mg 2 tablet PO QID 12/07/24 12/07/24 History tablet daridorexant 50 mg tablet (Quviviq) 50 mg PO HS 12/07/24 12/07/24 History donepezil 10 mg tablet 10 mg PO DAILY 12/07/24 12/07/24 History fludrocortisone 0.1 mg tablet 0.1 mg PO DAILY 12/07/24 12/07/24 History gabapentin 300 mg capsule 900 mg PO TID 12/07/24 12/07/24 History galcanezumab-gnlm 120 mg/mL 120 mg subcut MONTHLY 12/07/24 12/07/24 History subcutaneous pen injector (Emgality Pen) insulin glargine 100 unit/mL (3 30 unit subcut HS 12/07/24 12/07/24 History mL) subcutaneous pen (Lantus Solostar U-100 Insulin) insulin lispro 100 unit/mL 1 sliding scale dose subcut .with 12/07/24 12/07/24 History subcutaneous pen meals levothyroxine 112 mcg tablet 112 mcg PO .before meals 12/07/24 12/07/24 History linaclotide 72 mcg capsule 72 mcg PO DAILY@0630 12/07/24 12/07/24 History (Linzess) ondansetron HCl 4 mg tablet 4 mg PO Q8H PRN nausea and vomiting 12/07/24 12/07/24 History oxycodone 5 mg tablet 5 mg PO Q6H PRN pain 12/07/24 12/07/24 History pregabalin 75 mg capsule 75 mg PO BID 12/07/24 12/07/24 History sumatriptan succinate 100 mg tablet 100 mg PO DAILY 12/07/24 12/07/24 History tiotropium bromide 2.5 2 puff inhalation Q24H 12/07/24 12/07/24 History mcg/actuation mist for inhalation (Spiriva Respimat) tizanidine 4 mg tablet 4 mg PO TID 12/07/24 12/07/24 History valbenazine 80 mg capsule 80 mg PO DAILY 12/07/24 12/07/24 History (Ingrezza) Allergies Allergy/AdvReac Type Severity Reaction Status Date / Time Penicillins Allergy Severe HIVES Verified 12/07/24 23:13 Sulfa (Sulfonamide Allergy Severe rash Verified 12/07/24 23:13 Antibiotics) tetracycline Allergy Severe RASH Verified 12/07/24 23:13 erythromycin base Allergy Unknown Unknown Verified 12/07/24 23:13 clindamycin AdvReac Intermediate Chest Pain Verified 12/07/24 23:13 Vital Signs Vital Signs - 24 hr 12/07/24 14:54 12/07/24 17:28 12/07/24 19:13 Temperature 98.7 F 98.0 F Pulse Rate 123 H 127 H 120 H Respiratory Rate 20 21 H 24 H Blood Pressure 148/54 H 117/104 H 122/62 Pulse Oximetry 98 100 97 Oxygen Delivery Room Air Room Air 12/07/24 19:30 12/07/24 19:31 12/07/24 20:15 Temperature 101.0 F H Pulse Rate 122 H 124 H 128 H Respiratory Rate 26 H 20 24 H Blood Pressure 120/57 L 120/57 L 121/54 L Pulse Oximetry 94 95 97 Oxygen Delivery 12/07/24 20:30 12/07/24 20:46 12/07/24 21:00 Temperature Pulse Rate 126 H 130 H 130 H Respiratory Rate 26 H 26 H 24 H Blood Pressure 119/47 L 125/79 Pulse Oximetry 98 97 96 Oxygen Delivery 12/07/24 21:30 12/07/24 21:45 12/07/24 22:02 Temperature Pulse Rate 126 H 129 H 125 H Respiratory Rate 22 H 23 H 22 H Blood Pressure 132/59 L 130/63 156/66 H Pulse Oximetry 96 95 96 Oxygen Delivery 12/07/24 22:29 12/07/24 22:57 12/08/24 00:00 Temperature 100.5 F H 100.4 F H Pulse Rate 137 H Respiratory Rate 20 Blood Pressure 136/48 L Pulse Oximetry 97 Oxygen Delivery Room Air 12/08/24 00:00 12/08/24 00:00 12/08/24 02:00 Temperature 100.5 F H Pulse Rate 127 H 131 H 134 H Respiratory Rate 22 H Blood Pressure 131/61 Pulse Oximetry 96 Oxygen Delivery 12/08/24 04:00 12/08/24 04:00 12/08/24 04:00 Temperature 98.9 F Pulse Rate 119 H 119 H Respiratory Rate 20 Blood Pressure 147/66 H Pulse Oximetry 97 Oxygen Delivery Room Air 12/08/24 06:00 12/08/24 08:17 Temperature 98.7 F Pulse Rate 115 H 131 H Respiratory Rate 21 H Blood Pressure 130/67 Pulse Oximetry 93 Oxygen Delivery Exam 2 Const: General: no acute distress and ill appearing Nutritional Appearance: average body habitus Orientation/consciousness: patient oriented x3 L imitations: other limitations (slight tremors noted on exam, hx of parkinson's) HENMT: Head: normocephalic and atraumatic Ears: hearing grossly normal bilaterally Mouth: Yes moist mucous membranes Eyes: General: appearance normal, both eyes and all related structures P upils: Equal, round and reactive pupils present Neck: Neck: normal visual inspection and full ROM Resp: Effort & Inspection: no respiratory distress Auscultation: clear to auscultation bilaterally Cardio: Rate: regular rate Rhythm: regular rhythm Peripheral pulses: P eripheral pulses 2+ throughout GI: Inspection: non-distended and scar (large RUQ transverse scar, wide scar in mid upper abd, midline scar) GI Palp: Yes Soft to palpation, Yes Tenderness to palpation present (GI) (diffusely tender, no focal tenderness), No Guarding due to palpation present (GI), Yes Hernia present (possible incisional hernia with defect in the RUQ at wide transverse scar) and No Rebound tenderness present Auscultation: normal bowel sounds Skin: General skin exam: normal color Neuro: General: moves all extremities and no focal motor deficits Speech: n ormal speech Motor exam (neuro): 5/5 motor strength present throughout Extrem: General: normal to inspection and no edema Psych: Mental Status: mental status grossly normal Attitude: cooperative Insight: Good insight present (Psych) Judgement: Good judgement present (Psych) Results Labs 12/08/24 03:59 12/08/24 03:59 Labs: Abnormal lab results 12/07/24 12/07/24 12/07/24 Range/Units 18:16 18:21 20:46 WBC 18.6 H (4.5-10.0) K/mm3 RBC (4.2-5.4) M/mm3 Hgb (12.0-15.0) g/dL Hct (37.0-47.0) % RDW 17.4 H (11.5-14.5) % MPV 11.0 H (7.4-10.4) fl Neut % (Auto) 77.8 H (45.5-73.1) % Lymph % (Auto) 5.2 L (18.3-44.2) % Ramsey % (Auto) 16.5 H (2.6-8.5) % Baso % (Auto) 0.1 L (0.2-1.2) % Lymph # (Auto) (0.9-3.2) K/mm3 Ramsey # (Auto) 3.1 H (0.1-0.6) K/mm3 Abs Immat Gran (auto) 0.08 H (0.00-0.031) K/mm3 Absolute Neuts (auto) 14.4 H (1.3-6.7) K/mm3 PT 14.8 H (11.1-14.7) Seconds Sodium (137-145) mmol/L Chloride (98-107) mmol/L Carbon Dioxide 17 L (22-30) mmol/L Anion Gap 18 H (4-12) mmol/L Creatinine 1.57 H (0.7-1.0) mg/dL Estimated GFR 34 L (59 - ) Glucose 342 H (65-110) mg/dL POC Capillary Glucose (65-105) mg/dl Hemoglobin A1c (<5.7) % Lactic Acid 5.6 H* (0.7-2.0) mmol/L Calcium (8.4-10.2) mg/dL Magnesium (1.6-2.3) mg/dL Alkaline Phosphatase 160 H (38-126) U/L Troponin I 0.041 H* (0.000-0.034) ng/mL C-Reactive Protein 2.0 H (<1.0) mg/dL Total Protein (6.3-8.2) g/dL Albumin (3.5-5.1) g/dL Beta-Hydroxybutyrate/Acetoacetate (0.02-0.27) mmol/L Ur Specific Trego > 1.045 H (1.001-1.035) Urine Glucose (UA) 3+ H (Negative) mg/dL Urine Ketones 1+ H (Negative) mg/dL 12/07/24 12/07/24 12/08/24 Range/Units 20:54 23:55 00:22 WBC (4.5-10.0) K/mm3 RBC (4.2-5.4) M/mm3 Hgb (12.0-15.0) g/dL Hct (37.0-47.0) % RDW (11.5-14.5) % MPV (7.4-10.4) fl Neut % (Auto) (45.5-73.1) % Lymph % (Auto) (18.3-44.2) % Ramsey % (Auto) (2.6-8.5) % Baso % (Auto) (0.2-1.2) % Lymph # (Auto) (0.9-3.2) K/mm3 Ramsey # (Auto) (0.1-0.6) K/mm3 Abs Immat Gran (auto) (0.00-0.031) K/mm3 Absolute Neuts (auto) (1.3-6.7) K/mm3 PT (11.1-14.7) Seconds Sodium 136 L (137-145) mmol/L Chloride (98-107) mmol/L Carbon Dioxide 18 L (22-30) mmol/L Anion Gap (4-12) mmol/L Creatinine 1.19 H (0.7-1.0) mg/dL Estimated GFR 46 L (59 - ) Glucose 303 H (65-110) mg/dL POC Capillary Glucose 302 H (65-105) mg/dl Hemoglobin A1c 8.6 H (<5.7) % Lactic Acid 6.5 H* 3.4 H (0.7-2.0) mmol/L Calcium 7.9 L (8.4-10.2) mg/dL Magnesium 1.3 L (1.6-2.3) mg/dL Alkaline Phosphatase (38-126) U/L Troponin I 0.081 H* D (0.000-0.034) ng/mL C-Reactive Protein (<1.0) mg/dL Total Protein (6.3-8.2) g/dL Albumin (3.5-5.1) g/dL Beta-Hydroxybutyrate/Acetoacetate 1.19 H (0.02-0.27) mmol/L Ur Specific Trego (1.001-1.035) Urine Glucose (UA) (Negative) mg/dL Urine Ketones (Negative) mg/dL 12/08/24 12/08/24 Range/Units 03:59 06:10 WBC 17.8 H (4.5-10.0) K/mm3 RBC 3.47 L (4.2-5.4) M/mm3 Hgb 10.8 L (12.0-15.0) g/dL Hct 33.8 L (37.0-47.0) % RDW 18.0 H (11.5-14.5) % MPV 11.3 H (7.4-10.4) fl Neut % (Auto) (45.5-73.1) % Lymph % (Auto) (18.3-44.2) % Ramsey % (Auto) 20.0 H (2.6-8.5) % Baso % (Auto) 0.1 L (0.2-1.2) % Lymph # (Auto) 3.81 H (0.9-3.2) K/mm3 Ramsey # (Auto) 3.6 H (0.1-0.6) K/mm3 Abs Immat Gran (auto) 0.08 H (0.00-0.031) K/mm3 Absolute Neuts (auto) 10.3 H (1.3-6.7) K/mm3 PT (11.1-14.7) Seconds Sodium (137-145) mmol/L Chloride 110 H (98-107) mmol/L Carbon Dioxide 19 L (22-30) mmol/L Anion Gap (4-12) mmol/L Creatinine 1.09 H (0.7-1.0) mg/dL Estimated GFR 51 L (59 - ) Glucose 174 H (65-110) mg/dL POC Capillary Glucose 180 H (65-105) mg/dl Hemoglobin A1c (<5.7) % Lactic Acid (0.7-2.0) mmol/L Calcium 7.9 L (8.4-10.2) mg/dL Magnesium (1.6-2.3) mg/dL Alkaline Phosphatase (38-126) U/L Troponin I (0.000-0.034) ng/mL C-Reactive Protein (<1.0) mg/dL Total Protein 5.3 L (6.3-8.2) g/dL Albumin 2.9 L (3.5-5.1) g/dL Beta-Hydroxybutyrate/Acetoacetate (0.02-0.27) mmol/L Ur Specific Trego (1.001-1.035) Urine Glucose (UA) (Negative) mg/dL Urine Ketones (Negative) mg/dL Diabetes panel 12/07/24 12/07/24 12/08/24 Range/Units 18:16 23:55 03:59 Sodium 139 136 L 139 (137-145) mmol/L Potassium 4.1 4.0 3.8 (3.4-5.0) mmol/L Chloride 104 107 110 H (98-107) mmol/L Carbon Dioxide 17 L 18 L 19 L (22-30) mmol/L BUN 14 12 10 (7-17) mg/dL Creatinine 1.57 H 1.19 H 1.09 H (0.7-1.0) mg/dL Glucose 342 H 303 H 174 H (65-110) mg/dL Hemoglobin A1c 8.6 H (<5.7) % Calcium 9.1 7.9 L 7.9 L (8.4-10.2) mg/dL AST 29 27 (14-36) U/L ALT 34 20 (6-35) U/L Alkaline Phosphatase 160 H 106 (38-126) U/L Total Protein 6.6 5.3 L (6.3-8.2) g/dL Albumin 3.8 2.9 L (3.5-5.1) g/dL Calcium panel 12/07/24 12/07/24 12/08/24 Range/Units 18:16 23:55 03:59 Calcium 9.1 7.9 L 7.9 L (8.4-10.2) mg/dL Albumin 3.8 2.9 L (3.5-5.1) g/dL Pituitary panel 12/07/24 12/07/24 12/08/24 Range/Units 18:16 23:55 03:59 Sodium 139 136 L 139 (137-145) mmol/L Potassium 4.1 4.0 3.8 (3.4-5.0) mmol/L Chloride 104 107 110 H (98-107) mmol/L Carbon Dioxide 17 L 18 L 19 L (22-30) mmol/L BUN 14 12 10 (7-17) mg/dL Creatinine 1.57 H 1.19 H 1.09 H (0.7-1.0) mg/dL Glucose 342 H 303 H 174 H (65-110) mg/dL Calcium 9.1 7.9 L 7.9 L (8.4-10.2) mg/dL Adrenal panel 12/07/24 12/07/24 12/08/24 Range/Units 18:16 23:55 03:59 Sodium 139 136 L 139 (137-145) mmol/L Potassium 4.1 4.0 3.8 (3.4-5.0) mmol/L Chloride 104 107 110 H (98-107) mmol/L Carbon Dioxide 17 L 18 L 19 L (22-30) mmol/L BUN 14 12 10 (7-17) mg/dL Creatinine 1.57 H 1.19 H 1.09 H (0.7-1.0) mg/dL Glucose 342 H 303 H 174 H (65-110) mg/dL Calcium 9.1 7.9 L 7.9 L (8.4-10.2) mg/dL Total Bilirubin 0.6 0.5 (0.2-1.3) mg/dL AST 29 27 (14-36) U/L ALT 34 20 (6-35) U/L Alkaline Phosphatase 160 H 106 (38-126) U/L Total Protein 6.6 5.3 L (6.3-8.2) g/dL Albumin 3.8 2.9 L (3.5-5.1) g/dL All other labs normal. Imaging Additional studies: ITS Impressions Venous Doppler Study 12/07/24 18:11 IMPRESSION: 1. No deep venous thrombosis within the visualized portions of the left lower extremity (to the level of the femoral vein). No deep venous thrombosis within the right lower extremity. Chest/Abdomen/Pelvis CT 12/07/24 20:28 IMPRESSION: 1.6 cm right thyroid nodule, recommend nonemergent outpatient thyroid ultrasound for further characterization. Mild esophagitis/gastritis. Dilation of the appendiceal tip to 9 mm, without inflammatory changes. This may be normal for this patient or represent early appendicitis.
--- NOTE | 2024-12-08 12:45 | PCSTNOTE ---
Please refer to the Bedside Swallow Evaluation in the EMR. Please note, silent aspiration cannot be ruled out at bedside. This 59 year old female patient was admitted to [facility] on 12/07/24 due to nausea, vomiting, and abdominal pain. The pt has a past medical history of Parkinson's Disease. The pt originally denied dysphagia and concern for aspiration, but upon entry the pt stated that she is having trouble eating chips and other solid foods as well as taking pills. The pts Geena LANDEROS stated that she has not seen anything regarding oral intake that has caused concern and that the night club manager did not notice anything. A bedside swallow evaluation was ordered to rule out aspiration. An oral mechanism exam was completed with the pt demonstrating consistent facial tremors and oral mechanism weakness. The pt demonstrated adequate range of motion of her articulators and demonstrated a weak cough. The pt has upper and lower dentures but did not have them this date. Trials of thin liquid, puree (pudding), and mixed consistency (fruit cup) were trialed this date via cup edge, spoon, and straw. The pt demonstrated no s/s of aspiration on trials of thin liquid or puree consistencies, but exhibited difficulty following a trial of the mixed consistency (fruit cocktail). When consuming the fruit cocktail she demonstrated rotary chewing as well as a delayed swallow trigger and reduced laryngeal elevation. Trials of solids (ehsan cracker) were not trialed this date due to the lack of dentition and the pt verbalizing she did not want to try it without her dentures. Given the results of this assessment, it is recommended this pt receive an oral diet of puree solids (IDDSI Level 4) and thin liquids (IDDSI Level 1) when cleared by Dr. Piña. At this time, Dr. Piña would like the pt to be NPO for medical reasons. When pt is cleared for oral intake, it is additionally recommended that the pt complete an MBSS. Dr. Piña and LETI Seay were notified of BSE results and recommendations. Thank you for this referral.
--- NOTE | 2024-12-08 12:46 | PCSTNOTE ---
Please note that a BSE was completed on 12/08 with the recommendation for a Level 1 thin liquid/Level 4 Puree consistency diet. After speaking with Dr. Piña, the pt is to be NPO due to medical reasons. Once Dr. Piña clears the pt for oral intake, a MBSS is recommended. Thank you.
--- NOTE | 2024-12-08 13:20 | PM.IMPN ---
Progress Note: A&P Assessment and Plan (1) Sepsis: Code(s): A41.9 - Sepsis, unspecified organism Status: Acute (2) Pneumonia: Code(s): J18.9 - Pneumonia, unspecified organism Status: Acute (3) Acute kidney failure: Code(s): N17.9 - Acute kidney failure, unspecified Status: Acute (4) Type 2 diabetes mellitus with hyperglycemia: Code(s): E11.65 - Type 2 diabetes mellitus with hyperglycemia Status: Acute (5) Abnormal CT of the abdomen: Code(s): R93.5 - Abnormal findings on diagnostic imaging of other abdominal regions, including retroperitoneum Status: Acute (6) Elevated troponin: Code(s): R79.89 - Other specified abnormal findings of blood chemistry Status: Acute (7) Right thyroid nodule: Code(s): E04.1 - Nontoxic single thyroid nodule Status: Acute (8) Esophagitis with gastritis: Code(s): K29.70 - Gastritis, unspecified, without bleeding; K20.90 - Esophagitis, unspecified without bleeding Status: Acute (9) Hypothyroidism: Code(s): E03.9 - Hypothyroidism, unspecified Status: Acute (10) Asthma: Qualifiers: Asthma complication type: with acute exacerbation Asthma persistence: intermittent Asthma severity: mild Qualified Code(s): J45.21 - Mild intermittent asthma with (acute) exacerbation Code(s): J45.909 - Unspecified asthma, uncomplicated Status: Acute (11) Psychiatric illness: Code(s): F99 - Mental disorder, not otherwise specified Status: Acute (12) Parkinsons: Code(s): G20.A1 - Parkinson's disease without dyskinesia, without mention of fluctuations Status: Acute Plan This is a pleasant 59-year-old female with history of chronic pancreatitis, chronic constipation with history of small-bowel obstruction and bowel resection, distal pancreatectomy and splenectomy, gastroesophageal reflux disease, cholecystectomy, deep venous thrombosis, pulmonary embolism, asthma, hyperlipidemia, hypothyroidism, type 2 diabetes mellitus, Parkinson's, hypotension, depression, and anxiety who presented to the emergency department via private vehicle with complaints of nausea, vomiting, abdominal pain, lower extremity pain. Several weeks ago she was treated for an asthma exacerbation for which she completed a course of prednisone and levofloxacin. Her breathing has improved however over the last couple of days she has once again started to feel unwell with different symptoms. She complains of generalized malaise, fatigue, poor appetite, chills, nausea, dry heaves, and cramping in the periumbilical region. She has a dry cough and runny nose. Glucose has been running high. This evening she developed myalgias, mainly in her legs, and came in for evaluation. She denies sick contacts, headache, neck ache, sore throat, diarrhea, dysuria, and open wounds. No sick contacts. She denies dysphagia and concerns for aspiration. In the ED: Vital signs on arrival include a temperature of 98.7?, blood pressure 148/54, pulse 123, respiratory 20, SpO2 98% on room air. Labs are significant for WBC count of 18.6, carbon dioxide 17, anion gap 18, BUN 14, creatinine 1.57, glucose 342, lactic acid 5.6, troponin 0.041, CRP 2.0. Urinalysis was positive for 3+ glucose and trace ketones with a specific gravity of greater than 1.045. CT of the chest, abdomen, and pelvis showed a 1.6 cm right thyroid nodule, mild esophagitis/gastritis, and dilatation of the appendiceal tip to 9 mm without inflammatory changes. She received 30 mL/kg IV fluid bolus without improvement in lactic acid level. She also received cefepime 2 g and vancomycin 1750 mg for broad-spectrum IV coverage and she is being admitted in this setting for further treatment and evaluation. SepsisSource unknown. However does show ground-glass opacities and right upper lobe. CT dilated appendiceal tip to 9 mm without inflammatory changes. UA is negative. On vancomycin Levaquin. Will add Flagyl for anaerobic coverage. Pneumonia with CT findings of ground-glass opacities in right upper lobe. Continue on vancomycin levofloxacin. . Multiple drug allergies. Nasal MRSA did come back negative. Modified barium swallow ordered for aspiration . Influenza RSV COVID swab negative Lactic acidosisInitial lactate of 5.6. subsequent 6.5 now down trending to 3.4. Dilated appendiceal tip general surgery consulted Dysphagia possible with underlying Parkinson's disease. Modified barium swallow planned however will hold today due to NPO status Metabolic acidosis mild elevated beta hydroxybutyrate with anion gap. Improved with IV fluids continue to monitor Type 2 diabetes on insulin KADEN with creatinine of 1.57 Improving baseline 0.7 Elevated troponin likely due to sepsis and infection . Echo ordered Right thyroid nodule follow-up as an outpatient basis Mild gastritis and esophagitis on PPI History chronic pancreatitis Chronic constipation History of small-bowel obstruction and bowel resection distal pancreatectomy and splenectomy GERD History of DVT PE on anticoagulation with Eliquis was switched to Lovenox Asthma Hypothyroidism Hyperlipidemia Parkinson's disease Anxiety depression Tardive dyskinesia DVT prophylaxis Code status full code Subjective Date/time seen: 12/08/24 13:20 Interval history: chart reviewed. Feels a little better. Abdomen is sore but improved. Has some cough denies any shortness of breath. No chest pain. Review of Systems Review of Systems: All systems reviewed & are unremarkable except as noted in HPI and below Exam Narrative: General: Mildly ill-appearing female in the semi-L[place] position in bed. Not in acute distress HEENT: PERRL, EOMI. Sclera anicteric. Tacky mucous membranes. She is edentulous. Neck: Supple. No nuchal rigidity or lymphadenopathy. Respiratory: Respirations are nonlabored and she is speaking in full sentences. Occasional cough. Lung sounds are coarse on the right with occasional rales in the right upper lobe. Cardiovascular: mildly tachycardic, regular rhythm with S1-S2. Gastrointestinal: Abdomen is soft and nondistended with positive bowel sounds. Mildly tender to palpation in the periumbilical region. No guarding or rebound tenderness. Skin: Warm and dry. Extremities: No cyanosis, clubbing, or edema. Radial and pedal pulses intact. Neurological: Alert. Cranial nerves grossly intact. Occasional lip smacking and chewing motions consistent with tardive dyskinesia. Speech is slow. Masked facies. No facial asymmetry. Generalized weakness without gross focal findings. Psychiatric: Pleasant and cooperative with appropriate mood and affect. Objective Data Vital Signs Vital Signs: Vital Signs - 24 hr 12/07/24 14:54 12/07/24 17:28 12/07/24 19:13 Temperature 98.7 F 98.0 F Pulse Rate 123 H 127 H 120 H Respiratory Rate 20 21 H 24 H Blood Pressure 148/54 H 117/104 H 122/62 Pulse Oximetry 98 100 97 Oxygen Delivery Room Air Room Air 12/07/24 19:30 12/07/24 19:31 12/07/24 20:15 Temperature 101.0 F H Pulse Rate 122 H 124 H 128 H Respiratory Rate 26 H 20 24 H Blood Pressure 120/57 L 120/57 L 121/54 L Pulse Oximetry 94 95 97 Oxygen Delivery 12/07/24 20:30 12/07/24 20:46 12/07/24 21:00 Temperature Pulse Rate 126 H 130 H 130 H Respiratory Rate 26 H 26 H 24 H Blood Pressure 119/47 L 125/79 Pulse Oximetry 98 97 96 Oxygen Delivery 12/07/24 21:30 12/07/24 21:45 12/07/24 22:02 Temperature Pulse Rate 126 H 129 H 125 H Respiratory Rate 22 H 23 H 22 H Blood Pressure 132/59 L 130/63 156/66 H Pulse Oximetry 96 95 96 Oxygen Delivery 12/07/24 22:29 12/07/24 22:57 12/08/24 00:00 Temperature 100.5 F H 100.4 F H Pulse Rate 137 H Respiratory Rate 20 Blood Pressure 136/48 L Pulse Oximetry 97 Oxygen Delivery Room Air 12/08/24 00:00 12/08/24 00:00 12/08/24 02:00 Temperature 100.5 F H Pulse Rate 127 H 131 H 134 H Respiratory Rate 22 H Blood Pressure 131/61 Pulse Oximetry 96 Oxygen Delivery 12/08/24 04:00 12/08/24 04:00 12/08/24 04:00 Temperature 98.9 F Pulse Rate 119 H 119 H Respiratory Rate 20 Blood Pressure 147/66 H Pulse Oximetry 97 Oxygen Delivery Room Air 12/08/24 06:00 12/08/24 08:17 12/08/24 12:00 Temperature 98.7 F 99.8 F H Pulse Rate 115 H 131 H 120 H Respiratory Rate 21 H 16 Blood Pressure 130/67 139/57 L Pulse Oximetry 93 93 Oxygen Delivery Intake/Output Intake/Output: Intake & Output 12/05/24 12/06/24 12/07/24 12/08/24 23:59 23:59 23:59 23:59 Intake Total 3850 1147.9 Output Total 200 400 Balance 3650 747.9 Meds/Results Medications: Active Medications Generic Name Dose Route Start Last Admin Trade Name Freq PRN Reason Stop Dose Admin Acetaminophen 650 mg 12/07/24 21:22 12/08/24 04:05 Acetaminophen 325 Mg Tablet PO 650 mg Q4H PRN Administration Mild Pain (1-3) or Fever Albuterol 2 puff 12/08/24 05:37 Albuterol Sulfate (*Sp) Aerosol 1 Puff INHALATION Q4HRT PRN shortness of breath or wheezing Apixaban 5 mg 12/08/24 09:00 12/08/24 09:53 Apixaban 5 Mg Tablet PO Not Given Q12HR [facility] Atorvastatin Calcium 40 mg 12/08/24 09:00 Atorvastatin 40 Mg Tablet PO DAILY [facility] Bupropion HCl 150 mg 12/08/24 09:00 Bupropion Hcl Xl (24 Hr) 150 Mg Tabcr PO DAILY [facility] Buspirone HCl 7.5 mg 12/08/24 09:00 12/08/24 10:30 Buspirone Hcl 2.5 Mg Tablet PO Not Given TID [facility] Carbidopa/Levodopa 2 tablet 12/08/24 09:00 12/08/24 10:30 Carbidopa/Levodopa 25/100 Mg Tablet PO Not Given QID [facility] Clonazepam 1 mg 12/08/24 21:00 Clonazepam (*Crx) 0.5 Mg Tablet PO QHS [facility] Dextrose 12.5 gm 12/08/24 05:34 Dextrose 50% 25 Gm/50 Ml Syringe IV PUSH PRN PRN Hypoglycemia Protocol Fludrocortisone Acetate 0.1 mg 12/08/24 09:00 Fludrocortisone Acetate 0.1 Mg Tablet PO DAILY [facility] Fluticasone Propionate 2 spray 12/08/24 09:00 12/08/24 10:31 Fluticasone Propionate 0.05% Na Spr 16 Gm Btl (*Bkc) NASAL 2 spray Q12HR [facility] Administration Gabapentin 900 mg 12/08/24 09:00 12/08/24 10:31 Gabapentin 300 Mg Capsule PO Not Given TID [facility] Glucagon 1 mg 12/08/24 05:34 Glucagon For Inj 1 Mg Vial IM PRN PRN Hypoglycemia Protocol Glucose 15 gm 12/08/24 05:34 Glucose Oral Gel 15 Gm Of Glucse In 37.5 Gm Tube PO PRN PRN Hypoglycemia Protocol Guaifenesin 600 mg 12/08/24 09:00 Guaifenesin 12 Hr 600 Mg Tabcr PO Q12HR [facility] Lactated Ringer's 1,000 mls @ 75 mls/hr 12/07/24 21:25 12/08/24 06:26 Lr - Lactated Ringers Iv IV CONT 75 mls/hr .[id number] [facility] Administration Levofloxacin/Dextrose 750 mg in 150 mls @ 100 mls/hr 12/08/24 06:00 12/08/24 07:47 Levaquin 750 Mg/D5w 150 Ml IVPB Infused Q48H [facility] Infusion Dextrose 1,000 mls @ 100 mls/hr 12/08/24 05:34 Dextrose 5% 1,000 Ml IVPB PRN PRN Hypoglycemia Protocol Vancomycin HCl 1,500 mg in 500 mls @ 250 mls/hr 12/08/24 20:00 Vancomycin 1,500 Mg/Ns 500 Ml IVPB Q24H [facility] Metronidazole 500 mg in 100 mls @ 100 mls/hr 12/08/24 13:00 Flagyl 500 Mg/Iso Soln 100 Ml IVPB Q8HR [facility] Insulin Aspart 3 - 6 units 12/08/24 00:00 12/08/24 12:24 Insulin Aspart (*Bkc) 100 Units/Ml SUB-Q Not Given Q6HR [facility] Protocol Insulin Glargine 30 units 12/08/24 21:00 Insulin Glargine (*Bkc) 100 Units/Ml SUB-Q HS [facility] Levothyroxine Sodium 112 mcg 12/08/24 06:30 12/08/24 06:04 Levothyroxine Sodium 112 Mcg Tablet PO 112 mcg DAILY@0630 [facility] Administration Linaclotide 72 mcg 12/08/24 06:30 12/08/24 06:25 Linaclotide 72 Mcg Capsule PO 72 mcg DAILY@0630 [facility] Administration Midodrine 10 mg 12/08/24 09:00 Midodrine Hcl 2.5 Mg Tablet PO DAILY [facility] Miscellaneous Information 1 each 12/08/24 00:01 Ramelteon 8 Mg Tablet Is Nonformulary, Can Patient Bring From Home? XX 01/07/25 00:00 CLARIFY [facility] Miscellaneous Information 1 each 12/08/24 00:01 Pimavanserin [Nuplazid] 34 Mg Capsule Is Nonformulary, Please Send To Pharmacy For Verific XX 01/07/25 00:00 CLARIFY [facility] Non-Formulary Medication 8 mg 12/08/24 21:00 Ramelteon PO 01/07/25 20:59 QHS [facility] Non-Formulary Medication 34 mg 12/08/24 09:00 Pimavanserin [Nuplazid] PO 01/07/25 08:59 DAILY [facility] Ondansetron HCl 4 mg 12/08/24 09:15 Ondansetron Inj 4 Mg/2 Ml Vial IV PUSH Q6H PRN Nausea And Vomiting Oxycodone HCl 5 mg 12/08/24 05:37 12/08/24 06:04 Oxycodone Hcl (*Crx) 5 Mg Tab Ir PO 5 mg Q6H PRN Administration pain 4-10 Pantoprazole Sodium 40 mg 12/08/24 09:00 Pantoprazole 40 Mg Tablet PO QAM [facility] Perflutren Lipid Microsphere 0 ml 12/08/24 05:34 Perflutren Lipid Microspheres 1.5 Ml Vial Diluted To 10 Ml Total Volume IV PUSH 12/11/24 05:34 ONCE PRN adequate visualization Protocol Fluticasone/Salmeterol 2 puff 12/08/24 08:00 Fluticasone/Salmeterol 115-21 Mcg Inhaler 1 Puff INHALATION Q12HRT [facility] Tizanidine HCl 4 mg 12/08/24 09:00 12/08/24 10:31 Tizanidine Hcl 4 Mg Tablet PO Not Given TID [facility] Umeclidinium Edison 1 puff 12/08/24 08:00 Umeclidinium Edison 62.5 Mcg Ellipta INHALATION DAILYRT [facility] Radiology Results: ITS Impressions Venous Doppler Study 12/07/24 18:11 IMPRESSION: 1. No deep venous thrombosis within the visualized portions of the left lower extremity (to the level of the femoral vein). No deep venous thrombosis within the right lower extremity. Chest/Abdomen/Pelvis CT 12/07/24 20:28 IMPRESSION: 1.6 cm right thyroid nodule, recommend nonemergent outpatient thyroid ultrasound for further characterization. Mild esophagitis/gastritis. Dilation of the appendiceal tip to 9 mm, without inflammatory changes. This may be normal for this patient or represent early appendicitis. Labs Labs: Laboratory Results - last 24 hr 12/07/24 12/07/24 12/07/24 18:16 18:21 20:46 WBC 18.6 H RBC 4.20 Hgb 13.0 Hct 39.9 MCV 95.0 MCH 31.0 MCHC 32.6 RDW 17.4 H Plt Count 341 MPV 11.0 H Immature Gran % (Auto) 0.4 Neut % (Auto) 77.8 H Lymph % (Auto) 5.2 L [place] % (Auto) 16.5 H Eos % (Auto) 0.0 Baso % (Auto) 0.1 L Lymph # (Auto) 0.96 [place] # (Auto) 3.1 H Eos # (Auto) 0.0 Baso # (Auto) 0.0 Abs Immat Gran (auto) 0.08 H Absolute Neuts (auto) 14.4 H Absolute Nucleated RBC 0.000 Band Neutrophils % Nucleated RBC % 0.0 Platelet Estimate Poikilocytosis Anisocytosis Target Cells [place] Cells Schistocytes PT 14.8 H INR 1.1 APTT 27.4 Sodium 139 Potassium 4.1 Chloride 104 Carbon Dioxide 17 L Anion Gap 18 H BUN 14 Creatinine 1.57 H Estim Creat Clear Calc 32 Estimated GFR 34 L Glucose 342 H POC Capillary Glucose Hemoglobin A1c Lactic Acid 5.6 H* Calcium 9.1 Magnesium Total Bilirubin 0.6 AST 29 ALT 34 Alkaline Phosphatase 160 H Total Creatine Kinase Troponin I 0.041 H* C-Reactive Protein 2.0 H Total Protein 6.6 Albumin 3.8 Beta-Hydroxybutyrate/Acetoacetate Procalcitonin TSH (Reflex) Urine Color Yellow Urine Appearance Clear Urine pH 6.0 Ur Specific [place] > 1.045 H Urine Protein Negative Urine Glucose (UA) 3+ H Urine Ketones 1+ H Ur Blood (Man) Negative Urine Nitrate Negative Urine Bilirubin Negative Urine Urobilinogen 0.2 Leukocyte Esterase Rfl Negative Nasal MRSA (PCR) Influenza A (RT-PCR) Influenza B (RT-PCR) SARS-CoV-2 RNA (RT-PCR) 12/07/24 12/07/24 12/08/24 20:54 23:55 00:22 WBC RBC Hgb Hct MCV MCH MCHC RDW Plt Count MPV Immature Gran % (Auto) Neut % (Auto) Lymph % (Auto) [place] % (Auto) Eos % (Auto) Baso % (Auto) Lymph # (Auto) [place] # (Auto) Eos # (Auto) Baso # (Auto) Abs Immat Gran (auto) Absolute Neuts (auto) Absolute Nucleated RBC Band Neutrophils % Nucleated RBC % Platelet Estimate Poikilocytosis Anisocytosis Target Cells [place] Cells Schistocytes PT INR APTT Sodium 136 L Potassium 4.0 Chloride 107 Carbon Dioxide 18 L Anion Gap 11 BUN 12 Creatinine 1.19 H Estim Creat Clear Calc 44 Estimated GFR 46 L Glucose 303 H POC Capillary Glucose 302 H Hemoglobin A1c 8.6 H Lactic Acid 6.5 H* 3.4 H Calcium 7.9 L Magnesium 1.3 L Total Bilirubin AST ALT Alkaline Phosphatase Total Creatine Kinase 69 Troponin I 0.081 H* D C-Reactive Protein Total Protein Albumin Beta-Hydroxybutyrate/Acetoacetate 1.19 H Procalcitonin 7.1 TSH (Reflex) 1.810 Urine Color Urine Appearance Urine pH Ur Specific [place] Urine Protein Urine Glucose (UA) Urine Ketones Ur Blood (Man) Urine Nitrate Urine Bilirubin Urine Urobilinogen Leukocyte Esterase Rfl Nasal MRSA (PCR) Influenza A (RT-PCR) Influenza B (RT-PCR) SARS-CoV-2 RNA (RT-PCR) 12/08/24 12/08/24 12/08/24 03:59 06:10 06:29 WBC 17.8 H RBC 3.47 L Hgb 10.8 L Hct 33.8 L MCV 97.4 MCH 31.1 MCHC 32.0 RDW 18.0 H Plt Count 267 MPV 11.3 H Immature Gran % (Auto) 0.4 Neut % (Auto) 58.1 Lymph % (Auto) 21.4 [place] % (Auto) 20.0 H Eos % (Auto) 0.0 Baso % (Auto) 0.1 L Lymph # (Auto) 3.81 H [place] # (Auto) 3.6 H Eos # (Auto) 0.0 Baso # (Auto) 0.0 Abs Immat Gran (auto) 0.08 H Absolute Neuts (auto) 10.3 H Absolute Nucleated RBC 0.000 Band Neutrophils % Not Reportable Nucleated RBC % 0.0 Platelet Estimate Adequate Poikilocytosis 1+ Anisocytosis 1+ Target Cells 1+ [place] Cells 1+ Schistocytes Rare PT INR APTT Sodium 139 Potassium 3.8 Chloride 110 H Carbon Dioxide 19 L Anion Gap 10 BUN 10 Creatinine 1.09 H Estim Creat Clear Calc 47 Estimated GFR 51 L Glucose 174 H POC Capillary Glucose 180 H Hemoglobin A1c Lactic Acid Calcium 7.9 L Magnesium Total Bilirubin 0.5 AST 27 ALT 20 Alkaline Phosphatase 106 Total Creatine Kinase Troponin I C-Reactive Protein Total Protein 5.3 L Albumin 2.9 L Beta-Hydroxybutyrate/Acetoacetate Procalcitonin TSH (Reflex) Urine Color Urine Appearance Urine pH Ur Specific [place] Urine Protein Urine Glucose (UA) Urine Ketones Ur Blood (Man) Urine Nitrate Urine Bilirubin Urine Urobilinogen Leukocyte Esterase Rfl Nasal MRSA (PCR) Not detected Influenza A (RT-PCR) Negative Influenza B (RT-PCR) Negative SARS-CoV-2 RNA (RT-PCR) Negative
[2024-12-08] MEDS: metroNIDAZOLE 500 MG/ISO 100ML 500 MG/100 ML BAG 100 MG IVPB ×2 (13:23→22:10)
[2024-12-08] MEDS: ENOXAPARIN 80 MG/0.8 ML SYRINGE 78 MG SUB-Q ×2 (13:43→22:09)
--- NOTE | 2024-12-08 14:07 | PHAR ---
home meds verified PIMAVANSERIN 34MG CAPSULE ONE DAILY RAMELTEON 8MG TABLET 1 HS PRN INSOMNIA
[2024-12-08] MEDS: PANTOPRAZOLE 40 MG TABLET PO (15:53)
[2024-12-08] MEDS: PIMAVANSERIN 34 MG 34 EACH PO (15:54)
[2024-12-08] MEDS: CARBIDOPA/LEVODOPA 25/100 MG TABLET 2 TABLET PO ×2 (15:55→20:26)
[2024-12-08] MEDS: busPIRone HCL 2.5 MG TABLET 7.5 MG PO (17:36)
[2024-12-08] MEDS: TIZANIDINE HCL 4 MG TABLET PO (17:36)
[2024-12-08] MEDS: GABAPENTIN 300 MG CAPSULE 900 MG PO (17:36)
[2024-12-08] MEDS: VANCOMYCIN 1,500 MG/NS 500 ML 1,500 MG/500 ML BAG 250 MG IVPB (20:26)
[2024-12-08] MEDS: clonazePAM (*CRX) 0.5 MG TABLET 1 MG PO (20:26)
[2024-12-08] MEDS: FLUTICASONE/SALMETEROL 115-21 MCG INHALER 1 PUFF 2 PUFF INHALATION (21:34)
[2024-12-08] MEDS: RAMELTEON 8 MG 8 EACH PO (22:14)
[2024-12-08] MEDS: INSULIN GLARGINE (*BKC) 100 UNITS/ML 30 UNITS SUB-Q (22:22)
[2024-12-09] VITALS (22 sets, daily range): BP systolic 91–125; BP diastolic 44–60; PULSE 62–111; RESP 15–20; TEMP 36.8–37.7; O2SAT 91–99; BMI 31.4
[2024-12-09 04:35] LABS: Hematocrit 33.8 % (37.0-47.0); Hemoglobin 10.9 g/dL (12.0-15.0); Immature Granulocyte Percent A 0.4 % (0-0.5); Lymphocytes Absolute Auto 3.70 K/mm3 (0.9-3.2); Mean Corpuscular HGB Conc 32.2 g/dl (32-36); Mean Corpuscular Hemoglobin 31.1 pg (26-34); Mean Corpuscular Volume 96.6 fl (80-100); Nucleated Red Blood Cells Absolute Auto 0.000 K/mm3 (0.0-0.012); Nucleated Red Blood Cells Perc 0.0 % (0.0-0.2); Platelet Count Result 269 k/mm3 (150-375); Red Blood Count 3.50 M/mm3 (4.2-5.4); White Blood Count 11.0 K/mm3 (4.5-10.0)
[2024-12-09] MEDS: oxyCODONE HCL (*CRX) 5 MG TAB IR PO ×3 (04:36→17:12)
[2024-12-09] MEDS: ONDANSETRON INJ 4 MG/2 ML VIAL IV PUSH ×2 (04:38→10:40)
[2024-12-09 04:50] LABS: Alanine Aminotransferase 11 U/L (6-35); Albumin Level 2.9 g/dL (3.5-5.1); Alkaline Phosphatase 94 U/L (38-126); Anion Gap 8 mmol/L (4-12); Aspartate Amino Transferase 25 U/L (14-36); Bilirubin,Total 0.5 mg/dL (0.2-1.3); Blood Urea Nitrogen 5 mg/dL (7-17); Calcium 7.9 mg/dL (8.4-10.2); Carbon Dioxide 24 mmol/L (22-30); Chloride 109 mmol/L (98-107); Estimated CRCL calculation 63 ml/min; Estimated Glomerular Filt Rate > 60; Glucose 111 mg/dL (65-110); Magnesium 1.6 mg/dL (1.6-2.3); Potassium 3.3 mmol/L (3.4-5.0); Sodium 141 mmol/L (137-145); Total Protein 5.4 g/dL (6.3-8.2)
--- NOTE | 2024-12-09 05:34 | ECHO_ITS ---
Patient Info Name: Margarita Amor Age: 59 years : 1965 Gender: Female Ht: 62 in Wt: 171 lbs BSA: 1.87 m2 HR: 88 bpm BP: 113 / 60 mmHg Technical Quality: Good Exam Date: 12/09/2024 9:02 AM Patient Status: I Admit Date: 12/07/2024 Exam Type: CA echo doppler color flow Complete two-dimensional, color flow and Doppler transthoracic echocardiogram is performed. Staff Referring Physician: Mayuri Monique [facility] Chute Operator: Gisele Mcnair Attending Provider: Wyatt Piña Summary 1. Complete two-dimensional, color flow and Doppler transthoracic echocardiogram is performed. 2. Left ventricular systolic function is normal, estimated at 60-65. 3. There is mildly increased left ventricular wall thickness. 4. The left ventricular diastolic function is grade I diastolic dysfunction. 5. Right ventricular chamber dimension is normal. 6. Right ventricular systolic function is normal. 7. There is trace tricuspid valve regurgitation. 8. There is trace mitral valve regurgitation. 9. Mild pulmonary hypertension, estimated pulmonary arterial systolic pressure is 43 mmHg. Left Ventricle Left ventricular chamber dimension is normal. Left ventricular systolic function is normal, estimated at 60-65. There is mildly increased left ventricular wall thickness. Left ventricular septal wall motion is abnormal. The left ventricular diastolic function is grade I diastolic dysfunction. Right Ventricle Right ventricular chamber dimension is normal. Right ventricular systolic function is normal. Left Atria Left atrial chamber dimension is normal. Right Atria Right atrial chamber dimension is normal. Aortic Valve The aortic valve is trileaflet. There is no aortic valve sclerosis. There is no aortic valve stenosis. There is no aortic valve regurgitation. Pulmonic Valve The pulmonic valve is normal. There is no pulmonic valve stenosis. There is no pulmonic regurgitation. Mitral Valve The mitral valve has normal leaflets. There is no mitral valve stenosis. There is trace mitral valve regurgitation. Tricuspid Valve The tricuspid valve leaflets are normal. There is no significant tricuspid valve stenosis. There is trace tricuspid valve regurgitation. Mild pulmonary hypertension, estimated pulmonary arterial systolic pressure is 43 mmHg. Pericardium/Pleural The pericardium appears normal. There is no pericardial effusion. Inferior Vena Cava Normal inferior vena cava with >50% collapse upon inspiration consistent with normal right atrial pressure, 5 mmHg. Aorta The aortic root size at the sinus of Valsalva is normal. The prox ascending aorta size is normal. Left Ventricular Outflow Tract Name Value Normal LVOT 2D LVOT Diameter 1.9 cm LVOT Doppler LVOT Peak Velocity 177 cm/s LVOT Peak Gradient 12 mmHg LVOT Mean Gradient 6 mmHg LVOT VTI 29 cm LVOT VTI/AV VTI Ratio 0.8 LVOT Stroke Volume 78 ml LVOT CO 8.3 l/min LVOT CI 4.4 l/min/m2 Pulmonic Valve Name Value Normal PV Doppler PV Peak Velocity 160 cm/s PV Peak Gradient 10 mmHg Mitral Valve Name Value Normal MV Diastolic Function MV E Peak Velocity 109 cm/s MV A Peak Velocity 131 cm/s MV E/A 0.8 MV Decel Time (PW) 129 ms MV Annular TDI MV E/e' (Septal) 10.3 MV E/e' (Lateral) 7.6 MV E/e' (Average) 9.0 Tricuspid Valve Name Value Normal TV Regurgitation Doppler TR Peak Velocity 307 cm/s TR Peak Gradient 35 mmHg Estimated PAP/RSVP RA Pressure 5 mmHg <=5 PA Systolic Pressure 43 mmHg <36 RV Systolic Pressure 43 mmHg <36 TV Annular TDI TV Lateral Samantha s' Velocity 15.0 cm/s >=9.5 Aortic Valve Name Value Normal AV Doppler AV Peak Velocity 202 cm/s AV Peak Gradient 16 mmHg AV Mean Gradient 10 mmHg AV VTI 37 cm AV Area (Cont Eq VTI) 2.1 cm2 >=3.0 AV Area (Cont Eq Russell) 2.4 cm2 AV DI (Russell) 0.87 AV Regurgitation 2D LVOT Area 2.7 cm2 Ventricles Name Value Normal LV Dimensions 2D/MM IVS Diastolic Thickness (2D) 1.1 cm 0.6-1.0 LVID Diastole (2D) 4.2 cm 3.8-5.2 LVIW Diastolic Thickness (2D) 1.1 cm 0.6-0.9 LVID Systole (2D) 3.0 cm 2.2-3.5 LVOT Diameter 1.9 cm LV Mass (2D Cubed) 159.88 g 67.00-162.00 LV Mass Index (2D Cubed) 85 g/m2 43-95 Relative Wall Thickness (2D) 0.51 <=0.42 LV Fractional Shortening/Ejection Fraction 2D/MM LV Fractional Shortening (2D) 29 % 27-45 LV EF (2D Teichholz) 56 % LV Diastolic Volume (4C MOD) 61 ml LV EF (4C MOD) 65 % LV Diastolic Volume (2C MOD) 61 ml LV EF (2C MOD) 66 % LV Diastolic Volume (BP MOD) 63 ml 46-106 LV Diastolic Volume Index (BP MOD) 34 ml/m2 29-61 LV Systolic Volume (BP MOD) 21 ml 14-42 LV Systolic Volume Index (BP MOD) 11 ml/m2 8-24 LV EF (BP MOD) 66 % 54-74 LV Diastolic Length (4C) 8.3 cm LV Systolic Length (4C) 6.5 cm LV Stroke Volume (4C MOD) 39 ml Atria Name Value Normal LA Dimensions LA Volume (4C A-L) 34 ml LA Volume (BP A-L) 42 ml RA Dimensions RA Systolic Major Garfield Length (4C) 4.3 cm 2.2-2.8 RA Area (4C) 14.4 cm2 <=18.0 Report Signatures
[2024-12-09] MEDS: LEVOTHYROXINE SODIUM 112 MCG TABLET PO (05:48)
[2024-12-09] MEDS: metroNIDAZOLE 500 MG/ISO 100ML 500 MG/100 ML BAG 100 MG IVPB ×3 (05:48→21:15)
[2024-12-09] MEDS: LINACLOTIDE 72 MCG CAPSULE PO (05:48)
--- NOTE | 2024-12-09 09:35 | PM.PNGS ---
Progress Note: A&P Assessment and Plan (1) Sepsis: Code(s): A41.9 - Sepsis, unspecified organism Status: Acute Assessment and Plan: Source not entirely clear, could be pneumonia vs gastroenteritis. Improving. WBC trending down to 11k. Tachycardia improving. Continue IV antibiotics and IV fluids. (2) Abnormal CT of the abdomen: Code(s): R93.5 - Abnormal findings on diagnostic imaging of other abdominal regions, including retroperitoneum Status: Acute Assessment and Plan: Appendix tip measured 9 mm without any inflammatory changes. Presentation and exam not consistent with appendicitis. Unlikely to be causing her sepsis. She is clinically improving with current treatment. Abdominal exam completely benign. No abdominal pain Continue antibiotics per Hospitalist. No indication for surgical intervention at this time. Okay to advance diet as tolerated once her swallow has been evaluated and she is deemed safe for oral intake. (3) Anticoagulated by anticoagulation treatment: Code(s): Z79.01 - detention (current) use of anticoagulants Status: Acute Assessment and Plan: Continue to hold Eliquis for now in case she requires a surgery. Currently on therapeutic dosed Lovenox (4) KADEN (acute kidney injury): Code(s): N17.9 - Acute kidney failure, unspecified Status: Acute Assessment and Plan: Resolved. Plan I have discussed the patient's case and plan of care with Dr. Hassan. Subjective Subjective Date/Time Seen: 12/09/24 09:35 Patient reports: no new complaints, feels better, pain is less, flatus, no bowel movement, nausea and fever (fever improving, temp 99.9F max last night) Interval history: Patient feeling much better this morning. Tachycardia improved. Denies any abdominal pain. Nausea improved. No vomiting since admission. No diarrhea. Passing some flatus. WBC down to 11.0. Exam Const: General: comfortable and no acute distress GI: Inspection: non-distended GI Palp: Yes Soft to palpation, No Tenderness to palpation present (GI), No Guarding due to palpation present (GI) and No Rebound tenderness present Auscultation: normal bowel sounds Objective Data Vital Signs Vital Signs: Vital Signs - 24 hr 12/08/24 10:00 12/08/24 12:00 12/08/24 12:00 Temperature 99.8 F H Pulse Rate 118 H 120 H 124 H Respiratory Rate 16 Blood Pressure 139/57 L Pulse Oximetry 93 Oxygen Delivery 12/08/24 14:00 12/08/24 16:00 12/08/24 16:00 Temperature 99.2 F Pulse Rate 122 H 106 H 106 H Respiratory Rate 16 Blood Pressure 124/51 L Pulse Oximetry 95 Oxygen Delivery 12/08/24 18:00 12/08/24 19:55 12/08/24 20:00 Temperature 99.9 F H Pulse Rate 115 H 102 H Respiratory Rate 16 Blood Pressure 120/54 L Pulse Oximetry 98 98 Oxygen Delivery Room Air 12/08/24 20:00 12/08/24 21:40 12/08/24 22:00 Temperature Pulse Rate 102 H 91 Respiratory Rate Blood Pressure Pulse Oximetry 98 Oxygen Delivery Room Air 12/08/24 23:23 12/09/24 00:00 12/09/24 00:00 Temperature 99.5 F Pulse Rate 95 92 Respiratory Rate 16 Blood Pressure 101/44 L Pulse Oximetry 97 97 Oxygen Delivery Room Air 12/09/24 01:55 12/09/24 03:49 12/09/24 04:00 Temperature Pulse Rate 88 92 Respiratory Rate Blood Pressure Pulse Oximetry 97 Oxygen Delivery Room Air 12/09/24 04:16 12/09/24 06:00 12/09/24 08:12 Temperature 99.1 F 99.1 F Pulse Rate 88 95 93 Respiratory Rate 15 18 Blood Pressure 113/60 110/48 L Pulse Oximetry 99 98 Oxygen Delivery Intake/Output Intake/Output: Intake & Output 12/06/24 12/07/24 12/08/24 12/09/24 23:59 23:59 23:59 23:59 Intake Total 3850 2847.9 Output Total 200 1150 700 Balance 3650 1697.9 -700 Meds/Results Medications: Active Medications Generic Name Dose Route Start Last Admin Trade Name Freq PRN Reason Stop Dose Admin Acetaminophen 650 mg 12/07/24 21:22 12/08/24 04:05 Acetaminophen 325 Mg Tablet PO 650 mg Q4H PRN Administration Mild Pain (1-3) or Fever Albuterol 2 puff 12/08/24 05:37 Albuterol Sulfate (*Sp) Aerosol 1 Puff INHALATION Q4HRT PRN shortness of breath or wheezing Atorvastatin Calcium 40 mg 12/08/24 09:00 12/08/24 17:38 Atorvastatin 40 Mg Tablet PO Not Given DAILY [facility] Bupropion HCl 150 mg 12/08/24 09:00 12/08/24 17:38 Bupropion Hcl Xl (24 Hr) 150 Mg Tabcr PO Not Given DAILY [facility] Buspirone HCl 7.5 mg 12/08/24 09:00 12/08/24 17:36 Buspirone Hcl 2.5 Mg Tablet PO 7.5 mg TID BOBBI Administration Carbidopa/Levodopa 2 tablet 12/08/24 09:00 12/08/24 20:26 Carbidopa/Levodopa 25/100 Mg Tablet PO 2 tablet QID BOBBI Administration Clonazepam 1 mg 12/08/24 21:00 12/08/24 20:26 Clonazepam (*Crx) 0.5 Mg Tablet PO 1 mg QHS BOBBI Administration Dextrose 12.5 gm 12/08/24 05:34 Dextrose 50% 25 Gm/50 Ml Syringe IV PUSH PRN PRN Hypoglycemia Protocol Enoxaparin Sodium 78 mg 12/08/24 22:00 12/08/24 22:09 Enoxaparin 80 Mg/0.8 Ml Syringe SUB-Q 78 mg Q12H BOBBI Administration Fludrocortisone Acetate 0.1 mg 12/08/24 09:00 12/08/24 17:38 Fludrocortisone Acetate 0.1 Mg Tablet PO Not Given DAILY [facility] Fluticasone Propionate 2 spray 12/08/24 09:00 12/08/24 20:45 Fluticasone Propionate 0.05% Na Spr 16 Gm Btl (*Bkc) NASAL Not Given Q12HR [facility] Gabapentin 900 mg 12/08/24 09:00 12/08/24 17:36 Gabapentin 300 Mg Capsule PO 900 mg TID BOBBI Administration Glucagon 1 mg 12/08/24 05:34 Glucagon For Inj 1 Mg Vial IM PRN PRN Hypoglycemia Protocol Glucose 15 gm 12/08/24 05:34 Glucose Oral Gel 15 Gm Of Glucse In 37.5 Gm Tube PO PRN PRN Hypoglycemia Protocol Guaifenesin 600 mg 12/08/24 09:00 12/08/24 20:10 Guaifenesin 12 Hr 600 Mg Tabcr PO Not Given Q12HR BOBBI Levofloxacin/Dextrose 750 mg in 150 mls @ 100 mls/hr 12/08/24 06:00 12/08/24 07:47 Levaquin 750 Mg/D5w 150 Ml IVPB Infused Q48H BOBBI Infusion Dextrose 1,000 mls @ 100 mls/hr 12/08/24 05:34 Dextrose 5% 1,000 Ml IVPB PRN PRN Hypoglycemia Protocol Vancomycin HCl 1,500 mg in 500 mls @ 250 mls/hr 12/08/24 20:00 12/08/24 22:26 Vancomycin 1,500 Mg/Ns 500 Ml IVPB Infused Q24H BOBBI Infusion Metronidazole 500 mg in 100 mls @ 100 mls/hr 12/08/24 13:00 12/09/24 05:48 Flagyl 500 Mg/Iso Soln 100 Ml IVPB 100 mls/hr Q8HR BOBBI Administration Insulin Aspart 3 - 6 units 12/08/24 00:00 12/09/24 05:20 Insulin Aspart (*Bkc) 100 Units/Ml SUB-Q Not Given Q6HR BOBBI Protocol Insulin Glargine 30 units 12/08/24 21:00 12/08/24 22:22 Insulin Glargine (*Bkc) 100 Units/Ml SUB-Q 30 units HS BOBBI Administration Levothyroxine Sodium 112 mcg 12/08/24 06:30 12/09/24 05:48 Levothyroxine Sodium 112 Mcg Tablet PO 112 mcg DAILY@0630 BOBBI Administration Linaclotide 72 mcg 12/08/24 06:30 12/09/24 05:48 Linaclotide 72 Mcg Capsule PO 72 mcg DAILY@0630 BOBBI Administration Midodrine 10 mg 12/08/24 09:00 12/08/24 17:37 Midodrine Hcl 2.5 Mg Tablet PO Not Given DAILY BOBBI Home Med (Ramelteon 8 mg 12/08/24 21:00 12/08/24 22:14 8 Mg Tablet) PO 01/07/25 20:59 8 mg QHS PRN Administration Insomnia Home Med ( 34 mg 12/08/24 09:00 12/08/24 15:54 Pimavanserin [ PO 01/07/25 08:59 34 mg Nuplazid] 34 Mg DAILY BOBBI Administration Capsule) Ondansetron HCl 4 mg 12/08/24 09:15 12/09/24 04:38 Ondansetron Inj 4 Mg/2 Ml Vial IV PUSH 4 mg Q6H PRN Administration Nausea And Vomiting Oxycodone HCl 5 mg 12/08/24 05:37 12/09/24 04:36 Oxycodone Hcl (*Crx) 5 Mg Tab Ir PO 5 mg Q6H PRN Administration pain 4-10 Pantoprazole Sodium 40 mg 12/08/24 09:00 12/08/24 15:53 Pantoprazole 40 Mg Tablet PO 40 mg QAM BOBBI Administration Perflutren Lipid Microsphere 0 ml 12/08/24 05:34 Perflutren Lipid Microspheres 1.5 Ml Vial Diluted To 10 Ml Total Volume IV PUSH 12/11/24 05:34 ONCE PRN adequate visualization Protocol Fluticasone/Salmeterol 2 puff 12/08/24 08:00 12/08/24 21:34 Fluticasone/Salmeterol 115-21 Mcg Inhaler 1 Puff INHALATION 2 puff Q12HRT BOBBI Administration Tizanidine HCl 4 mg 12/08/24 09:00 12/08/24 17:36 Tizanidine Hcl 4 Mg Tablet PO 4 mg TID BOBBI Administration Umeclidinium [place] 1 puff 12/08/24 08:00 12/08/24 19:37 Umeclidinium [place] 62.5 Mcg Ellipta INHALATION Not Given DAILYRT [facility] Radiology Results: ITS Impressions Venous Doppler Study 12/07/24 18:11 IMPRESSION: 1. No deep venous thrombosis within the visualized portions of the left lower extremity (to the level of the femoral vein). No deep venous thrombosis within the right lower extremity. Chest/Abdomen/Pelvis CT 12/07/24 20:28 IMPRESSION: 1.6 cm right thyroid nodule, recommend nonemergent outpatient thyroid ultrasound for further characterization. Mild esophagitis/gastritis. Dilation of the appendiceal tip to 9 mm, without inflammatory changes. This may be normal for this patient or represent early appendicitis. Renal Ultrasound 12/08/24 16:45 IMPRESSION: 1. Normal kidneys without hydronephrosis. Labs Labs: Laboratory Results - last 24 hr 12/08/24 12/08/24 12/08/24 17:51 22:15 23:29 WBC RBC Hgb Hct MCV MCH MCHC RDW Plt Count MPV Immature Gran % (Auto) Neut % (Auto) Lymph % (Auto) [place] % (Auto) Eos % (Auto) Baso % (Auto) Lymph # (Auto) [place] # (Auto) Eos # (Auto) Baso # (Auto) Abs Immat Gran (auto) Absolute Neuts (auto) Absolute Nucleated RBC Nucleated RBC % Sodium Potassium Chloride Carbon Dioxide Anion Gap BUN Creatinine Estim Creat Clear Calc Estimated GFR Glucose POC Capillary Glucose 230 H 249 H 237 H Calcium Magnesium Total Bilirubin AST ALT Alkaline Phosphatase Total Protein Albumin 12/09/24 03:56 WBC 11.0 H RBC 3.50 L Hgb 10.9 L Hct 33.8 L MCV 96.6 MCH 31.1 MCHC 32.2 RDW 17.9 H Plt Count 269 MPV 11.1 H Immature Gran % (Auto) 0.4 Neut % (Auto) 49.1 Lymph % (Auto) 33.5 [place] % (Auto) 16.9 H Eos % (Auto) 0.0 Baso % (Auto) 0.1 L Lymph # (Auto) 3.70 H [place] # (Auto) 1.9 H Eos # (Auto) 0.0 Baso # (Auto) 0.0 Abs Immat Gran (auto) 0.04 H Absolute Neuts (auto) 5.4 Absolute Nucleated RBC 0.000 Nucleated RBC % 0.0 Sodium 141 Potassium 3.3 L Chloride 109 H Carbon Dioxide 24 Anion Gap 8 BUN 5 L D Creatinine 0.80 Estim Creat Clear Calc 63 Estimated GFR > 60 Glucose 111 H POC Capillary Glucose Calcium 7.9 L Magnesium 1.6 Total Bilirubin 0.5 AST 25 ALT 11 Alkaline Phosphatase 94 Total Protein 5.4 L Albumin 2.9 L
[2024-12-09] MEDS: UMECLIDINIUM BROMIDE 62.5 MCG ELLIPTA 1 PUFF INHALATION (09:54)
[2024-12-09] MEDS: FLUTICASONE/SALMETEROL 115-21 MCG INHALER 1 PUFF 2 PUFF INHALATION ×2 (09:54→19:50)
[2024-12-09] MEDS: TIZANIDINE HCL 4 MG TABLET PO ×3 (10:31→21:14)
[2024-12-09] MEDS: PANTOPRAZOLE 40 MG TABLET PO (10:32)
[2024-12-09] MEDS: busPIRone HCL 2.5 MG TABLET 7.5 MG PO ×3 (10:32→21:14)
[2024-12-09] MEDS: buPROPion HCL XL (24 HR) 150 MG TABCR PO (10:32)
[2024-12-09] MEDS: ATORVASTATIN 40 MG TABLET PO (10:33)
[2024-12-09] MEDS: guaiFENesin 12 HR 600 MG TABCR PO (10:34)
[2024-12-09] MEDS: CARBIDOPA/LEVODOPA 25/100 MG TABLET 2 TABLET PO ×4 (10:34→21:14)
[2024-12-09] MEDS: FLUDROCORTISONE ACETATE 0.1 MG TABLET PO (10:34)
[2024-12-09] MEDS: GABAPENTIN 300 MG CAPSULE 900 MG PO (10:35)
[2024-12-09] MEDS: MIDODRINE HCL 2.5 MG TABLET 10 MG PO (10:35)
[2024-12-09] MEDS: ENOXAPARIN 80 MG/0.8 ML SYRINGE 78 MG SUB-Q ×2 (10:35→21:14)
[2024-12-09] MEDS: PIMAVANSERIN 34 MG 34 EACH PO (10:40)
[2024-12-09] MEDS: FLUTICASONE PROPIONATE 0.05% NA SPR 16 GM BTL (*BKC) 2 SPRAY NASAL ×2 (11:00→21:24)
--- NOTE | 2024-12-09 12:50 | PCSTNOTE ---
Please refer to the Modified Barium Swallow Evaluation in the EMR. The above pt was seen for a modified barium swallow evaluation due to questionable degree of dysphagia with solids; pt has dx of Parkinson's. Pt has full upper and lower dentures but does not have them here at the hospital. Pt reports she can masticate soft solids. Vocal quality was clear. Excessive oral movement noted. question tardive dyskinesia? The patient was seated for a lateral view and presented with 5cc of thin liquid barium via spoon, pudding consistency barium via a spoon, small pieces of cracker coated with barium pudding via spoon, and uncontrolled thin liquid barium. This was presented via a cup & straw. Oral preparatory and oral phase symptoms: slow mastication without dentures but WFL. Pharyngeal phase symptoms: none. Esophageal stage symptoms: none. No aspiration occurred. Impressions: Normal swallow Ability Recommendations: level 6 soft and bite size; (has no teeth but says she can masticate soft foods) level 0 thin/regular liquids; pt able to eat I but should be positioned upright for all oral intake. No further ST is warranted at this time.
--- NOTE | 2024-12-09 16:25 | P.PNIM_ITS ---
Progress Note: A&P Assessment and Plan (1) Sepsis: Code(s): A41.9 - Sepsis, unspecified organism Status: Acute (2) Pneumonia: Code(s): J18.9 - Pneumonia, unspecified organism Status: Acute (3) Abnormal CT of the abdomen: Code(s): R93.5 - Abnormal findings on diagnostic imaging of other abdominal regions, including retroperitoneum Status: Acute (4) Acute kidney failure: Code(s): N17.9 - Acute kidney failure, unspecified Status: Acute (5) Elevated troponin: Code(s): R79.89 - Other specified abnormal findings of blood chemistry Status: Acute (6) Type 2 diabetes mellitus with hyperglycemia: Code(s): E11.65 - Type 2 diabetes mellitus with hyperglycemia Status: Acute (7) Right thyroid nodule: Code(s): E04.1 - Nontoxic single thyroid nodule Status: Acute (8) Esophagitis with gastritis: Code(s): K29.70 - Gastritis, unspecified, without bleeding; K20.90 - Esophagitis, unspecified without bleeding Status: Acute (9) Hypothyroidism: Code(s): E03.9 - Hypothyroidism, unspecified Status: Acute (10) Asthma: Qualifiers: Asthma complication type: with acute exacerbation Asthma persistence: intermittent Asthma severity: mild Qualified Code(s): J45.21 - Mild intermittent asthma with (acute) exacerbation Code(s): J45.909 - Unspecified asthma, uncomplicated Status: Acute (11) Psychiatric illness: Code(s): F99 - Mental disorder, not otherwise specified Status: Acute (12) Parkinsons: Code(s): G20.A1 - Parkinson's disease without dyskinesia, without mention of fluctuations Status: Acute Plan Sepsis Source unknown but consider PNA, appendicitis. WBC 18.6. Lactic 5.6 -> 6.5. She received 30 mL/kg IV fluid bolus UA not consistent with UTI. MRSA negative. BCx NGTD Started on vancomycin Levaquin and Flagyl. Narrowed to Levaquin/Flagyl Lactic better. WBC trending down Pneumonia CT showing ground-glass opacities in right upper lobe. MRSA nasal swab negative. Influenza, RSV and COVID PCR swab negative Speech therapy showing no concerns for aspiration. Multiple drug allergies. Continue levofloxacin. Lactic acidosis As above. Related to sepsis. Dilated appendix CT of the chest, abdomen, and pelvis showed dilatation of the appendiceal tip to 9 mm without inflammatory changes. General surgery consulted and apprecaite their input No clinical evidence of appendicitis. Continue Levaquin and Flagyl. KADEN Baseline Cr 0.7. Cr was 1.6 on admission. Also with metabolic acidosis but could be related to lactic acidosis. - Also with elevated beta-hydroxybutyrate but doubt DKA. With IV fluids, renal function has improved to normal. Acidosis has resolved. Follow Elevated Troponin Troponin to 0.08. EKG showing sinus tachycardia (125) possible age indeterminate anterior. Elevated troponin likely due to sepsis and infection. Echo ordered Monitor on telemetry Type 2 diabetes A1c 8.6. The patient's blood glucose was reviewed on 12/09 Glucose remains well controlled. Continue AccuCheks covering with sliding scale. Hypoglycemia protocol available as needed. Will back down on her home insulin dose. Continue current medications. Right thyroid nodule CT of the chest, abdomen, and pelvis showed a 1.6 cm right thyroid nodule Follow-up as an outpatient basis Mild gastritis and esophagitis on PPI CT of the chest, abdomen, and pelvis showed mild esophagitis/gastritis Continue PPI Hypothyroidism TSH normal. Continue Synthroid Asthma No wheezing. Continue inhaler. Monitor History of DVT PE On anticoagulation with Eliquis Was switched to Lovenox per Surgery recommendation Change to Eliquis when safe to do so. Parkinson's disease Dysphagia possible with underlying Parkinson's disease but MBS okay. Continue Sinemet. History chronic pancreatitis with hx of distal pancreatectomy and splenectomy Chronic constipation with hx of SBO resulting in a bowel resection GERD Hyperlipidemia Anxiety depression Tardive dyskinesia DVT prophylaxis - Lovenox Code status full code Subjective Date/time seen: 12/09/24 16:25 Interval history: 59yo female with chronic pancreatitis, chronic constipation with history of small-bowel obstruction and bowel resection, distal pancreatectomy and splenectomy, GERD, cholecystectomy, DVT/PE, asthma, HLD, hypothyroidism, type 2 DM, Parkinson's, hypotension, depression, and anxiety who presented to the emergency department via private vehicle with complaints of nausea, vomiting, abdominal pain. Assuming care. Chart reviewed. She complains of headache consistent with her migraines. Normally goes to ED and receives Toradol/Morphine/steroids. No n/v. No diarrhea. No Cp or SOB. Walking to bedisde commode without issue. Exam Narrative: AF 98.3 91/44 67 18 91% ra Gen - NARD Chest - few basilar crackles, nml RR CV - RRR S1/S2; Tele showing no significant dysrhythmias Abd - Soft, NT/ND, Positive BS Ext - No pedal edema Neuro - Alert and appropriate Psych - Nml mood and affect Skin - Warm and dry Objective Data Vital Signs Vital Signs: Vital Signs - 24 hr 12/08/24 18:00 12/08/24 19:55 12/08/24 20:00 Temperature 99.9 F H Pulse Rate 115 H 102 H Respiratory Rate 16 Blood Pressure 120/54 L Pulse Oximetry 98 98 Oxygen Delivery Room Air 12/08/24 20:00 12/08/24 21:40 12/08/24 22:00 Temperature Pulse Rate 102 H 91 Respiratory Rate Blood Pressure Pulse Oximetry 98 Oxygen Delivery Room Air 12/08/24 23:23 12/09/24 00:00 12/09/24 00:00 Temperature 99.5 F Pulse Rate 95 92 Respiratory Rate 16 Blood Pressure 101/44 L Pulse Oximetry 97 97 Oxygen Delivery Room Air 12/09/24 01:55 12/09/24 03:49 12/09/24 04:00 Temperature Pulse Rate 88 92 Respiratory Rate Blood Pressure Pulse Oximetry 97 Oxygen Delivery Room Air 12/09/24 04:16 12/09/24 06:00 12/09/24 08:00 Temperature 99.1 F Pulse Rate 88 95 95 Respiratory Rate 15 Blood Pressure 113/60 Pulse Oximetry 99 Oxygen Delivery 12/09/24 08:12 12/09/24 09:54 12/09/24 09:54 Temperature 99.1 F Pulse Rate 93 110 H Respiratory Rate 18 20 Blood Pressure 110/48 L Pulse Oximetry 98 94 Oxygen Delivery Room Air 12/09/24 10:00 12/09/24 11:51 12/09/24 11:59 Temperature 99.9 F H Pulse Rate 107 H 111 H Respiratory Rate 18 Blood Pressure 125/54 L Pulse Oximetry 93 Oxygen Delivery Room Air 12/09/24 12:00 12/09/24 14:00 12/09/24 15:45 Temperature 98.3 F Pulse Rate 93 69 67 Respiratory Rate 18 Blood Pressure 91/44 L Pulse Oximetry 91 Oxygen Delivery Intake/Output Intake/Output: Intake & Output 12/06/24 12/07/24 12/08/2425 23:59 23:59 23:59 23:59 Intake Total 3850 2847.9 340 Output Total 200 1150 850 Balance 3650 1697.9 -510 Meds/Results Medications: Active Medications Generic Name Dose Route Start Last Admin Trade Name Freq PRN Reason Stop Dose Admin Acetaminophen 650 mg 12/07/24 21:22 12/08/24 04:05 Acetaminophen 325 Mg Tablet PO 650 mg Q4H PRN Administration Mild Pain (1-3) or Fever Albuterol 2 puff 12/08/24 05:37 Albuterol Sulfate (*Sp) Aerosol 1 Puff INHALATION Q4HRT PRN shortness of breath or wheezing Atorvastatin Calcium 40 mg 12/08/24 09:00 12/09/24 10:33 Atorvastatin 40 Mg Tablet PO 40 mg DAILY BOBBI Administration Bupropion HCl 150 mg 12/08/24 09:00 12/09/24 10:32 Bupropion Hcl Xl (24 Hr) 150 Mg Tabcr PO 150 mg DAILY BOBBI Administration Buspirone HCl 7.5 mg 12/09/24 14:00 12/09/24 14:57 Buspirone Hcl 2.5 Mg Tablet PO 7.5 mg Q8HR BOBBI Administration Carbidopa/Levodopa 2 tablet 12/08/24 09:00 12/09/24 14:56 Carbidopa/Levodopa 25/100 Mg Tablet PO 2 tablet QID BOBBI Administration Clonazepam 1 mg 12/08/24 21:00 12/08/24 20:26 Clonazepam (*Crx) 0.5 Mg Tablet PO 1 mg QHS BOBBI Administration Dextrose 12.5 gm 12/08/24 05:34 Dextrose 50% 25 Gm/50 Ml Syringe IV PUSH PRN PRN Hypoglycemia Protocol Enoxaparin Sodium 78 mg 12/08/24 22:00 12/09/24 10:35 Enoxaparin 80 Mg/0.8 Ml Syringe SUB-Q 78 mg Q12H BOBBI Administration Fludrocortisone Acetate 0.1 mg 12/08/24 09:00 12/09/24 10:34 Fludrocortisone Acetate 0.1 Mg Tablet PO 0.1 mg DAILY BOBBI Administration Fluticasone Propionate 2 spray 12/08/24 09:00 12/09/24 11:00 Fluticasone Propionate 0.05% Na Spr 16 Gm Btl (*Bkc) NASAL 2 spray Q12HR BOBBI Administration Gabapentin 900 mg 12/09/24 14:00 12/09/24 14:56 Gabapentin 300 Mg Capsule PO Not Given Q8HR BOBBI Glucagon 1 mg 12/08/24 05:34 Glucagon For Inj 1 Mg Vial IM PRN PRN Hypoglycemia Protocol Glucose 15 gm 12/08/24 05:34 Glucose Oral Gel 15 Gm Of Glucse In 37.5 Gm Tube PO PRN PRN Hypoglycemia Protocol Guaifenesin 600 mg 12/08/24 09:00 12/09/24 10:34 Guaifenesin 12 Hr 600 Mg Tabcr PO 600 mg Q12HR BOBBI Administration Levofloxacin/Dextrose 750 mg in 150 mls @ 100 mls/hr 12/08/24 06:00 12/08/24 07:47 Levaquin 750 Mg/D5w 150 Ml IVPB Infused Q48H BOBBI Infusion Dextrose 1,000 mls @ 100 mls/hr 12/08/24 05:34 Dextrose 5% 1,000 Ml IVPB PRN PRN Hypoglycemia Protocol Metronidazole 500 mg in 100 mls @ 100 mls/hr 12/08/24 13:00 12/09/24 14:57 Flagyl 500 Mg/Iso Soln 100 Ml IVPB 100 mls/hr Q8HR BOBBI Administration Insulin Aspart 3 - 6 units 12/09/24 12:00 12/09/24 11:35 Insulin Aspart (*Bkc) 100 Units/Ml SUB-Q Not Given TIDWM BOBBI Protocol Insulin Glargine 30 units 12/08/24 21:00 12/08/24 22:22 Insulin Glargine (*Bkc) 100 Units/Ml SUB-Q 30 units HS BOBBI Administration Levothyroxine Sodium 112 mcg 12/08/24 06:30 12/09/24 05:48 Levothyroxine Sodium 112 Mcg Tablet PO 112 mcg DAILY@0630 BOBBI Administration Linaclotide 72 mcg 12/08/24 06:30 12/09/24 05:48 Linaclotide 72 Mcg Capsule PO 72 mcg DAILY@0630 BOBBI Administration Midodrine 10 mg 12/08/24 09:00 12/09/24 10:35 Midodrine Hcl 2.5 Mg Tablet PO 10 mg DAILY BOBBI Administration Home Med (Ramelteon 8 mg 12/08/24 21:00 12/08/24 22:14 8 Mg Tablet) PO 07/31/25 20:59 8 mg QHS PRN Administration Insomnia Home Med ( 34 mg 12/08/24 09:00 12/09/24 10:40 Pimavanserin [ PO 01/07/25 08:59 34 mg Nuplazid] 34 Mg DAILY BOBBI Administration Capsule) Ondansetron HCl 4 mg 12/08/24 09:15 12/09/24 10:40 Ondansetron Inj 4 Mg/2 Ml Vial IV PUSH 4 mg Q6H PRN Administration Nausea And Vomiting Oxycodone HCl 5 mg 12/08/24 05:37 12/09/24 10:36 Oxycodone Hcl (*Crx) 5 Mg Tab Ir PO 5 mg Q6H PRN Administration pain 4-10 Pantoprazole Sodium 40 mg 12/08/24 09:00 12/09/24 10:32 Pantoprazole 40 Mg Tablet PO 40 mg QAM BOBBI Administration Perflutren Lipid Microsphere 0 ml 12/08/24 05:34 Perflutren Lipid Microspheres 1.5 Ml Vial Diluted To 10 Ml Total Volume IV PUSH 12/11/24 05:34 ONCE PRN adequate visualization Protocol Fluticasone/Salmeterol 2 puff 12/08/24 08:00 12/09/24 09:54 Fluticasone/Salmeterol 115-21 Mcg Inhaler 1 Puff INHALATION 2 puff Q12HRT BOBBI Administration Tizanidine HCl 4 mg 12/09/24 14:00 12/09/24 14:56 Tizanidine Hcl 4 Mg Tablet PO 4 mg Q8HR BOBBI Administration Umeclidinium [place] 1 puff 12/08/24 08:00 12/09/24 09:54 Umeclidinium [place] 62.5 Mcg Ellipta INHALATION 1 puff DAILYRT BOBBI Administration Radiology Results: ITS Impressions Venous Doppler Study 12/07/24 18:11 IMPRESSION: 1. No deep venous thrombosis within the visualized portions of the left lower extremity (to the level of the femoral vein). No deep venous thrombosis within the right lower extremity. Chest/Abdomen/Pelvis CT 12/07/24 20:28 IMPRESSION: 1.6 cm right thyroid nodule, recommend nonemergent outpatient thyroid ultrasound for further characterization. Mild esophagitis/gastritis. Dilation of the appendiceal tip to 9 mm, without inflammatory changes. This may be normal for this patient or represent early appendicitis. Renal Ultrasound 12/08/24 16:45 IMPRESSION: 1. Normal kidneys without hydronephrosis. Modified Barium Swallow 12/09/24 13:02 IMPRESSION: Please refer to speech pathologist report for additional detail. Labs Labs: Laboratory Results - last 24 hr 12/08/24 12/08/24 12/08/24 17:51 22:15 23:29 WBC RBC Hgb Hct MCV MCH MCHC RDW Plt Count MPV Immature Gran % (Auto) Neut % (Auto) Lymph % (Auto) [place] % (Auto) Eos % (Auto) Baso % (Auto) Lymph # (Auto) [place] # (Auto) Eos # (Auto) Baso # (Auto) Abs Immat Gran (auto) Absolute Neuts (auto) Absolute Nucleated RBC Nucleated RBC % Sodium Potassium Chloride Carbon Dioxide Anion Gap BUN Creatinine Estim Creat Clear Calc Estimated GFR Glucose POC Capillary Glucose 230 H 249 H 237 H Calcium Magnesium Total Bilirubin AST ALT Alkaline Phosphatase Total Protein Albumin 12/09/24 12/09/24 12/09/24 03:56 11:21 11:45 WBC 11.0 H RBC 3.50 L Hgb 10.9 L Hct 33.8 L MCV 96.6 MCH 31.1 MCHC 32.2 RDW 17.9 H Plt Count 269 MPV 11.1 H Immature Gran % (Auto) 0.4 Neut % (Auto) 49.1 Lymph % (Auto) 33.5 [place] % (Auto) 16.9 H Eos % (Auto) 0.0 Baso % (Auto) 0.1 L Lymph # (Auto) 3.70 H [place] # (Auto) 1.9 H Eos # (Auto) 0.0 Baso # (Auto) 0.0 Abs Immat Gran (auto) 0.04 H Absolute Neuts (auto) 5.4 Absolute Nucleated RBC 0.000 Nucleated RBC % 0.0 Sodium 141 Potassium 3.3 L Chloride 109 H Carbon Dioxide 24 Anion Gap 8 BUN 5 L D Creatinine 0.80 Estim Creat Clear Calc 63 Estimated GFR > 60 Glucose 111 H POC Capillary Glucose 63 L 99 Calcium 7.9 L Magnesium 1.6 Total Bilirubin 0.5 AST 25 ALT 11 Alkaline Phosphatase 94 Total Protein 5.4 L Albumin 2.9 L 12/09/24 13:07 WBC RBC Hgb Hct MCV MCH MCHC RDW Plt Count MPV Immature Gran % (Auto) Neut % (Auto) Lymph % (Auto) [place] % (Auto) Eos % (Auto) Baso % (Auto) Lymph # (Auto) [place] # (Auto) Eos # (Auto) Baso # (Auto) Abs Immat Gran (auto) Absolute Neuts (auto) Absolute Nucleated RBC Nucleated RBC % Sodium Potassium Chloride Carbon Dioxide Anion Gap BUN Creatinine Estim Creat Clear Calc Estimated GFR Glucose POC Capillary Glucose 124 H Calcium Magnesium Total Bilirubin AST ALT Alkaline Phosphatase Total Protein Albumin
[2024-12-09] MEDS: DONEPEZIL HCL 10 MG TABLET PO (17:13)
[2024-12-09] MEDS: PROMETHAZINE HCL 25 MG TABLET PO (17:44)
[2024-12-09] MEDS: INSULIN ASPART (*BKC) 100 UNITS/ML SUB-Q (17:48)
[2024-12-09] MEDS: clonazePAM (*CRX) 0.5 MG TABLET 1 MG PO (21:14)
[2024-12-09] MEDS: INSULIN GLARGINE (*BKC) 100 UNITS/ML 20 UNITS SUB-Q (21:15)
[2024-12-09] MEDS: ACETAMINOPHEN 325 MG TABLET 650 MG PO (22:15)
[2024-12-10] VITALS (11 sets, daily range): BP systolic 82–97; BP diastolic 39–60; PULSE 68–89; RESP 16–18; TEMP 36.7–36.9; O2SAT 94–100
[2024-12-10 04:30] LABS: Hematocrit 32.7 % (37.0-47.0); Hemoglobin 10.1 g/dL (12.0-15.0); Immature Granulocyte Percent A 0.3 % (0-0.5); Immature Platelet Fraction Pct 8.7 % (0.9-11.2); Lymphocytes Absolute Auto 3.09 K/mm3 (0.9-3.2); Mean Corpuscular HGB Conc 30.9 g/dl (32-36); Mean Corpuscular Hemoglobin 31.0 pg (26-34); Mean Corpuscular Volume 100.3 fl (80-100); Nucleated Red Blood Cells Absolute Auto 0.000 K/mm3 (0.0-0.012); Nucleated Red Blood Cells Perc 0.0 % (0.0-0.2); Platelet Count Result 115 k/mm3 (150-375); Red Blood Count 3.26 M/mm3 (4.2-5.4); White Blood Count 7.6 K/mm3 (4.5-10.0)
[2024-12-10 04:53] LABS: Anisocytosis 1+; Poikilocytosis 1+
[2024-12-10 04:54] LABS: Burr Cells 1+; Schistocytes Rare; Target Cells 1+
[2024-12-10 05:08] LABS: Albumin Level 3.1 g/dL (3.5-5.1); Anion Gap 7 mmol/L (4-12); Blood Urea Nitrogen 4 mg/dL (7-17); Calcium 8.0 mg/dL (8.4-10.2); Carbon Dioxide 26 mmol/L (22-30); Chloride 106 mmol/L (98-107); Estimated CRCL calculation 66 ml/min; Estimated Glomerular Filt Rate > 60; Glucose 50 mg/dL (65-110); Magnesium 1.6 mg/dL (1.6-2.3); Potassium 3.1 mmol/L (3.4-5.0); Sodium 139 mmol/L (137-145)
[2024-12-10] MEDS: TIZANIDINE HCL 4 MG TABLET PO ×2 (05:36→12:48)
[2024-12-10] MEDS: busPIRone HCL 2.5 MG TABLET 7.5 MG PO ×2 (05:36→12:48)
[2024-12-10] MEDS: LINACLOTIDE 72 MCG CAPSULE PO (05:36)
[2024-12-10] MEDS: GABAPENTIN 300 MG CAPSULE 900 MG PO ×2 (05:36→12:48)
[2024-12-10] MEDS: LEVOTHYROXINE SODIUM 112 MCG TABLET PO (05:36)
--- NOTE | 2024-12-10 05:56 | PC.NURSE ---
Lost Iv access at 0550. asked pt if we could put another iv in pt said no im going home today. Iv meds put on hold.
[2024-12-10] MEDS: UMECLIDINIUM BROMIDE 62.5 MCG ELLIPTA 1 PUFF INHALATION (08:14)
[2024-12-10] MEDS: FLUTICASONE/SALMETEROL 115-21 MCG INHALER 1 PUFF 2 PUFF INHALATION (08:14)
--- NOTE | 2024-12-10 08:57 | PM.PNGS ---
Progress Note: A&P Assessment and Plan (1) Sepsis: Code(s): A41.9 - Sepsis, unspecified organism Status: Acute Assessment and Plan: resolved, unknown etiology, abd exam completely benign, cont abx, no acute surgical issues, will s/o, call c ?s, issues Subjective Subjective Date/Time Seen: 12/10/24 08:57 Interval history: feels good, no c/o, zari diet, no abd pain Review of Systems Review of Systems: All systems reviewed & are unremarkable except as noted in HPI and below Exam Const: General: cooperative, comfortable, no acute distress and ill appearing Resp: Auscultation: clear to auscultation bilaterally Cardio: Rate: regular rate Rhythm: regular rhythm GI: Inspection: normal to inspection and non-distended GI Palp: No abdominal tenderness and Yes Soft to palpation Objective Data Vital Signs Vital Signs: Vital Signs - 24 hr 12/09/24 09:54 12/09/24 09:54 12/09/24 10:00 Temperature Pulse Rate 110 H 107 H Respiratory Rate 20 Blood Pressure Pulse Oximetry 94 Oxygen Delivery Room Air Fraction of Inspired Oxygen 12/09/24 11:51 12/09/24 11:59 12/09/24 12:00 Temperature 37.7 C H Pulse Rate 111 H 93 Respiratory Rate 18 Blood Pressure 125/54 L Pulse Oximetry 93 Oxygen Delivery Room Air Fraction of Inspired Oxygen 12/09/24 14:00 12/09/24 15:45 12/09/24 16:00 Temperature 36.8 C Pulse Rate 69 67 62 Respiratory Rate 18 Blood Pressure 91/44 L Pulse Oximetry 91 Oxygen Delivery Fraction of Inspired Oxygen 12/09/24 18:00 12/09/24 18:23 12/09/24 19:50 Temperature Pulse Rate 62 75 Respiratory Rate 20 Blood Pressure 93/51 L Pulse Oximetry Oxygen Delivery Fraction of Inspired Oxygen 12/09/24 19:53 12/09/24 20:00 12/09/24 20:00 Temperature 36.8 C Pulse Rate 75 69 Respiratory Rate 20 18 20 Blood Pressure 94/52 L Pulse Oximetry 98 99 98 Oxygen Delivery Room Air Room Air Fraction of Inspired Oxygen 21 12/09/24 20:00 12/09/24 22:00 12/09/24 23:20 Temperature Pulse Rate 79 69 Respiratory Rate 20 Blood Pressure Pulse Oximetry 98 Oxygen Delivery Room Air Fraction of Inspired Oxygen 12/10/24 00:00 12/10/24 00:00 12/10/24 00:58 Temperature 36.7 C Pulse Rate 69 72 Respiratory Rate 18 Blood Pressure 86/39 L 82/46 L Pulse Oximetry 95 Oxygen Delivery Fraction of Inspired Oxygen 12/10/24 00:59 12/10/24 02:00 12/10/24 04:00 Temperature Pulse Rate 84 89 Respiratory Rate 18 Blood Pressure 84/44 L Pulse Oximetry 98 Oxygen Delivery Room Air Fraction of Inspired Oxygen 12/10/24 04:00 12/10/24 04:00 12/10/24 06:00 Temperature 36.9 C Pulse Rate 88 70 78 Respiratory Rate 18 Blood Pressure 97/59 L Pulse Oximetry 94 Oxygen Delivery Fraction of Inspired Oxygen 12/10/24 08:00 Temperature 36.9 C Pulse Rate 68 Respiratory Rate 18 Blood Pressure 90/60 L Pulse Oximetry 100 Oxygen Delivery Fraction of Inspired Oxygen Intake/Output Intake/Output: Intake & Output 12/07/24 12/08/24 12/09/24 12/10/24 23:59 23:59 23:59 23:59 Intake Total 3850 2847.9 1180 615 Output Total 200 1150 1350 450 Balance 3650 1697.9 -170 165 Meds/Results Medications: Active Medications Generic Name Dose Route Start Last Admin Trade Name Freq PRN Reason Stop Dose Admin Acetaminophen 650 mg 12/07/24 21:22 12/09/24 22:15 Acetaminophen 325 Mg Tablet PO 650 mg Q4H PRN Administration Mild Pain (1-3) or Fever Albuterol 2 puff 12/08/24 05:37 Albuterol Sulfate (*Sp) Aerosol 1 Puff INHALATION Q4HRT PRN shortness of breath or wheezing Atorvastatin Calcium 40 mg 12/08/24 09:00 12/09/24 10:33 Atorvastatin 40 Mg Tablet PO 40 mg DAILY BOBBI Administration Bupropion HCl 150 mg 12/08/24 09:00 12/09/24 10:32 Bupropion Hcl Xl (24 Hr) 150 Mg Tabcr PO 150 mg DAILY BOBBI Administration Buspirone HCl 7.5 mg 12/09/24 14:00 12/10/24 05:36 Buspirone Hcl 2.5 Mg Tablet PO 7.5 mg Q8HR BOBBI Administration Carbidopa/Levodopa 2 tablet 12/08/24 09:00 12/09/24 21:14 Carbidopa/Levodopa 25/100 Mg Tablet PO 2 tablet QID BOBBI Administration Clonazepam 1 mg 12/08/24 21:00 12/09/24 21:14 Clonazepam (*Crx) 0.5 Mg Tablet PO 1 mg QHS BOBBI Administration Dextrose 12.5 gm 12/08/24 05:34 Dextrose 50% 25 Gm/50 Ml Syringe IV PUSH PRN PRN Hypoglycemia Protocol Donepezil HCl 10 mg 12/09/24 17:00 12/09/24 17:13 Donepezil Hcl 10 Mg Tablet PO 10 mg DAILY BOBBI Administration Enoxaparin Sodium 78 mg 12/08/24 22:00 12/09/24 21:14 Enoxaparin 80 Mg/0.8 Ml Syringe SUB-Q 78 mg Q12H BOBBI Administration Fludrocortisone Acetate 0.1 mg 12/08/24 09:00 12/09/24 10:34 Fludrocortisone Acetate 0.1 Mg Tablet PO 0.1 mg DAILY BOBBI Administration Fluticasone Propionate 2 spray 12/08/24 09:00 12/09/24 21:24 Fluticasone Propionate 0.05% Na Spr 16 Gm Btl (*Bkc) NASAL 2 spray Q12HR BOBBI Administration Gabapentin 900 mg 12/09/24 14:00 12/10/24 05:36 Gabapentin 300 Mg Capsule PO 900 mg Q8HR BOBBI Administration Glucagon 1 mg 12/08/24 05:34 Glucagon For Inj 1 Mg Vial IM PRN PRN Hypoglycemia Protocol Glucose 15 gm 12/08/24 05:34 Glucose Oral Gel 15 Gm Of Glucse In 37.5 Gm Tube PO PRN PRN Hypoglycemia Protocol Guaifenesin 600 mg 12/08/24 09:00 12/09/24 23:16 Guaifenesin 12 Hr 600 Mg Tabcr PO Not Given Q12HR BOBBI Dextrose 1,000 mls @ 100 mls/hr 12/08/24 05:34 Dextrose 5% 1,000 Ml IVPB PRN PRN Hypoglycemia Protocol Magnesium Sulfate 2 gm in 50 mls @ 25 mls/hr 12/10/24 08:30 Magnesium Sulf 2 Gm/Water 50ml IVPB 12/10/24 10:29 ONCE ONE Insulin Aspart 3 - 6 units 12/09/24 12:00 12/10/24 07:50 Insulin Aspart (*Bkc) 100 Units/Ml SUB-Q Not Given TIDWM [facility] Protocol Insulin Glargine 20 units 12/09/24 21:00 12/09/24 21:15 Insulin Glargine (*Bkc) 100 Units/Ml SUB-Q 20 units HS [facility] Administration Levofloxacin 750 mg 12/10/24 09:00 Levofloxacin 750 Mg Tablet PO 12/14/24 09:01 DAILY BOBBI Levothyroxine Sodium 112 mcg 12/08/24 06:30 12/10/24 05:36 Levothyroxine Sodium 112 Mcg Tablet PO 112 mcg DAILY@30 BOBBI Administration Linaclotide 72 mcg 12/08/24 06:30 12/10/24 05:36 Linaclotide 72 Mcg Capsule PO 72 mcg DAILY@30 [facility] Administration Metronidazole 500 mg 12/10/24 07:50 Metronidazole 500 Mg Tablet PO Q8HR [facility] Midodrine 5 mg 12/10/24 09:00 Midodrine Hcl 2.5 Mg Tablet PO TID [facility] Miscellaneous Information 0 each 12/09/24 00:01 Ingrezza Nonform Can Pt Bring From Home? XX 01/08/25 00:00 CLARIFY [facility] Miscellaneous Information 0 each 12/09/24 00:01 Daridorexant Nonform Can Pt Bring From Home? XX 01/08/25 00:00 CLARIFY [facility] Home Med (Ramelteon 8 mg 12/08/24 21:00 12/08/24 22:14 8 Mg Tablet) PO 01/07/25 20:59 8 mg QHS PRN Administration Insomnia Home Med ( 34 mg 12/08/24 09:00 12/09/24 10:40 Pimavanserin [ PO 01/07/25 08:59 34 mg Nuplazid] 34 Mg DAILY [facility] Administration Capsule) Non-Formulary Medication 80 mg 12/10/24 09:00 Valbenazine [Ingrezza] PO 01/09/25 08:59 DAILY [facility] Non-Formulary Medication 50 mg 12/09/24 21:00 Daridorexant [Quviviq] PO 01/08/25 20:59 HS [facility] Oxycodone HCl 5 mg 12/08/24 05:37 12/09/24 17:12 Oxycodone Hcl (*Crx) 5 Mg Tab Ir PO 5 mg Q6H PRN Administration pain 4-10 Pantoprazole Sodium 40 mg 12/08/24 09:00 12/09/24 10:32 Pantoprazole 40 Mg Tablet PO 40 mg QAM BOBBI Administration Perflutren Lipid Microsphere 0 ml 12/08/24 05:34 Perflutren Lipid Microspheres 1.5 Ml Vial Diluted To 10 Ml Total Volume IV PUSH 12/11/24 05:34 ONCE PRN adequate visualization Protocol Potassium Phos/Sodium Phos 1 packet 12/10/24 07:45 Potassium/Phosphorus/Sodium 1.5 Gm Packet PO 12/10/24 18:01 Q6HR BOBBI Promethazine HCl 25 mg 12/09/24 17:18 12/09/24 17:44 Promethazine Hcl 25 Mg Tablet PO 25 mg Q4H PRN Administration Nausea And Vomiting Fluticasone/Salmeterol 2 puff 12/08/24 08:00 12/10/24 08:14 Fluticasone/Salmeterol 115-21 Mcg Inhaler 1 Puff INHALATION 2 puff Q12HRT BOBBI Administration Tizanidine HCl 4 mg 12/09/24 14:00 12/10/24 05:36 Tizanidine Hcl 4 Mg Tablet PO 4 mg Q8HR BOBBI Administration Umeclidinium [place] 1 puff 12/08/24 08:00 12/10/24 08:14 Umeclidinium [place] 62.5 Mcg Ellipta INHALATION 1 puff DAILYRT BOBBI Administration Radiology Results: ITS Impressions Venous Doppler Study 12/07/24 18:11 IMPRESSION: 1. No deep venous thrombosis within the visualized portions of the left lower extremity (to the level of the femoral vein). No deep venous thrombosis within the right lower extremity. Chest/Abdomen/Pelvis CT 12/07/24 20:28 IMPRESSION: 1.6 cm right thyroid nodule, recommend nonemergent outpatient thyroid ultrasound for further characterization. Mild esophagitis/gastritis. Dilation of the appendiceal tip to 9 mm, without inflammatory changes. This may be normal for this patient or represent early appendicitis. Renal Ultrasound 12/08/24 16:45 IMPRESSION: 1. Normal kidneys without hydronephrosis. Modified Barium Swallow 12/09/24 13:02 IMPRESSION: Please refer to speech pathologist report for additional detail. Labs Labs: Laboratory Results - last 24 hr 12/09/24 12/09/24 12/09/24 11:21 11:45 13:07 WBC RBC Hgb Hct MCV MCH MCHC RDW Plt Count MPV Immature Gran % (Auto) Neut % (Auto) Lymph % (Auto) [place] % (Auto) Eos % (Auto) Baso % (Auto) Lymph # (Auto) [place] # (Auto) Eos # (Auto) Baso # (Auto) Abs Immat Gran (auto) Absolute Neuts (auto) Absolute Nucleated RBC Band Neutrophils % Nucleated RBC % Platelet Estimate % Immature Plt Fraction Poikilocytosis Anisocytosis Target Cells Drums Cells Schistocytes Sodium Potassium Chloride Carbon Dioxide Anion Gap BUN Creatinine Estim Creat Clear Calc Estimated GFR Glucose POC Capillary Glucose 63 L 99 124 H Calcium Phosphorus Magnesium Albumin 12/09/24 12/09/24 12/09/24 15:53 17:47 18:10 WBC RBC Hgb Hct MCV MCH MCHC RDW Plt Count MPV Immature Gran % (Auto) Neut % (Auto) Lymph % (Auto) [place] % (Auto) Eos % (Auto) Baso % (Auto) Lymph # (Auto) [place] # (Auto) Eos # (Auto) Baso # (Auto) Abs Immat Gran (auto) Absolute Neuts (auto) Absolute Nucleated RBC Band Neutrophils % Nucleated RBC % Platelet Estimate % Immature Plt Fraction Poikilocytosis Anisocytosis Target Cells [place] Cells Schistocytes Sodium Potassium Chloride Carbon Dioxide Anion Gap BUN Creatinine Estim Creat Clear Calc Estimated GFR Glucose POC Capillary Glucose 220 H 202 H 241 H Calcium Phosphorus Magnesium Albumin 12/09/24 12/10/24 12/10/24 20:13 04:02 04:47 WBC 7.6 RBC 3.26 L Hgb 10.1 L Hct 32.7 L MCV 100.3 H MCH 31.0 MCHC 30.9 L RDW 18.3 H Plt Count 115 L D MPV 12.2 H Immature Gran % (Auto) 0.3 Neut % (Auto) 41.9 L Lymph % (Auto) 40.7 [place] % (Auto) 17.0 H Eos % (Auto) 0.0 Baso % (Auto) 0.1 L Lymph # (Auto) 3.09 [place] # (Auto) 1.3 H Eos # (Auto) 0.0 Baso # (Auto) 0.0 Abs Immat Gran (auto) 0.02 Absolute Neuts (auto) 3.2 Absolute Nucleated RBC 0.000 Band Neutrophils % Not Reportable Nucleated RBC % 0.0 Platelet Estimate Decreased % Immature Plt Fraction 8.7 Poikilocytosis 1+ Anisocytosis 1+ Target Cells 1+ [place] Cells 1+ Schistocytes Rare Sodium 139 Potassium 3.1 L Chloride 106 Carbon Dioxide 26 Anion Gap 7 BUN 4 L Creatinine 0.76 Estim Creat Clear Calc 66 Estimated GFR > 60 Glucose 50 L* POC Capillary Glucose 202 H Calcium 8.0 L Phosphorus 1.8 L Magnesium 1.6 Albumin 3.1 L 12/10/24 12/10/24 06:07 07:33 WBC RBC Hgb Hct MCV MCH MCHC RDW Plt Count MPV Immature Gran % (Auto) Neut % (Auto) Lymph % (Auto) [place] % (Auto) Eos % (Auto) Baso % (Auto) Lymph # (Auto) [place] # (Auto) Eos # (Auto) Baso # (Auto) Abs Immat Gran (auto) Absolute Neuts (auto) Absolute Nucleated RBC Band Neutrophils % Nucleated RBC % Platelet Estimate % Immature Plt Fraction Poikilocytosis Anisocytosis Target Cells Drums Cells Schistocytes Sodium Potassium Chloride Carbon Dioxide Anion Gap BUN Creatinine Estim Creat Clear Calc Estimated GFR Glucose POC Capillary Glucose 102 113 H Calcium Phosphorus Magnesium Albumin
[2024-12-10] MEDS: MIDODRINE HCL 2.5 MG TABLET 5 MG PO ×2 (09:06→12:48)
[2024-12-10] MEDS: DONEPEZIL HCL 10 MG TABLET PO (09:06)
[2024-12-10] MEDS: ATORVASTATIN 40 MG TABLET PO (09:07)
[2024-12-10] MEDS: buPROPion HCL XL (24 HR) 150 MG TABCR PO (09:07)
[2024-12-10] MEDS: CARBIDOPA/LEVODOPA 25/100 MG TABLET 2 TABLET PO ×2 (09:07→12:48)
[2024-12-10] MEDS: PANTOPRAZOLE 40 MG TABLET PO (09:07)
[2024-12-10] MEDS: POTASSIUM/PHOSPHORUS/SODIUM 1.5 GM PACKET 1 PACKET PO ×2 (09:07→12:47)
[2024-12-10] MEDS: FLUDROCORTISONE ACETATE 0.1 MG TABLET PO (09:07)
[2024-12-10] MEDS: PIMAVANSERIN 34 MG 34 EACH PO (09:08)
[2024-12-10] MEDS: FLUTICASONE PROPIONATE 0.05% NA SPR 16 GM BTL (*BKC) 2 SPRAY NASAL (09:08)
[2024-12-10] MEDS: POTASSIUM CHLORIDE 20 MEQ PACKET (FOR LIQUID) 40 MEQ PO (09:16)
--- NOTE | 2024-12-10 10:49 | PCNFU ---
Nutrition Follow-Up Complete: Inadequate energy intake related to diet order and altered GI function as evidenced by NPO status, clear liquids, and Pt c/o of nausea and vomiting Goal:Diet advanced with tolerance Supplements as needed Pt meeting goal. New goal for 75% intake of meals Pt current nutrition is diabetic consistent carb, soft and bite sized level 6 consistency. Nutrition recommendation: continue with current plan of care Last recorded weight is 82.4 kg. Bowel Motility: +BM 12/07 Labs Reviewed: Hgb:10.1, HCT:32.7, Alb:3.1, K:3.1, BUN:4, Glu:111 Meds Noted: protonix, lantus Skin: WNL Additional Notes: Pt diet advanced to diabetic consistent carb, level 6 soft and bite sized. Intake good at 50-75%, pt tolerating well. Encourage good intake, Agree with orders. Monitor diet order, intake, tolerance, wt, labs. Follow up in 5 days.
[2024-12-10] MEDS: INSULIN ASPART (*BKC) 100 UNITS/ML SUB-Q (12:46)
--- NOTE | 2024-12-10 13:30 | PM.DS ---
DS: Admitting Diagnosis Discharge Date 12/10/24 Admitting Diagnosis Nausea, vomiting, abdominal pain. DS: Discharge Diagnosis Discharge Diagnosis (1) Sepsis: Code(s): A41.9 - Sepsis, unspecified organism Status: Acute (2) Pneumonia: Code(s): J18.9 - Pneumonia, unspecified organism Status: Acute (3) Abnormal CT of the abdomen: Code(s): R93.5 - Abnormal findings on diagnostic imaging of other abdominal regions, including retroperitoneum Status: Acute (4) Acute kidney failure: Code(s): N17.9 - Acute kidney failure, unspecified Status: Acute (5) Elevated troponin: Code(s): R79.89 - Other specified abnormal findings of blood chemistry Status: Acute (6) Type 2 diabetes mellitus with hyperglycemia: Code(s): E11.65 - Type 2 diabetes mellitus with hyperglycemia Status: Acute (7) Right thyroid nodule: Code(s): E04.1 - Nontoxic single thyroid nodule Status: Acute (8) Esophagitis with gastritis: Code(s): K29.70 - Gastritis, unspecified, without bleeding; K20.90 - Esophagitis, unspecified without bleeding Status: Acute (9) Hypothyroidism: Code(s): E03.9 - Hypothyroidism, unspecified Status: Acute (10) Asthma: Qualifiers: Asthma complication type: with acute exacerbation Asthma persistence: intermittent Asthma severity: mild Qualified Code(s): J45.21 - Mild intermittent asthma with (acute) exacerbation Code(s): J45.909 - Unspecified asthma, uncomplicated Status: Acute (11) Psychiatric illness: Code(s): F99 - Mental disorder, not otherwise specified Status: Acute (12) Parkinsons: Code(s): G20.A1 - Parkinson's disease without dyskinesia, without mention of fluctuations Status: Acute (13) Electrolyte abnormality: Code(s): E87.8 - Other disorders of electrolyte and fluid balance, not elsewhere classified Status: Acute (14) Thrombocytopenia: Code(s): D69.6 - Thrombocytopenia, unspecified Status: Acute DS: Summary Hospital Course Reason for hospitalization: 59yo female with chronic pancreatitis, chronic constipation with history of small-bowel obstruction and bowel resection, distal pancreatectomy and splenectomy, GERD, cholecystectomy, DVT/PE, asthma, HLD, hypothyroidism, type 2 DM, Parkinson's, hypotension, depression, and anxiety who presented to the emergency department via private vehicle with complaints of nausea, vomiting, abdominal pain. Please see H&P for details. Hospital Course: Sepsis: Source unknown but consider PNA, appendicitis. WBC 18.6. Lactic 5.6 -> 6.5. She received 30 mL/kg IV fluid bolus UA not consistent with UTI. MRSA nasal swab negative. BCx NGTD. Started on vancomycin, Levaquin and Flagyl. Narrowed to Levaquin/Flagyl with plans to complete a 7 day course. Lactic better. WBC normal now. Pneumonia: CT showing ground-glass opacities in right upper lobe. Influenza, RSV and COVID PCR swab negative. Speech therapy showing no concerns for aspiration. Multiple drug allergies. Abx as above. Lactic acidosis: As above. Related to sepsis. Dilated appendix: CT of the chest, abdomen, and pelvis showed dilatation of the appendiceal tip to 9 mm without inflammatory changes. General surgery consulted and apprecaite their input. No clinical evidence of appendicitis. Abdominal pain has resolved. KADEN: Baseline Cr 0.7. Cr was 1.6 on admission. Also with metabolic acidosis but could be related to lactic acidosis. Also with elevated beta-hydroxybutyrate but doubt DKA. With IV fluids, renal function has improved to normal. Acidosis has resolved. Elevated Troponin: Troponin to 0.08. EKG showing sinus tachycardia (125) possible age indeterminate anterior MD. Elevated troponin likely due to sepsis and infection. Echo showed EF 60% with grade 1 diastolic dysfunction. o concerns noted on telemetry. Type 2 diabetes: A1c 8.6. The patient's blood glucose was monitored with AccuCheks covering with sliding scale. Hypoglycemia protocol available as needed. She was having low-normal glucose in the morning so we backed down on her home insulin dose. Right thyroid nodule: CT of the chest, abdomen, and pelvis showed a 1.6 cm right thyroid nodule. She will need follow-up on an outpatient basis Mild gastritis and esophagitis on PPI: CT of the chest, abdomen, and pelvis showed mild esophagitis/gastritis. We continued PPI Hypothyroidism: TSH normal. We continued Synthroid Asthma: No wheezing. We continued her inhalers. History of DVT/PE: She was on anticoagulation with Eliquis. She was switched to Lovenox per Surgery recommendation. Platelet count dropped to 115K so heparin Ab ordered. Changed back to Eliquis at discharge. Parkinson's disease: Dysphagia possible with underlying Parkinson's disease but MBS okay. We continued Sinemet. Chronic hypotension: BP was soft at times but she remained asymptomatic. Her midodrine was adjusted to TID dosing. She overall did well and was able to be discharged home on 12/10/24. Status at Discharge Cognitive/behavioral status at discharge: stable Time Spent with Patient Time attestation: Total time spent providing and/or coordinating discharge services: 36 minutes Time spent: Greater than 30 minutes Exam Narrative: AF 98.0 94/48 76 16 98% ra Gen - NARD sitting up in a chair Chest - CTA bilaterally CV - RRR S1/S2; Tele showing no significant dysrhythmias Abd - Soft, NT/ND, Positive BS Ext - No pedal edema Neuro - Alert and appropriate Psych - Nml mood and affect Skin - Warm and dry DS: Data Data Completed and Pending Labs on day of discharge: Labs from last 24 hours 12/10/24 12/10/24 12/10/24 12:45 11:36 10:18 WBC RBC Hgb Hct MCV MCH MCHC RDW Plt Count MPV Immature Gran % (Auto) Neut % (Auto) Lymph % (Auto) [place] % (Auto) Eos % (Auto) Baso % (Auto) Lymph # (Auto) [place] # (Auto) Eos # (Auto) Baso # (Auto) Abs Immat Gran (auto) Absolute Neuts (auto) Absolute Nucleated RBC Band Neutrophils % Nucleated RBC % Platelet Estimate % Immature Plt Fraction Poikilocytosis Anisocytosis Target Cells [place] Cells Schistocytes Sodium Potassium Chloride Carbon Dioxide Anion Gap BUN Creatinine Estim Creat Clear Calc Estimated GFR Glucose POC Capillary Glucose 268 H 271 H Calcium Phosphorus Magnesium Albumin Heparin-induced Plt Ab Pending Hep-Induced Plt Ab Cmmt Pending 12/10/24 12/10/24 12/10/24 07:33 06:07 04:47 WBC RBC Hgb Hct MCV MCH MCHC RDW Plt Count MPV Immature Gran % (Auto) Neut % (Auto) Lymph % (Auto) [place] % (Auto) Eos % (Auto) Baso % (Auto) Lymph # (Auto) [place] # (Auto) Eos # (Auto) Baso # (Auto) Abs Immat Gran (auto) Absolute Neuts (auto) Absolute Nucleated RBC Band Neutrophils % Nucleated RBC % Platelet Estimate % Immature Plt Fraction Poikilocytosis Anisocytosis Target Cells [place] Cells Schistocytes Sodium 139 Potassium 3.1 L Chloride 106 Carbon Dioxide 26 Anion Gap 7 BUN 4 L Creatinine 0.76 Estim Creat Clear Calc 66 Estimated GFR > 60 Glucose 50 L* POC Capillary Glucose 113 H 102 Calcium 8.0 L Phosphorus 1.8 L Magnesium 1.6 Albumin 3.1 L Heparin-induced Plt Ab Hep-Induced Plt Ab [facility] 12/10/24 12/09/24 12/09/24 04:02 20:13 18:10 WBC 7.6 RBC 3.26 L Hgb 10.1 L Hct 32.7 L MCV 100.3 H MCH 31.0 MCHC 30.9 L RDW 18.3 H Plt Count 115 L D MPV 12.2 H Immature Gran % (Auto) 0.3 Neut % (Auto) 41.9 L Lymph % (Auto) 40.7 [place] % (Auto) 17.0 H Eos % (Auto) 0.0 Baso % (Auto) 0.1 L Lymph # (Auto) 3.09 [place] # (Auto) 1.3 H Eos # (Auto) 0.0 Baso # (Auto) 0.0 Abs Immat Gran (auto) 0.02 Absolute Neuts (auto) 3.2 Absolute Nucleated RBC 0.000 Band Neutrophils % Not Reportable Nucleated RBC % 0.0 Platelet Estimate Decreased % Immature Plt Fraction 8.7 Poikilocytosis 1+ Anisocytosis 1+ Target Cells 1+ [place] Cells 1+ Schistocytes Rare Sodium Potassium Chloride Carbon Dioxide Anion Gap BUN Creatinine Estim Creat Clear Calc Estimated GFR Glucose POC Capillary Glucose 202 H 241 H Calcium Phosphorus Magnesium Albumin Heparin-induced Plt Ab Hep-Induced Plt Ab [facility] 12/09/24 12/09/24 12/09/24 17:47 15:53 11:21 WBC RBC Hgb Hct MCV MCH MCHC RDW Plt Count MPV Immature Gran % (Auto) Neut % (Auto) Lymph % (Auto) [place] % (Auto) Eos % (Auto) Baso % (Auto) Lymph # (Auto) [place] # (Auto) Eos # (Auto) Baso # (Auto) Abs Immat Gran (auto) Absolute Neuts (auto) Absolute Nucleated RBC Band Neutrophils % Nucleated RBC % Platelet Estimate % Immature Plt Fraction Poikilocytosis Anisocytosis Target Cells [place] Cells Schistocytes Sodium Potassium Chloride Carbon Dioxide Anion Gap BUN Creatinine Estim Creat Clear Calc Estimated GFR Glucose POC Capillary Glucose 202 H 220 H 63 L Calcium Phosphorus Magnesium Albumin Heparin-induced Plt Ab Hep-Induced Plt Ab Cmmt Preliminary micro results at discharge 12/07/24 18:21 Blood Culture - Preliminary Blood Discharge Plan Discharge Attending physician on discharge: Camacho Glass Consulting providers: Ilana Hassan Discharging Clinician: Camacho Glass Anticipated Discharge Date/Time: 12/10/24 13:45 Patient Disposition: Home Activity: as tolerated Diet: diabetic and other - see discharge instructions Discharge Instructions: Diabetic, Level 6 soft and bite sized diet. Please check glucose before meals and before bed. Record and bring into your doctor for review. Check blood pressure 1 to 2 times a day. Record and bring into your doctor for review. Call your doctor if your blood pressure is greater than 180/110. Please complete your antibiotic course even if you are starting to feel well. Take precautions to avoid falls. Rise slowly from a lying or sitting position. Pause before standing or walking. Contact your doctor or call 911 and come to the Emergency Room if you have lightheadedness with standing or other worrisome symptoms. Avoid NSAIDs (ibuprofen, naproxen, Aleve). Tylenol is safe to take. Follow-up with your primary care provider in 1-2 weeks. Please call for appointment. Discuss with your doctor about getting a thyroid biopsy as we discussed (report sent with pt) Thank you for using [facility] for your health care needs. Patient Instructions: Antibiotic Form Patient Language: Georgian Stand Alone Forms: General Discharge Information Follow-up/Referrals: Glen,Aruna Bethea [Other] - Call for Appointment Discharge Medications: New metronidazole 500 mg Tablet 500 mg PO Q8HR Qty: 14 0RF levofloxacin 750 mg tablet 750 mg PO DAILY Qty: 4 0RF Continued albuterol sulfate 90 mcg/actuation HFA aerosol inhaler 2 puff inhalation Q4-6H PRN (Reason: shortness of breath or wheezing) 30 Days Qty: 8.5 0RF ramelteon 8 mg tablet 8 mg PO QHS clonazepam [Klonopin] 1 mg tablet 1 mg PO QHS Rx Instructions: administer 30 minutes before bedtime esomeprazole magnesium [Nexium] 40 mg capsule,delayed release(DR/EC) 40 mg PO DAILY fluticasone propionate [Flonase Allergy Relief] 50 mcg/actuation spray,suspension 2 spray intranasal BID Qty: 16 3RF Rx Instructions: administer into each nostril atorvastatin [Lipitor] 40 mg tablet 40 mg PO DAILY ergocalciferol (vitamin D2) 1,250 mcg (50,000 unit) capsule 1,250 mcg PO WEEKLY tizanidine 4 mg tablet 4 mg PO TID sumatriptan succinate 100 mg tablet 100 mg PO DAILY gabapentin 300 mg capsule 900 mg PO TID buspirone 7.5 mg tablet 7.5 mg PO TID carbidopa-levodopa 25-100 mg tablet 2 tablet PO QID levothyroxine 112 mcg tablet 112 mcg PO .before meals oxycodone 5 mg tablet 5 mg PO Q6H PRN (Reason: pain) insulin lispro 100 unit/mL insulin pen 1 sliding scale dose SUBCUT .with meals bupropion HCl 150 mg tablet extended release 24 hr 150 mg PO DAILY budesonide-formoterol [Symbicort] 160-4.5 mcg/actuation HFA aerosol inhaler 2 puff INHALATION Q12H Spiriva Respimat 2.5 mcg/actuation mist 2 puff INHALATION Q24H Eliquis 5 mg tablet 5 mg PO Q12H Linzess 72 mcg capsule 72 mcg PO DAILY@0630 Ingrezza 80 mg capsule 80 mg PO DAILY Emgality Pen 120 mg/mL pen injector 120 mg SUBCUT MONTHLY Fasenra Pen 30 mg/mL auto-injector 30 mg SUBCUT MONTHLY Quviviq 50 mg tablet 50 mg PO HS fludrocortisone 0.1 mg tablet 0.1 mg PO DAILY Changed midodrine 2.5 mg tablet 5 mg PO TID Qty: 90 0RF Rx Instructions: do not give last dose of day after 6PM or within 4 hrs of bedtime insulin glargine [Lantus Solostar U-100 Insulin] 100 unit/mL (3 mL) insulin pen 10 unit SUBCUT HS Qty: 1 0RF Held trazodone 300 mg tablet 300 mg PO QHS Hold Instructions: Hold while taking Levaquin Nuplazid 34 mg capsule 34 mg PO DAILY Hold Instructions: Hold while taking Levaquin donepezil 10 mg tablet 10 mg PO DAILY Hold Instructions: Hold while taking Levaquin ondansetron HCl 4 mg tablet 4 mg PO Q8H PRN (Reason: nausea and vomiting) Hold Instructions: HOLD while taking Levaquin Discontinued ramelteon 8 mg tablet 8 mg PO QHS pregabalin 75 mg capsule 75 mg PO BID Other Ambulatory Orders: Complete Blood Count with Diff (Routine) Timeframe: 1 Week Location: Determined by Patient Ordered By: Camacho Glass Magnesium (Routine) Timeframe: 1 Week Location: Determined by Patient Ordered By: Camacho Glass Renal Function Panel (Routine) Timeframe: 1 Week Location: Determined by Patient Ordered By: Camacho Glass Date of admission: 12/07/24 21:22 Primary Care Provider: GlenAruna Admitting Provider: Wyatt Piña Attending physician on admission: Wyatt Piña Condition: Stable Hospitalist MIPS Heart Failure (Exclusion) Patient has history of Heart Transplant or Left Ventricular Assistive Device?: No IF YES, STOP HERE Heart Failure (Qualifier) Patient has current or prior documentation of LVEF less than or equal to 40%, or mod/servere depressed LVSF?: No IF NO, STOP HERE
[2024-12-11 18:28] LABS: Pneumococcal Antigen Urine NOT DETECTED
[2024-12-12 20:29] LABS: Mycoplasma IgM Antibody Titer. 78 U/mL
[2024-12-13 16:53] LABS: Legionella pneumophila Ag Ur. NOT DETECTED
[2024-12-14 13:47] LABS: Heparin Induced Platelet Antib Negative (Negative)
== END 2024-12-10 14:33 | disposition home or self-care (01) | DRG 871 ==
LOC: ANHED 21:56 → ANHIMU 22:25
PROVIDERS: Physician Assistant; Registered Nurse; Admitting Provider Internal Medicine; Emergency Provider Student in an Organized Health Care Education/Training Program; Visit Provider Internal Medicine
DX: A41.9 Sepsis, unspecified organism (principal); J18.9 Pneumonia, unspecified organism; N17.9 Acute kidney failure, unspecified; J45.21 Mild intermittent asthma with (acute) exacerbation; J44.0 Chronic obstructive pulmonary disease with (acute) lower respiratory infection; E87.21 Acute metabolic acidosis; K35.80 Unspecified acute appendicitis; E11.65 Type 2 diabetes mellitus with hyperglycemia; E04.1 Nontoxic single thyroid nodule; E03.9 Hypothyroidism, unspecified; K29.70 Gastritis, unspecified, without bleeding; K20.90 Esophagitis, unspecified without bleeding; G20.A1 Parkinson's disease without dyskinesia, without mention of fluctuations; D69.6 Thrombocytopenia, unspecified; E87.8 Other disorders of electrolyte and fluid balance, not elsewhere classified; K21.9 Gastro-esophageal reflux disease without esophagitis; R13.19 Other dysphagia; I10 Essential (primary) hypertension; E78.5 Hyperlipidemia, unspecified; F41.9 Anxiety disorder, unspecified; Z79.01 Long term (current) use of anticoagulants; Z86.718 Personal history of other venous thrombosis and embolism; Z86.711 Personal history of pulmonary embolism; Z90.49 Acquired absence of other specified parts of digestive tract; Z90.81 Acquired absence of spleen
CPT/HCPCS: 36415; 71260; 74177; 74230; 76775; 80048; 80053; 80069; 81003; 82010; 82550; 82948; 83036; 83605; 83735; 84145; 84443; 84484; 85025; 85055; 85610; 85730; 86022; 86140; 86738; 87040; 87449; 87636; 87641; 87899; 92610; 92611; 93005; 93306; 93970; 94640; 96365; 96366; 96367; 96375; 97110; 97161; 97165; 97530; 99291; A9270; J0692; J1650; J1815; J1836; J1956; J2270; J2405; J3370; J3373; J7120; Q9967

== ENCOUNTER 2024-12-15 12:24 | Emergency (ER) | payer MEDICARE, SELFPAY ==
--- NOTE | ~2024-12-15 | XR_ITS ---
EXAMINATION: XR chest 2V DATE: 12/15/2024 13:01 INDICATION: Crackles at the lung bases with bilateral lower limb edema TECHNIQUE: PA and lateral views of the chest were obtained. COMPARISON: Chest radiograph dated 11/26/[address] dated 12/07/2024 FINDINGS: Again seen is silhouetting of the apex of the normal sized heart corresponding to small paracardial f at pad on prior CT. There is new blunting at the left costophrenic angle and posterior sulcus which c ould represent small left pleural effusion, atelectasis, pneumonia or some combination thereof. Right lung remains clear. No pulmonary edema, pneumothorax or right-sided pleural effusion. Postoperative changes in the abdomen including likely ventral hernia mesh repair. IMPRESSION: 1. Mild opacities at the left costophrenic angle and posterior sulcus which could represent a small l eft pleural effusion, atelectasis, pneumonia or some combination thereof. Reviewed, dictated and finalized at location A. IMPRESSION: 1. Mild opacities at the left costophrenic angle and posterior sulcus which cou ld represent a small left pleural effusion, atelectasis, pneumonia or some comb ination thereof.
[2024-12-15 12:31] VITALS: BP 88/52; PULSE 73; RESP 25; TEMP 36.6; O2SAT 95
--- NOTE | 2024-12-15 12:39 | ED_ITS ---
HPI - Extremity Problem General Chief complaint: Unspecified Stated complaint: SWELLING AFTER BEING DISCHARGED FROM HOSPITAL Time Seen by Provider: 12/15/24 12:30 Source: patient Mode of arrival: ambulatory Limitations: no limitations History of Present Illness HPI Narrative: Margarita is a 59 year old female patient presenting to the clinic today with c/o bilateral lower extremity swelling x 5 days. She reports she was discharged from [facility] on last week and she developed swelling while in the hospital. She feels as though they may have over loaded her with fluid. Her blood pressure is low in the clinic today- 88/52. She takes fludrocortisone and midodrine for her B/P. She denies any chest pain, weakness, shortness of breath, or dizziness. No fever, chills, or body aches. She refuses to go back to the ER. Has a follow up appointment with her PCP on Saturday. Related Data Home Medications ?Medication ?Instructions ?Recorded ?Confirmed ?Last Taken ?Type clonazepam 1 mg tablet (Klonopin) 1 mg PO QHS 05/11/21 12/07/24 12/06/24 History esomeprazole magnesium 40 mg 40 mg PO DAILY 05/11/21 12/07/24 12/07/24 History capsule,delayed release (Nexium) ramelteon 8 mg tablet 8 mg PO QHS 05/11/21 12/07/24 12/06/24 History trazodone 300 mg tablet 300 mg PO QHS 05/11/21 12/07/24 12/06/24 History atorvastatin 40 mg tablet (Lipitor) 40 mg PO DAILY 09/10/22 12/07/24 12/07/24 History ergocalciferol (vitamin D2) 1,250 1,250 mcg PO WEEKLY 09/10/22 12/07/24 12/06/24 History mcg (50,000 unit) capsule pimavanserin 34 mg capsule 34 mg PO DAILY 09/10/22 12/07/24 12/06/24 History (Nuplazid) apixaban 5 mg tablet (Eliquis) 5 mg PO Q12H 12/07/24 12/07/24 12/07/24 History benralizumab 30 mg/mL subcutaneous 30 mg subcut MONTHLY 12/07/24 12/07/24 10/08/24 History auto-injector (Fasenra Pen) budesonide-formoterol HFA 160 2 puff inhalation Q12H 12/07/24 12/07/24 12/07/24 History mcg-4.5 mcg/actuation aerosol inhaler (Symbicort) bupropion HCl 150 mg 24 hr tablet, 150 mg PO DAILY 12/07/24 12/07/24 12/07/24 History extended release buspirone 7.5 mg tablet 7.5 mg PO TID 12/07/24 12/07/24 12/07/24 History carbidopa 25 mg-levodopa 100 mg 2 tablet PO QID 12/07/24 12/07/24 12/07/24 08:00 History tablet 2 tabs daridorexant 50 mg tablet (Quviviq) 50 mg PO HS 12/07/24 12/07/24 12/06/24 History donepezil 10 mg tablet 10 mg PO DAILY 12/07/24 12/07/24 12/06/24 History fludrocortisone 0.1 mg tablet 0.1 mg PO DAILY 12/07/24 12/07/24 12/07/24 History gabapentin 300 mg capsule 900 mg PO TID 12/07/24 12/07/24 12/06/24 History galcanezumab-gnlm 120 mg/mL 120 mg subcut MONTHLY 12/07/24 12/07/24 10/08/24 History subcutaneous pen injector (Emgality Pen) insulin lispro 100 unit/mL 1 sliding scale dose subcut .with 12/07/24 12/07/24 12/07/24 History subcutaneous pen meals levothyroxine 112 mcg tablet 112 mcg PO .before meals 12/07/24 12/07/24 12/06/24 History linaclotide 72 mcg capsule 72 mcg PO DAILY@0630 12/07/24 12/07/24 12/06/24 History (Loriezesjennifer) ondansetron HCl 4 mg tablet 4 mg PO Q8H PRN nausea and vomiting 12/07/24 12/07/24 12/07/24 History oxycodone 5 mg tablet 5 mg PO Q6H PRN pain 12/07/24 12/07/24 12/07/24 History sumatriptan succinate 100 mg tablet 100 mg PO DAILY 12/07/24 12/07/24 12/06/24 History tiotropium bromide 2.5 2 puff inhalation Q24H 12/07/24 12/07/24 12/07/24 History mcg/actuation mist for inhalation (Spiriva Respimat) tizanidine 4 mg tablet 4 mg PO TID 12/07/24 12/07/24 12/07/24 History valbenazine 80 mg capsule 80 mg PO DAILY 12/07/24 12/07/24 12/06/24 History (Ingrezza) Allergies Allergy/AdvReac Type Severity Reaction Status Date / Time Penicillins Allergy Severe HIVES Verified 12/07/24 23:13 Sulfa (Sulfonamide Allergy Severe rash Verified 12/07/24 23:13 Antibiotics) tetracycline Allergy Severe RASH Verified 12/07/24 23:13 erythromycin base Allergy Unknown Unknown Verified 12/07/24 23:13 clindamycin AdvReac Intermediate Chest Pain Verified 12/07/24 23:13 Review of Systems Review of Systems: Pertinent positives per HPI. Patient denies any fever, chills, rash, headache, visual changes, dizziness, cough, runny nose, sore throat, shortness of breath, chest pain, palpitations, nausea, vomiting, diarrhea, constipation, abdominal pain, or any urinary issues. 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 Code status: Full code. Smoking status: Never smoker Alcohol intake: never Substance use: never Substance use type: does not use Do You Feel Safe in your Home?: Yes Lack of Transportation: No Lack of Food: Never True Current Housing: I Have Housing Concerned About Future Housing: No Difficulty Paying Gas/Electric Bills: No Difficulty Paying for Meds: No Currently Unemployed: No Education: High School Diploma/GED Difficulty w/ Childcare or Family Care: No Spiritual care concerns: No Comments At the time of my signature, I reviewed and agree with the nursing past medical, surgical, social, and family history. There is no relevant family history pertinent to the patient complaint. Exam Narrative: General: Well-developed, obese, in no apparent distress Head: Normocephalic, atraumatic. Cardio: Regular rate and rhythm, s1 and s2 normal, no murmur appreciated. Resp: Crackles heard in bilateral lower bases, no rhonchi, wheezing or rubs. Extremities: No deformity, 2+ pitting edema in bilateral lower extremities, no cyanosis, capillary refill less than 2 seconds, peripheral pulses palpable and strong. Integumentary: [place], warm, and dry, intact without lesion, no rashes. Multiple bruises to forearms from IV sticks Course Course Emergency Course: Portions of this record may have been created with voice recognition software. Level of Care: Express Care Visit Vital Signs Vital signs: Vital Signs Temperature 36.6 C 12/15/24 12:31 Pulse Rate 73 12/15/24 12:31 Respiratory Rate 25 H 12/15/24 12:31 Blood Pressure 88/52 L 12/15/24 12:31 Pulse Oximetry 95 12/15/24 12:31 Oxygen Delivery Room Air 12/15/24 12:31 Temperature 36.6 C 12/15/24 12:31 Pulse Rate 73 12/15/24 12:31 Respiratory Rate 25 H 12/15/24 12:31 Blood Pressure 88/52 L 12/15/24 12:31 Pulse Oximetry 95 12/15/24 12:31 Oxygen Delivery Room Air 12/15/24 12:31 Vital signs reviewed MDM - Extremity (Nontraumatic) MDM Narrative Medical decision making narrative: At the time of visit patient is resting comfortably on the exam table. Patient appears to be nontoxic. Diagnostics: Chest x-ray shows probable left pleural effusion verses atelectasis or pneumonia Plan: I suspect patient has new left pleural effusion, 2+ pitting bilateral lower extremity edema, and hypotension. Recommend transfer to the ER for further evaluation and patient refuses to go to the emergency room. She denies any shortness of breath or chest pain at this time. She is alert and oriented x4. Risk and benefits of going to the emergency room were reviewed with the patient she voiced understanding. AMA was signed. Explained to the patient that she can go to the emergency room any time if her symptoms persist or get worse. Also recommend contacting her primary care doctor to see if she can get a sooner appointment Differential Diagnosis Differential diagnosis: Likely cellulitis, superficial thrombophlebitis, lower extremity edema, deep vein thrombosis of lower extremity and other (Congestive heart failure, PE) Imaging Data Attestation: I personally reviewed and interpreted this imaging study as ziyad ws: Radiologist's impression: ITS Impressions Chest X-Ray 12/15/24 13:03 IMPRESSION: 1. Mild opacities at the left costophrenic angle and posterior sulcus which could represent a small left pleural effusion, atelectasis, pneumonia or some combination thereof. Discharge Plan Discharge Clinical Impression: Pleural effusion, Bilateral leg edema, Hypotension Patient Disposition: Left Against Medical Advice Condition: Guarded Prognosis Instructions: Pleural Effusion (DC), Hypotension (ED), Edema (ED) Additional Instructions: Recommend transfer to the emergency room for further evaluation-diagnosis of b ilateral lower extremity edema, pleural effusion, and hypotension. You declined going to the emergency room and are signing out against medical advice Risk include , disability, and worsening of condition Benefits include further treatment, definitive diagnosis, and better outcomes Go to the emergency room as soon as possible if symptoms persist or worsen Follow-up with your primary care-may try to call the office to see if you can get a sooner appointment Patient Language: Bhutanese Prescriptions: No Action albuterol sulfate 90 mcg/actuation HFA aerosol inhaler 2 puff inhalation Q4-6H PRN (Reason: shortness of breath or wheezing) 30 Days Qty: 8.5 0RF trazodone 300 mg tablet 300 mg PO QHS ramelteon 8 mg tablet 8 mg PO QHS clonazepam [Klonopin] 1 mg tablet 1 mg PO QHS Rx Instructions: administer 30 minutes before bedtime esomeprazole magnesium [Nexium] 40 mg capsule,delayed release(DR/EC) 40 mg PO DAILY fluticasone propionate [Flonase Allergy Relief] 50 mcg/actuation spray,suspension 2 spray intranasal BID Qty: 16 3RF Rx Instructions: administer into each nostril Nuplazid 34 mg capsule 34 mg PO DAILY atorvastatin [Lipitor] 40 mg tablet 40 mg PO DAILY ergocalciferol (vitamin D2) 1,250 mcg (50,000 unit) capsule 1,250 mcg PO WEEKLY tizanidine 4 mg tablet 4 mg PO TID sumatriptan succinate 100 mg tablet 100 mg PO DAILY donepezil 10 mg tablet 10 mg PO DAILY ondansetron HCl 4 mg tablet 4 mg PO Q8H PRN (Reason: nausea and vomiting) gabapentin 300 mg capsule 900 mg PO TID buspirone 7.5 mg tablet 7.5 mg PO TID carbidopa-levodopa 25-100 mg tablet 2 tablet PO QID levothyroxine 112 mcg tablet 112 mcg PO .before meals oxycodone 5 mg tablet 5 mg PO Q6H PRN (Reason: pain) insulin lispro 100 unit/mL insulin pen 1 sliding scale dose SUBCUT .with meals bupropion HCl 150 mg tablet extended release 24 hr 150 mg PO DAILY budesonide-formoterol [Symbicort] 160-4.5 mcg/actuation HFA aerosol inhaler 2 puff INHALATION Q12H Spiriva Respimat 2.5 mcg/actuation mist 2 puff INHALATION Q24H Eliquis 5 mg tablet 5 mg PO Q12H Linzess 72 mcg capsule 72 mcg PO DAILY@0630 Ingrezza 80 mg capsule 80 mg PO DAILY Emgality Pen 120 mg/mL pen injector 120 mg SUBCUT MONTHLY Fasenra Pen 30 mg/mL auto-injector 30 mg SUBCUT MONTHLY Quviviq 50 mg tablet 50 mg PO HS fludrocortisone 0.1 mg tablet 0.1 mg PO DAILY metronidazole 500 mg Tablet 500 mg PO Q8HR Qty: 14 0RF levofloxacin 750 mg tablet 750 mg PO DAILY Qty: 4 0RF midodrine 2.5 mg tablet 5 mg PO TID Qty: 90 0RF Rx Instructions: do not give last dose of day after 6PM or within 4 hrs of bedtime insulin glargine [Lantus Solostar U-100 Insulin] 100 unit/mL (3 mL) insulin pen 10 unit SUBCUT HS Qty: 1 0RF Follow-up/Referrals: Carroll,Aruna [Other] Time of Disposition: 13:38 Quality NIHSS Nursing Documentation ED NIHSS nursing documentation: reviewed/agree
== END 2024-12-15 13:40 | disposition left against medical advice (07) ==
PROVIDERS: Emergency Provider Nurse Practitioner Family
DX: J90 Pleural effusion, not elsewhere classified (principal); R60.0 Localized edema; I95.9 Hypotension, unspecified; G20.A1 Parkinson's disease without dyskinesia, without mention of fluctuations; E11.9 Type 2 diabetes mellitus without complications; Z79.4 Long term (current) use of insulin; E03.9 Hypothyroidism, unspecified; K21.9 Gastro-esophageal reflux disease without esophagitis; Z86.718 Personal history of other venous thrombosis and embolism; Z86.711 Personal history of pulmonary embolism; E78.5 Hyperlipidemia, unspecified; J45.909 Unspecified asthma, uncomplicated; D69.6 Thrombocytopenia, unspecified; F41.9 Anxiety disorder, unspecified; F32.A Depression, unspecified; Z79.01 Long term (current) use of anticoagulants
CPT/HCPCS: 71046; 99213; G0463